=== PATIENT | female | born 1930 | race Caucasian/White ===

== ENCOUNTER 2017-02-03 17:12 | Emergency (ER) | payer OTHER ==
[~2017-02-03] VITALS: Ht 154.9 cm; Wt 60.3 kg
--- NOTE | 2017-02-03 17:54 | ED MVC/FALL/TRAUMA COMPLAINT ---
History of Present Illness General Chief Complaint: Fall Stated Complaint: RIGHT SIDE PAIN, BRUISE TO HEAD S/P FALL 2HOURS Source: patient, family Exam Limitations: no limitations Vital Signs & Intake/Output Vital Signs & Intake/Output Vital Signs Date Time Temp Pulse Resp B/P B/P Pulse O2 O2 Flow FiO2 Mean Ox Delivery Rate 02/03 1930 97.7 66 18 166/80 97 Room Air 02/03 1856 Room Air 02/03 1732 98.4 73 15 122/74 100 Room Air ED Intake and Output 02/04 0000 02/03 1200 Intake Total 120 Output Total Balance 120 Intake, Oral 120 Patient 133 lb Weight Weight Reported by Patient Measurement Method Allergies Coded Allergies: NO KNOWN ALLERGIES (12/28/12) Triage Note: PT TO ED S/P FALL IN THE YARD AT HOME, PT REPORTING SHE WAS BENDING DOWN TO PICK SOMETHING UP AND ACCIDENTLY FELL FORWARD. NOW C/O R SIDED RIB PAIN, DENIES CP, SOB, SANTIZO, DENIES DIZZINESS P/T FALL. SMALL AREA OF BRUISING OVER R EYE. Triage Nurses Notes Reviewed? yes Onset: Abrupt Duration: hour(s): (3) Timing: single episode today Severity: mild, moderate Method of Injury: fall Loss of Consciousness: no loss of consciousness No Modifying Factors: none Associated Symptoms: RIB PAIN HPI: This is an 86-year-old female presents to the ER with her daughter for chief complaint of trip and fall at 3:00. She states she was outside in the garden raking when she lost balance and hit her head on the soft dirt. She fell and hit the right side of her head as well as her right ribs. She was able to get up on her own and called her daughter. They brought her here for evaluation. She was given 2 Tylenol prior to arrival. Patient does take baby aspirin daily. No other anticoagulants. Past History Travel History Traveled to [place] past 21 day No Medical History Any Pertinent Medical History? see below for history Neurological: dementia EENT: NONE Cardiovascular: hypertension, hyperlipidemia Respiratory: NONE Gastrointestinal: NONE Hepatic: NONE Renal: NONE Musculoskeletal: NONE Psychiatric: NONE Endocrine: NONE Blood Disorders: NONE Cancer(s): NONE CHILDR[employer] DIRECTOR/Reproductive: NONE Pneumonia Vaccine: 10/22/08 Influenza Vaccine: 06/21/13 Surgical History Surgical History: non-contributory Psychosocial History Who do you live with Patient/Self What is your primary language [place]ian Tobacco Use: Never used ETOH Use: denies use Illicit Drug Use: denies illicit drug use Family History Hx Contributory? No Review of Systems Review of Systems Constitutional: Denies: chills, fever. Eyes: Reports: no symptoms. Ears, Nose, Throat, Mouth: Reports: no symptoms. Respiratory: Denies: cough, short of breath, sputum production. Cardiovascular: Reports: chest pain. Denies: palpitations. Gastrointestinal/Abdominal: Denies: abdominal pain. Genitourinary: Reports: no symptoms. Musculoskeletal: Reports: see HPI (RIGHT RIB PAIN). Skin: Reports: see HPI. Neurological/Psychological: Denies: confusion, headache. All Other Systems: Reviewed and Negative Physical Exam Physical Exam General Appearance: well developed/nourished, alert, awake, anxious, mild distress Head: ABRASION TO RIGHT FOREHEAD Eyes: Bilateral: normal appearance, PERRL, EOMI. Ears, Nose, Throat, Mouth: hearing grossly normal, moist mucous membrane Neck: normal inspection, supple, full range of motion Respiratory: normal breath sounds, no respiratory distress, TENDER OVER RIGHT LOWER RIBS NO BRUISING Cardiovascular: regular rate/rhythm Peripheral Pulses: 2+ radial (R), 2+ radial (L) Gastrointestinal: normal bowel sounds, soft, non-tender Back: normal inspection, normal range of motion Neurologic/Psych: no motor/sensory deficits, awake, alert, oriented x 3 Skin: intact, normal color, warm/dry Core Measures ACS in differential dx? No Severe Sepsis Present: No Septic Shock Present: No Progress Differential Diagnosis: ICH, pnemothorax, rIB FRACTURE Plan of Care: Orders Procedure Date/time Status CT CHEST WO IV CONTRAST 02/04 1812 Active Diagnostic Imaging: Viewed by Me: CT Scan. Discussed w/RAD: CT Scan. Radiology Impression: PATIENT: AKBAR VILA PRESENT AGE: 86 PATIENT ACCOUNT NO: [id number] : [birth year] LOCATION: [facility] ORDERING PHYSICIAN: SD REYES MD SERVICE DATE: 02/03/17-1811 EXAM TYPE: CAT - CT HEAD WO IV CONTRAST EXAMINATION: CT HEAD WITHOUT CONTRAST CLINICAL INFORMATION: Evaluate for bleed status post fall onto head. COMPARISON: None TECHNIQUE: Contiguous axial imaging was performed from the skull base to vertex without intravenous administration of contrast. DLP: 588 mGy-cm FINDINGS: There is no evidence of acute intracranial hemorrhage or territorial infarction. No abnormal mass effect or midline shift is seen. Giraldo to white matter differentiation is well preserved. No extra-axial fluid collections are identified. The ventricles are normal in size. There is no abnormal attenuation within the brain parenchyma. The osseous structures and soft tissues are normal. The mastoid air cells and visualized portions of the paranasal sinuses are well aerated. There has been bilateral lens extractions. Arterial calcification prominent but unchanged IMPRESSION: No acute intracranial pathology. No change. DICTATED BY: VISHNU HUNG MD DATE/TIME DICTATED:02/03/171844 PHONE TRIAGE SPECIALIST:FLOR DATE/TIME TRANSCRIBED:02/03/171844 CONFIDENTIAL, DO NOT COPY WITHOUT APPROPRIATE AUTHORIZATION. <Electronically signed in Other Vendor System> SIGNED BY: VISHNU HUNG MD 02/03/171850, PATIENT: AKBAR VILA PRESENT AGE: 86 PATIENT ACCOUNT NO: [id number] : [birth year] LOCATION: [facility] ORDERING PHYSICIAN: SD REYES MD SERVICE DATE: 02/03/17 EXAM TYPE: CAT - CT CHEST WO IV CONTRAST EXAMINATION : CT CHEST WITHOUT CONTRAST CLINICAL INFORMATION: Right chest wall pain after fall. Evaluate for a fracture. COMPARISON: Chest x-ray October 2013. TECHNIQUE: Multidetector volumetric CT imaging of the chest was done. Axial MIP volume rendering provided. Sagittal and coronal reformatted images were obtained. DLP: 294 mGy-cm. FINDINGS: LUNGS: Scattered rounded calcified nodules throughout both lungs measuring up to 3 mm compatible with multiple calcified granulomas. In the right lung on image [id number] there is a 2 mm pleural-based nodular density without calcification. Lungs otherwise clear. No effusions. MEDIASTINUM: There is prominent arterial calcification of the aorta and coronary vessels. PLEURA: There is no pleural effusion. No pleural mass or thickening. AXILLA: No lymphadenopathy. UPPER ABDOMEN: There are 3 hypodense lesions both having the appearance of simple cyst involving the anterior aspect of the left lobe and anterior aspect of the right lobe as seen on the axial images 48 and 52 and 47, series 2. OSSEOUS STRUCTURES: No rib fractures. Multilevel spondylosis of the dorsal spine. IMPRESSION: 1. No rib fracture or acute abnormality. 2. Numerous small nodules throughout both lungs some abutting the pleura all but one demonstrating mostly calcified and compatible with granulomata. There is a single 2 mm pleural-based density in the right lung most likely reflects a noncalcified granuloma. Follow-up per Fleischner criteria if felt clinically necessary. Various management parameters for solitary pulmonary nodules are in the literature. According to the Fleischner Society, recommendations for pulmonary nodules are as follows: Nodule size < or = to 4 mm in LOW RISK PATIENTS: No follow up needed. Nodule size < or = to 4 mm in HIGH RISK PATIENTS: Follow up CT at 12 months; if unchanged, no further follow up. DICTATED BY: VISHNU HUNG MD DATE/TIME DICTATED:02/03/171848 PHONE TRIAGE SPECIALIST: FLOR DATE/TIME TRANSCRIBED:02/03/171848 CONFIDENTIAL, DO NOT COPY WITHOUT APPROPRIATE AUTHORIZATION. <Electronically signed in Other Vendor System> SIGNED BY: VISHNU HUNG MD 02/03/171906 Departure Departure Time of Disposition: 1910 Disposition: HOME OR SELF CARE Condition: Stable Clinical Impression Primary Impression: Contusion of rib on right side Secondary Impressions: Abnormal CT of the chest, Facial abrasion Referrals: MARYELLEN ROGERS MD (PCP/Family) Additional Instructions: Take Tylenol as needed for pain. There is no evidence of any bleeding or fractures on your workup. Take copy of the CAT scan results see your primary care doctor for follow-up. Return as needed. Departure Forms: Customer Survey General Discharge Information
--- NOTE | 2017-02-03 18:51 | CT SCAN REPORT ---
EXAMINATION: CT HEAD WITHOUT CONTRAST CLINICAL INFORMATION: Evaluate for bleed status post fall onto head. COMPARISON: None TECHNIQUE: Contiguous axial imaging was performed from the skull base to vertex without intravenous administration of contrast. DLP: 588 mGy-cm FINDINGS: There is no evidence of acute intracranial hemorrhage or territorial infarction. No abnormal mass effect or midline shift is seen. Giraldo to white matter differentiation is well preserved. No extra-axial fluid collections are identified. The ventricles are normal in size. There is no abnormal attenuation within the brain parenchyma. The osseous structures and soft tissues are normal. The mastoid air cells and visualized portions of the paranasal sinuses are well aerated. There has been bilateral lens extractions. Arterial calcification prominent but unchanged IMPRESSION: No acute intracranial pathology. No change.
--- NOTE | 2017-02-03 19:07 | CT SCAN REPORT ---
EXAMINATION: CT CHEST WITHOUT CONTRAST CLINICAL INFORMATION: Right chest wall pain after fall. Evaluate for a fracture. COMPARISON: Chest x-ray October 2013. TECHNIQUE: Multidetector volumetric CT imaging of the chest was done. Axial MIP volume rendering provided. Sagittal and coronal reformatted images were obtained. DLP: 294 mGy-cm. FINDINGS: LUNGS: Scattered rounded calcified nodules throughout both lungs measuring up to 3 mm compatible with multiple calcified granulomas. In the right lung on image [id number] there is a 2 mm pleural-based nodular density without calcification. Lungs otherwise clear. No effusions. MEDIASTINUM: There is prominent arterial calcification of the aorta and coronary vessels. PLEURA: There is no pleural effusion. No pleural mass or thickening. AXILLA: No lymphadenopathy. UPPER ABDOMEN: There are 3 hypodense lesions both having the appearance of simple cyst involving the anterior aspect of the left lobe and anterior aspect of the right lobe as seen on the axial images 48 and 52 and 47, series 2. OSSEOUS STRUCTURES: No rib fractures. Multilevel spondylosis of the dorsal spine. IMPRESSION: 1. No rib fracture or acute abnormality. 2. Numerous small nodules throughout both lungs some abutting the pleura all but one demonstrating mostly calcified and compatible with granulomata. There is a single 2 mm pleural-based density in the right lung most likely reflects a noncalcified granuloma. Follow-up per Fleischner criteria if felt clinically necessary. Various management parameters for solitary pulmonary nodules are in the literature. According to the Fleischner Society, recommendations for pulmonary nodules are as follows: Nodule size < or = to 4 mm in LOW RISK PATIENTS: No follow up needed. Nodule size < or = to 4 mm in HIGH RISK PATIENTS: Follow up CT at 12 months; if unchanged, no further follow up.
[2017-02-03 19:30] VITALS: BP 166/80
== END 2017-02-03 19:32 ==
LOC: ERH 17:12
DX: S20.211A Contusion of right front wall of thorax, initial encounter (principal); S00.81XA Abrasion of other part of head, initial encounter; W18.09XA Striking against other object with subsequent fall, initial encounter; Y92.017 Garden or yard in single-family (private) house as the place of occurrence of the external cause; Y93.H1 Activity, digging, shoveling and raking

== ENCOUNTER 2017-11-02 13:06 | Inpatient (IN) | payer OTHER ==
[~2017-11-02] VITALS: Ht 157.5 cm; Wt 65.8 kg
--- NOTE | 2017-11-02 15:06 | CT SCAN REPORT ---
CT HEAD WITHOUT IV CONTRAST CT CERVICAL SPINE WITHOUT IV CONTRAST INDICATION: Fall with head strike on blood thinners. COMPARISON: Head CT 02/03/2017. TECHNIQUE: Multidetector CT acquisitions of the head and cervical spine were obtained without IV contrast. Multiplanar reformats were acquired and utilized for image interpretation. FINDINGS: HEAD: There is global cerebral volume loss. There is no intracranial hemorrhage, hydrocephalus, extra-axial surface collection, midline shift, or other herniation pattern. Giraldo to white matter differentiation is diffusely maintained without evidence of an evolved acute territorial infarct. The basilar cisterns are preserved. There is a 0.8 cm soft tissue density mass between the medial and inferior rectus muscles of the left orbit that is not present on the 02/03/[address] Given that this finding was not present previously, an orbital protocol MRI with and without IV contrast would be helpful in further assessment. No acute osseous abnormality. The paranasal sinuses and the mastoid air cells are well-aerated. Degenerative changes involving the TMJs bilaterally. CERVICAL SPINE: There is anatomic alignment of the vertebral bodies and posterior elements. Multilevel cervical spondylosis with multilevel hypertrophic facet arthropathy and mild disc space narrowing. Hypertrophic degenerative changes of the atlantodental interval. There is no acute fracture and there is no acute subluxation. The craniocervical and atlantoaxial articulations are normal. There is no prevertebral soft tissue swelling. No significant soft tissue abnormality within the neck. Calcified granuloma at the right lung apex. Partially imaged small right pleural effusion. IMPRESSION: 1. No acute intracranial abnormality. There is a 0.8 cm soft tissue density mass between the medial and inferior rectus muscles of the left orbit that is not present on the 02/03/[address] Given that this finding was not present previously, an orbital protocol MRI with and without IV contrast would be helpful in further assessment. 2. No acute osseous abnormality within the cervical spine. Cervical spondylosis. 3. Partially imaged small right pleural effusion.
--- NOTE | 2017-11-02 15:23 | ED CARDIAC/CP/PALPITATIONS ---
History of Present Illness General Chief Complaint: Fall Stated Complaint: BIBA S/P FALL, +HEADSTRIKE, +THINNERS. AAOX3 Source: patient, family, old records Exam Limitations: no limitations Vital Signs & Intake/Output Vital Signs & Intake/Output Vital Signs Date Time Temp Pulse Resp B/P B/P Pulse O2 O2 Flow FiO2 Mean Ox Delivery Rate 11/05 2214 114 138/82 11/05 2215 114 138/82 11/05 1748 104 11/05 1600 Room Air 11/05 1400 98.3 78 20 110/62 93 Room Air 11/05 0949 72 122/60 11/05 0949 72 122/60 11/05 0949 72 122/60 11/05 0919 Room Air 11/05 0712 98.1 72 20 122/60 94 Room Air ED Intake and Output 11/05 0000 11/04 1200 Intake Total 750 210 Output Total 850 Balance -100 210 Intake, IV 10 Intake, Oral 750 200 Number 2 Bowel Movements Output, Urine 850 Allergies Coded Allergies: NO KNOWN ALLERGIES (12/28/12) Triage Note: PT TO ED S/P TRIP AND FALL THIS MORNING, LAC NOTED TO LOWER LIP AREA. PT ON ELIQUIS FOR A-FIB. SKIN TEARS TO RIGHT ARM. Triage Nurses Notes Reviewed? yes Onset: Abrupt Duration: day(s): HPI: 86-year-old female comes into emergency room with shortness of breath and leg swelling. Patient lives by herself. She's had increased shortness of breath with exertion and increased swelling in her legs bilaterally. She has had a nonproductive cough. Today she tripped at home and fell and hit her face on the ground. No LOC. She is on oral anticoagulants for paroxysmal A. fib. (Paul Owens) Reconcile Medications Apixaban (Eliquis) 2.5 MG TABLET 1 TAB PO BID A FIB (Reported) Calcium Carbonate/Vitamin D3 (Caltrate 600 + D Tablet) 600 MG-800 TABLET 1 TAB PO DAILY SUPPLEMENT (Reported) Escitalopram Oxalate 10 MG TABLET 1 TAB PO QPM MENTAL HEALTH (Reported) Furosemide (Lasix) 20 MG TABLET 1 TAB PO BID CHF Lisinopril 40 MG TABLET 1 TAB PO EVENING HIGH BLOOD PRESSURE (Reported) Metoprolol Tartrate 50 MG TABLET 1 TAB PO BID HIGH BLOOD PRESSURE (Reported) Nabumetone 750 MG TABLET 1 TAB PO BID PRN PAIN SCALE 4-6 (MODERATE) (Reported ) Quetiapine Fumarate 25 MG TABLET 1 TAB PO QPM MENTAL HEALTH (Reported) Quetiapine Fumarate 25 MG TABLET 0.5 TAB PO QAM MENTAL HEALTH (Reported) (Alysa BYRD,Yonny Perry) Past History Travel History Traveled to [place] past 21 day No Medical History Any Pertinent Medical History? see below for history Neurological: dementia EENT: NONE Cardiovascular: hyperlipidemia, HTN. 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 No (Paul Owens) Review of Systems Review of Systems Constitutional: Reports: no symptoms. EENTM: Reports: no symptoms. Respiratory: Reports: see HPI. Cardiovascular: Reports: see HPI. GI: Reports: no symptoms. Genitourinary: Reports: no symptoms. Musculoskeletal: Reports: see HPI. Skin: Reports: see HPI. Neurological/Psychological: Reports: no symptoms. Hematologic/Endocrine: Reports: no symptoms. Immunologic/Allergic: Reports: no symptoms. All Other Systems: Reviewed and Negative (Paul Owens) Physical Exam Physical Exam General Appearance: alert, awake, mild distress Head: atraumatic, 1 cm laceration lower lip Eyes: Bilateral: normal appearance. Ears, Nose, Throat: normal ENT inspection, hearing grossly normal Neck: normal inspection Respiratory: no respiratory distress Cardiovascular: irregularly irregular Gastrointestinal: soft Back: decreased range of motion Extremities: pedal edema Neurologic/Psych: awake, alert Skin: intact, normal color Core Measures ACS in differential dx? Yes CVA/TIA Diagnosis No Sepsis Present: No Sepsis Focused Exam Completed? No (Paul Owens) Progress Differential Diagnosis: AMI, aortic dissection, atrial fibrillation, CHF/pulm edema, hyperthyroid, myocarditis, pancreatitis, pericarditis, pneumonia, pneumothorax, pulmonary embolism, PUD/GERD, respiratory failure, unstable angina Plan of Care: Orders Procedure Date/time Status BASIC ELECTROLYTES PLUS BUN&CR 11/06 0600 Active Restraint- Medical 11/05 0100 Complete Therapeutic Activities 11/05 UNK Complete Gait Training 11/05 UNK Complete OT EVAL MOD COMPLEX 45 MIN 11/05 UNK Complete Current Medications Sig/Darek Start time Last Medication Dose Stop Time Status Admin Diltiazem HCl 90 MG DAILY 11/06 1000 CAN (Cardizem SR) Diltiazem HCl 120 MG DAILY 11/06 1000 AC (Cardizem CD) Furosemide 20 MG 7:30 AM, & 4:30 PM 11/04 1630 AC 11/05 (Lasix) 1752 Quetiapine Fumarate 12.5 MG 0900 11/04 0900 AC 11/05 (Seroquel) 0950 Quetiapine Fumarate 25 MG 1800 11/03 1800 AC 11/05 (Seroquel) 1749 Apixaban 2.5 MG BID 11/02 2200 AC 11/05 (Eliquis) 2213 Escitalopram Oxalate 10 MG QPM 11/02 2200 AC 11/05 (Lexapro) 2213 Metoprolol Tartrate 50 MG BID 11/02 2200 AC 11/05 (Lopressor) 2215 Lisinopril 40 MG DAILY 11/02 1900 AC 11/05 (Prinivil) 0949 Acetaminophen 650 MG Q6P PRN 11/02 1845 AC 11/02 (Tylenol) 1854 Laboratory Tests 11/05/17 0622: Anion Gap 10, Estimated GFR 59 L, BUN/Creatinine Ratio 37.8 H Diagnostic Imaging: Viewed by Me: Radiology Read, CT Scan. Discussed w/RAD: Radiology Read, CT Scan. Radiology Impression: PATIENT: AKBAR VILA PRESENT AGE: 86 PATIENT ACCOUNT NO: [id number] : [birth year] LOCATION: [facility] ORDERING PHYSICIAN: Paul RIGGS SERVICE DATE: 11/02/17-1520 EXAM TYPE : RAD - XRY-PORTABLE CHEST XRAY EXAMINATION: XR PORTABLE CHEST CLINICAL INFORMATION: Shortness of breath COMPARISON: Chest x-ray 10/25/2013. CT chest TECHNIQUE: Portable frontal view of the chest was obtained. 3:45 PM FINDINGS: Lung volume low. There is mild central pulmonary vascular congestion with increased interstitial lung markings. Small right pleural effusion blunting the costophrenic angle. There is asymmetric elevation of right diaphragm compared to left. There is calcification of thoracic aortic arch. Multilevel degenerative spondylosis of dorsal spine. IMPRESSION: Lung volume low. Mild central pulmonary vascular prominence which is accentuated by the low inspiratory effort. Small right pleural effusion. DICTATED BY: Deny Morris MD DATE/TIME DICTATED:11/02/171599 POLICE CAPTAIN PRECINCT:FLOR DATE/TIME TRANSCRIBED:11/02/171599 CONFIDENTIAL, DO NOT COPY WITHOUT APPROPRIATE AUTHORIZATION. <Electronically signed in Other Vendor System> SIGNED BY: Deny Morris MD 11/02/17 1605, PATIENT: AKBAR VILA PRESENT AGE: 86 PATIENT ACCOUNT NO: [id number] : [birth year] LOCATION: [facility] ORDERING PHYSICIAN: Terry RIGGS SERVICE DATE: 11/02/17 EXAM TYPE: CAT - CT CERV SPINE WO IV CONTRAST; CT HEAD WO IV CONTRAST CT HEAD WITHOUT IV CONTRAST CT CERVICAL SPINE WITHOUT IV CONTRAST INDICATION: Fall with head strike on blood thinners. COMPARISON: Head CT 02/03/2017. TECHNIQUE: Multidetector CT acquisitions of the head and cervical spine were obtained without IV contrast. Multiplanar reformats were acquired and utilized for image interpretation. FINDINGS: HEAD: There is global cerebral volume loss. There is no intracranial hemorrhage, hydrocephalus, extra-axial surface collection, midline shift, or other herniation pattern. Giraldo to white matter differentiation is diffusely maintained without evidence of an evolved acute territorial infarct. The basilar cisterns are preserved. There is a 0.8 cm soft tissue density mass between the medial and inferior rectus muscles of the left orbit that is not present on the 02/03/[address] Given that this finding was not present previously, an orbital protocol MRI with and without IV contrast would be helpful in further assessment. No acute osseous abnormality. The paranasal sinuses and the mastoid air cells are well-aerated. Degenerative changes involving the TMJs bilaterally. CERVICAL SPINE: There is anatomic alignment of the vertebral bodies and posterior elements. Multilevel cervical spondylosis with multilevel hypertrophic facet arthropathy and mild disc space narrowing. Hypertrophic degenerative changes of the atlantodental interval. There is no acute fracture and there is no acute subluxation. The craniocervical and atlantoaxial articulations are normal. There is no prevertebral soft tissue swelling. No significant soft tissue abnormality within the neck. Calcified granuloma at the right lung apex. Partially imaged small right pleural effusion. IMPRESSION: 1. No acute intracranial abnormality. There is a 0.8 cm soft tissue density mass between the medial and inferior rectus muscles of the left orbit that is not present on the 02/03/[address] Given that this finding was not present previously, an orbital protocol MRI with and without IV contrast would be helpful in further assessment. 2. No acute osseous abnormality within the cervical spine. Cervical spondylosis. 3. Partially imaged small right pleural effusion. DICTATED BY: Yonny Sommers MD DATE/TIME DICTATED:11/02/171449 POLICE CAPTAIN PRECINCT:FLOR DATE/TIME TRANSCRIBED:11/02/171449 CONFIDENTIAL, DO NOT COPY WITHOUT APPROPRIATE AUTHORIZATION. <Electronically signed in Other Vendor System> SIGNED BY: Yonny Sommers MD 11/02/17 1502 Initial ED EKG: rate (125), AFIB (Paul Owens) Departure Departure Disposition: STILL A PATIENT Condition: Stable Clinical Impression Primary Impression: Acute CHF (congestive heart failure) Secondary Impressions: Head injury, Lip laceration Referrals: Ricki Stewart MD (PCP/Family) Departure Forms: Customer Survey General Discharge Information Admission Note Spoke With: Valentino Singh MD Documentation of Exam: Documentation of any treatments & extenuating circumstances including Concerns Regarding Discharge (functional status, medication knowledge or non-compliance, living conditions, etc.) that warrant an admission rather than observation: Patient will require IV diuresis. Cardiac consultation. Echocardiogram. Cardiac telemetry. High risk. Patient would do poorly as an outpatient. (Paul Owens) Departure Prescriptions: Current Visit Scripts Furosemide (Lasix) 1 TAB PO BID #60 TAB PA/CHIEF TECHNICIAN X RAY Co-Sign Statement Statement: ED Attending supervision documentation- [X] I saw and evaluated the patient. I have also reviewed all the pertinent lab results and diagnostic results. I agree with the findings and the plan of care as documented in the PA's/CHIEF TECHNICIAN X RAY's documentation. Patient presents for evaluation of worsening shortness of breath, leg swelling and injury sustained status post fall earlier today. Physical examination reveals clear breath sounds bilaterally. Patient has an upper lip laceration and a nonfocal neurologic examination. [] I have reviewed the ED Record and agree with the PA's/CHIEF TECHNICIAN X RAY's documentation. [] Additions or exceptions (if any) to the PAs/CHIEF TECHNICIAN X RAY's note and plan are summarized below: [] (Alysa BYRD,Yonny Perry) Procedures Laceration/Wound Repair Progress: 1 cm laceration left lower lip, Betadine prep, irrigated with peroxide, 6. 0 nylon, sutures placed, bacitracin, patient tolerated procedure well, sterile technique, (Paul Owens) Critical Care Note Critical Care Note Critical Care Time: non-applicable (Paul Owens)
[2017-11-02 16:03] LABS: ABSOLUTE BASOPHIL COUNT 0 /CUMM (0.0-0.2); ABSOLUTE EOSINOPHIL COUNT 0 /CUMM (0.0-0.7); ABSOLUTE GRANULOCYTE CT 3.2 /CUMM (1.4-6.5); ABSOLUTE MONOCYTE COUNT 0.5 /CUMM (0.10-0.60); EOSINOPHIL % 0.9 % (0-5); GRANULOCYTE % 67.2 % (42.2-75.2); HEMATOCRIT 38.3 % (37-47); MEAN CORPUSCULAR HGB CONC 33.5 G/DL (33.0-37.0); MEAN CORPUSCULAR VOLUME 89.5 FL (81.0-99.0); MEAN PLATELET VOLUME 9.8 FL (7.4-10.4); PLATELET COUNT 158 /CUMM (130-400); RBC DISTRIBUTION WIDTH 15.8 % (11.5-14.5); RED BLOOD CELL CT 4.28 /CUMM (4.20-5.40); WHITE BLOOD CELL COUNT 4.8 /CUMM (4.8-10.8)
--- NOTE | 2017-11-02 16:05 | RADIOLOGY REPORT ---
EXAMINATION: XR PORTABLE CHEST CLINICAL INFORMATION: Shortness of breath COMPARISON: Chest x-ray 10/25/2013. CT chest 02/03/2017 TECHNIQUE: Portable frontal view of the chest was obtained. 3:45 PM FINDINGS: Lung volume low. There is mild central pulmonary vascular congestion with increased interstitial lung markings. Small right pleural effusion blunting the costophrenic angle. There is asymmetric elevation of right diaphragm compared to left. There is calcification of thoracic aortic arch. Multilevel degenerative spondylosis of dorsal spine. IMPRESSION: Lung volume low. Mild central pulmonary vascular prominence which is accentuated by the low inspiratory effort. Small right pleural effusion.
--- NOTE | 2017-11-02 17:31 | History & Physical ---
Ish Kirby MDapna 11/02/17 8790: General Information and HPI MD Statement: I have seen and personally examined AKBAR VILA and documented this H&P. The patient is a 86 year old F who presented with a patient stated chief complaint of [shortness of breath, fall]. Source of Information: patient, family Exam Limitations: no limitations History of Present Illness: 86-year-old female with past medical history of hypertension, hyperlipidemia, atrial fibrillation, congestive heart failure came to [place] ER with complaints of shortness of breath for past few weeks with history of fall. Apparently patient was in usual state of health until this note, patient tripped and fell over her face. The fall is not associated with any loss of consciousness, seizure, incontinence to bowel or bladder weakness, confusion, lethargy, chest pain, palpitation. Patient has left lower lip 1 cm laceration which will be sutured and the ER. Patient has shortness of breath on exertion, recent weight gain and bilateral leg edema for the past 2-3 weeks. Patient has been seeing Dr. Primo Gay as outpatient. Patient was recently diagnosed with atrial fibrillation in August and started on Eliquis and her metoprolol dose was increased from 25 mg to 50 mg twice a day. Patient is on Lasix 20 mg twice a day at home. Allergies/Medications Allergies: Coded Allergies: NO KNOWN ALLERGIES (12/28/12) Home Med list Apixaban (Eliquis) 2.5 MG TABLET 1 TAB PO BID A FIB (Reported) Calcium Carbonate/Vitamin D3 (Caltrate 600 + D Tablet) 600 MG-800 TABLET 1 TAB PO DAILY SUPPLEMENT (Reported) Escitalopram Oxalate 10 MG TABLET 1 TAB PO QPM MENTAL HEALTH (Reported) Furosemide 20 MG TABLET 1 TAB PO DAILY DIURETIC (Reported) Lisinopril 40 MG TABLET 1 TAB PO EVENING HIGH BLOOD PRESSURE (Reported) Metoprolol Tartrate 50 MG TABLET 1 TAB PO BID HIGH BLOOD PRESSURE (Reported) Nabumetone 750 MG TABLET 1 TAB PO BID PRN PAIN SCALE 4-6 (MODERATE) (Reported ) Quetiapine Fumarate 25 MG TABLET 1 TAB PO QPM MENTAL HEALTH (Reported) Quetiapine Fumarate 25 MG TABLET 0.5 TAB PO QAM MENTAL HEALTH (Reported) Compliance With Home Meds: GOOD Past History Travel History Traveled to [place] past 21 day No Medical History Neurological: dementia EENT: NONE Cardiovascular: hyperlipidemia, HTN. AFIB,CHF Respiratory: NONE Gastrointestinal: NONE Hepatic: NONE Renal: NONE Musculoskeletal: NONE Psychiatric: NONE Endocrine: NONE Blood Disorders: NONE Cancer(s): NONE ANALYTICS LEADER/Reproductive: NONE Surgical History Surgical History: non-contributory ECHO Results (as available) EF% 60 Past Family/Social History Family History Relations & Conditions if any MOTHER Relation not specified for: FHx: stomach cancer Psychosocial History Where do you live? Home Who Do You Live With? self Services at Home: None Primary Language: Guyanese Smoking Status: Never Smoked ETOH Use: denies use Illicit Drug Use: denies illicit drug use Functional Ability ADLs Independent: dressing, eating, toileting, bathing. Ambulation: cane IADLs Independent: shopping, housework, finances, food prep, telephone, transportation , medication admin. Review of Systems Review of Systems Constitutional: Reports: no symptoms. Cardiovascular: Reports: no symptoms. Respiratory: Reports: short of breath. GI: Reports: no symptoms. Genitourinary: Reports: no symptoms. Musculoskeletal: Reports: no symptoms. Skin: Reports: no symptoms. Neurological/Psychological: Reports: no symptoms. Exam & Diagnostic Data Last 24 Hrs of Vital Signs/I&O Vital Signs Date Time Temp Pulse Resp B/P B/P Pulse O2 O2 Flow FiO2 Mean Ox Delivery Rate 11/02 1828 97.2 107 18 156/88 94 Room Air 11/02 1603 Room Air 11/02 1558 97.0 84 18 138/90 94 Room Air 11/02 1316 97.9 51 18 140/88 Intake & Output 11/02 1600 11/02 0800 11/02 0000 Intake Total Output Total Balance Patient 145 lb Weight Weight Reported by Patient Measurement Method Physical Exam General Appearance Alert, Oriented X3, Cooperative, No Acute Distress Skin left lower lip 1 cm laceration. Neck Supple, No JVD, No thryomegaly Cardiovascular Normal S1, Normal S2, No Murmurs, irregular Lungs left lower lobe crackles Abdomen Soft Neurological Normal Speech, Strength at 5/5 X4 Ext, Normal Tone Extremities bilateral2+ pedal edema up to the level of knee.no erythema. Bilateral pulses felt. Vascular Normal Pulses Diagnostic Data EKG Results Atrial fibrillation heart rate 80 CXR Results IMPRESSION: Lung volume low. Mild central pulmonary vascular prominence which is accentuated by the low inspiratory effort. Small right pleural effusion. Other Results head ct 1. No acute intracranial abnormality. There is a 0.8 cm soft tissue density mass between the medial and inferior rectus muscles of the left orbit that is not present on the 02/03/[address] Given that this finding was not present previously, an orbital protocol MRI with and without IV contrast would be helpful in further assessment. 2. No acute osseous abnormality within the cervical spine. Cervical spondylosis. 3. Partially imaged small right pleural effusion. Assessment/Plan Assessment: 86-year-old female with past medical history of hypertension, hyperlipidemia, atrial fibrillation, diastolic congestive heart failure came to [place] ER with complaints of shortness of breath for past few weeks with history of fall. Admission vitals Temperature 97.2, pulse rate 84, respiratory rate 18, blood pressure 138/90, saturating at 94 on room air. Admission labs W BC 4.8, hemoglobin 12.8, platelet 158, sodium 142, potassium 4.1, BUNs 56, creatinine 1.4, proBNP 10,000, troponin 0.01. ED treatment Lasix 40 mg once, Tylenol 650 once Assessment and plan 1. Acute on chronic congestive heart failure Patient has shortness of breath, proBNP 10,000 and x-ray shows mild central pulmonary vascular prominence with small right pleural effusion. This is an acute on chronic congestive heart failure secondary due to atrial fibrillation/ diastolic dysfunction. One dose of Lasix 40 mg given in ED. Per cardiology will continue IV Lasix and do an echocardiogram in a.m. Will continue Eliquis. If the rate is still not controlled can add Cardizem. Serial troponin and EKG. 2. Fall with left lower lip laceration Lip laceration in the left lower lip of 1 cm. The same will be sutured. 3. Atrial fibrillation Rate control atrial fibrillation. Continue Eliquis and metoprolol. 4. Hypertension Blood pressure well controlled upon admission. We will continue lisinopril 40 daily and metoprolol 50 mg twice a day 5. Acute kidney injury This can be secondary due to dehydration. We'll encourage by mouth intake. If needed we can start gentle hydration. 6. Hyperlipidemia Continue atorvastatin. full code Diet-heart healthy diet As Ranked By This Provider Problem List: 1. Lip laceration 2. Acute CHF (congestive heart failure) Core Measures/Misc (06/07) Acute Coronary Syndrome ACS Diagnosis: No Congestive Heart Failure Congestive Heart Failure Diagnosis Yes Last Known EF % 60 Cerebrovascular Accident CVA/TIA Diagnosis: No VTE (View Protocol) VTE Risk Factors Age>40 No Mechanical VTE Prophylaxis d/t Other No VTE Pharm Prophylaxis d/t Other Sepsis (View protocol) Sepsis Present: No Mayi Vaughn 11/02/170: Resident Review Statement Resident Statement: examined this patient, discussed with international tax manager Other Findings: Patient is 86-year-old female with past medical history significant for atrial fibrillation was on Coumadin in the past and was kept off of anticoagulation for few years being in sinus rhythm for a long time but recently again started on Eliquis by Dr. Gay few months ago when found in atrial fibrillation in his office came in with chief complaint of worsening shortness of breath and lower extremity edema for past few weeks. Patient is very hard of hearing and most of the history was taken from her daughter . According to the daughter lately patient was found to be very short of breath with minimal ambulation and also had worsening bilateral lower extremity edema. Patient is very compliant with her prescribed medications . Patient was supposed to see Dr. Gay next week but her daughter requested their office to get her earlier because of concerning symptoms but was advised to come to ER. While she was about to come to ER she had a mechanical fall that resulted in a small laceration below her lower lip which warranted them to call 911 and she was brought in to [place] [facility]. She denied any chest pain, headache, worsening chest pressure, nausea, vomiting, any urinary or bowel complaints. vital signs in the ER : temperature 97.9, pulse 51, respiratory rate 18, blood pressure 140/88 and she was saturating 94% on room air. Labs were significant for WBC count 4.8, hemoglobin 12.8, hematocrit 38.3, platelet count 158, sodium 142, potassium 4.1, BUN 56, creatinine 1.4, proBNP 10 ,000, troponin less than 0.01, AST 84, ALT 99 Chest x-ray showed mild central pulmonary vascular prominence and small right pleural effusion Head CT showed no acute intra-cranial abnormality but there was incidental finding of 0.8 cm soft tissue density mass between the medial and inferior rectus muscle of the left orbit warranting further arbital protocol MRI. EKG showed atrial fibrillation with no acute ST-T wave changes On examination Patient is alert and oriented 3 Head atraumatic Neck supple, no JVD Chest shows no crackles or rhonchi Heart S1-S2 normal, irregularly irregular heart rate with no added sounds Abdomen soft with no organomegaly Extremities she would 3+ pitting edema up to thighs No neurological deficit noted. Assessment and plan 86-year-old female with history of atrial fibrillation on anticoagulation and hypertension came in with worsening shortness of breath and lower extremity edema most likely due to acute CHF exacerbation would need telemetry admission and diuresis We will take care for the following problems Problem list 1. Acute CHF exacerbation Patient was already seen by cardiology. We will rule out ACS with serial EKGs and troponins. We will start her on IV Lasix. She already get 40 mg in ED and we will continue with 20 mg IV Lasix twice a day from tomorrow morning. We will check echocardiogram. 2. AK I/questionable CK D Creatinine is 1.4 and admission but last creatinine we have in the system is 0.8 , 2015 at this point we are not sure if it's her CK D and this is her baseline. We will monitor her kidney function carefully while she is on IV Lasix. 3. Atrial fibrillation We will continue her home dose of Eliquis Continue her home dose of metoprolol and if needed we might start Cardizem for better rate control. 4. Mechanical fall resulted in below lower lip laceration She was sutured in ER and hemostasis was secured. PT evaluation in a.m. for gait stability, patient uses cane at baseline. Patient is full cor Pharmacological DVT prophylaxis Heart healthy diet Valentino Singh MD 11/02/17 2137: Attending Review Statement Attending Statement Attending MD Statement: examined this patient, discuss w/resident/PA/STRUCTURAL WELDER, agreed w/resident/PA/STRUCTURAL WELDER, discussed with family, reviewed EMR data (avail), reviewed images, amended to note Attending Assessment/Plan: The patient is an 86 yo female with h/o HTN, HL afib (on Eliquis), preserved EF CHF who presented in the ED after a mechanical fall and lip laceration. She denied syncope or chest pain. She has had increasing dyspnea, recent weight gain and increased LE edema noted. Her dose of Metoprolol was recently increased by Dr. Gay due to increased HR. She is also on Eliquis and Lasix at home. Dr. Gay saw her in ED and recommended telemetry admission for CHF. Physical Exam: VS: T 97.9 P 107, R 18, BP 138/90-156/88, PO 94% RA HEENT: eyes- PERRLA, EOMI tabitha- moist mucosa, + lip laceration Neck: no JVD/bruits Chest: few rales at both bases Cor: sl tachy, irreg, nl S1, S2 Abd: BS, soft, NT Ext: 2+ edema, pulses 2+ Neuro: alert & oriented x 3, non-focal exam, gait not tested Labs/Tests- as above Impression/Plan: #Acute on Chronic Preserved Ejection Fraction Congestive Heart Failure- as above. HR not well controlled as probable cause of increased CHF. Pro BNP 10,000 and CXR c/w failure. Plan: Admit to telemetry floor. Cardiology consult - Dr. Gay (done) IV Lasix as per Cardiology. Control HR I/O's, daily weights. Serial Troponin levels. #Atrial Fibrillation- HR not well controlled. Plan: Continue Metoprolol and Eliquis. May need to add Cardizem if not responding. #S/P Fall - mechanical fall, no syncope- lower lip laceration (small). Plan: Needs suturing of lip laceration. PT evaluation. #HTN- BP as above. Plan: Continue Metoprolol and Lisinopril.
--- NOTE | 2017-11-02 17:41 | Cons- Cardiology ---
General Information and HPI Consulting Request Date of Consult: 11/02/17 Requested By: Hospitalist Reason for Consult: New-onset CHF in a patient with bundle branch block and paroxysmal atrial fibrillation. Source of Information: patient, old records Exam Limitations: no limitations History of Present Illness: Armida Vila is an 86-year-old female who originally presented in 2008 with an episode of paroxysmal atrial fibrillation which spontaneously converted to sinus rhythm. She also has known left bundle branch block. Subsequently she was maintained on anticoagulation but is now on just aspirin 81 mg daily. Her echocardiogram at that time did not show any major abnormalities, and she was subsequently just followed along. Her blood pressure has been under good control. Her EKG has been relatively stable. At the time of her visit in August 2017, Armida was complaining of shortness of breath and edema., I found her to be in atrial fibrillation with a slightly increased rate, which I thought accounted for her shortness of breath and increased edema. At that time, I changed her Dyazide to Lasix 20 mg daily and increased her metoprolol from 25 mg to 50 mg daily, and put her on Eliquis 2.5 mg twice a day for stroke prevention. On her follow-up visit on October 01 she was back in sinus rhythm and more comfortable. The patient's daughter called the office today to say that Armida was short of breath and having weight gain and edema. I recommended that she come to the emergency department. Her evaluation here has shown increase edema, BNP of 10, 000, atrial fibrillation with a rate of 125, and CHF on the chest x-ray. Initial troponin is negative. There is no history of chest pain. She is apparently compliant with medications, which include Lasix 20 mg daily, lisinopril 40 mg daily, metoprolol 50 mg twice a day, Eliquis 2.5 mg twice daily and atorvastatin 20 mg daily. Her last echocardiogram in 2015 showed LVH with good function, calcification of her mitral and aortic valves but good function. Allergies/Medications Allergies: Coded Allergies: NO KNOWN ALLERGIES (12/28/12) Home Med List: Apixaban (Eliquis) 2.5 MG TABLET 1 TAB PO BID A FIB (Reported) Calcium Carbonate/Vitamin D3 (Caltrate 600 + D Tablet) 600 MG-800 TABLET 1 TAB PO DAILY SUPPLEMENT (Reported) Escitalopram Oxalate 10 MG TABLET 1 TAB PO QPM MENTAL HEALTH (Reported) Furosemide 20 MG TABLET 1 TAB PO DAILY DIURETIC (Reported) Lisinopril 40 MG TABLET 1 TAB PO EVENING HIGH BLOOD PRESSURE (Reported) Metoprolol Tartrate 50 MG TABLET 1 TAB PO BID HIGH BLOOD PRESSURE (Reported) Nabumetone 750 MG TABLET 1 TAB PO BID PRN PAIN SCALE 4-6 (MODERATE) (Reported ) Quetiapine Fumarate 25 MG TABLET 1 TAB PO QPM MENTAL HEALTH (Reported) Quetiapine Fumarate 25 MG TABLET 0.5 TAB PO QAM MENTAL HEALTH (Reported) Review of Systems Review of Systems: The patient apparently had a mechanical fall today with laceration to her lip Past History Travel History Traveled to [place] past 21 day No Medical History Neurological: dementia EENT: NONE Cardiovascular: hyperlipidemia, HTN. AFIB,CHF Respiratory: NONE Gastrointestinal: NONE Hepatic: NONE Renal: NONE Musculoskeletal: NONE Psychiatric: NONE Endocrine: NONE Blood Disorders: NONE Cancer(s): NONE BRIDGE INSTRUCTOR/Reproductive: NONE Surgical History Surgical History: non-contributory Psychosocial History ETOH Use: denies use Illicit Drug Use: denies illicit drug use Exam & Diagnostic Data Vital Signs and I&O Vital Signs Date Time Temp Pulse Resp B/P B/P Pulse O2 O2 Flow FiO2 Mean Ox Delivery Rate 11/02 1603 Room Air 11/02 1558 97.0 84 18 138/90 94 Room Air 11/02 1316 97.9 51 18 140/88 Intake & Output 11/02 1600 11/02 0800 11/02 0000 11/01 1600 11/01 0800 11/01 0000 Intake Total Output Total Balance Patient 145 lb Weight Weight Reported by Patient Measurement Method Physical Exam: Elderly female slightly confused but in no acute distress HEENT exam laceration to the lower lip Neck veins not distended Carotids normal Chest a few basilar crackles are heard Heart irregular rhythm, mildly increased rate, no murmurs Abdomen benign Extremities 2+ edema to the mid thigh Labs/Young Results: Laboratory Tests 11/02 1545 Chemistry Sodium (137 - 145 mmol/L) 142 Potassium (3.5 - 5.1 mmol/L) 4.1 Chloride (98 - 107 mmol/L) 100 Carbon Dioxide (22 - 30 mmol/L) 28 Anion Gap (5 - 16) 14 BUN (7 - 17 mg/dL) 56 H Creatinine (0.5 - 1.0 mg/dL) 1.4 H Estimated GFR (>60 ml/min) 35 L BUN/Creatinine Ratio (7 - 25 %) 40.0 H Glucose (65 - 99 mg/dL) 94 Calcium (8.4 - 10.2 mg/dL) 9.6 Total Bilirubin (0.2 - 1.3 mg/dL) 1.2 AST (14 - 36 U/L) 84 H ALT (9 - 52 U/L) 99 H Alkaline Phosphatase (<127 U/L) 65 Troponin I (< 0.11 ng/ml) < 0.01 [id number] Pept (<125 pg/mL) 42193 H Total Protein (6.3 - 8.2 g/dL) 6.7 Albumin (3.5 - 5.0 g/dL) 4.1 Globulin (1.9 - 4.2 gm/dL) 2.6 Albumin/Globulin Ratio (1.1 - 2.2 %) 1.6 Hematology CBC w Diff NO MAN DIFF REQ WBC (4.8 - 10.8 /CUMM) 4.8 RBC (4.20 - 5.40 /CUMM) 4.28 Hgb (12.0 - 16.0 G/DL) 12.8 Hct (37 - 47 %) 38.3 MCV (81.0 - 99.0 FL) 89.5 MCH (27.0 - 31.0 PG) 30.0 MCHC (33.0 - 37.0 G/DL) 33.5 RDW (11.5 - 14.5 %) 15.8 H Plt Count (130 - 400 /CUMM) 158 MPV (7.4 - 10.4 FL) 9.8 Gran % (42.2 - 75.2 %) 67.2 Lymphocytes % (20.5 - 51.1 %) 20.3 L Monocytes % (1.7 - 9.3 %) 10.6 H Eosinophils % (0 - 5 %) 0.9 Basophils % (0.0 - 2.0 %) 1.0 Absolute Granulocytes (1.4 - 6.5 /CUMM) 3.2 Absolute Lymphocytes (1.2 - 3.4 /CUMM) 1.0 L Absolute Monocytes (0.10 - 0.60 /CUMM) 0.5 Absolute Eosinophils (0.0 - 0.7 /CUMM) 0 Absolute Basophils (0.0 - 0.2 /CUMM) 0 Diagnostic Data EKG Results Atrial fibrillation, rate 125, left bundle branch block. CXR Results PATIENT: ARMIDA VILA PRESENT AGE: 86 PATIENT ACCOUNT NO: [id number] : [birth year] LOCATION: [facility] ORDERING PHYSICIAN: Paul RIGGS SERVICE DATE: 11/02/171520 EXAM TYPE: RAD - XRY-PORTABLE CHEST XRAY EXAMINATION: XR PORTABLE CHEST CLINICAL INFORMATION: Shortness of breath COMPARISON: Chest x-ray 10/25/2013. CT chest 02/03/2017 TECHNIQUE: Portable frontal view of the chest was obtained. 3:45 PM FINDINGS: Lung volume low. There is mild central pulmonary vascular congestion with increased interstitial lung markings. Small right pleural effusion blunting the costophrenic angle. There is asymmetric elevation of right diaphragm compared to left. There is calcification of thoracic aortic arch. Multilevel degenerative spondylosis of dorsal spine. IMPRESSION: Lung volume low. Mild central pulmonary vascular prominence which is accentuated by the low inspiratory effort. Small right pleural effusion. DICTATED BY: Deny Morris MD DATE/TIME DICTATED:11/02/171599 PERSONNEL ANALYST:FLOR DATE/TIME TRANSCRIBED:11/02/171599 CONFIDENTIAL, DO NOT COPY WITHOUT APPROPRIATE AUTHORIZATION. <Electronically signed in Other Vendor System> SIGNED BY: Deny Morris MD 11/02/17 4882 Assessment/Plan Assessment/Plan The patient is an elderly woman with left bundle branch block, paroxysmal atrial fibrillation who has developed increasing edema and shortness of breath. She is currently in atrial fibrillation, although on her last office visit she was in sinus rhythm. She is found to be in moderate congestive heart failure probably due to atrial fibrillation and diastolic dysfunction. However she will need an echocardiogram for further evaluation of her cardiac status. For treatment we will put her on IV Lasix twice daily for now. I would continue her on beta blockers. If her heart rate is not well controlled we can add Cardizem either intravenously or orally. Serial EKGs and enzymes should be done. I will follow her along with you. Copies To: Ricki Stewart MD; Chilango BYRD,Kennedy Shaffer Consult Acknowledgment - Thank you for your consult request.
[2017-11-02] MEDS ORDERED: METOPROLOL TART50 M1 PO (18:42)
[2017-11-02] MEDS ORDERED: FUROSEMIDE20 M1 PO (18:42)
[2017-11-02] MEDS ORDERED: ELIQUIS2.5 M1 PO (18:55)
[2017-11-02] MEDS ORDERED: NABUMETONE750 M1 PO (18:56)
[2017-11-02] MEDS ORDERED: QUETIAPINE FUMA25 M1 PO ×2 (18:57)
[2017-11-02] MEDS ORDERED: CALTRATE 600 +1 EACH PO (18:58)
[2017-11-02] MEDS ORDERED: LISINOPRIL40 M1 PO (18:59)
[2017-11-02] MEDS ORDERED: ESCITALOPRAM OX10 MG PO (19:00)
--- NOTE | 2017-11-02 22:10 | Admission Certification ---
Admission Certification Certification Statement - As attending physician, I certify that at the time of - admission, based on clinical presentation, severity of - symptoms, need for further diagnostic testing and - therapeutic interventions, and risk of adverse outcomes - without in-hospital treatment, in my clinical assessment, - this patient requires an acute hospital stay for a minimum - of two nights or longer. I have also considered psychsocial - factors such as support system, advanced age, financial - issues, cognitive issues, and failed out-patient treatments, - past re-admission history, safety of patient, and lack of - compliance as applicable. Specific rationale supporting this admission is: The patient presents with CHF (acute on chronic) preserved EF, atrial fibrillation with poor rate control. Needs telemetry admission for treatment with IV Lasix and control HR.
[2017-11-03 04:32] LABS: ABSOLUTE BASOPHIL COUNT 0 /CUMM (0.0-0.2); ABSOLUTE EOSINOPHIL COUNT 0 /CUMM (0.0-0.7); ABSOLUTE GRANULOCYTE CT 3.6 /CUMM (1.4-6.5); ABSOLUTE LYMPH COUNT 0.6 /CUMM (1.2-3.4); ABSOLUTE MONOCYTE COUNT 0.5 /CUMM (0.10-0.60); BASOPHIL % 0.9 % (0.0-2.0); EOSINOPHIL % 0.7 % (0-5); GRANULOCYTE % 74.7 % (42.2-75.2); MEAN CORPUSCULAR HGB 29.4 PG (27.0-31.0); MEAN CORPUSCULAR HGB CONC 32.6 G/DL (33.0-37.0); MEAN CORPUSCULAR VOLUME 90.1 FL (81.0-99.0); MEAN PLATELET VOLUME 10.1 FL (7.4-10.4); PLATELET COUNT 124 /CUMM (130-400); RBC DISTRIBUTION WIDTH 15.4 % (11.5-14.5); RED BLOOD CELL CT 3.78 /CUMM (4.20-5.40); WHITE BLOOD CELL COUNT 4.8 /CUMM (4.8-10.8)
[2017-11-03 06:47] VITALS: BP 140/80
--- NOTE | 2017-11-03 10:10 | PN- Housestaff ---
Veronica BYRD,Raissa 11/03/17 1009: Subjective Follow-up For: Acute diastolic heart failure Subjective: Patient lying comfortably in bed, denies any active complaints. Review of Systems Constitutional: Reports: no symptoms. Cardiovascular: Denies: chest pain, palpitations. Respiratory: Reports: short of breath. Gastrointestinal: Reports: no symptoms. Genitourinary: Reports: no symptoms. Objective Last 24 Hrs of Vital Signs/I&O Vital Signs Date Time Temp Pulse Resp B/P B/P Pulse O2 O2 Flow FiO2 Mean Ox Delivery Rate 11/03 1457 97.5 62 20 132/80 94 11/03 1035 73 140/80 11/03 1035 73 140/80 11/03 0647 98.0 73 20 140/80 94 Room Air 11/02 2212 97.0 95 18 138/75 11/02 2138 97.0 95 18 138/75 97 Room Air 11/02 1913 97.2 107 18 156/85 11/02 1828 97.2 107 18 156/88 94 Room Air Intake & Output 11/03 1600 11/03 0800 11/03 0000 Intake Total 200 240 Output Total Balance 200 240 Intake, Oral 200 240 Patient 145 lb Weight Weight Reported by Patient Measurement Method Physical Exam General Appearance: Alert, Oriented X3, Cooperative Skin: No Rashes, No Breakdown Cardiovascular: Normal S1, Normal S2, No Murmurs, Irregular Lungs: Normal Air Movement Abdomen: Normal Bowel Sounds, Soft, No Tenderness Extremities: Normal Pulses, +2 pitting edema bilaterally Current Medications: Current Medications Sig/Darek Start time Last Medication Dose Route Stop Time Status Admin Acetaminophen 0 .STK-MED ONE 11/02 1857 DC PO Acetaminophen 650 MG Q6P PRN 11/02 1845 11/02 PO 1854 Apixaban 2.5 MG BID 11/02 2199 AC 11/03 PO 1035 Escitalopram Oxalate 10 MG QPM 11/02 2199 AC 11/02 PO 2212 Furosemide 20 MG 7:30 AM, & 4:30 PM 11/03 0730 AC 11/03 IV 1033 Furosemide 0 .STK-MED ONE 11/02 1857 DC IV Furosemide 40 MG ONCE ONE 11/02 181 DC 11/02 IV 11/02 181 185 Lidocaine 0 .STK-MED ONE 11/02 182 DC .ROUTE Lisinopril 40 MG DAILY 11/02 1900 AC 11/03 PO 1035 Metoprolol Tartrate 50 MG BID 11/02 2199 AC 11/03 PO 1035 Metoprolol Tartrate 0 .STK-MED ONE 11/02 2053 DC PO Quetiapine Fumarate 12.5 MG QAM 11/03 1000 AC 11/03 PO 1034 Quetiapine Fumarate 25 MG QPM 11/02 2199 AC 11/02 PO 2212 Quetiapine Fumarate 0 .STK-MED ONE 11/02 2053 DC PO Last 24 Hrs of Lab/Young Results Last 24 Hrs of Labs/Mics: Laboratory Tests 11/03/17 0355: Anion Gap 14, Estimated GFR 39 L, BUN/Creatinine Ratio 40.8 H, Troponin I < 0.01, CBC w Diff NO MAN DIFF REQ, RBC 3.78 L, MCV 90.1, MCH 29.4, MCHC 32.6 L, RDW 15.4 H, MPV 10.1, Gran % 74.7, Lymphocytes % 12.6 L, Monocytes % 11.1 H, Eosinophils % 0.7, Basophils % 0.9, Absolute Granulocytes 3.6, Absolute Lymphocytes 0.6 L, Absolute Monocytes 0.5, Absolute Eosinophils 0, Absolute Basophils 0 11/02/172144: Troponin I < 0.01 Assessment/Plan Assessment: 86-year-old female with past medical history of hypertension, hyperlipidemia, atrial fibrillation, diastolic congestive heart failure came to [facility] with complaints of shortness of breath for past few weeks. A/P 1. Congestive heart failure; Probably due to atrial fibrillation and diastolic dysfunction. - Continue IV lasix 20 mg twice daily. - Continue metoprolol for heart rate control - Echocardiogram pending. 2. Fall with lower lip laceration; - Bleeding stopped after suturing. 3. Chronic medical conditions Continue home medications. DVT prophylaxis; patient is on Eliquis Patient is full code Problem List: 1. Acute diastolic HF (heart failure) Pain Ratin Pain Location: None Pain Goal: Remain pain free Pain Plan: None Tomorrow's Labs & Rationales: BEP(on Lasix) Natalia BYRD,[place] 11/03/17 1609: Attending MD Review Statement Attending Statement Attending MD Statement: examined this patient, discuss w/resident/PA/SUPPLIER QUALITY ENGINEER, agreed w/resident/PA/SUPPLIER QUALITY ENGINEER, reviewed EMR data (avail), discussed with case mgmt, reviewed images Attending Assessment/Plan: Appreciate cardiology's recommendations. 86-year-old past medical history of A. danitza on Eliquis, chronic diastolic heart failure with treating with IV Lasix for acute diastolic heart failure. We are watching her BUN and creatinine and her crit closely. She has a mild transaminitis that will need to trend and will follow-up.
--- NOTE | 2017-11-03 11:29 | PN- Cardiology ---
Subjective Subjective: The patient is being diuresed with Lasix IV. She remains in atrial fibrillation. Her rate is not excessive at this time. Objective Vital Signs and I&Os Vital Signs Date Time Temp Pulse Resp B/P B/P Pulse O2 O2 Flow FiO2 Mean Ox Delivery Rate 11/03 1035 73 140/80 11/03 1035 73 140/80 11/03 0647 98.0 73 20 140/80 94 Room Air 11/02 2212 97.0 95 18 138/75 11/02 2138 97.0 95 18 138/75 97 Room Air 11/02 1913 97.2 107 18 156/85 11/02 1828 97.2 107 18 156/88 94 Room Air 11/02 1603 Room Air 11/02 1558 97.0 84 18 138/90 94 Room Air 11/02 1316 97.9 51 18 140/88 Intake & Output 11/03 1600 11/03 0800 11/03 0000 11/02 1600 11/02 0800 11/02 0000 Intake Total 200 240 Output Total Balance 200 240 Intake, Oral 200 240 Patient 145 lb 145 lb Weight Weight Reported by Patient Reported by Patient Measurement Method Physical Exam: Chest reveals rhonchi Heart reveals irregular rhythm and no murmurs Extremities reveal edema slightly improved Current Medications: Current Medications Sig/Darek Start time Last Medication Dose Route Stop Time Status Admin Acetaminophen 0 .STK-MED ONE 11/02 1857 DC PO Acetaminophen 650 MG Q6P PRN 11/02 1845 AC 11/02 PO 1854 Apixaban 2.5 MG BID 11/02 2200 AC 11/03 PO 1035 Escitalopram Oxalate 10 MG QPM 11/02 220 AC 11/02 PO 2212 Furosemide 20 MG 7:30 AM, & 4:30 PM 11/03 0730 AC 11/03 IV 1033 Furosemide 0 .STK-MED ONE 11/02 185 DC IV Furosemide 40 MG ONCE ONE 11/02 181 DC 11/02 IV 11/02 181 1854 Lidocaine 0 .STK-MED ONE 11/02 1820 DC .ROUTE Lisinopril 40 MG DAILY 11/02 1900 AC 11/03 PO 1035 Metoprolol Tartrate 50 MG BID 11/02 220 AC 11/03 PO 1035 Metoprolol Tartrate 0 .STK-MED ONE 11/02 2053 DC PO Quetiapine Fumarate 12.5 MG QAM 11/03 1000 AC 11/03 PO 1034 Quetiapine Fumarate 25 MG QPM 11/02 2199 AC 11/02 PO 2211 Quetiapine Fumarate 0 .STK-MED ONE 11/02 2053 DC PO Results Last 48 Hrs of Labs/Mics: Laboratory Tests 11/03/17 0355: Anion Gap 14, Estimated GFR 39 L, BUN/Creatinine Ratio 40.8 H, Troponin I < 0.01, CBC w Diff NO MAN DIFF REQ, RBC 3.78 L, MCV 90.1, MCH 29.4, MCHC 32.6 L, RDW 15.4 H, MPV 10.1, Gran % 74.7, Lymphocytes % 12.6 L, Monocytes % 11.1 H, Eosinophils % 0.7, Basophils % 0.9, Absolute Granulocytes 3.6, Absolute Lymphocytes 0.6 L, Absolute Monocytes 0.5, Absolute Eosinophils 0, Absolute Basophils 0 11/02/17 2145: Troponin I < 0.01 11/02/17 1545: Anion Gap 14, Estimated GFR 35 L, BUN/Creatinine Ratio 40.0 H, Glucose 94, Calcium 9.6, Total Bilirubin 1.2, AST 84 H, ALT 99 H, Alkaline Phosphatase 65, Troponin I < 0.01, [id number] Pept 57990 H, Total Protein 6.7, Albumin 4.1, Globulin 2.6, Albumin/Globulin Ratio 1.6, CBC w Diff NO MAN DIFF REQ, RBC 4.28, MCV 89.5, MCH 30.0, MCHC 33.5, RDW 15.8 H, MPV 9.8, Gran % 67.2, Lymphocytes % 20.3 L, Monocytes % 10.6 H, Eosinophils % 0.9, Basophils % 1.0, Absolute Granulocytes 3.2, Absolute Lymphocytes 1.0 L, Absolute Monocytes 0.5, Absolute Eosinophils 0, Absolute Basophils 0 Recent Imaging Studies: CONCLUSIONS Mild concentric left ventricular hypertrophy. Left ventricular systolic function is mildly decreased. Estimated ejection fraction is 45-50%. Mild to moderate right atrial dilatation. Moderate left atrial dilatation. Mild thickening/calcification of the mitral valve leaflets. Mild to moderate mitral annular calcification. Mild mitral regurgitation. Focal thickening of the aortic valve cusps. No aortic stenosis. Moderate tricuspid regurgitation. Right ventricular systolic pressure estimated to be elevated at 45- 50 mmHg. Dilated IVC. Primo Gay M.D. (Electronically Signed) Final Date: 03 November 2017 19:15 Assessment/Plan Assessment/Plan The patient is relatively stable. Her echocardiogram showed mildly reduced LV systolic function and pulmonary hypertension. I recommend continuing IV diuresis. We will monitor her heart rate and adjust medications as necessary to keep her rate under control. Continue telemetry? Yes
[2017-11-03 14:57] VITALS: BP 132/80
--- NOTE | 2017-11-03 19:16 | ECHOCARDIOGRAM REPORT ---
AKBAR VILA Age: 86 : 1930 Gender: F Exam Date: 11/03/2017 16:31 Exam Location: [address] Ht (in): 62 Wt (lb): 145 BSA: 1.71 BP: 140 / 80 Ordering Physician: Mayi Vaughn MD Referring Physician: Primo Gay MD Chief, SoC Technologist: Suzanne Cerrato [facility] Room Number: [id number] Indications: HEART FAILURE Rhythm: Atrial fibrillation Technical Quality: Good FINDINGS Left Ventricle Normal size left ventricle. Mild concentric left ventricular hypertrophy. Left ventricular systolic function is mildly decreased. Estimated ejection fraction is 45-50%. Right Ventricle The right ventricle is normal in size and function. Right Atrium Mild to moderate right atrial dilatation. Left Atrium Moderate left atrial dilatation. Mitral Valve Mild thickening/calcification of the mitral valve leaflets. Mild to moderate mitral annular calcification. Mild mitral regurgitation. Aortic Valve Focal thickening of the aortic valve cusps. No aortic stenosis. No aortic regurgitation. Tricuspid Valve Tricuspid valve is normal in structure and function. Moderate tricuspid regurgitation. Right ventricular systolic pressure estimated to be elevated at 45-50 mmHg. Pulmonic Valve Pulmonic valve not well visualized, grossly normal. Mild pulmonic regurgitation. Pericardium Normal pericardium without effusion. No pleural effusion. Great Vessels Normal aortic root dimension. The aortic arch and great vessels are well seen and are normal. Dilated IVC. CONCLUSIONS Mild concentric left ventricular hypertrophy. Left ventricular systolic function is mildly decreased. Estimated ejection fraction is 45-50%. Mild to moderate right atrial dilatation. Moderate left atrial dilatation. Mild thickening/calcification of the mitral valve leaflets. Mild to moderate mitral annular calcification. Mild mitral regurgitation. Focal thickening of the aortic valve cusps. No aortic stenosis. Moderate tricuspid regurgitation. Right ventricular systolic pressure estimated to be elevated at 45- 50 mmHg. Dilated IVC. Primo Gay M.D. (Electronically Signed) Final Date: 03 November 2017 19:15 MEASUREMENTS (Male / Female) Normal Values 2D ECHO LV Diastolic Diameter PLAX 4.2 cm 4.2 - 5.9 / 3.9 - 5.3 cm LV Systolic Diameter PLAX 2.9 cm 2.1 - 4.0 cm LV Fractional Shortening PLAX 31.0 % 25 - 46 % LV Ejection Fraction 2D Teich 59.0 % IVS Diastolic Thickness 1.2 cm LVPW Diastolic Thickness 1.2 cm LV Relative Wall Thickness 0.6 RV Internal Dim ED PLAX 2.6 cm 1.9 - 3.8 cm LVOT Diameter 2.0 cm Aortic Root Diameter 2.9 cm LA Systolic Diameter LX 4.6 cm 3.0 - 4.0 / 2.7 - 3.8 cm LA Volume 75.0 cm 18 - 58 / 22 - 52 cm Ascending Aorta Diameter 3.3 cm DOPPLER AV Peak Velocity 112.0 cm/s AV Peak Gradient 5.0 mmHg AV Mean Velocity 76.0 cm/s AV Mean Gradient 3.0 mmHg AV Velocity Time Integral 20.8 cm LVOT Peak Velocity 66.9 cm/s LVOT Peak Gradient 1.8 mmHg LVOT Mean Velocity 43.8 cm/s LVOT Mean Gradient 1.0 mmHg LVOT Velocity Time Integral 10.9 cm LVOT Stroke Volume 34.2 cm AV Area Cont Eq vti 1.6 cm AV Area Cont Eq pk 1.9 cm MV Peak Velocity 118.0 cm/s MV Peak Gradient 5.6 mmHg MV Mean Velocity 54.8 cm/s MV Mean Gradient 2.0 mmHg Mitral E Point Velocity 96.7 cm/s MV PHT Velocity 127.0 cm/s MV Deceleration [place]arrard 442.0 cm/s MV Pressure Half Time 86.2 ms MV Area PHT 2.6 cm MV Deceleration Time 222.0 ms TR Peak Velocity 347.0 cm/s TR Peak Gradient 48.2 mmHg Right Atrial Pressure 5.0 mmHg Pulmonary Artery Systolic Pressu 53.2 mmHg Right Ventricular Systolic Press 53.2 mmHg PV Peak Velocity 81.6 cm/s PV Peak Gradient 2.7 mmHg PV Mean Velocity 51.4 cm/s PV Mean Gradient 1.0 mmHg PV Velocity Time Integral 15.1 cm LV E' Lateral Velocity 12.2 cm/s Mitral E to LV E' Lateral Ratio 7.9 LV E' Septal Velocity 8.3 cm/s Mitral E to LV E' Septal Ratio 11.7
[2017-11-03 22:36] VITALS: BP 120/70
[2017-11-04 06:43] VITALS: BP 120/70
--- NOTE | 2017-11-04 07:12 | PN- Housestaff ---
Veronica BYRD,[facility] 11/04/17 0712: Subjective Follow-up For: Congestive heart failure due to acute diastolic dysfunction Atrial Fibrillation Tele-Events Since Last Visit: Atrial fibrillation Heart rate 86-150. Subjective: Patient lying comfortably in bed, denies any active complaints or overnight events. Review of Systems Constitutional: Reports: no symptoms. EENTM: Reports: no symptoms. Cardiovascular: Reports: no symptoms. Respiratory: Reports: no symptoms. Gastrointestinal: Reports: no symptoms. Genitourinary: Reports: no symptoms. Musculoskeletal: Reports: no symptoms. Skin: Reports: no symptoms. Neurological/Psychological: Reports: no symptoms. Hematologic/Endocrine: Reports: no symptoms. Immunologic/Allergic: Reports: no symptoms. Objective Last 24 Hrs of Vital Signs/I&O Vital Signs Date Time Temp Pulse Resp B/P B/P Pulse O2 O2 Flow FiO2 Mean Ox Delivery Rate 11/04 1434 97.9 71 20 108/60 95 Room Air 11/04 1057 120/70 11/04 0849 120/72 11/04 0849 120/72 11/04 0643 97.5 101 16 120/70 94 Room Air 11/04 0319 122 108/72 11/04 0000 Room Air 11/03 2236 98.0 120 20 120/70 96 11/03 2013 126 144/82 Intake & Output 11/04 1600 11/04 0800 11/04 0000 Intake Total 400 210 320 Output Total 400 500 Balance 0 210 -180 Intake, IV 10 20 Intake, Oral 400 200 300 Number 1 1 Bowel Movements Output, Urine 400 500 Physical Exam General Appearance: Alert, Cooperative, No Acute Distress Skin: No Rashes, No Breakdown Cardiovascular: Normal S1, Normal S2, irregular Lungs: Clear to Auscultation, Normal Air Movement Abdomen: Normal Bowel Sounds, Soft, No Tenderness Extremities: No Clubbing, No Cyanosis, No Edema Current Medications: Current Medications Sig/Darek Start time Last Medication Dose Route Stop Time Status Admin Acetaminophen 650 MG Q6P PRN 11/02 1845 AC 11/02 PO 1854 Apixaban 2.5 MG BID 11/02 2200 AC 11/04 PO 0848 Diltiazem HCl 30 MG 1000,1600,2200 11/04 1600 AC PO Diltiazem HCl 30 MG Q8 11/04 0921 DC 11/04 PO 1057 Diltiazem HCl 30 MG ONCE ONE 11/04 0245 DC 11/04 PO 11/04 0246 0319 Escitalopram Oxalate 10 MG QPM 11/02 2200 AC 11/03 PO 2010 Furosemide 20 MG 7:30 AM, & 4:30 PM 11/04 1630 AC PO Furosemide 20 MG 7:30 AM, & 4:30 PM 11/03 0730 DC 11/04 IV 0749 Lisinopril 40 MG DAILY 11/02 1900 AC 11/04 PO 0849 Metoprolol Tartrate 50 MG BID 11/02 2200 AC 11/04 PO 0849 Quetiapine Fumarate 12.5 MG 0900 11/04 0900 AC 11/04 PO 0849 Quetiapine Fumarate 25 MG 1800 11/03 1800 AC 11/03 PO 1846 Quetiapine Fumarate 12.5 MG QAM 11/03 1000 DC 11/03 PO 1034 Quetiapine Fumarate 25 MG QPM 11/02 2200 DC 11/02 PO 2212 Last 24 Hrs of Lab/Young Results Last 24 Hrs of Labs/Mics: Laboratory Tests 11/04/17 0635: Total Bilirubin 0.8, Direct Bilirubin 0.4, AST 60 H, ALT 87 H, Alkaline Phosphatase 55, Total Protein 5.3 L, Albumin 3.3 L Assessment/Plan Assessment: 86-year-old female with past medical history of hypertension, hyperlipidemia, atrial fibrillation, diastolic congestive heart failure came to [place] [facility] with complaints of shortness of breath for past few weeks. A/P 1. Congestive heart failure; Probably due to atrial fibrillation and diastolic dysfunction. - We'll change Lasix to by mouth 20 mg twice daily. - Continue metoprolol for heart rate control. Cardizem 30 mg every 6 hours was added this morning after patient was tachycardic to 150s last night. - Echocardiogram pending. 2. Fall with lower lip laceration; - Bleeding stopped after suturing. 3. Chronic medical conditions Continue home medications. DVT prophylaxis; patient is on Eliquis Patient is full code Problem List: 1. Acute diastolic HF (heart failure) Pain Ratin Pain Location: Chest Pain Goal: Remain pain free Pain Plan: None Tomorrow's Labs & Rationales: BEP(on Lasix) Natalia BYRD,[place] 11/04/17 1347: Attending MD Review Statement Attending Statement Attending MD Statement: examined this patient, discuss w/resident/PA/PNEUMATIC RIVETER, agreed w/resident/PA/PNEUMATIC RIVETER, reviewed EMR data (avail), discussed with nursing, reviewed images Attending Assessment/Plan: Events overnight noted. Patient got confused and started wandering. Patient was put in a [place]. As per patient's family she has done this at home as well. Echo results noted and she has an EF of 45-50% admit treating her for acute diastolic heart failure and right-sided heart failure. Appreciate cardiology follow-up will change the Lasix to oral. We have her on Cardizem 30 every 8 for a heart rate that's been high despite metoprolol. Will watch her for 24 hours on the oral Lasix and oral Cardizem and if the heart rate is okay and BUN and creatinine stable, anticipate discharge in a.m.
--- NOTE | 2017-11-04 11:49 | PN- Cardiology ---
Subjective Subjective: The patient has no complaints today. Apparently she was confused and wandering around the floor yesterday and is now in a [place] restraint. She denies any chest pain or shortness of breath. Her I's and O's are inaccurate. Her heart rate was a little bit elevated and she was started on by mouth Cardizem. Her heart rate is about 90 now. Her BUN and creatinine are slightly improved to 53 and 1.3. Her echocardiogram showed mildly decreased left ventricular systolic function and moderate pulmonary hypertension. Objective Vital Signs and I&Os Vital Signs Date Time Temp Pulse Resp B/P B/P Pulse O2 O2 Flow FiO2 Mean Ox Delivery Rate 11/04 1057 120/70 11/04 0849 120/72 11/04 0849 120/72 11/04 0643 97.5 101 16 120/70 94 Room Air 11/04 0319 122 108/72 11/04 0000 Room Air 11/03 2236 98.0 120 20 120/70 96 11/03 2012 126 144/82 11/03 1457 97.5 62 20 132/80 94 Intake & Output 11/04 1600 11/04 0800 11/04 0000 11/03 1600 11/03 0700 11/03 0000 Intake Total 210 320 400 200 240 Output Total 500 550 Balance 210 -180 -150 200 240 Intake, IV 10 20 Intake, Oral 200 300 400 200 240 Number 1 0 Bowel Movements Output, Urine 500 550 Patient 145 lb Weight Weight Reported by Patient Measurement Method Physical Exam: She is in no distress. She seems a little confused. HEENT exam is normal Chest a few rhonchi Heart irregular rhythm and no murmurs Extremities 1+ edema Current Medications: Current Medications Sig/Darek Start time Last Medication Dose Route Stop Time Status Admin Acetaminophen 650 MG Q6P PRN 11/02 1845 AC 11/02 PO 1854 Apixaban 2.5 MG BID 11/02 2199 AC 11/05 PO 0949 Diltiazem HCl 30 MG 1000,1600,0 11/04 1600 AC 11/05 PO 0949 Escitalopram Oxalate 10 MG QPM 11/02 2199 AC 11/04 PO 2114 Furosemide 20 MG 7:30 AM, & 4:30 PM 11/04 1630 AC 11/05 PO 0650 Furosemide 20 MG 7:30 AM, & 4:30 PM 11/03 0730 DC 11/04 IV 0749 Lisinopril 40 MG DAILY 11/02 1900 AC 11/05 PO 0949 Metoprolol Tartrate 50 MG BID 11/02 2200 AC 11/05 PO 0949 Patient Medication 1 ED ONE ONE 11/05 1200 DC Teaching ED 11/05 1201 Potassium Chloride 40 MEQ ONCE ONE 11/05 1200 DC PO 11/05 1201 Potassium Chloride 40 MEQ ONCE ONE 11/05 0815 DC 11/05 PO 11/05 0816 0948 Quetiapine Fumarate 12.5 MG 0900 11/04 0900 AC 11/05 PO 0950 Quetiapine Fumarate 25 MG 1800 11/03 1800 AC 11/04 PO 1741 Results Last 48 Hrs of Labs/Mics: Laboratory Tests 11/05/17 0622: Anion Gap 10, Estimated GFR 59 L, BUN/Creatinine Ratio 37.8 H 11/04/17 0635: Total Bilirubin 0.8, Direct Bilirubin 0.4, AST 60 H, ALT 87 H, Alkaline Phosphatase 55, Total Protein 5.3 L, Albumin 3.3 L Assessment/Plan Assessment/Plan The patient is a little confused, perhaps just due to being in the hospital. Apparently the family says she does wander around at home also. However otherwise she is independent. Her BUN and creatinine and edema have improved slightly. Her heart rate was elevated and is responding to Cardizem. I recommend changing her to oral Lasix. I would watch her one more day in the hospital and if she is stable she can go home on Lasix and Cardizem by mouth. Continue telemetry? Yes
--- NOTE | 2017-11-04 13:58 | PN- Student ---
Subjective Subjective: Patient was seen and examined this morning. She was cooperative and alert. She is now using a [place] because she was wandering yesterday. She required diltiazem over night due to increased heart rate that reached as high as 122. She says she is not having difficulty breathing but complains of chest tenderness on the left side when she touches it. She denies palpitations, syncope, dizziness, shortness of breath, or any other pain. Objective Objective: Vital Signs Date Time Temp Pulse Resp B/P B/P Pulse O2 O2 Flow FiO2 Mean Ox Delivery Rate 11/04 1057 120/70 11/04 0849 120/72 11/04 0849 120/72 11/04 0643 97.5 101 16 120/70 94 Room Air 11/04 0319 122 108/72 11/04 0000 Room Air 11/03 2236 98.0 120 20 120/70 96 11/03 2013 126 144/82 11/03 1457 97.5 62 20 132/80 94 Physical Exam: General: alert and oriented x3, cooperative, afebrile ENT: healing laceration below her bottom lip Neck: no lymphadenopathy, no thyrogemaly, supple Lungs: clear to auscultation, non-labored breathing, no crackles or wheezes Cardiac: irregular rhythm, tachycardia, normal S1 and S2, no murmurs appreciated , no JVP Abdomen: soft, non-distended, no hepatosplenomegaly Extremities: 2+ pitting bilateral edema Results Results: Laboratory Tests 11/04/17 0635: Total Bilirubin 0.8, Direct Bilirubin 0.4, AST 60 H, ALT 87 H, Alkaline Phosphatase 55, Total Protein 5.3 L, Albumin 3.3 L 11/03/17 0355: Anion Gap 14, Estimated GFR 39 L, BUN/Creatinine Ratio 40.8 H, Troponin I < 0.01, CBC w Diff NO MAN DIFF REQ, RBC 3.78 L, MCV 90.1, MCH 29.4, MCHC 32.6 L, RDW 15.4 H, MPV 10.1, Gran % 74.7, Lymphocytes % 12.6 L, Monocytes % 11.1 H, Eosinophils % 0.7, Basophils % 0.9, Absolute Granulocytes 3.6, Absolute Lymphocytes 0.6 L, Absolute Monocytes 0.5, Absolute Eosinophils 0, Absolute Basophils 0 11/02/17 2145: Troponin I < 0.01 11/02/17 1545: Anion Gap 14, Estimated GFR 35 L, BUN/Creatinine Ratio 40.0 H, Glucose 94, Calcium 9.6, Total Bilirubin 1.2, AST 84 H, ALT 99 H, Alkaline Phosphatase 65, Troponin I < 0.01, [id number] Pept 12540 H, Total Protein 6.7, Albumin 4.1, Globulin 2.6, Albumin/Globulin Ratio 1.6, CBC w Diff NO MAN DIFF REQ, RBC 4.28, MCV 89.5, MCH 30.0, MCHC 33.5, RDW 15.8 H, MPV 9.8, Gran % 67.2, Lymphocytes % 20.3 L, Monocytes % 10.6 H, Eosinophils % 0.9, Basophils % 1.0, Absolute Granulocytes 3.2, Absolute Lymphocytes 1.0 L, Absolute Monocytes 0.5, Absolute Eosinophils 0, Absolute Basophils 0 Orders Procedure Date/time Status BASIC ELECTROLYTES PLUS BUN&CR 11/05 0600 Active HEPATIC FUNCTION PANEL 11/04 0600 Complete Therapeutic Activities 11/04 UNK Complete Gait Training 11/04 UNK Complete Anticipated Discharge 11/04 UNK Active Occupational Tx Eval & Treat 11/04 UNK Active Restraint- Medical 11/04 UNK Active PHARMACY COMMUNICATION FORM 11/04 UNK Active Change service to 11/03 1731 Active Change service to 11/03 UNK Active PHARMACY COMMUNICATION FORM 11/03 UNK Active Current Medications Sig/Darek Start time Last Medication Dose Route Stop Time Status Admin Acetaminophen 650 MG Q6P PRN 11/02 1845 AC 11/02 PO 1854 Apixaban 2.5 MG BID 11/02 220 AC 11/04 PO 0848 Diltiazem HCl 30 MG 1000,1600,2200 11/04 1600 AC PO Diltiazem HCl 30 MG Q8 11/04 0921 DC 11/04 PO 1057 Diltiazem HCl 30 MG ONCE ONE 11/04 0245 DC 11/04 PO 11/04 0246 0319 Escitalopram Oxalate 10 MG QPM 11/02 2200 AC 11/03 PO 2011 Furosemide 20 MG 7:30 AM, & 4:30 PM 11/04 1630 AC PO Furosemide 20 MG 7:30 AM, & 4:30 PM 11/03 0730 DC 11/04 IV 0749 Lisinopril 40 MG DAILY 11/02 1900 AC 11/04 PO 0849 Metoprolol Tartrate 50 MG BID 11/02 2200 AC 11/04 PO 0849 Quetiapine Fumarate 12.5 MG 0900 11/04 0900 AC 11/04 PO 0849 Quetiapine Fumarate 25 MG 1800 11/03 1800 AC 11/03 PO 1846 Quetiapine Fumarate 12.5 MG QAM 11/03 1000 DC 11/03 PO 1034 Quetiapine Fumarate 25 MG QPM 11/02 2200 DC 11/02 PO 2212 Assessment/Plan Assessment: This is an 86 year old white female with a past medical history of atrial fibrillation on blood thinners, dementia, hyperlipidemia, hypertension, and diastolic CHF presenting with increased shortness of breath, non-productive cough, and increasing leg swelling. Her chest x-ray showed mild central pulmonary vascular prominence and a small right pleural effusion. Her echocardiogram shows mild left ventricular hypertrophy with an ejection fraction of 45-50% and moderate left atrial dilatation and increased right ventricular pressure. Her labs are notable for a BNP of 10,000 on admission with troponin of .01, ALT of 87 and AST of 60, and her most recent BUN and creatinine is 53 and 1.3 respectively. This is likely to be an acute exacerbation of CHF. Plan: Congestive heart failure -IV lasix 20 mg twice daily, may switch to oral -Metoprolol 50 mg BID for HR control -Diltiazem if HR increased, she is now on 30 mg daily after increased HR overnight -Echocardiogram showed mild left ventricular hypertrophy, ejection fraction of 45-50%, moderate left atrial dilatation, increased right ventricular pressure -Troponins remained low -Follow cardiology recommendations -PT evaluation Lower lip laceration -Sutured, continues to heal, she seems to not remember how it got there History of hypertension and hyperlipidemia -Continue home medications DVT prophylaxis -Continue Eliquis
[2017-11-04 14:34] VITALS: BP 108/60
--- NOTE | 2017-11-04 15:55 | Discharge Summary ---
See Addendum Visit Information Visit Dates Admission Date: 11/02/17 Discharge Date: 11/05/17 Hospital Course Course Attending Physician: Natalia BYRD,Waleska Patel Primary Care Physician: Ricki Stewart MD Consulting Request: Consulting Specialty: Cardiology Hospital Course: 86-year-old female with past medical history of hypertension, hyperlipidemia, atrial fibrillation, diastolic congestive heart failure came to [place] ER with complaints of shortness of breath for past few weeks. Patient was admitted to Telemetry floor and following issues were adressed; - Acute on Chronic Congestive heart failure - Fall with lower lip laceration; - Chronic medical conditions 1. Acute on Chronic Congestive heart failure; Probably due to atrial fibrillation and ?? combination of systolic and diastolic dysfunction. Echocardiogram showed an Ejection fraction of 45-50% with elevated right heart pressure. Cardiology consult was obtained. Patient was initially started on IV Lasix for diuresis later changed to by mouth. Metoprolol was continued and Cardizem was added for additional heart rate control (Heart rate was between 130-150 on metoprolol only) which was tolerated well. 2. Fall with lower lip laceration; Head CT was obtained which remained negative for any acute intracranial pathology. Lip laceration was sutured. 3. Chronic medical conditions Continue home medications. Allergies: Coded Allergies: NO KNOWN ALLERGIES (12/28/12) Significant Procedures: CT CERV SPINE WO IV CONTRAST; CT HEAD WO IV CONTRAST IMPRESSION: 1. No acute intracranial abnormality. There is a 0.8 cm soft tissue density mass between the medial and inferior rectus muscles of the left orbit that is not present on the 02/03/[address] Given that this finding was not present previously, an orbital protocol MRI with and without IV contrast would be helpful in further assessment. 2. No acute osseous abnormality within the cervical spine. Cervical spondylosis. 3. Partially imaged small right pleural effusion. XRY-PORTABLE CHEST XRAY IMPRESSION: Lung volume low. Mild central pulmonary vascular prominence which is accentuated by the low inspiratory effort. Small right pleural effusion. ECHOCARDIOGRAM CONCLUSIONS Mild concentric left ventricular hypertrophy. Left ventricular systolic function is mildly decreased. Estimated ejection fraction is 45-50%. Mild to moderate right atrial dilatation. Moderate left atrial dilatation. Mild thickening/calcification of the mitral valve leaflets. Mild to moderate mitral annular calcification. Mild mitral regurgitation. Focal thickening of the aortic valve cusps. No aortic stenosis. Moderate tricuspid regurgitation. Right ventricular systolic pressure estimated to be elevated at 45- 50 mmHg. Dilated IVC. Disposition Summary Disposition Principal Diagnosis: Acute on Chronic Congestive heart failure Additional Diagnosis: Atrial fibrillation Discharge Disposition: home or self care Discharge Instructions General Discharge Information Code Status: Full Code Patient's Diet: Heart healthy Patient's Activity: As tolerated Follow-Up Instructions/Appts: Please follow-up with your PCP within a week after discharge. Please follow-up with your gis manager(Dr. Gay) within 1-2 weeks after discharge. Take all your medications as directed. Medications at Discharge Discharge Medications: Continue taking these medications: Metoprolol Tartrate (Metoprolol Tartrate) 50 MG TABLET 1 Tablet ORAL TWICE DAILY Comments: Last Taken: 11/06/17 Time: 8:30 AM Apixaban (Eliquis) 2.5 MG TABLET 1 Tablet ORAL TWICE DAILY Comments: Last Taken: 11/06/17 Time: 8:30 AM Nabumetone (Nabumetone) 750 MG TABLET 1 Tablet ORAL TWICE DAILY as needed for PAIN SCALE 4-6 (MODERATE) Comments: NOT GIVEN IN HOSPITAL Quetiapine Fumarate (Quetiapine Fumarate) 25 MG TABLET 1 Tablet ORAL Every night Comments: Last Taken: 11/05/17 Time: 5:45 PM Quetiapine Fumarate (Quetiapine Fumarate) 25 MG TABLET 0.5 Tablet ORAL Every Morning Comments: Last Taken: 11/06/17 Time: 8:30 AM Calcium Carbonate/Vitamin D3 (Caltrate 600 + D Tablet) 600 MG-800 TABLET 1 Tablet ORAL DAILY Comments: NOT GIVEN IN HOSPITAL Lisinopril (Lisinopril) 40 MG TABLET 1 Tablet ORAL EVENING Comments: Last Taken: 11/06/17 Time: 8:30 AM Escitalopram Oxalate (Escitalopram Oxalate) 10 MG TABLET 1 Tablet ORAL Every night Comments: Last Taken: 11/05/17 Time: 10:15 PM Start taking the following new medications: Diltiazem HCl (Diltiazem 24HR ER) 120 MG CAP.ER.24H 1 Capsule ORAL DAILY Qty = 30 No Refills Instructions: . Comments: Last Taken: 11/06/17 Time: 8:30 AM Furosemide (Lasix) 20 MG TABLET 1 Tablet ORAL TWICE DAILY Qty = 60 No Refills Instructions: . Comments: Last Taken: 11/06/17 Time: 8:30 AM Copies To: Terry BYRD Rahul; Deidra BYRD,Primo Sotelo
--- NOTE | 2017-11-04 16:21 | Patient Discharge Instructions ---
Discharge Instructions General Discharge Information You were seen/treated for: Congestive heart failure Atrial Fibrillation Watch for these problems: Please return to the ER in case of any chest pain, palpitations, shortness of breath or leg swelling. Special Instructions: Please follow-up with your PCP within 1-2 weeks after discharge. Days follow-up with your onion topper within 1-2 weeks after discharge. Diet Continue normal diet: Yes Recommended Diet: Heart Healthy Activity Full Activity/No Limits: Yes Acute Coronary Syndrome Inclusion Criteria At DC or during hospital stay patient has or had the following: ACS DIAGNOSIS No Discharge Core Measures Meds if any: Prescribed or Continued at Discharge Meds if any: NOT Prescribed or Continued at Discharge Congestive Heart Failure Inclusion Criteria At DC or during hospital stay patient has or had the following: CHF DIAGNOSIS Yes Discharge Core Measures Meds if any: Prescribed or Continued at Discharge Meds if any: NOT Prescribed or Continued at Discharge Cerebrovascular accident Inclusion Criteria At DC or during hospital stay patient has or had the following: CVA/TIA Diagnosis No Discharge Core Measures Meds if any: Prescribed or Continued at Discharge Meds if any: NOT Prescribed or Continued at Discharge Venous thromboembolism Inclusion Criteria VTE Diagnosis No VTE Type NONE VTE Confirmed by (Test) NONE Discharge Core Measures - Per Current guidelines, there needs to be overlap - treatment for the first 5 days of Warfarin therapy. - If discharged on Warfarin prior to 5 days of - overlap therapy, the patient will need to be - assessed for post discharge needs including - *Post discharge parental anticoagulation - *Warfarin and/or parental anticoagulation education - *Follow up date to check INR post discharge At least 5 days overlap therapy as Inpatient No Meds if any: Prescribed or Continued at Discharge Note: Overlap Therapy is Warfarin and Anticoagulant Meds if any: NOT Prescribed or Continued at Discharge
[2017-11-04 22:16] VITALS: BP 130/80
[2017-11-05 07:12] VITALS: BP 122/60
--- NOTE | 2017-11-05 07:17 | PN- Housestaff ---
Veronica BYRD,[facility] 11/05/17 0716: Subjective Follow-up For: Congestive heart failure Atrial Fibrillation. Tele-Events Since Last Visit: Atrial fibrillation with some PVCs Heart Rate 70-91 Subjective: Patient denies any active complaints. Review of Systems Constitutional: Reports: no symptoms. EENTM: Reports: no symptoms. Cardiovascular: Reports: no symptoms. Respiratory: Reports: no symptoms. Gastrointestinal: Reports: no symptoms. Genitourinary: Reports: no symptoms. Musculoskeletal: Reports: no symptoms. Skin: Reports: no symptoms. Neurological/Psychological: Reports: no symptoms. Hematologic/Endocrine: Reports: no symptoms. Immunologic/Allergic: Reports: no symptoms. Objective Last 24 Hrs of Vital Signs/I&O Vital Signs Date Time Temp Pulse Resp B/P B/P Pulse O2 O2 Flow FiO2 Mean Ox Delivery Rate 11/05 0949 72 122/60 11/05 0949 72 122/60 11/05 0949 72 122/60 11/05 0919 Room Air 11/05 0712 98.1 72 20 122/60 94 Room Air 11/04 2216 98.0 90 20 130/80 94 11/04 2117 102 130/60 11/04 2116 101 130/60 11/04 1741 108 142/68 11/04 1600 Room Air 11/04 1434 97.9 71 20 108/60 95 Room Air Intake & Output 11/05 1600 11/05 0800 11/05 0000 Intake Total 110 350 Output Total 450 450 Balance -340 -100 Intake, IV 10 Intake, Oral 100 350 Number 1 Bowel Movements Output, Urine 450 450 Physical Exam General Appearance: Alert, Cooperative, No Acute Distress Skin: No Rashes, No Breakdown Cardiovascular: Normal S1, Normal S2, irregular Lungs: Clear to Auscultation Abdomen: Normal Bowel Sounds, Soft, No Tenderness Extremities: No Clubbing, No Cyanosis, trace pedal edema Current Medications: Current Medications Sig/Darek Start time Last Medication Dose Route Stop Time Status Admin Acetaminophen 650 MG Q6P PRN 11/02 1845 AC 11/02 PO 1854 Apixaban 2.5 MG BID 11/02 2200 AC 11/05 PO 0949 Diltiazem HCl 90 MG DAILY 11/06 1000 CAN PO Diltiazem HCl 120 MG DAILY 11/06 1000 AC PO Diltiazem HCl 30 MG 1000,1600,0 11/05 1600 AC PO 11/05 220 Diltiazem HCl 30 MG 1000,1600,2200 11/04 1600 DC 11/05 PO 0949 Escitalopram Oxalate 10 MG QPM 11/02 2200 AC 11/04 PO 2114 Furosemide 20 MG 7:30 AM, & 4:30 PM 11/04 1630 AC 11/05 PO 0650 Lisinopril 40 MG DAILY 11/02 1900 AC 11/05 PO 0949 Metoprolol Tartrate 50 MG BID 11/02 2200 AC 11/05 PO 0949 Patient Medication 1 ED ONE ONE 11/05 1200 DC Teaching ED 11/05 1201 Potassium Chloride 40 MEQ ONCE ONE 11/05 1200 DC PO 11/05 1201 Potassium Chloride 40 MEQ ONCE ONE 11/05 0815 DC 11/05 PO 11/05 0816 0948 Quetiapine Fumarate 12.5 MG 0900 11/04 0900 AC 11/05 PO 0950 Quetiapine Fumarate 25 MG 1800 11/03 1800 AC 11/04 PO 1741 Last 24 Hrs of Lab/Young Results Last 24 Hrs of Labs/Mics: Laboratory Tests 11/05/17 0622: Anion Gap 10, Estimated GFR 59 L, BUN/Creatinine Ratio 37.8 H Assessment/Plan Assessment: 86-year-old female with past medical history of hypertension, hyperlipidemia, atrial fibrillation, diastolic congestive heart failure came to [place] ER with complaints of shortness of breath for past few weeks. A/P 1. Congestive heart failure; Probably due to atrial fibrillation and systolic dysfunction. -Continue Lasix to by mouth 20 mg twice daily. - Continue metoprolol and Cardizem for heart rate control. Will change Cardizem to 120mg daily (ER) on discharge. - Echocardiogram shows mildly decreased left ventricular systolic function with Estimated ejection fraction of 45-50%. . 2. Fall with lower lip laceration; - Lower lip laceration sutured. 3. Chronic medical conditions Continue home medications. DVT prophylaxis; patient is on Eliquis Patient is full code Problem List: 1. Atrial fibrillation 2. Acute CHF (congestive heart failure) Pain Ratin Pain Location: None Pain Goal: Remain pain free Pain Plan: None Tomorrow's Labs & Rationales: BEP(On Lasix, hypokalemia) Natalia BYRD,[place] 11/05/17 1324: Attending MD Review Statement Attending Statement Attending MD Statement: examined this patient, discuss w/resident/PA/CAPSULE FILLER, agreed w/resident/PA/CAPSULE FILLER, reviewed EMR data (avail), discussed with nursing, discussed with case mgmt, reviewed images Attending Assessment/Plan: Overall patient appears improved. Appreciate cardiology's recommendations who are recommending the current dose of 90 mg of Cardizem for rate control as we believe the rapid A. fib is probably contributing to her acute diastolic heart failure. We're also sending her out on a higher dose of Lasix. At this point the main issue is STR versus home with 24-hour care. We are waiting to see what the insurance company says. Her BUN and creatinine have improved from 53 over 1.4-34 over 0.9 so we'll follow that closely.
[2017-11-05] MEDS ORDERED: CARDIZEM CD180 M1 PO (08:06)
[2017-11-05] MEDS ORDERED: FUROSEMIDE20 M1 PO (08:17)
[2017-11-05] MEDS ORDERED: LASIX20 M1 PO (09:41)
--- NOTE | 2017-11-05 12:44 | PN- Cardiology ---
Subjective Subjective: The patient is sitting up in a chair and appears less confused. She states she has been walking around the room. She has no complaints of chest pain or shortness of breath. She is now on oral Lasix and diltiazem and Lopressor. Her potassium was a little low and has been replaced. Her BUN is improved. She remains in atrial fibrillation on the monitor. Her rate is in the 90s to low 100s. Objective Vital Signs and I&Os Vital Signs Date Time Temp Pulse Resp B/P B/P Pulse O2 O2 Flow FiO2 Mean Ox Delivery Rate 11/05 0949 72 122/60 11/05 0949 72 122/60 11/05 0949 72 122/60 11/05 0919 Room Air 11/05 0712 98.1 72 20 122/60 94 Room Air 11/04 2216 98.0 90 20 130/80 94 11/04 2117 102 130/60 11/04 2116 101 130/60 11/04 1741 108 142/68 11/04 1600 Room Air 11/04 1434 97.9 71 20 108/60 95 Room Air Intake & Output 11/05 0800 11/05 0000 11/04 1600 11/04 0800 11/04 0000 Intake Total 110 350 400 210 320 Output Total 450 450 400 500 Balance -340 -100 0 210 -180 Intake, IV 10 10 20 Intake, Oral 100 350 400 200 300 Number 1 1 1 Bowel Movements Output, Urine 450 450 400 500 Physical Exam: chest clear CV irreg, no murmurs Current Medications: Current Medications Sig/Darek Start time Last Medication Dose Route Stop Time Status Admin Acetaminophen 650 MG Q6P PRN 11/02 1845 AC 11/02 PO 1854 Apixaban 2.5 MG BID 11/02 2199 AC 11/05 PO 0949 Diltiazem HCl 30 MG 1000,1600,0 11/04 1600 AC 11/05 PO 0949 Escitalopram Oxalate 10 MG QPM 11/02 2199 AC 11/04 PO 2114 Furosemide 20 MG 7:30 AM, & 4:30 PM 11/04 1630 AC 11/05 PO 0650 Furosemide 20 MG 7:30 AM, & 4:30 PM 11/03 0730 DC 11/04 IV 0749 Lisinopril 40 MG DAILY 11/02 1900 AC 11/05 PO 0949 Metoprolol Tartrate 50 MG BID 11/02 2199 AC 11/05 PO 0949 Patient Medication 1 ED ONE ONE 11/05 1200 DC Teaching ED 11/05 1201 Potassium Chloride 40 MEQ ONCE ONE 11/05 1200 DC PO 11/05 1201 Potassium Chloride 40 MEQ ONCE ONE 11/05 0815 DC 11/05 PO 11/05 0816 0948 Quetiapine Fumarate 12.5 MG 0900 11/04 0900 AC 11/05 PO 0950 Quetiapine Fumarate 25 MG 1800 11/03 1800 AC 11/04 PO 1741 Results Last 48 Hrs of Labs/Mics: Laboratory Tests 11/05/17 0622: Anion Gap 10, Estimated GFR 59 L, BUN/Creatinine Ratio 37.8 H 11/04/17 0635: Total Bilirubin 0.8, Direct Bilirubin 0.4, AST 60 H, ALT 87 H, Alkaline Phosphatase 55, Total Protein 5.3 L, Albumin 3.3 L Assessment/Plan Assessment/Plan The patient seems stable. I think she can be discharged on her current regimen. I will follow her up in the office. Continue telemetry? No
[2017-11-05 14:00] VITALS: BP 110/62
[2017-11-05 22:53] VITALS: BP 118/60
[2017-11-06 06:39] VITALS: BP 130/80
--- NOTE | 2017-11-06 07:25 | PN- Housestaff ---
Veronica BYRD,[facility] 11/06/17 0725: Subjective Follow-up For: Congestive heart failure Atrial Fibrillation. Tele-Events Since Last Visit: Atrial fibrillation with bundle branch block Heart rate 66-132. Subjective: Patient sitting comfortably in chair. Reports no active complaints. ` Review of Systems Constitutional: Reports: no symptoms. EENTM: Reports: no symptoms. Cardiovascular: Reports: no symptoms. Respiratory: Reports: no symptoms. Gastrointestinal: Reports: no symptoms. Genitourinary: Reports: no symptoms. Musculoskeletal: Reports: no symptoms. Skin: Reports: no symptoms. Neurological/Psychological: Reports: no symptoms. Hematologic/Endocrine: Reports: no symptoms. Immunologic/Allergic: Reports: no symptoms. Objective Last 24 Hrs of Vital Signs/I&O Vital Signs Date Time Temp Pulse Resp B/P B/P Pulse O2 O2 Flow FiO2 Mean Ox Delivery Rate 11/06 1330 98.1 76 20 126/60 95 Room Air 11/06 0831 63 130/80 11/06 0830 63 130/80 11/06 0639 98.0 63 20 130/80 92 Room Air 11/06 0000 Room Air 11/05 2253 98.1 84 16 118/60 95 Room Air 11/05 2215 114 138/82 11/05 2215 114 138/82 11/05 1748 104 11/05 1600 Room Air Intake & Output 11/06 1600 11/06 0800 11/06 0000 Intake Total 300 200 550 Output Total 100 600 Balance 200 200 -50 Intake, Oral 300 200 550 Number 0 0 Bowel Movements Output, Urine 100 600 Physical Exam General Appearance: Alert, Cooperative, No Acute Distress Skin: No Rashes, No Breakdown Cardiovascular: Normal S1, Normal S2, irregular Lungs: Clear to Auscultation, Normal Air Movement Abdomen: Normal Bowel Sounds, Soft, No Tenderness Extremities: No Clubbing, No Cyanosis, No Edema Current Medications: Current Medications Sig/Darek Start time Last Medication Dose Route Stop Time Status Admin Acetaminophen 650 MG Q6P PRN 11/02 1845 AC 11/02 PO 1854 Apixaban 2.5 MG BID 11/02 2200 AC 11/06 PO 0831 Diltiazem HCl 120 MG DAILY 11/06 1000 AC 11/06 PO 0831 Diltiazem HCl 30 MG 1000,1600,2200 11/05 1600 DC 11/05 PO 02/15 2205 2215 Escitalopram Oxalate 10 MG QPM 11/02 2200 AC 11/05 PO 2213 Furosemide 20 MG 7:30 AM, & 4:30 PM 11/04 1630 AC 11/06 PO 0830 Lisinopril 40 MG DAILY 11/02 1900 AC 11/06 PO 0831 Metoprolol Tartrate 50 MG BID 11/02 2200 AC 11/06 PO 0830 Quetiapine Fumarate 12.5 MG 0900 11/04 0900 AC 11/06 PO 0831 Quetiapine Fumarate 25 MG 1800 11/03 1800 AC 11/05 PO 1749 Last 24 Hrs of Lab/Young Results Last 24 Hrs of Labs/Mics: Laboratory Tests 11/06/17 1020: Anion Gap 10, Estimated GFR 52 L, BUN/Creatinine Ratio 28.0 H Assessment/Plan Assessment: 86-year-old female with past medical history of hypertension, hyperlipidemia, atrial fibrillation, diastolic congestive heart failure came to [place] [facility] with complaints of shortness of breath for past few weeks. A/P 1. Acute on Chronic Congestive heart failure; - Probably due to atrial fibrillation and ?? combination systolic and diastolic dysfunction. Echocardiogram shows an Ejection fraction of 45-50% with elevated right heart pressure. - Continue Lasix to by mouth 20 mg twice daily. She will be discharged on the current dose. - Continue metoprolol and Cardizem for heart rate control. Changed Cardizem to 120mg daily (ER) on discharge.. . 2. Fall with lower lip laceration; - Lower lip laceration sutured. 3. Chronic medical conditions Continue home medications. 4. PT and OT evaluation; STR VS home with 24-hour care was suggested but STR was denied by the insurance. Patient will be discharged home with home care. DVT prophylaxis; patient is on Eliquis Patient is full code Problem List: 1. Atrial fibrillation 2. Lip laceration 3. CHF (congestive heart failure) Pain Ratin Pain Location: None Pain Goal: Remain pain free Pain Plan: Pain pathway Tomorrow's Labs & Rationales: None Waleska Fisher MD 11/06/17 1223: Attending MD Review Statement Attending Statement Attending MD Statement: examined this patient, discuss w/resident/PA/ORTHOTICS ASSISTANT, agreed w/resident/PA/ORTHOTICS ASSISTANT, reviewed EMR data (avail), discussed with nursing, discussed with case mgmt, reviewed images Attending Assessment/Plan: Patient is doing well with physical therapy. They have cleared her for home with 24-hour care. I spoke to the patient's daughter at length today. She understands given the dementi that she is a high risk for delirium. She also understands that we controlled the rapid A. fib with the Cardizem CD, increase the dose of Lasix for diastolic heart failure and the issues with the Eliquis and the risks of stroke. At this point the plan is for the patient's family to set up 24-hour care and for the patient to leave today with visiting nurse and 24-hour care. She needs close outpatient follow-up with Dr. Óscar Travis both in terms of the diastolic heart failure with increased dose of Lasix and the A. fib with the Cardizem. The family understands that given the dementia the overall prognosis is guarded as delirium, frequent admissions could be an issue. Total time spent coordinating discharge was 33 minutes.
[2017-11-06 13:30] VITALS: BP 126/60
[2017-11-06] MEDS ORDERED: DILTIAZEM 24HR120 MG PO ×2 (13:46→14:20)
[2017-11-06] MEDS ORDERED: LASIX20 M1 PO (14:20)
== END 2017-11-06 15:40 | DRG 291 ==
LOC: ERH 13:06 → ERHI 18:23 → 1NO 18:23 → ENRESERV 19:22 → ENTRNSPT 22:12 → EDTRNSPTSTS 22:17 → EDTRNSPT 22:17 → CMPTRNSPT 22:34 → 1NO 22:44 → ENPENDDIS 11-06 14:28 → 1NO 11-06 15:40
PROVIDERS: Internal Medicine; Physician Assistant Medical
PROC: 0CQ1XZZ Repair Lower Lip, External Approach (ICD-10-PCS; principal; 2017-11-02)
DX: I13.0 Hypertensive heart and chronic kidney disease with heart failure and stage 1 through stage 4 chronic kidney disease, or unspecified chronic kidney disease (principal); I50.33 Acute on chronic diastolic (congestive) heart failure; N17.9 Acute kidney failure, unspecified; I48.2 Chronic atrial fibrillation; I44.7 Left bundle-branch block, unspecified; Z79.01 Long term (current) use of anticoagulants; N18.9 Chronic kidney disease, unspecified; S01.511A Laceration without foreign body of lip, initial encounter; W18.30XA Fall on same level, unspecified, initial encounter; E78.5 Hyperlipidemia, unspecified
CPT/HCPCS: 1NSP; 36415; 36592; 71045; 82436; 93005; 93010; 93306; 97110-GO; 97116-GO; 97161-GP; 97166-GO; 97530-GO; J1940

== ENCOUNTER 2017-11-30 16:35 | Observation (INO) | payer OTHER ==
[~2017-11-30] VITALS: Ht 162.6 cm; Wt 75.9 kg
[~2017-11-30 16:35] MED LIST: CALTRATE 600 +1 EACH PO; CARDIZEM CD180 M1 PO; DILTIAZEM 24HR120 MG PO; ELIQUIS2.5 M1 PO; ESCITALOPRAM OX10 MG PO; FUROSEMIDE20 M1 PO; LASIX20 M1 PO; LISINOPRIL40 M1 PO; METOPROLOL TART50 M1 PO; NABUMETONE750 M1 PO; QUETIAPINE FUMA25 M1 PO
[2017-11-30 17:24] LABS: ABSOLUTE BASOPHIL COUNT 0 /CUMM (0.0-0.2); ABSOLUTE EOSINOPHIL COUNT 0.1 /CUMM (0.0-0.7); ABSOLUTE GRANULOCYTE CT 3.3 /CUMM (1.4-6.5); ABSOLUTE LYMPH COUNT 0.8 /CUMM (1.2-3.4); ABSOLUTE MONOCYTE COUNT 0.6 /CUMM (0.10-0.60); BASOPHIL % 0.9 % (0.0-2.0); EOSINOPHIL % 1.7 % (0-5); GRANULOCYTE % 68.7 % (42.2-75.2); HEMATOCRIT 33.5 % (37-47); MEAN CORPUSCULAR HGB CONC 33.8 G/DL (33.0-37.0); MEAN CORPUSCULAR VOLUME 88.7 FL (81.0-99.0); MEAN PLATELET VOLUME 10.1 FL (7.4-10.4); PLATELET COUNT 187 /CUMM (130-400); RBC DISTRIBUTION WIDTH 17.7 % (11.5-14.5); RED BLOOD CELL CT 3.77 /CUMM (4.20-5.40); WHITE BLOOD CELL COUNT 4.7 /CUMM (4.8-10.8)
[2017-11-30 17:30] LABS: PT 16.1 SEC (9.4-12.5); PTT 35 SEC (25-37)
[2017-11-30] MEDS ORDERED: B COMPLEX1 EACH PO (18:49)
--- NOTE | 2017-11-30 18:56 | ED DYSPNEA/ASTHMA COMPLAINT ---
History of Present Illness General Chief Complaint: Dyspnea (COPD, CHF, Other) Stated Complaint: FLUID RETENTION/WHEEZING/SOB Source: patient, family Exam Limitations: dementia Allergies Coded Allergies: NO KNOWN ALLERGIES (12/28/12) Reconcile Medications Apixaban (Eliquis) 2.5 MG TABLET 1 TAB PO BID A FIB (Reported) Calcium Carbonate/Vitamin D3 (Caltrate 600 + D Tablet) 600 MG-800 TABLET 1 TAB PO DAILY SUPPLEMENT (Reported) Diltiazem HCl (Diltiazem 24HR ER) 120 MG CAP.ER.24H 1 CAP PO DAILY Atrial fibrillation . Escitalopram Oxalate 10 MG TABLET 1 TAB PO QPM MENTAL HEALTH (Reported) Furosemide (Lasix) 20 MG TABLET 1 TAB PO BID CHF . Furosemide (Lasix) 40 MG TABLET 1 TAB PO DAILY Swelling Lisinopril 40 MG TABLET 1 TAB PO EVENING HIGH BLOOD PRESSURE (Reported) Metoprolol Tartrate 50 MG TABLET 1 TAB PO BID HIGH BLOOD PRESSURE (Reported) Nabumetone 750 MG TABLET 1 TAB PO BID PRN PAIN SCALE 4-6 (MODERATE) (Reported ) Quetiapine Fumarate 25 MG TABLET 1 TAB PO QPM MENTAL HEALTH (Reported) Quetiapine Fumarate 25 MG TABLET 0.5 TAB PO QAM MENTAL HEALTH (Reported) Vitamin B Complex (B Complex) 1 EACH TABLET 1 TAB PO D SUPPLEMENT (Reported) Triage Note: PT PRESENTS TO THE ER S/P 2 WEEKS AGO DCD FOR CHF. PER FAMILY PT STILL HAS A LOT OF FLUID AND HAS INCREASING SOB ABNDD WHEEZING AND COUGHING. PT FAMILY CALLED DR ROMAN WHO INSTRUCTED THEM TO COME TO ER FOR EVLAUATION IF PT IS NOT BETTER. PT IS NOTED TO HAVE BRUISING TO BOTH EYES AND NOSE, PT STATES SHE FELL INTO THE WALL A WEEK AGO. Triage Nurses Notes Reviewed? yes Onset: Gradual Duration: worse persistent since (SEVERAL DAYS) Timing: recent history Severity: moderate Activities at Onset: activity Prior Episodes/Possible Cause: occasional episodes Modifying Factors: Improves With: immobilization. Worsens With: movement. Associated Symptoms: cough HPI: Patient is an 86-year-old female with history of congestive heart failure, atrial fibrillation, hyperlipidemia, dementia presenting to the emergency department with family with chief complaint of worsening shortness of breath, worsening lower extremities swelling along with wheezing has been getting worse over the past several days. According to family members he was admitted a couple weeks ago for congestive heart failure and discharged home. Since then she's been receiving by mouth and IV Lasix without relief and shortness of breath or lower extremities edema. She called her primary care physician and they recommended she come to the emergency primary for evaluation. According to family she is also wheezing. Patient denying any current pain. No chest pain. Family denies any fevers or chills at home. Patient does live alone but has family members in and out constantly. No recent illness. Patient denies any urine no abdominal pain. Also according to family members she had a mechanical fall 2 weeks ago she tripped over the entry way of the bathroom and hit her head on the doorway. There was no loss of consciousness. Father was witnessed. Patient is on blood thinners and he did not seek medical attention for evaluation afterwards. They have been icing the affected area but reports the patient still has a hematoma on the forehead. Patient denying any pain over the area. Family denies any change in mental status. (Akilah Phan) Vital Signs & Intake/Output Vital Signs & Intake/Output Vital Signs Date Time Temp Pulse Resp B/P B/P Pulse O2 O2 Flow FiO2 Mean Ox Delivery Rate 12/03 0653 98.4 108 20 132/80 93 Room Air 12/03 0000 Room Air 12/02 2259 98.2 40 20 122/76 94 12/02 2241 113 12/02 1409 97.7 72 20 112/64 91 Room Air 12/02 1318 Room Air 12/02 0927 120 148/80 12/02 0925 100 140/80 12/02 0800 96 Room Air ED Intake and Output 12/03 0000 12/02 1200 Intake Total 700 260 Output Total 400 Balance 300 260 Intake, Oral 700 260 Number 1 Bowel Movements Output, Urine 400 Patient 167 lb 150 lb Weight (Terry Steel) Past History Travel History Traveled to [place] past 21 day No Medical History Any Pertinent Medical History? see below for history Neurological: dementia EENT: NONE Cardiovascular: hyperlipidemia, HTN. AFIB,CHF Respiratory: NONE Gastrointestinal: NONE Hepatic: NONE Renal: NONE Musculoskeletal: NONE Psychiatric: NONE Endocrine: NONE Blood Disorders: NONE Cancer(s): NONE SECURITY SUPPORT ANALYST/Reproductive: NONE History of MRSA: No History of VRE: No History of CDIFF: No Influenza Vaccine: 08/05/17 Surgical History Surgical History: non-contributory Psychosocial History Who do you live with Patient/Self Services at Home None What is your primary language Maori Tobacco Use: Never used Family History Family History, If Any: MOTHER Relation not specified for: FHx: stomach cancer Hx Contributory? No (Akilah Phan) Review of Systems Review of Systems Constitutional: Reports: no symptoms. Comments Review of systems: See HPI, All other systems negative. Constitutional, no chills fever or weight loss HEENT: No visual changes no sore throat no congestion Cardiovascular: No chest pain ,palpitation Skin, no jaundice no rashes Respiratory: NO sputum or hemoptysis GI: No nausea no vomiting : No dysuria No hematuria Muscle skeletal: no back pain, no neck pain, Neurologic: No numbness no INCREADED confusion Psych: No stress anxiety or depression,. Heme/endocrine: No bruising no bleeding no polyuria or polydipsia Immunology: No splenectomy or history of AIDS (Akilah Phan) Physical Exam Physical Exam General Appearance: well developed/nourished, no apparent distress, alert, awake , comfortable Respiratory: decreased breath sounds, wheezing Comments: Well-developed well-nourished person in no acute distress HEENT: extraocular motion intact, no nystagmus. Pupils equally round and reactive to light and accommodation. Nose is atraumatic. External auditory canal and Tympanic membranes clear. Pharynx normal. No swelling or edema. No signs of hemotympanum. Large hematoma approximately 2-3 cm noted over the right frontal bone, ecchymosis noted extending down maxillary sinus into the right cheek. Appears old. Neck: Full range of motion, no C-spine tenderness. Back: Nontender, no CVA tenderness. Full range of motion Cardiovascular: IRRegular rate and rhythms no murmurs rubs or gallops, normal JVP Respiratory: Chest nontender. No respiratory distress.breath sounds diminished auscultation bilaterally at the bases, scant wheezing noted at the superior aspect of both lungs to auscultation bilaterally Abdomen: Soft, nontender nondistended, no appreciable organomegaly. Normal bowel sounds. No ascites, no rebound or guarding. Extremity: 3+ pitting edema in the lower extremities bilaterally, no calf tenderness to palpation, normal and equal pulses. Full range of motion of upper and lower extremities. Muscular strength is 5 out of 5 in upper and lower extremities. Expediter Service Order strength is equal and symmetric bilaterally. Neuro: Alert oriented to person and place, motor sensory normal, cranial nerves II through XII grossly intact. Skin: See HEENT, OTHERWISE No appreciable rash on exposed skin, skin is warm and dry. Psych: Mood and affect is normal, memory and judgment is normal. (Maximiliano RIGGS,Akilah) Core Measures ACS in differential dx? No CVA/TIA Diagnosis No Sepsis Present: No Sepsis Focused Exam Completed? No (Maricruz BYRD,Jerry Shaffer) Progress Differential Diagnosis: asthma, bronchitis, costochondritis, CHF, COPD, musculoskeletal pain Diagnostic Imaging: Viewed by Me: Radiology Read, CT Scan. Discussed w/RAD: Radiology Read, CT Scan. Radiology Impression: PATIENT: AKBAR VILA PRESENT AGE: 86 PATIENT ACCOUNT NO: [id number] : [birth year] LOCATION: ER ORDERING PHYSICIAN: Akilah RIGGS SERVICE DATE: 11/30/17 EXAM TYPE: RAD - XRY-PORTABLE CHEST XRAY EXAMINATION: XR PORTABLE CHEST CLINICAL INFORMATION: Shortness of breath. Lower extremity swelling. COMPARISON: Chest x- ray 11/02/2017 TECHNIQUE: Portable frontal view of the chest was obtained. 7:14 PM FINDINGS: There is mild pulmonary vascular congestion with prominence of the vessels similar to the chest x-ray 11/02/2017. No focal consolidation. No large pleural effusion. IMPRESSION: Pulmonary vascular congestion similar to prior chest x-ray 11/02/2017. DICTATED BY: Deny Morris MD DATE/TIME DICTATED:11/30/172005 EXCELLENCE COACH:FLOR DATE/TIME TRANSCRIBED:11/30/172005 CONFIDENTIAL, DO NOT COPY WITHOUT APPROPRIATE AUTHORIZATION. <Electronically signed in Other Vendor System> SIGNED BY: Deny Morris MD 11/30/172010, PATIENT: AKBAR VILA PRESENT AGE: 86 PATIENT ACCOUNT NO: [id number] : [birth year] LOCATION: ER ORDERING PHYSICIAN: Akilah RIGGS SERVICE DATE: 11/30/17 EXAM TYPE: CAT - CT CERV SPINE WO IV CONTRAST; CT HEAD WO IV CONTRAST; CT MAXILLOFACIAL W/O CON CT HEAD WITHOUT IV CONTRAST CT CERVICAL SPINE WITHOUT IV CONTRAST CT MAXILLOFACIAL WITHOUT IV CONTRAST INDICATION: Fall. On blood thinner. COMPARISON: Head and cervical spine CT 11/02/2017. TECHNIQUE: Multidetector CT acquisitions of the head, maxillofacial region, and cervical spine were obtained without IV contrast. Multiplanar reformats were acquired and utilized for image interpretation. FINDINGS: HEAD: There is no intracranial hemorrhage, hydrocephalus, extra-axial surface collection, midline shift, or other herniation pattern. Giraldo to white matter differentiation is diffusely maintained without evidence of an evolved acute territorial infarct. The basilar cisterns are preserved. There is a small anterior right frontal scalp hematoma. No acute osseous abnormality. The paranasal sinuses and the mastoid air cells are well-aerated. MAXILLOFACIAL: The mandible, maxilla, pterygoid plates, nasal bones, zygomatic arches, paranasal sinus spangler, and bony orbits are intact. No acute osseous abnormality within the maxillofacial region. The paranasal sinuses and mastoid air cells remain well- aerated. Degenerative changes involving the TMJs bilaterally. There is a 1.3 cm ovular soft tissue mass within the left orbit between the left medial and inferior rectus muscles that is stable in comparison to the 11/02/[address] and that was not present on the 02/03/[address] Orbital protocol MRI can be obtained for further assessment. CERVICAL SPINE: There is anatomic alignment of the vertebral bodies and posterior elements. Hypertrophic degenerative changes at the atlantodental interval. Severe left-sided facet arthropathy at C3-C4. There is no acute fracture and there is no acute subluxation. The craniocervical and atlantoaxial articulations are normal. There is no prevertebral soft tissue swelling. No significant soft tissue abnormality within the neck. Partially imaged right pleural effusion. IMPRESSION: 1. No acute intracranial abnormality. There is a small anterior right frontal scalp hematoma. 2. No acute osseous abnormality within the cervical spine. 3. No acute osseous abnormality within the maxillofacial region. There is a 1.3 cm ovular soft tissue mass within the left orbit between the left medial and inferior rectus muscles that is stable in comparison to the 11/02/[address] and that was not present on the 02/03/[address] Orbital protocol MRI can be obtained for further assessment. A varix is favored. 4. Partially imaged right pleural effusion. DICTATED BY: Yonny Sommers MD DATE/TIME DICTATED:11/30/172035 EXCELLENCE COACH:RAD.GUTIERREZ DATE/TIME TRANSCRIBED:11/30/172035 CONFIDENTIAL, DO NOT COPY WITHOUT APPROPRIATE AUTHORIZATION. <Electronically signed in Other Vendor System> SIGNED BY: Yonny Sommers MD 11/30/172052 Initial ED EKG: AFIB Prior EKG: unchanged Hand-Off Endorsed To: Terry Steel Endorsed Time: 2102 (Akilah Phan) Plan of Care: Orders Procedure Date/time Status CBC WITHOUT DIFFERENTIAL 12/03 599 Active BASIC ELECTROLYTES PLUS BUN&CR 12/03 599 Active RT: Evaluation 12/02 1316 Active TRC EVALUATION (GEN) 12/02 UNK Complete THERAPIST ORDERS 12/02 UNK Complete INCENTIVE SPIROMETRY TRX (GEN) 12/02 UNK Complete PT Evaluate & Treat 12/02 UNK Active Theraputic Activities 15 Min 12/02 UNK Complete Therapeutic Exercise X 15 12/02 UNK Complete Gait Training, 15 Min 12/02 UNK Complete MISSING MEDICATION FORM 12/02 UNK Active Current Medications Sig/Darek Start time Last Medication Dose Stop Time Status Admin Potassium Chloride 20 MEQ DAILY 12/03 1000 AC (K-Dur) Escitalopram Oxalate 10 MG 1800 12/02 1800 AC 12/02 (Lexapro) 1715 Diltiazem HCl 120 MG DAILY 12/02 1000 AC 12/02 (Cardizem CD) 0926 Quetiapine Fumarate 25 MG 1800 12/01 1900 AC 12/02 (Seroquel) 1715 Furosemide 20 MG 7:30 AM, & 4:30 PM 12/01 1630 AC 12/03 (Lasix) 0554 Apixaban 2.5 MG BID 12/01 1000 AC 12/02 (Eliquis) 2241 Lisinopril 40 MG DAILY 12/01 1000 AC 12/02 (Prinivil) 0925 Metoprolol Tartrate 50 MG BID 12/01 1000 AC 12/02 (Lopressor) 2241 Quetiapine Fumarate 12.5 MG QAM 12/01 1000 AC 12/02 (Seroquel) 0927 Laboratory Tests 12/03/17 0635: Sodium Pending, Potassium Pending, Chloride Pending, Carbon Dioxide Pending, Anion Gap Pending, BUN Pending, Creatinine Pending, BUN/Creatinine Ratio Pending , CBC w Diff Pending, WBC Pending, RBC Pending, Hgb Pending, Hct Pending, MCV Pending, MCH Pending, MCHC Pending, RDW Pending, Plt Count Pending, MPV Pending Patient was signed out to me by KEELY Viera. She has a history of CHF, and with shortness of breath. Chest x-ray does not show any overt pulmonary edema. Her lung sounds are pretty clear however when she was ambulated she became visibly short of breath and desaturated to 86% on room air. At rest she sats in the mid 90s. She was given IV Lasix here and at the [facility] today without much improvement. Patient will require admission due to hypoxia. A d- dimer was added on due to hypoxia and was mildly elevated so CTA was ordered. Pt signed out to Dr Alcantara pending CTA results and admission. (Jonas RIGGS,[facility]) 11:15 AM PATIENT SIGNED OUT TO ME BY DR WATT, PENDING CASE MANAGEMENT PLACEMENT. 2:15 pm d/w Maria Fernanda from case management and Dr. De Anda. Will place on tele for 23 hr observation for diuresis. Will attempt to get patient to short term rehab. (Megan BYRD,Zora) Radiology Impression: PATIENT: AKBAR VILA PRESENT AGE: 86 PATIENT ACCOUNT NO: [id number] : [birth year] LOCATION: [facility] ORDERING PHYSICIAN: Akilah RIGGS SERVICE DATE: 11/30/17 EXAM TYPE: RAD - XRY-PORTABLE CHEST XRAY EXAMINATION: XR PORTABLE CHEST CLINICAL INFORMATION: Shortness of breath. Lower extremity swelling. COMPARISON: Chest x- ray 11/02/2017 TECHNIQUE: Portable frontal view of the chest was obtained. 7:14 PM FINDINGS: There is mild pulmonary vascular congestion with prominence of the vessels similar to the chest x-ray 11/02/2017. No focal consolidation. No large pleural effusion. IMPRESSION: Pulmonary vascular congestion similar to prior chest x-ray 11/02/2017. DICTATED BY: Deny Morris MD DATE/TIME DICTATED:11/30/172005 EXCELLENCE COACH:FLOR DATE/TIME TRANSCRIBED:11/30/172005 CONFIDENTIAL, DO NOT COPY WITHOUT APPROPRIATE AUTHORIZATION. <Electronically signed in Other Vendor System> SIGNED BY: Deny Morris MD 11/30/172010 Hand-Off Endorsed To: Jerry Alcantara MD Endorsed Time: 2319 Pending: CT (cta, admission ) (Terry Steel) Radiology Impression: PATIENT: AKBAR VILA PRESENT AGE: 86 PATIENT ACCOUNT NO: [id number] : [birth year] LOCATION: [facility] ORDERING PHYSICIAN: Terry RIGGS SERVICE DATE: 11/30/17 EXAM TYPE: CAT - CTA CHEST-PULMONARY EMBOLISM EXAMINATION: CT ANGIOGRAM OF THE CHEST WITH AND WITHOUT CONTRAST (CT PULMONARY ANGIOGRAM FOR PE) CLINICAL INFORMATION: SOB HYPOXIA ON EXERTION COMPARISON: CT chest 02/03/2017. TECHNIQUE: Prior to contrast administration, noncontrast localization images were obtained. Subsequently, multidetector volumetric imaging was performed from the thoracic inlet to below the diaphragms following the administration of 95 mL Optiray 320 intravenous contrast. No contrast reaction reported. Sagittal, coronal, and MIP oblique sagittal reformatted images were obtained on the CT workstation, uploaded to PACS, and reviewed. Total exam dose-length product 343.32 mGy-cm. FINDINGS: QUALITY OF STUDY/CONTRAST BOLUS: Satisfactory PULMONARY ARTERIES: No central or segmental pulmonary emboli. THORACIC AORTA: No aneurysm or dissection. Atherosclerotic vascular wall calcifications of aorta. LUNG: Compression atelectasis at the right lung base. The remainder of the lungs are normally aerated. This calcified granuloma in the right lung. PLEURA: There are bilateral pleural effusions which are moderate in volume. The effusions greater on the right than left. There are small pleural calcifications at the right lung base. MEDIASTINUM: Normal heart size. No pericardial effusion. No hilar or mediastinal lymphadenopathy. No evidence of septal bowing or right heart strain. There is small calcified granulomas in the subcutaneous chan and the right hilum. CHEST WALL/AXILLA: No axillary or internal mammary lymphadenopathy. There is generalized anasarca in the subcutaneous tissue. OSSEOUS STRUCTURES: Multilevel degenerative spondylosis of dorsal spine. UPPER ABDOMEN: Small hepatic cyst left lobe of liver No reflux of contrast into the hepatic veins to suggest elevated right heart pressures. IMPRESSION: 1. No evidence of pulmonary embolism. 2. Atelectasis right lung base. 3. Bilateral pleural effusions VTE: negative DICTATED BY: Deny Morris MD DATE/TIME DICTATED:12/01/177 EXCELLENCE COACH:FLOR DATE/TIME TRANSCRIBED:12/01/177 CONFIDENTIAL, DO NOT COPY WITHOUT APPROPRIATE AUTHORIZATION. <Electronically signed in Other Vendor System> SIGNED BY: Deny Morris MD 12/01/17 0016 Hand-Off Endorsed To: Yonny Watt MD Endorsed Time: 0700 Pending: consult (PT, CASE MANAGEMENT) (Jerry Alcantara MD) Comments: 12/01/2017 7:08:54 AM patient signed out to me by Dr. Alcantara at shift guide changer. 12/01/2017 10:33:44 AM patient's case discussed with case management and are currently to possible ECF/rehabilitation beds available. Case management is waiting for feedback from the family. 12/01/2017 10:59:29 AM patient signed out to Dr. Guzman at shift guide changer. (Yonny Watt MD) Hand-Off Endorsed To: Jerry Alcantara MD Endorsed Time: 1900 Pending: consult (Zora Guzman MD) Departure Departure Condition: Stable Referrals: Ricki Stewart MD (PCP/Family) Departure Forms: Customer Survey General Discharge Information Prescriptions: Current Visit Scripts Furosemide (Lasix) 1 TAB PO DAILY #30 TAB Observation Note Rationale for Observation: My rational for observation is as follows . (Akilah Phan) Departure Disposition: STILL A PATIENT Clinical Impression Primary Impression: Dyspnea on exertion Secondary Impressions: Hypoxia (Terry Steel) PA/PHP WEB DEVELOPER Co-Sign Statement Statement: ED Attending supervision documentation- [X] I saw and evaluated the patient. I have also reviewed all the pertinent lab results and diagnostic results. I agree with the findings and the plan of care as documented in the PA's/PHP WEB DEVELOPER's documentation. [X] I have reviewed the ED Record and agree with the PA's/PHP WEB DEVELOPER's documentation. [] Additions or exceptions (if any) to the PAs/PHP WEB DEVELOPER's note and plan are summarized below: [] (Jerry Alcantara MD) Departure Time of Disposition: 1358 Observation Note Spoke With: Jared De Anda MD Physician Advisor Notified: PRAVEEN COSBY MD Place Patient In: Non-ED OBS Care Area Rationale for Observation: My rational for observation is as follows [TELE MONITOR, MONITOR I/O, CAREFUL DIURESIS, CARDIOLOGY EVALUATION]. (Zora Guzman MD) Critical Care Note Critical Care Note Critical Care Time: non-applicable (Jerry Alcantara MD) Departure Time of Disposition: 1358 Observation Note Spoke With: Jared De Anda MD Physician Advisor Notified: ALEA BYRD,PRAVEEN Shaffer Place Patient In: Non-ED OBS Care Area Rationale for Observation: My rational for observation is as follows [TELE MONITOR, MONITOR I/O, CAREFUL DIURESIS, CARDIOLOGY EVALUATION]. (Megan BYRD,Zora) Critical Care Note Critical Care Note Critical Care Time: non-applicable (Maricruz BYRD,Jerry Shaffer)
--- NOTE | 2017-11-30 20:11 | RADIOLOGY REPORT ---
EXAMINATION: XR PORTABLE CHEST CLINICAL INFORMATION: Shortness of breath. Lower extremity swelling. COMPARISON: Chest x-ray 11/02/2017 TECHNIQUE: Portable frontal view of the chest was obtained. 7:14 PM FINDINGS: There is mild pulmonary vascular congestion with prominence of the vessels similar to the chest x-ray 11/02/2017. No focal consolidation. No large pleural effusion. IMPRESSION: Pulmonary vascular congestion similar to prior chest x-ray 11/02/2017.
--- NOTE | 2017-11-30 20:53 | CT SCAN REPORT ---
CT HEAD WITHOUT IV CONTRAST CT CERVICAL SPINE WITHOUT IV CONTRAST CT MAXILLOFACIAL WITHOUT IV CONTRAST INDICATION: Fall. On blood thinner. COMPARISON: Head and cervical spine CT 11/02/2017. TECHNIQUE: Multidetector CT acquisitions of the head, maxillofacial region, and cervical spine were obtained without IV contrast. Multiplanar reformats were acquired and utilized for image interpretation. FINDINGS: HEAD: There is no intracranial hemorrhage, hydrocephalus, extra-axial surface collection, midline shift, or other herniation pattern. Giraldo to white matter differentiation is diffusely maintained without evidence of an evolved acute territorial infarct. The basilar cisterns are preserved. There is a small anterior right frontal scalp hematoma. No acute osseous abnormality. The paranasal sinuses and the mastoid air cells are well-aerated. MAXILLOFACIAL: The mandible, maxilla, pterygoid plates, nasal bones, zygomatic arches, paranasal sinus spangler, and bony orbits are intact. No acute osseous abnormality within the maxillofacial region. The paranasal sinuses and mastoid air cells remain well-aerated. Degenerative changes involving the TMJs bilaterally. There is a 1.3 cm ovular soft tissue mass within the left orbit between the left medial and inferior rectus muscles that is stable in comparison to the 11/02/[address] and that was not present on the 02/03/[address] Orbital protocol MRI can be obtained for further assessment. CERVICAL SPINE: There is anatomic alignment of the vertebral bodies and posterior elements. Hypertrophic degenerative changes at the atlantodental interval. Severe left-sided facet arthropathy at C3-C4. There is no acute fracture and there is no acute subluxation. The craniocervical and atlantoaxial articulations are normal. There is no prevertebral soft tissue swelling. No significant soft tissue abnormality within the neck. Partially imaged right pleural effusion. IMPRESSION: 1. No acute intracranial abnormality. There is a small anterior right frontal scalp hematoma. 2. No acute osseous abnormality within the cervical spine. 3. No acute osseous abnormality within the maxillofacial region. There is a 1.3 cm ovular soft tissue mass within the left orbit between the left medial and inferior rectus muscles that is stable in comparison to the 11/02/[address] and that was not present on the 02/03/[address] Orbital protocol MRI can be obtained for further assessment. A varix is favored. 4. Partially imaged right pleural effusion.
--- NOTE | 2017-12-01 00:16 | CT SCAN REPORT ---
EXAMINATION: CT ANGIOGRAM OF THE CHEST WITH AND WITHOUT CONTRAST (CT PULMONARY ANGIOGRAM FOR PE) CLINICAL INFORMATION: SOB HYPOXIA ON EXERTION COMPARISON: CT chest 02/03/2017. TECHNIQUE: Prior to contrast administration, noncontrast localization images were obtained. Subsequently, multidetector volumetric imaging was performed from the thoracic inlet to below the diaphragms following the administration of 95 mL Optiray 320 intravenous contrast. No contrast reaction reported. Sagittal, coronal, and MIP oblique sagittal reformatted images were obtained on the CT workstation, uploaded to PACS, and reviewed. Total exam dose-length product 343.32 mGy-cm. FINDINGS: QUALITY OF STUDY/CONTRAST BOLUS: Satisfactory PULMONARY ARTERIES: No central or segmental pulmonary emboli. THORACIC AORTA: No aneurysm or dissection. Atherosclerotic vascular wall calcifications of aorta. LUNG: Compression atelectasis at the right lung base. The remainder of the lungs are normally aerated. This calcified granuloma in the right lung. PLEURA: There are bilateral pleural effusions which are moderate in volume. The effusions greater on the right than left. There are small pleural calcifications at the right lung base. MEDIASTINUM: Normal heart size. No pericardial effusion. No hilar or mediastinal lymphadenopathy. No evidence of septal bowing or right heart strain. There is small calcified granulomas in the subcutaneous chan and the right hilum. CHEST WALL/AXILLA: No axillary or internal mammary lymphadenopathy. There is generalized anasarca in the subcutaneous tissue. OSSEOUS STRUCTURES: Multilevel degenerative spondylosis of dorsal spine. UPPER ABDOMEN: Small hepatic cyst left lobe of liver No reflux of contrast into the hepatic veins to suggest elevated right heart pressures. IMPRESSION: 1. No evidence of pulmonary embolism. 2. Atelectasis right lung base. 3. Bilateral pleural effusions VTE: negative
--- NOTE | 2017-12-01 14:18 | History & Physical ---
Dora BYRD,Silva 12/01/17 1415: General Information and HPI MD Statement: I have seen and personally examined AKBAR VILA and documented this H&P. The patient is a 86 year old F who presented with a patient stated chief complaint of [shortness of breath]. Source of Information: patient, family, old records Exam Limitations: no limitations History of Present Illness: Patient is an 86-year-old female presented to the ER with chief complaints of increasing shortness of breath, cough, wheezing x 1month. Patient was recently discharged from the [facility], after treatment for CHF( 11/02/2017 -11/05/2017) on 20 mg of Lasix, twice daily. She was regularly following CHF clinic and custom car builder. Most of the history is taken from the daughter and according to her her oral intake is adequate and she does not use extra salt in the food. She got IV Lasix every weekly at CHF clinic and on last visit it was 40 mg. She never been comfortable after discharge, she remained dyspneic, short of breath after walking couple of steps, wheezing though her condition has been deteriorated more since last Thursday onwards. They went to CHF clinic on Thursday, and she was given IV Lasix after discussing with Dr. Gay. Yesterday she went to the CHF clinic, after discussing with Dr. Gay it was advised to go to [facility] ED for further evaluation and management of shortness of breath. Of note patient had an episode of fall after tripping over the entry way of the bathroom and hit her head on the doorway. She had contusion/ecchymosis on the right side of the face. They did symptomatic management by ice packing. Patient denies any loss of consciousness, nausea, vomiting, headache.They continued blood thinner. Patient denies any fever, chills, chest pain, palpitation, abdominal pain, constipation, diarrhea, urine incontinence. Past medical history - paroxysmal atrial fibrillation(2008) -spontaneously converted to normal sinus rhythm -started on Eliquis 2017 History of diastolic heart failure Left bundle branch block Hypertension Hyperlipidemia Alzheimer's dementia following Dr. Stewart osteoporosis History of multiple fo fall in the last 2 months Personal history -patient lives alone and her grandson/Niece comes off/on, walks with a cane, dependent for all her daily activity. Denies smoking, illicit drug abuse. Does drink alcohol socially. Had DEXA scan, which showed evidence of osteoporosis. Had colonoscopy in the past with normal results. Family history-mother of stomach cancer, father of SD at the age of 50 , brother had dementia, Surgical history -right knee arthroplasty, history of fractured right leg, history of hernia repair, history of multiple breast cyst, history of appendicectomy Allergies/Medications Allergies: Coded Allergies: NO KNOWN ALLERGIES (12/28/12) Home Med list Apixaban (Eliquis) 2.5 MG TABLET 1 TAB PO BID A FIB (Reported) Calcium Carbonate/Vitamin D3 (Caltrate 600 + D Tablet) 600 MG-800 TABLET 1 TAB PO DAILY SUPPLEMENT (Reported) Diltiazem HCl (Diltiazem 24HR ER) 120 MG CAP.ER.24H 1 CAP PO DAILY Atrial fibrillation . Escitalopram Oxalate 10 MG TABLET 1 TAB PO QPM MENTAL HEALTH (Reported) Furosemide (Lasix) 20 MG TABLET 1 TAB PO BID CHF . Furosemide (Lasix) 40 MG TABLET 1 TAB PO DAILY Swelling Lisinopril 40 MG TABLET 1 TAB PO EVENING HIGH BLOOD PRESSURE (Reported) Metoprolol Tartrate 50 MG TABLET 1 TAB PO BID HIGH BLOOD PRESSURE (Reported) Nabumetone 750 MG TABLET 1 TAB PO BID PRN PAIN SCALE 4-6 (MODERATE) (Reported ) Quetiapine Fumarate 25 MG TABLET 1 TAB PO QPM MENTAL HEALTH (Reported) Quetiapine Fumarate 25 MG TABLET 0.5 TAB PO QAM MENTAL HEALTH (Reported) Vitamin B Complex (B Complex) 1 EACH TABLET 1 TAB PO D SUPPLEMENT (Reported) Past History Travel History Traveled to [place] past 21 day No Medical History Blood Transfusion Hx: No Neurological: dementia EENT: NONE Cardiovascular: hyperlipidemia, HTN. AFIB,CHF Respiratory: NONE Gastrointestinal: NONE Hepatic: NONE Renal: NONE Musculoskeletal: NONE Psychiatric: NONE Endocrine: NONE Blood Disorders: NONE Cancer(s): NONE FRONT MAN/Reproductive: NONE History of MRSA: No History of VRE: No History of CDIFF: No Isolation History: Standard Influenza Vaccine: 08/05/17 Surgical History Surgical History: non-contributory Past Family/Social History Family History Relations & Conditions if any MOTHER Relation not specified for: FHx: stomach cancer Psychosocial History Who Do You Live With? self Services at Home: None Primary Language: Welsh Functional Ability ADLs Independent: dressing, eating, toileting, bathing. Ambulation: cane IADLs Independent: shopping, housework, finances, food prep, telephone, transportation , medication admin. Review of Systems Review of Systems Constitutional: Denies: no symptoms. Exam & Diagnostic Data Last 24 Hrs of Vital Signs/I&O Vital Signs Date Time Temp Pulse Resp B/P B/P Pulse O2 O2 Flow FiO2 Mean Ox Delivery Rate 12/01 1403 97.3 88 20 136/72 97 Room Air 12/01 1124 98.1 104 20 129/65 96 Room Air 12/01 0911 Room Air 12/01 0900 97.9 104 20 138/70 97 Room Air 12/01 0221 Room Air 12/01 0135 Room Air 12/01 0124 98.3 106 20 142/72 96 Room Air 11/30 2349 96.5 99 18 122/69 94 Room Air 11/30 2146 98.0 93 20 144/96 97 Room Air 11/30 2045 98.8 102 20 170/89 96 Room Air 11/30 1933 97 11/30 1843 98.1 92 20 145/81 95 Room Air 11/30 1646 96.6 79 18 121/84 96 Room Air Intake & Output 12/01 1600 12/01 0800 12/01 0000 Intake Total 0 Output Total 200 250 Balance -200 -250 Intake, Oral 0 Output, Urine 200 250 Patient 75.75 kg Weight Weight Reported by Patient Measurement Method Physical Exam General Appearance Alert, Oriented X3, Cooperative, No Acute Distress Skin pale,blue ecchymotic pacthes on right side of face HEENT Atraumatic, PERRLA, EOMI Neck JVD present Cardiovascular Normal S1, Normal S2 Lungs bilateral decreased air entry with expiratory wheezes Abdomen Soft, No Tenderness, distended, bladder was palpable in lower abdoman Extremities bilateral lower extremetes piting edema till knee Vascular Normal Pulses, Pulses Symmetrical Body Front and Back (Adult) 1) Last 24 Hrs of Labs/Young: Laboratory Tests 11/30/171947: Lactic Acid Cancelled 11/30/171824: Anion Gap 11, Estimated GFR 59 L, BUN/Creatinine Ratio 24.4, Glucose 103 H, Lactic Acid 1.1, Calcium 9.0, Total Bilirubin 0.7, AST 36, ALT 38, Alkaline Phosphatase 47, Troponin I < 0.01, Mxm-P-Nprkpmqsrrz Pept 6750 H, Total Protein 5.8 L, Albumin 3.5, Globulin 2.3, Albumin/Globulin Ratio 1.5 11/30/17 1655: PT 16.1 H, INR 1.47 H, APTT 35, D-Dimer High Sensitivty 467 H, CBC w Diff NO MAN DIFF REQ, RBC 3.77 L, MCV 88.7, MCH 30.0, MCHC 33.8, RDW 17.7 H, MPV 10.1, Gran % 68.7, Lymphocytes % 16.9 L, Monocytes % 11.8 H, Eosinophils % 1.7, Basophils % 0.9, Absolute Granulocytes 3.3, Absolute Lymphocytes 0.8 L, Absolute Monocytes 0.6, Absolute Eosinophils 0.1, Absolute Basophils 0 Diagnostic Data EKG Results HR -93, AF, LBBB, Poor R wave prognosis, Qs - v1- v3 CXR Results Pulmonary vascular congestion similar to prior chest x-ray 11/02/2017. Assessment/Plan Assessment: Patient is an 86-year-old female presented to the ER with chief complaints of increasing shortness of breath, cough, wheezing x 1month. ED course - vital signs -temperature 96.6, pulse 79, respiratory rate 18, blood pressure 131 /84, SPO2 96% on room air SPO2 86% on room air, Blood workup showed hemoglobin 11.3, hematocrit 33.5, platelet count 187, serum sodium 142, potassium 3.4, carbon dioxide 31, anion gap 11, BUN 22, creatinine 0.9, glucose 103, lactic acid 1.1, calcium 9.0, total bilirubin 0.7, AST 36, ALT 38, alkaline phosphatase 47, troponin less than 0.01, proBNP 6750(10,000), total protein 5.8, albumin is 3.5, globulin 2.3,PT/INR 16.7/1.47, APTT 35, d-dimer 467 patient was given 20 mg of the Lasix, followed by 250 cc of urine output Chest x-ray -pulmonary vascular congestion CTA -no evidence of pulmonary embolism, atelectasis of right lung base, bilateral pleural effusion CT head - no acute intracranial abnormality, small anterior right frontal scalp hematoma CT of the cervical spine -no acute fracture CT of maxillofacial region -There is a 1.3 cm ovular soft tissue mass within the left orbit between the left medial and inferior rectus muscles that is stable in comparison to the 11/02/[address] and that was not present on the 02/03/[address] Orbital protocol MRI can be obtained for further assessment. A varix is favored. Echocardiogram -October 2017 -mild concentric LVH, left ventricular ejection fraction 45-50%, mild to moderate right atrial dilatation, mild to moderate left atrial dilatation, RVSP 45-50. Assessment and plan - Patient is here with SOB, despite IV lasix, probably due to fluid retension and CHF. We need to adjust the dose of lasix or add new diuretics. Will discuss with custom car builder. Acute on chronic diastolic heart failure - * We will observe the patient to telemetry floor * Keep head end of the bed elevated * Injection Lasix 20 mg IV twice daily * Follow cardiology recommendation * Strict intake output charting * Daily weight measurement * PT/OT Hypokalemia - * Possibly secondary to Lasix * Regular supplementation of potassium * Regular monitoring of BEP. History of paroxysmal atrial fibrillation -continue Eliquis as before Chronic medical condition -hypertension, hyperlipidemia, dementia * Continue all home medication as before CODE STATUS -full code Diet-heart healthy diet with fluid restriction to 1 L and low-sodium DVT prophylaxis -Eliquis As Ranked By This Provider Problem List: 1. CHF (congestive heart failure) Core Measures/Misc (06/07) Acute Coronary Syndrome ACS Diagnosis: No Congestive Heart Failure Congestive Heart Failure Diagnosis Yes Last Known EF % 50 Cerebrovascular Accident CVA/TIA Diagnosis: No VTE (View Protocol) VTE Risk Factors Age>40 No Mechanical VTE Prophylaxis d/t N/A MechProphylax Ordered No VTE Pharm Prophylaxis d/t NA PharmProphylax ordered Sepsis (View protocol) Sepsis Present: No Rachel Spence 12/01/17 1518: Attending MD Review Statement Attending Statement Attending MD Statement: examined this patient, discuss w/resident/PA/APPLICATION SUPPORT DEVELOPER, agreed w/resident/PA/APPLICATION SUPPORT DEVELOPER, discussed with family, reviewed EMR data (avail), discussed with nursing, discussed with case mgmt Attending Assessment/Plan: Pt being placed in observation for sob and worsening leg edema. Pt was recently dced few weeks back for chf exacerbation. pt was following up with Dr Gay and lasix was increased to 40mg qam and 20mg qpm and was going to chf clinic and getting iv lasix. Got one dose yesterday at chf clinic of 40mg iv lasix. Pt came to the ER yesterday evening and has got iv lasix in the ER but not improving much , still desaturating with ambulation to 86% RA. Leg edema was getting up to the thighs per daughter and pt was having trouble ambulating with sob worsening. pt will be started on iv lasxi 20mg q12h and will consider adding metolazone if ok with cardiology. will d/w cardio the care plan. will f/u on their recommendations.
[2017-12-01 18:34] VITALS: BP 120/80
[2017-12-01 21:57] VITALS: BP 120/70
[2017-12-02 07:05] VITALS: BP 122/80
--- NOTE | 2017-12-02 07:19 | PN- Housestaff ---
Zhou BYRD,[facility] 12/02/17 0718: Subjective Follow-up For: sent in from CHF clinic for CHF Tele-Events Since Last Visit: Afib 92-101 BBB, PVC 3 beat vtach Subjective: No acute events overnight. States she has dry cough. No SOB. Slept ok. No other complaints. Review of Systems Constitutional: Reports: see HPI. Cardiovascular: Reports: no symptoms. Respiratory: Reports: cough. Gastrointestinal: Reports: no symptoms. Genitourinary: Reports: no symptoms. Musculoskeletal: Reports: no symptoms. Objective Last 24 Hrs of Vital Signs/I&O Vital Signs Date Time Temp Pulse Resp B/P B/P Pulse O2 O2 Flow FiO2 Mean Ox Delivery Rate 12/02 1409 97.7 72 20 112/64 91 Room Air 12/02 1318 Room Air 12/02 0927 120 148/80 12/02 0925 100 140/80 12/02 0800 96 Room Air 12/02 0705 98.0 75 20 122/80 90 Room Air 12/01 2205 Room Air 12/01 2157 97.0 87 20 120/70 95 12/01 2048 102 124/68 12/01 1834 98.0 88 20 120/80 95 12/01 1617 98.0 80 20 120/70 98 Room Air Intake & Output 12/02 1600 12/02 0800 12/02 0000 Intake Total 500 260 120 Output Total 200 Balance 300 260 120 Intake, Oral 500 260 120 Output, Urine 200 Patient 150 lb 150 lb Weight Weight Estimated Measurement Method Physical Exam General Appearance: Alert, Cooperative, No Acute Distress, oriented only to name , b/l maxillary bruises HEENT: PERRLA, EOMI, no maxillary tenderness Cardiovascular: irregular irregular rhythm Lungs: diffuse crackles Abdomen: Normal Bowel Sounds, Soft, No Tenderness Vascular: 2+ LE edema Current Medications: Current Medications Sig/Darek Start time Last Medication Dose Route Stop Time Status Admin Apixaban 2.5 MG BID 12/01 1000 AC 12/02 PO 09 Diltiazem HCl 120 MG DAILY 12/02 1000 AC 12/02 PO 0926 Diltiazem HCl 120 MG DAILY 12/01 1000 DC 12/01 PO 1023 Escitalopram Oxalate 10 MG 1800 12/02 1800 AC PO Escitalopram Oxalate 10 MG QPM 12/01 2200 DC 12/01 PO 2044 Furosemide 0 .STK-MED ONE 12/01 1724 DC IV Furosemide 20 MG 7:30 AM, & 4:30 PM 12/01 1630 AC 12/02 IV 0805 Furosemide 20 MG BID 12/01 1000 DC 12/01 PO 1023 Lisinopril 40 MG DAILY 12/01 1000 AC 12/02 PO 0925 Metoprolol Tartrate 50 MG BID 12/01 1000 AC 12/02 PO 0927 Potassium Chloride 20 MEQ DAILY 12/03 1000 AC PO Potassium Chloride 40 MEQ ONCE ONE 12/02 0945 DC 12/02 PO 12/02 0946 1012 Potassium Chloride 40 MEQ ONCE ONE 12/02 0015 DC 12/02 PO 12/02 0016 0026 Potassium Chloride 40 MEQ ONCE ONE 12/01 1815 DC 12/01 PO 12/01 181 2030 Quetiapine Fumarate 25 MG 1800 12/01 1900 AC 12/01 PO 2045 Quetiapine Fumarate 12.5 MG QAM 12/01 1000 AC 12/02 PO 0927 Last 24 Hrs of Lab/Young Results Last 24 Hrs of Labs/Mics: Laboratory Tests 12/02/17 0616: Anion Gap 9, Estimated GFR 52 L, BUN/Creatinine Ratio 19.0 Assessment/Plan Assessment: Patient currently in OBS status A: 86-year-old female with a pmhx of afib, htn, hld, chf, and dementia presented to the ER with chief complaints of increasing shortness of breath, cough, wheezing x 1month most likely 2/2 to CHF exascerbation. Assessment and plan - #Acute on chronic diastolic heart failure - Pro bnp 6750 trop <.01 x1 D-dimer 567 cxr: pulm vascular congestion CTA: 1. No evidence of pulmonary embolism. 2. Atelectasis right lung base. 3. Bilateral pleural effusions Patient was seen by cardiology who recommneded increasing po lasix to 40 daily for discharge tomorrow. However patient already on 40 po in the AM and 20 in the afternoon. Will touch base with cardiology regarding this issue and uptitrate po lasix per cardiology. -cont lasix 20mg BID -monitor BEP -start on kdur 20 daily tomorrow -strict i/o and daily wieghts -PT recommends STR vs home PT #prior fall Head ct, c-spine ct, maxillofacial CT 1. No acute intracranial abnormality. There is a small anterior right frontal scalp hematoma. 2. No acute osseous abnormality within the cervical spine. 3. No acute osseous abnormality within the maxillofacial region. There is a 1.3 cm ovular soft tissue mass within the left orbit between the left medial and inferior rectus muscles that is stable in comparison to the 11/02/[address] and that was not present on the 02/03/[address] Orbital protocol MRI can be obtained for further assessment. A varix is favored. 4. Partially imaged right pleural effusion. -cont pain control #afib, htn -cont diltiazem, metoprolol, cont apixaban #mental health -cont escitalopram, quietapine Hypokalemia - Possibly secondary to Lasix -start supplementation of potassium -monitor Bep #FULL CODE #DVT prophylaxis -Eliquis Problem List: 1. CHF (congestive heart failure) Pain Ratin Pain Location: none Pain Goal: Pain 4 or less Pain Plan: pain pathway Tomorrow's Labs & Rationales: hepatitis panel Rachel Spence 12/02/17 1317: Attending MD Review Statement Attending Statement Attending MD Statement: examined this patient, discuss w/resident/PA/MUSSEL FARMER, agreed w/resident/PA/MUSSEL FARMER, discussed with family, reviewed EMR data (avail), discussed with nursing, discussed with case mgmt Attending Assessment/Plan: had d/w family about care plan. pt on iv lasix and will d/w cardio about changing the diuretics or adding additional one. hypokalemia resolved. will cont to monitor. leg swelling slightly better compared iwth yesterday.
--- NOTE | 2017-12-02 13:09 | Cons- Cardiology ---
General Information and HPI Consulting Request Date of Consult: 12/02/17 Requested By: Rachel Spence MD Reason for Consult: Recurrent congestive heart failure Source of Information: patient, old records Exam Limitations: confusion History of Present Illness: Armida Vila is an 86-year-old female who originally presented in 2008 with an episode of paroxysmal atrial fibrillation which spontaneously converted to sinus rhythm. She also has known left bundle branch block. Subsequently she was maintained on anticoagulation but is now on just aspirin 81 mg daily. Her echocardiogram at that time did not show any major abnormalities, and she was subsequently just followed along. Her blood pressure has been under good control. Her EKG has been relatively stable. At the time of her visit in August 2017, Armida was complaining of shortness of breath and edema. He I found her to be in atrial fibrillation with a slightly increased rate, which I thought accounted for her shortness of breath and increased edema. At that time, I changed her Dyazide to Lasix 20 mg daily and increased her metoprolol from 25 mg to 50 mg daily, and put her on Eliquis 2.5 mg twice a day for stroke prevention. On her follow-up visit on October 01 she was back in sinus rhythm and more comfortable. Armida was hospitalized at just one month ago with congestive heart failure. She was in atrial fibrillation at that time. Her echo at that time showed ejection fraction of 45-50% and right ventricular systolic pressure was elevated at 45-50 mmHg. Subsequently Armida has been seen in the office once and referred to CHF clinic. She was seen in the CHF clinic just 2 days ago and given some IV Lasix. They said she had some wheezing. Subsequently this got a little bit worse and she went to the emergency room. She was then desaturating with exertion and it was recommended to the bring her into the hospital for a CHF exacerbation. Her troponin was negative and her BNP was 6750, which is little less than her previous one. Currently she is being given IV Lasix 20 mg twice daily. She appears to be diuresing somewhat although I don't think her I' s and O's are accurate. Today she walked around the [place] with the physical therapist. She did well. She did not have excessive dyspnea and her oxygen saturations were consistently 90 or above. No wheezing was noted. Currently she has no complaints. Allergies/Medications Allergies: Coded Allergies: NO KNOWN ALLERGIES (12/28/12) Home Med List: Apixaban (Eliquis) 2.5 MG TABLET 1 TAB PO BID A FIB (Reported) Calcium Carbonate/Vitamin D3 (Caltrate 600 + D Tablet) 600 MG-800 TABLET 1 TAB PO DAILY SUPPLEMENT (Reported) Diltiazem HCl (Diltiazem 24HR ER) 120 MG CAP.ER.24H 1 CAP PO DAILY Atrial fibrillation . Escitalopram Oxalate 10 MG TABLET 1 TAB PO QPM MENTAL HEALTH (Reported) Furosemide (Lasix) 20 MG TABLET 1 TAB PO BID CHF . Furosemide (Lasix) 40 MG TABLET 1 TAB PO DAILY Swelling Lisinopril 40 MG TABLET 1 TAB PO EVENING HIGH BLOOD PRESSURE (Reported) Metoprolol Tartrate 50 MG TABLET 1 TAB PO BID HIGH BLOOD PRESSURE (Reported) Nabumetone 750 MG TABLET 1 TAB PO BID PRN PAIN SCALE 4-6 (MODERATE) (Reported ) Quetiapine Fumarate 25 MG TABLET 1 TAB PO QPM MENTAL HEALTH (Reported) Quetiapine Fumarate 25 MG TABLET 0.5 TAB PO QAM MENTAL HEALTH (Reported) Vitamin B Complex (B Complex) 1 EACH TABLET 1 TAB PO D SUPPLEMENT (Reported) Current Medications: Current Medications Sig/Darek Start time Last Medication Dose Route Stop Time Status Admin Apixaban 2.5 MG BID 12/01 1000 AC 12/02 PO 0926 Diltiazem HCl 120 MG DAILY 12/02 1000 AC 12/02 PO 0926 Diltiazem HCl 120 MG DAILY 12/01 1000 DC 12/01 PO 1023 Escitalopram Oxalate 10 MG 1800 12/02 1800 AC PO Escitalopram Oxalate 10 MG QPM 12/01 2200 DC 12/01 PO 2044 Furosemide 0 .STK-MED ONE 12/01 1724 DC IV Furosemide 20 MG 7:30 AM, & 4:30 PM 12/01 1630 AC 12/02 IV 0805 Furosemide 20 MG BID 12/01 1000 DC 12/01 PO 1023 Lisinopril 40 MG DAILY 12/01 1000 AC 12/02 PO 0925 Metoprolol Tartrate 50 MG BID 12/01 1000 AC 12/02 PO 0927 Potassium Chloride 20 MEQ DAILY 12/03 1000 AC PO Potassium Chloride 40 MEQ ONCE ONE 12/02 0945 DC 12/02 PO 12/02 0946 1012 Potassium Chloride 40 MEQ ONCE ONE 12/02 0015 DC 12/02 PO 12/02 0016 0026 Potassium Chloride 40 MEQ ONCE ONE 12/01 1815 DC 12/01 PO 12/01 181 2030 Quetiapine Fumarate 25 MG 1800 12/01 1900 AC 12/01 PO 204 Quetiapine Fumarate 12.5 MG QAM 12/01 1000 AC 12/02 PO 0927 Review of Systems Review of Systems: No other complaints noted Past History Travel History Traveled to [place] past 21 day No Medical History Blood Transfusion Hx: No Neurological: dementia EENT: NONE Cardiovascular: hyperlipidemia, HTN. AFIB,CHF Respiratory: NONE Gastrointestinal: NONE Hepatic: NONE Renal: NONE Musculoskeletal: osteoarthritis Psychiatric: NONE Endocrine: NONE Blood Disorders: NONE Cancer(s): NONE FORGE TENDER/Reproductive: NONE Surgical History Surgical History: non-contributory Family History Relations & Conditions If Any: MOTHER Relation not specified for: FHx: stomach cancer Psychosocial History Where Do You Live? Home Who Do You Live With? self Services at Home: None Primary Language: Yakut Smoking Status: Never Smoked Functional Ability ADLs Independent: dressing, eating, toileting, bathing. Ambulation: cane IADLs Independent: shopping, housework, finances, food prep, telephone, transportation , medication admin. Exam & Diagnostic Data Vital Signs and I&O Vital Signs Date Time Temp Pulse Resp B/P B/P Pulse O2 O2 Flow FiO2 Mean Ox Delivery Rate 12/02 0927 120 148/80 12/02 0925 100 140/80 12/02 0800 96 Room Air 12/02 0705 98.0 75 20 122/80 90 Room Air 12/01 2205 Room Air 12/01 2157 97.0 87 20 120/70 95 12/01 2048 102 124/68 12/01 1834 98.0 88 20 120/80 95 12/01 1617 98.0 80 20 120/70 98 Room Air 12/01 1403 97.3 88 20 136/72 97 Room Air Intake & Output 12/02 1600 12/02 0800 12/02 0000 12/01 1600 12/01 0800 12/01 0000 Intake Total 260 120 0 Output Total 200 250 Balance 260 120 -200 -250 Intake, Oral 260 120 0 Output, Urine 200 250 Patient 150 lb 150 lb 167 lb Weight Weight Estimated Reported by Patient Measurement Method Physical Exam: She is in no distress HEENT exam normal Chest is clear, no wheezing Heart irregular rhythm, soft heart sounds, no murmurs Extremities 1+ edema Labs/Young Results: Laboratory Tests 12/02 11/30 11/30 0616 1948 1825 Chemistry Sodium (137 - 145 mmol/L) 144 142 Potassium (3.5 - 5.1 mmol/L) 3.9 3.4 L Chloride (98 - 107 mmol/L) 103 101 Carbon Dioxide (22 - 30 mmol/L) 33 H 31 H Anion Gap (5 - 16) 9 11 BUN (7 - 17 mg/dL) 19 H 22 H Creatinine (0.5 - 1.0 mg/dL) 1.0 0.9 Estimated GFR (>60 ml/min) 52 L 59 L BUN/Creatinine Ratio (7 - 25 %) 19.0 24.4 Glucose (65 - 99 mg/dL) 103 H Lactic Acid (0.7 - 2.1 mmol/L) Cancelled 1.1 Calcium (8.4 - 10.2 mg/dL) 9.0 Phosphorus (2.5 - 4.5 mg/dL) 3.3 Magnesium (1.6 - 2.3 mg/dL) 2.0 Total Bilirubin (0.2 - 1.3 mg/dL) 0.7 AST (14 - 36 U/L) 36 ALT (9 - 52 U/L) 38 Alkaline Phosphatase (<127 U/L) 47 Troponin I (< 0.11 ng/ml) < 0.01 Miy-[id number] Pept (<125 pg/mL) 6750 H Total Protein (6.3 - 8.2 g/dL) 5.8 L Albumin (3.5 - 5.0 g/dL) 3.5 Globulin (1.9 - 4.2 gm/dL) 2.3 Albumin/Globulin Ratio (1.1 - 2.2 %) 1.5 11/30 1655 Coagulation PT (9.4 - 12.5 SEC) 16.1 H INR (0.90 - 1.19) 1.47 H APTT (25 - 37 SEC) 35 D-Dimer High Sensitivty (0 - 243 ng/ml) 467 H Hematology CBC w Diff NO MAN DIFF REQ WBC (4.8 - 10.8 /CUMM) 4.7 L RBC (4.20 - 5.40 /CUMM) 3.77 L Hgb (12.0 - 16.0 G/DL) 11.3 L Hct (37 - 47 %) 33.5 L MCV (81.0 - 99.0 FL) 88.7 MCH (27.0 - 31.0 PG) 30.0 MCHC (33.0 - 37.0 G/DL) 33.8 RDW (11.5 - 14.5 %) 17.7 H Plt Count (130 - 400 /CUMM) 187 MPV (7.4 - 10.4 FL) 10.1 Gran % (42.2 - 75.2 %) 68.7 Lymphocytes % (20.5 - 51.1 %) 16.9 L Monocytes % (1.7 - 9.3 %) 11.8 H Eosinophils % (0 - 5 %) 1.7 Basophils % (0.0 - 2.0 %) 0.9 Absolute Granulocytes (1.4 - 6.5 /CUMM) 3.3 Absolute Lymphocytes (1.2 - 3.4 /CUMM) 0.8 L Absolute Monocytes (0.10 - 0.60 /CUMM) 0.6 Absolute Eosinophils (0.0 - 0.7 /CUMM) 0.1 Absolute Basophils (0.0 - 0.2 /CUMM) 0 Diagnostic Data EKG Results Atrial fibrillation/flutter with a ventricular rate of 116 with left bundle branch block pattern. CXR Results PATIENT: ARMIDA VILA PRESENT AGE: 86 PATIENT ACCOUNT NO: [id number] : [birth year] LOCATION: [facility] ORDERING PHYSICIAN: Akilah RIGGS SERVICE DATE: 11/30/17 EXAM TYPE: RAD - XRY-PORTABLE CHEST XRAY EXAMINATION: XR PORTABLE CHEST CLINICAL INFORMATION: Shortness of breath. Lower extremity swelling. COMPARISON: Chest x-ray 11/02/2017 TECHNIQUE: Portable frontal view of the chest was obtained. 7:14 PM FINDINGS: There is mild pulmonary vascular congestion with prominence of the vessels similar to the chest x-ray 11/02/2017. No focal consolidation. No large pleural effusion. IMPRESSION: Pulmonary vascular congestion similar to prior chest x-ray 11/02/2017. DICTATED BY: Deny Morris MD DATE/TIME DICTATED:11/30/172005 MIRROR POLISHER:FLOR DATE/TIME TRANSCRIBED:11/30/172005 CONFIDENTIAL, DO NOT COPY WITHOUT APPROPRIATE AUTHORIZATION. <Electronically signed in Other Vendor System> SIGNED BY: Deny Morris MD 11/30/172010 Assessment/Plan Assessment/Plan Armida appears to be improved over her presentation the other day. She was described as having wheezing which she does not have now and she tolerated some exercise without difficulty. I recommend continuing her on IV Lasix today and then changing to oral Lasix 40 mg daily tomorrow. If she continues to improve she probably could be discharged by tomorrow. Consult Acknowledgment - Thank you for your consult request.
[2017-12-02] MEDS ORDERED: LASIX40 M1 PO (13:19)
--- NOTE | 2017-12-02 13:20 | Patient Discharge Instructions ---
Discharge Instructions General Discharge Information Special Instructions: Please follow up with your pcp in 1 week. Please follow up with your it security consultant in 1 week. Please continue nutritonal protein shakes. Please get repeat labwork on thursday (CBC for platelets and BMP for electrolytes) and fax the results to Dr. Gay. Acute Coronary Syndrome Inclusion Criteria At DC or during hospital stay patient has or had the following: ACS DIAGNOSIS No Discharge Core Measures Meds if any: Prescribed or Continued at Discharge Meds if any: NOT Prescribed or Continued at Discharge Congestive Heart Failure Inclusion Criteria At DC or during hospital stay patient has or had the following: CHF DIAGNOSIS Yes Discharge Core Measures Meds if any: Prescribed or Continued at Discharge Meds if any: NOT Prescribed or Continued at Discharge Cerebrovascular accident Inclusion Criteria At DC or during hospital stay patient has or had the following: CVA/TIA Diagnosis No Discharge Core Measures Meds if any: Prescribed or Continued at Discharge Meds if any: NOT Prescribed or Continued at Discharge Venous thromboembolism Inclusion Criteria VTE Diagnosis No VTE Type NONE VTE Confirmed by (Test) NONE Discharge Core Measures - Per Current guidelines, there needs to be overlap - treatment for the first 5 days of Warfarin therapy. - If discharged on Warfarin prior to 5 days of - overlap therapy, the patient will need to be - assessed for post discharge needs including - *Post discharge parental anticoagulation - *Warfarin and/or parental anticoagulation education - *Follow up date to check INR post discharge At least 5 days overlap therapy as Inpatient No Meds if any: Prescribed or Continued at Discharge Note: Overlap Therapy is Warfarin and Anticoagulant Meds if any: NOT Prescribed or Continued at Discharge
[2017-12-02 14:09] VITALS: BP 112/64
[2017-12-02 22:59] VITALS: BP 122/76
[2017-12-03 06:53] VITALS: BP 132/80
--- NOTE | 2017-12-03 07:19 | PN- Housestaff ---
Zhou BYRD,[facility] 12/03/17 0719: Subjective Follow-up For: CHF Tele-Events Since Last Visit: A. fib heart rate 72 112, BBB QRS 0.12 Subjective: No acute events overnight. States no issues. States she was erosive. No shortness of breath. Review of Systems Constitutional: Reports: no symptoms. Objective Last 24 Hrs of Vital Signs/I&O Vital Signs Date Time Temp Pulse Resp B/P B/P Pulse O2 O2 Flow FiO2 Mean Ox Delivery Rate 12/03 08 116 124/50 12/03 0815 116 124/50 95 Room Air 12/03 0800 Room Air 12/03 0653 98.4 108 20 132/80 93 Room Air 12/03 0000 Room Air 12/02 2259 98.2 40 20 122/76 94 12/02 2241 113 Intake & Output 12/03 1600 12/03 0800 12/03 0000 Intake Total 120 200 Output Total 500 200 200 Balance -500 -80 0 Intake, Oral 120 200 Number 1 Bowel Movements Output, Urine 500 200 200 Patient 167 lb Weight Physical Exam General Appearance: Alert, Cooperative, No Acute Distress Skin: decreased maxillary facial bruising. Cardiovascular: irregularly irregular with systolic murmur Lungs: mild left lung wheezing Abdomen: Normal Bowel Sounds, Soft, No Tenderness Extremities: 2+ lower extremity edema Vascular: 2+ radial pulses Current Medications: Current Medications Sig/Darek Start time Last Medication Dose Route Stop Time Status Admin Apixaban 2.5 MG BID 12/01 1000 AC 12/03 PO 0815 Bumetanide 1 MG 7:30 AM, & 4:30 PM 12/03 1630 CAN PO Bumetanide 1 MG 7:30 AM, & 4:30 PM 12/03 1630 AC PO Diltiazem HCl 120 MG DAILY 12/02 1000 AC 12/03 PO 0815 Escitalopram Oxalate 10 MG 1800 12/02 1800 AC 12/02 PO 1715 Furosemide 40 MG 7:30 AM, & 4:30 PM 12/03 1630 CAN PO Furosemide 20 MG 7:30 AM, & 4:30 PM 12/01 1630 DC 12/03 IV 0554 Lisinopril 40 MG DAILY 12/01 1000 AC 12/03 PO 0815 Metoprolol Tartrate 50 MG BID 12/01 1000 AC 12/03 PO 0815 Potassium Chloride 20 MEQ DAILY 12/03 1000 AC 12/03 PO 0815 Quetiapine Fumarate 25 MG 1800 12/01 1900 AC 12/02 PO 1715 Quetiapine Fumarate 12.5 MG QAM 12/01 1000 AC 12/03 PO 0815 Last 24 Hrs of Lab/Young Results Last 24 Hrs of Labs/Mics: Laboratory Tests 12/03/17 1000: CBC w Diff NO MAN DIFF REQ, RBC 3.58 L, MCV 89.6, MCH 29.6, MCHC 33.0, RDW 18.2 H, MPV 9.9, Gran % 66.9, Lymphocytes % 15.5 L, Monocytes % 14.4 H, Eosinophils % 2.0, Basophils % 1.2, Absolute Granulocytes 2.7, Absolute Lymphocytes 0.6 L, Absolute Monocytes 0.6, Absolute Eosinophils 0.1, Absolute Basophils 0 12/03/17 0635: Anion Gap 8, Estimated GFR 59 L, BUN/Creatinine Ratio 22.2, CBC w Diff NO MAN DIFF REQ, RBC 3.56 L, MCV 89.3, MCH 29.6, MCHC 33.2, RDW 18.4 H, MPV 9.7, Gran % 58.2, Lymphocytes % 23.8, Monocytes % 14.8 H, Eosinophils % 2.1, Basophils % 1.1, Absolute Granulocytes 2.4, Absolute Lymphocytes 1.0 L, Absolute Monocytes 0.6, Absolute Eosinophils 0.1, Absolute Basophils 0 Assessment/Plan Assessment: Patient currently in OBS status but will get discharged today A: 86-year-old female with a pmhx of afib, htn, hld, chf, and dementia presented to the ER with chief complaints of increasing shortness of breath, cough, wheezing x 1month most likely 2/2 to CHF exascerbation. Assessment and plan - #Acute on chronic diastolic heart failure - Pro bnp 6750 trop <.01 x1 D-dimer 567 cxr: pulm vascular congestion CTA: 1. No evidence of pulmonary embolism. 2. Atelectasis right lung base. 3. Bilateral pleural effusions -Discussed with cardiology. Patient will be discharged on Bumex 1 mg twice a day. -repeat cbc for platelet count and BMP for electrolytes on Thursday. Patient given directions to fax results to cardiology Dr. Gay -Follow-up with cardiology -monitor BEP -start on kdur 20 daily tomorrow -strict i/o and daily wieghts -home PT #Borderline thrombocytopenia -Platelet decrease 187 -> 107/112 -unclear cause -Repeat CBCs on Thursday as directed. Follow-up outpatient. #prior fall Head ct, c-spine ct, maxillofacial CT 1. No acute intracranial abnormality. There is a small anterior right frontal scalp hematoma. 2. No acute osseous abnormality within the cervical spine. 3. No acute osseous abnormality within the maxillofacial region. There is a 1.3 cm ovular soft tissue mass within the left orbit between the left medial and inferior rectus muscles that is stable in comparison to the 11/02/[address] and that was not present on the 02/03/[address] Orbital protocol MRI can be obtained for further assessment. A varix is favored. 4. Partially imaged right pleural effusion. -cont pain control #protein malnutrition? Albumin borderline 3.5 -Continue protein nutritional supplement #afib, htn -cont diltiazem, metoprolol, cont apixaban #mental health -cont escitalopram, quietapine Hypokalemia - Possibly secondary to Lasix -start supplementation of potassium -monitor Bep #FULL CODE #DVT prophylaxis -Eliquis Problem List: 1. CHF (congestive heart failure) 2. Thrombocytopenia Pain Ratin Pain Location: none Pain Goal: Pain 4 or less Pain Plan: pain pathway Tomorrow's Labs & Rationales: none Rachel Spence 12/03/17 1417: Attending MD Review Statement Attending Statement Attending MD Statement: examined this patient, discuss w/resident/PA/ENGLISH FACULTY MEMBER, agreed w/resident/PA/ENGLISH FACULTY MEMBER, reviewed EMR data (avail), discussed with nursing, discussed with case mgmt Attending Assessment/Plan: Pt will be dced home on po bumex 1 mg po bid. Encouraged pt to improve nutrition and pt will be setup to recheck BEP and cbc on Thursday with results faxed to Dr Gay and PCP. d/w pt and pts family at bedside the care plan.
[2017-12-03 08:15] VITALS: BP 124/50
[2017-12-03 08:15] LABS: ABSOLUTE BASOPHIL COUNT 0 /CUMM (0.0-0.2); ABSOLUTE EOSINOPHIL COUNT 0.1 /CUMM (0.0-0.7); ABSOLUTE GRANULOCYTE CT 2.4 /CUMM (1.4-6.5); ABSOLUTE MONOCYTE COUNT 0.6 /CUMM (0.10-0.60); BASOPHIL % 1.1 % (0.0-2.0); EOSINOPHIL % 2.1 % (0-5); GRANULOCYTE % 58.2 % (42.2-75.2); HEMATOCRIT 31.8 % (37-47); MEAN CORPUSCULAR HGB 29.6 PG (27.0-31.0); MEAN CORPUSCULAR HGB CONC 33.2 G/DL (33.0-37.0); MEAN CORPUSCULAR VOLUME 89.3 FL (81.0-99.0); MEAN PLATELET VOLUME 9.7 FL (7.4-10.4); PLATELET COUNT 107 /CUMM (130-400); RBC DISTRIBUTION WIDTH 18.4 % (11.5-14.5); RED BLOOD CELL CT 3.56 /CUMM (4.20-5.40)
--- NOTE | 2017-12-03 10:22 | PN- Cardiology ---
Subjective Subjective: Armida has no complaints at this time. She is not short of breath. She did ambulate without difficulty. She still has some edema. Her BUN and creatinine are good. Objective Vital Signs and I&Os Vital Signs Date Time Temp Pulse Resp B/P B/P Pulse O2 O2 Flow FiO2 Mean Ox Delivery Rate 12/03 814 116 124/50 12/03 0815 116 124/50 95 Room Air 12/03 0800 Room Air 12/03 0653 98.4 108 20 132/80 93 Room Air 12/03 0000 Room Air 12/02 2259 98.2 40 20 122/76 94 12/02 2241 113 12/02 1409 97.7 72 20 112/64 91 Room Air 12/02 1318 Room Air Intake & Output 12/03 1600 12/03 0800 12/03 0000 12/02 1600 12/02 0800 12/02 0000 Intake Total 120 200 500 260 120 Output Total 200 200 200 Balance -80 0 300 260 120 Intake, Oral 120 200 500 260 120 Number 1 Bowel Movements Output, Urine 200 200 200 Patient 167 lb 150 lb 150 lb Weight Weight Estimated Measurement Method Physical Exam: HEENT exam is normal Chest is clear, no wheezing Heart irregular rhythm, rate in the 80s, no murmurs Extremities 1-2+ edema Current Medications: Current Medications Sig/Darek Start time Last Medication Dose Route Stop Time Status Admin Apixaban 2.5 MG BID 12/01 1000 AC 12/03 PO 0815 Bumetanide 1 MG 7:30 AM, & 4:30 PM 12/03 1630 AC PO Diltiazem HCl 120 MG DAILY 12/02 1000 AC 12/03 PO 0815 Escitalopram Oxalate 10 MG 1800 12/02 1800 AC 12/02 PO 1715 Furosemide 20 MG 7:30 AM, & 4:30 PM 12/01 1630 DC 12/03 IV 0554 Lisinopril 40 MG DAILY 12/01 1000 AC 12/03 PO 0815 Metoprolol Tartrate 50 MG BID 12/01 1000 AC 12/03 PO 0815 Potassium Chloride 20 MEQ DAILY 12/03 1000 AC 12/03 PO 0815 Quetiapine Fumarate 25 MG 1800 12/01 1900 AC 12/02 PO 1715 Quetiapine Fumarate 12.5 MG QAM 12/01 1000 AC 12/03 PO 0815 Results Last 48 Hrs of Labs/Mics: Laboratory Tests 12/03/17 1000: CBC w Diff Pending, WBC Pending, RBC Pending, Hgb Pending, Hct Pending, MCV Pending, MCH Pending, MCHC Pending, RDW Pending, Plt Count Pending, MPV Pending 12/03/17 0635: Anion Gap 8, Estimated GFR 59 L, BUN/Creatinine Ratio 22.2, CBC w Diff NO MAN DIFF REQ, RBC 3.56 L, MCV 89.3, MCH 29.6, MCHC 33.2, RDW 18.4 H, MPV 9.7, Gran % 58.2, Lymphocytes % 23.8, Monocytes % 14.8 H, Eosinophils % 2.1, Basophils % 1.1, Absolute Granulocytes 2.4, Absolute Lymphocytes 1.0 L, Absolute Monocytes 0.6, Absolute Eosinophils 0.1, Absolute Basophils 0 12/02/17 0616: Anion Gap 9, Estimated GFR 52 L, BUN/Creatinine Ratio 19.0 Assessment/Plan Assessment/Plan Armida is definitely improved. She still has some residual edema but does not otherwise appear to be in congestive heart failure. This may be local edema. I recommended to the daughter that they get some compression stockings and that she keep her feet up at home. I think she can be discharged on Lasix 40 mg twice daily. Continue telemetry? Not applicable
[2017-12-03] MEDS ORDERED: LASIX40 M1 PO (10:33)
[2017-12-03 11:11] LABS: ABSOLUTE BASOPHIL COUNT 0 /CUMM (0.0-0.2); ABSOLUTE EOSINOPHIL COUNT 0.1 /CUMM (0.0-0.7); ABSOLUTE GRANULOCYTE CT 2.7 /CUMM (1.4-6.5); ABSOLUTE LYMPH COUNT 0.6 /CUMM (1.2-3.4); ABSOLUTE MONOCYTE COUNT 0.6 /CUMM (0.10-0.60); BASOPHIL % 1.2 % (0.0-2.0); GRANULOCYTE % 66.9 % (42.2-75.2); HEMATOCRIT 32.1 % (37-47); MEAN CORPUSCULAR HGB 29.6 PG (27.0-31.0); MEAN CORPUSCULAR VOLUME 89.6 FL (81.0-99.0); MEAN PLATELET VOLUME 9.9 FL (7.4-10.4); PLATELET COUNT 112 /CUMM (130-400); RBC DISTRIBUTION WIDTH 18.2 % (11.5-14.5); RED BLOOD CELL CT 3.58 /CUMM (4.20-5.40)
[2017-12-03] MEDS ORDERED: BUMETANIDE1 M1 PO ×3 (13:19→15:55)
[2017-12-03] MEDS ORDERED: DILTIAZEM 24HR120 MG PO (13:35)
[2017-12-03 15:24] VITALS: BP 108/64
== END 2017-12-03 16:30 ==
LOC: ERH 16:35 → 1NO 12-01 13:35 → ERHI 12-01 13:35 → ENRESERV 12-01 17:00 → ENTRNSPT 12-01 18:02 → EDTRNSPTSTS 12-01 18:06 → 1NO 12-01 18:29 → CMPTRNSPT 12-01 18:35 → ENPENDDIS 12-03 13:34 → 1NO 12-03 16:30
PROVIDERS: Emergency Medicine
DX: I50.33 Acute on chronic diastolic (congestive) heart failure (principal); E78.5 Hyperlipidemia, unspecified; I48.0 Paroxysmal atrial fibrillation; Z79.01 Long term (current) use of anticoagulants; I48.92 Unspecified atrial flutter; S00.83XA Contusion of other part of head, initial encounter; I11.0 Hypertensive heart disease with heart failure; Y93.9 Activity, unspecified; W01.0XXA Fall on same level from slipping, tripping and stumbling without subsequent striking against object, initial encounter; G30.9 Alzheimer's disease, unspecified; F02.80 Dementia in other diseases classified elsewhere, unspecified severity, without behavioral disturbance, psychotic disturbance, mood disturbance, and anxiety; N17.9 Acute kidney failure, unspecified; D69.6 Thrombocytopenia, unspecified; M19.90 Unspecified osteoarthritis, unspecified site; E87.6 Hypokalemia; I44.7 Left bundle-branch block, unspecified; Z91.81 History of falling
CPT/HCPCS: 1255; 1263; 36592; 71045; 82436; 93005; 93010; 96374; 96376; 97110-GP; 97116-GP; 97161-GP; 97530-GP; G0378; G8978-GP; G8979-GP; J1940

== ENCOUNTER 2017-12-25 11:21 | Emergency (ER) | payer OTHER ==
[~2017-12-25] VITALS: Ht 157.5 cm; Wt 69.9 kg
[~2017-12-25 11:21] MED LIST changes: +B COMPLEX1 EACH PO; +BUMETANIDE1 M1 PO; +LASIX40 M1 PO
[2017-12-25 12:50] VITALS: BP 117/73
--- NOTE | 2017-12-25 12:55 | ED HEAD/FACIAL INJ COMPLAINT ---
History of Present Illness General Chief Complaint: Facial or Head Injury Stated Complaint: SENT BY FOR CAT SCAN AFTER HITTING HEAD LAST NT Source: patient Exam Limitations: no limitations Vital Signs & Intake/Output Vital Signs & Intake/Output Vital Signs Date Time Temp Pulse Resp B/P B/P Pulse O2 O2 Flow FiO2 Mean Ox Delivery Rate 12/25 1250 77 18 117/73 99 Room Air 12/25 1129 98.4 80 16 116/75 94 Room Air Allergies Coded Allergies: NO KNOWN ALLERGIES (NONE 12/22/17) Reconcile Medications Apixaban (Eliquis) 2.5 MG TABLET 1 TAB PO BID A FIB (Reported) Bumetanide 1 MG TABLET 1 TAB PO BID Heart failure . Calcium Carbonate/Vitamin D3 (Caltrate 600 + D Tablet) 600 MG-800 TABLET 1 TAB PO DAILY SUPPLEMENT (Reported) Diltiazem HCl (Diltiazem 24HR ER) 120 MG CAP.ER.24H 1 CAP PO DAILY Atrial fibrillation . Escitalopram Oxalate 10 MG TABLET 1 TAB PO QPM MENTAL HEALTH (Reported) Metoprolol Tartrate 50 MG TABLET 1 TAB PO BID HIGH BLOOD PRESSURE (Reported) Quetiapine Fumarate 25 MG TABLET 1 TAB PO QPM MENTAL HEALTH (Reported) Quetiapine Fumarate 25 MG TABLET 0.5 TAB PO QAM MENTAL HEALTH (Reported) Vitamin B Complex (B Complex) 1 EACH TABLET 1 TAB PO D SUPPLEMENT (Reported) Triage Note: PT TO ED FROM [facility] OFFICE FOR CT SCAN PER FAMILY. PT BUMPED HEAD ON RESTROOM DOOR LAST PM, NO LOC, DID NOT FALL. PT WITH HX OF DEMENTIA, TAKES ELOQUIS. PT AWAKE/ALERT TO BASELINE PER FAMILY. TO CT BY WHEELCHAIR FROM TRIAGE. Triage Nurses Notes Reviewed? yes Onset: Abrupt Severity: mild Severity Numbers: 3 Location: frontal Method of Injury: direct blow Loss of Consciousness: no loss of consciousness HPI: Patient is an 87-year-old female with history of dementia presenting to the emergency department with family with chief complaint of head injury yesterday evening. According to family she got up to the bathroom during the night and bumped her head on the door frame. There is no fall. No LOC. Incident was witnessed. Patient has been acting normal since. No complaints of headaches today. Patient is on a blood in her MSL the primary care physician today who recommended she come in for a CAT scan just to make sure everything was okay. No nausea or vomiting. Patient acting normal per family. (Akilah Phan) Past History Travel History Traveled to [place] past 21 day No Medical History Any Pertinent Medical History? see below for history Neurological: dementia EENT: NONE Cardiovascular: hyperlipidemia, HTN. AFIB,CHF Respiratory: NONE Gastrointestinal: NONE Hepatic: NONE Renal: NONE Musculoskeletal: osteoarthritis Psychiatric: NONE Endocrine: NONE Blood Disorders: NONE Cancer(s): NONE PHYSICAL THERAPIST ASSISTANT/Reproductive: NONE History of MRSA: No History of VRE: No History of CDIFF: No Influenza Vaccine: 07/20/17 Surgical History Surgical History: non-contributory Psychosocial History Who do you live with Other (see notes) Services at Home None What is your primary language Japanese Tobacco Use: Never used Family History Family History, If Any: MOTHER Relation not specified for: FHx: stomach cancer Hx Contributory? No (Akilah Phan) Review of Systems Review of Systems Constitutional: Reports: no symptoms. Comments Review of systems: See HPI, All other systems negative. Constitutional, no chills fever or weight loss HEENT: No visual changes no sore throat no congestion Cardiovascular: No chest pain ,palpitation Skin, no jaundice no rashes Respiratory: No dyspnea cough sputum or hemoptysis GI: No nausea no vomiting Muscle skeletal: no back pain, no neck pain, Neurologic: No numbness no confusion Psych: No stress anxiety or depression,. Heme/endocrine: On Eliquis Immunology: No splenectomy or history of AIDS (Akilah Phan) Physical Exam Physical Exam General Appearance: well developed/nourished, no apparent distress, alert, awake , comfortable Cranial Nerves: cranial nerves II-12 grossly intact. Comments: Well-developed well-nourished person in no acute distress HEENT: Normal EENT exam, extraocular motion intact, no nystagmus. Pupils equally round and reactive to light and accommodation. Nose is atraumatic. External auditory canal and Tympanic membranes clear. Pharynx normal. No swelling or edema. Old-appearing bruise noted over the left maxillary bone. No step-off deformities palpated or hematomas palpated on entire scalp. Neck: Supple, no lymphadenopathy, normal range of motion without pain or tenderness, no C-spine tenderness. Back: Nontender, full range of motion. Cardiovascular: Regular rate and rhythms no murmurs rubs or gallops Respiratory: Chest nontender. No respiratory distress.breath sounds clear to auscultation bilaterally Extremity: No edema, Neuro: Alert oriented x3, motor sensory normal, cranial nerves II through XII grossly intact. Cerebellar testing is unremarkable. Walks with steady gait. Skin: No appreciable rash on exposed skin, skin is warm and dry. Psych: Mood and affect is normal, memory and judgment is normal. (Maximiliano RIGGS,Akilah) Progress Differential Diagnosis: facial fracture, orbit fracture, skull fracture Plan of Care: Orders Procedure Date/time Status CT HEAD WO IV CONTRAST 12/[address] CERV SPINE WO IV CONTRAST 12/25 1129 Active 12/25/2017 1:17:30 PM patient is well-appearing, neurologically intact, no signs of skull fracture or new injury on the face. Incident was witnessed by family members. There was no fall. No other injury. CT scan is negative for any acute bleeding. Educated on signs and symptoms return. Patient nontoxic. Diagnostic Imaging: Viewed by Me: CT Scan. Discussed w/RAD: CT Scan. Radiology Impression: PATIENT: AKBAR VILA PRESENT AGE: 87 PATIENT ACCOUNT NO: [id number] : [birth year] LOCATION: [facility] ORDERING PHYSICIAN: Akilah RIGGS SERVICE DATE: 12/25/17 EXAM TYPE: CAT - CT CERV SPINE WO IV CONTRAST; CT HEAD WO IV CONTRAST EXAMINATION: CT HEAD WITHOUT CONTRAST CT CERVICAL SPINE WITHOUT CONTRAST CLINICAL INFORMATION: Fall, head trauma COMPARISON: 11/02/2017 CT scan TECHNIQUE: Contiguous axial imaging was performed from the skull base to vertex without intravenous administration of contrast. Contiguous axial imaging was performed from the cervical spine and source images were reviewed along with axial reconstructions and sagittal and coronal images. DLP: 898.60 mGy-cm FINDINGS: HEAD: There is no evidence of acute intracranial hemorrhage or territorial infarction. No abnormal mass effect or midline shift is seen. Giraldo to white matter differentiation is well preserved. No extra-axial fluid collections are identified. The ventricles are normal in size. There is a 0.8 cm soft tissue density in the medial left orbit, between the medial and inferior rectus muscles, similar to the 11/02/2017 CT scan. No acute skull fracture. The mastoid air cells and visualized portions of the paranasal sinuses are well aerated. CERVICAL SPINE: The vertebral body height and alignment of cervical spine are within normal limits. There is mild narrowing of intervertebral disc spaces at multiple mid to lower cervical spine. Facet arthropathy at C3-C4, C4-C5 also noted. The posterior elements are intact. There is no acute fracture or dislocation of cervical spine. The paraspinal soft tissues are unremarkable. The visualized lung apices are clear. A small right- sided pleural effusion is partially visualized. IMPRESSION: No acute intracranial pathology. No acute cervical spine fracture or dislocation. Cervical spondylosis. Partial visualization of a small right-sided pleural effusion. DICTATED BY: Moise Simmons MD DATE/TIME DICTATED:12/25/171243 MACHINE [employer]OP INSTRUCTOR:FLOR DATE/TIME TRANSCRIBED:12/25/171243 CONFIDENTIAL, DO NOT COPY WITHOUT APPROPRIATE AUTHORIZATION. <Electronically signed in Other Vendor System> SIGNED BY: Moise Simmons MD 12/25/17 1302 (Akilah Phan) Departure Departure Time of Disposition: 1302 Disposition: HOME OR SELF CARE Condition: Stable Clinical Impression Primary Impression: Minor head injury Qualifiers: Encounter type: initial encounter Qualified Code: S09.90XA - Unspecified injury of head, initial encounter Referrals: Ricki Stewart MD (PCP/Family) Additional Instructions: Follow-up with the primary care physician in the next 5-7 days, call to make an appointment. Return for worsening symptoms, headaches, vomiting, confusion or concerns. Take [id number] Tylenol as directed for any aches or pains. Departure Forms: Customer Survey General Discharge Information (Akilah Phan) PA/RN DELIVERY Co-Sign Statement Statement: ED Attending supervision documentation- [X] I saw and evaluated the patient. I have also reviewed all the pertinent lab results and diagnostic results. I agree with the findings and the plan of care as documented in the PA's/RN DELIVERY's documentation. Patient presents for evaluation of injury sustained status post striking the head against a door frame. The family was concerned because the patient is on anticoagulation. Physical examination reveals an old left cheek ecchymoses but otherwise a nonfocal neurologic examination. Patient denies headache. [] I have reviewed the ED Record and agree with the PA's/RN DELIVERY's documentation. [] Additions or exceptions (if any) to the PAs/RN DELIVERY's note and plan are summarized below: [] (Alysa BYRD,Yonny Perry)
--- NOTE | 2017-12-25 13:02 | CT SCAN REPORT ---
EXAMINATION: CT HEAD WITHOUT CONTRAST CT CERVICAL SPINE WITHOUT CONTRAST CLINICAL INFORMATION: Fall, head trauma COMPARISON: 11/02/2017 CT scan TECHNIQUE: Contiguous axial imaging was performed from the skull base to vertex without intravenous administration of contrast. Contiguous axial imaging was performed from the cervical spine and source images were reviewed along with axial reconstructions and sagittal and coronal images. DLP: 898.60 mGy-cm FINDINGS: HEAD: There is no evidence of acute intracranial hemorrhage or territorial infarction. No abnormal mass effect or midline shift is seen. Giraldo to white matter differentiation is well preserved. No extra-axial fluid collections are identified. The ventricles are normal in size. There is a 0.8 cm soft tissue density in the medial left orbit, between the medial and inferior rectus muscles, similar to the 11/02/2017 CT scan. No acute skull fracture. The mastoid air cells and visualized portions of the paranasal sinuses are well aerated. CERVICAL SPINE: The vertebral body height and alignment of cervical spine are within normal limits. There is mild narrowing of intervertebral disc spaces at multiple mid to lower cervical spine. Facet arthropathy at C3-C4, C4-C5 also noted. The posterior elements are intact. There is no acute fracture or dislocation of cervical spine. The paraspinal soft tissues are unremarkable. The visualized lung apices are clear. A small right-sided pleural effusion is partially visualized. IMPRESSION: No acute intracranial pathology. No acute cervical spine fracture or dislocation. Cervical spondylosis. Partial visualization of a small right-sided pleural effusion.
== END 2017-12-25 13:33 ==
LOC: ERH 11:21
DX: S09.90XA Unspecified injury of head, initial encounter (principal); W22.8XXA Striking against or struck by other objects, initial encounter; Y92.9 Unspecified place or not applicable; Y93.9 Activity, unspecified

== ENCOUNTER 2018-01-20 05:43 | Emergency (ER) | payer OTHER ==
[~2018-01-20] VITALS: Ht 167.6 cm; Wt 68.0 kg
--- NOTE | 2018-01-20 05:52 | ED MVC/FALL/TRAUMA COMPLAINT ---
History of Present Illness General Chief Complaint: Fall Stated Complaint: FALL Source: patient Exam Limitations: no limitations Vital Signs & Intake/Output Vital Signs & Intake/Output Vital Signs Date Time Temp Pulse Resp B/P B/P Pulse O2 O2 Flow FiO2 Mean Ox Delivery Rate 01/20 1132 96.2 90 18 156/88 94 Room Air 01/20 0914 134/84 05 0913 96.2 100 18 94 Room Air 01/20 0846 Room Air 01/20 0839 97.0 90 20 148/81 96 Room Air 01/20 0656 98 94 Room Air 01/20 0545 96.2 116 18 129/79 94 Room Air Allergies Coded Allergies: NO KNOWN ALLERGIES (NONE 12/22/17) Triage Note: PT BIBA FROM HOME C/O FALL FROM A 3 FOOT COUCH ABOUT 20 MINS PRIOR TO ARRIVAL. PTS DAUGHTER STATES THE FALL WAS UNWITNESSED BUT PT LANDED ON RIGHT SIDE OF BODY. PTS DAUGHTER WAS SLEEPING ON OPPOSITE COUCH IN THE SAME ROOM AND WOKE UP WHEN PT FELL. UNKNOWN HEADSTRIKE OR LOC. PT HAS BASELINE DEMENTIA. PTS VSS ON ARRIVAL. PT A&0X1. PT CHANGED AND PLACED ON MONITOR. DR GALLO AT BEDSIDE FOR EVAL Triage Nurses Notes Reviewed? yes Onset: Abrupt Duration: hour(s): Timing: no prior history Severity: moderate Method of Injury: fall Loss of Consciousness: no loss of consciousness Modifying Factors: Improves With: rest. Associated Symptoms: "I'm too weak to walk." HPI: 87 yo woman presnets after a fall. Per her daugher, she has dementia, and is on eliquis for paroxysmal afib. She present this morning after a fall. Her daughter shares, "She has been sleeping on a sofa because she is a afraid of her bed... it's too high." "She rolled off the sofa and landed on her right shoulder." Per her daughter, she is confused at baseline. She did not hit her head or lose consciousness. The patient states, "I had a little chest pain when I woke up this morning. She notes only right shoulder pain. Her daughter is sonweing if he (Adrian BYRD,Dion Xavier) Reconcile Medications Apixaban (Eliquis) 2.5 MG TABLET 1 TAB PO BID A FIB (Reported) Atorvastatin Calcium 20 MG TABLET 1 TAB PO QPM CHOLESTEROL (Reported) Bumetanide 1 MG TABLET 1 TAB PO BID Heart failure . Calcium Carbonate/Vitamin D3 (Caltrate 600 + D Tablet) 600 MG-800 TABLET 1 TAB PO BID SUPPLEMENT (Reported) Diltiazem HCl (Diltiazem 24HR ER) 120 MG CAP.ER.24H 1 CAP PO DAILY Atrial fibrillation . Escitalopram Oxalate 10 MG TABLET 1 TAB PO 1800 MENTAL HEALTH (Reported) Metoprolol Tartrate 50 MG TABLET 1 TAB PO BID HIGH BLOOD PRESSURE (Reported) Quetiapine Fumarate 25 MG TABLET 1 TAB PO 1800 MENTAL HEALTH (Reported) Quetiapine Fumarate 25 MG TABLET 0.5 TAB PO 1800 MENTAL HEALTH (Reported) Vitamin B Complex (B Complex) 1 EACH TABLET 1 TAB PO D SUPPLEMENT (Reported) (Alysa BYRD,Yonny Perry) Past History Travel History Traveled to [place] past 21 day No Medical History Any Pertinent Medical History? see below for history Neurological: dementia EENT: NONE Cardiovascular: hyperlipidemia, HTN. AFIB,CHF Respiratory: NONE Gastrointestinal: NONE Hepatic: NONE Renal: NONE Musculoskeletal: osteoarthritis Psychiatric: NONE Endocrine: NONE Blood Disorders: NONE Cancer(s): NONE FURNITURE REMOVALIST/Reproductive: NONE History of MRSA: No History of VRE: No History of CDIFF: No Influenza Vaccine: 07/20/17 Surgical History Surgical History: non-contributory Psychosocial History Who do you live with Other (see notes) Services at Home None, her daughter is 24 hour "live in" What is your primary language Kyrgyz Tobacco Use: Never used Illicit Drug Use: denies illicit drug use Family History Family History, If Any: MOTHER Relation not specified for: FHx: stomach cancer Hx Contributory? No (Adrian BYRD,Dion Xavier) Review of Systems Review of Systems Constitutional: Reports: no symptoms. Eyes: Reports: no symptoms. Ears, Nose, Throat, Mouth: Reports: no symptoms. Respiratory: Reports: no symptoms. Cardiovascular: Reports: no symptoms. Gastrointestinal/Abdominal: Reports: no symptoms. Genitourinary: Reports: no symptoms. Musculoskeletal: Reports: no symptoms. Skin: Reports: no symptoms. Neurological/Psychological: Reports: no symptoms. All Other Systems: Reviewed and Negative (Adrian BYRD,Dion Xavier) Physical Exam Physical Exam General Appearance: well developed/nourished, mild distress Head: atraumatic, normal appearance Eyes: Bilateral: normal appearance, PERRL, EOMI. Ears, Nose, Throat, Mouth: hearing grossly normal, moist mucous membrane, Tympanic normal Neck: normal inspection, supple, full range of motion Respiratory: normal breath sounds, chest non-tender, no respiratory distress Cardiovascular: irregularly irregular Gastrointestinal: normal bowel sounds, soft, non-tender Back: normal inspection, normal range of motion Extremities: evidence of injury, pelvis stable, bony-point tenderness, mild diffuse tenderness around right should girdle musculature. Neurologic/Psych: no motor/sensory deficits, awake, alert, oriented x 3 Skin: intact, normal color Core Measures ACS in differential dx? No CVA/TIA Diagnosis No Sepsis Present: No Sepsis Focused Exam Completed? No (Adrian BYRD,Dion Xavier) Progress Differential Diagnosis: C/T/L spine injury, ext injury, ICH Plan of Care: Orders Procedure Date/time Status Heart Healthy Diet 01/20 D Active TROPONIN LEVEL 01/20 0900 Complete EKG 01/20 0900 Active PT Evaluate & Treat 01/20 07 Active CASE MANAGEMENT CONSULT 01/21 728 Active TROPONIN LEVEL 01/20 0557 Complete LIPASE 01/20 0557 Complete HEPATIC FUNCTION PANEL 01/20 05 Complete CBC WITHOUT DIFFERENTIAL 01/20 05 Complete BASIC METABOLIC PANEL 01/20 05 Complete AMYLASE 01/20 0557 Complete EKG 01/20 0557 Active Current Medications Sig/Darek Start time Last Medication Dose Stop Time Status Admin Acetaminophen 650 MG Q4P PRN 01/20 0745 AC 01/20 (Tylenol) 0752 Laboratory Tests 01/20/18 0903: Troponin I < 0.01 01/20/18 0600: Anion Gap 9, Estimated GFR 47 L, BUN/Creatinine Ratio 23.6, Glucose 99, Calcium 8.9, Total Bilirubin 1.0, Direct Bilirubin 0.4, AST 34, ALT 35, Alkaline Phosphatase 50, Troponin I 0.01, Total Protein 5.9 L, Albumin 3.7, Amylase 43, Lipase 72, CBC w Diff NO MAN DIFF REQ, RBC 3.86 L, MCV 90.7, MCH 29.6, MCHC 32.7 L, RDW 19.9 H, MPV 9.2, Gran % 53.7, Lymphocytes % 31.6, Monocytes % 12.0 H, Eosinophils % 2.0, Basophils % 0.7, Absolute Granulocytes 2.1, Absolute Lymphocytes 1.2, Absolute Monocytes 0.5, Absolute Eosinophils 0.1, Absolute Basophils 0 Diagnostic Imaging: Viewed by Me: CT Scan. Discussed w/RAD: CT Scan. Radiology Impression: PATIENT: ARMIDA VILA PRESENT AGE: 87 PATIENT ACCOUNT NO: [id number] : [birth year] LOCATION: [facility] ORDERING PHYSICIAN: Dion Gallo MD SERVICE DATE: 01/20/18 EXAM TYPE: CAT - CT ABD & PELVIS W/O IV CONTRAS; CT CHEST WO IV CONTRAST EXAM: NONCONTRAST CT OF THE CHEST; NONCONTRAST CT OF THE ABDOMEN AND PELVIS INDICATION : Trauma COMPARISON: Chest CT 11/30/2017 TECHNIQUE: No IV contrast was utilized. Multidetector helical imaging was performed through the chest, abdomen, and pelvis. Coronal and sagittal reformatted images were created at the technologist workstation. DLP: 513.41 mGy-cm FINDINGS: Chest: There is a moderate-sized right pleural effusion with adjacent atelectasis. Some fluid is seen tracking along the fissures of the right lung. A small left pleural effusion is present. Scattered calcified granulomas are present bilaterally. Additional curvilinear regions of atelectasis are present bilaterally. No pneumothorax. The thyroid gland is grossly unremarkable. No mediastinal lymphadenopathy is seen, though assessment is suboptimal in the absence of intravenous contrast. There is cardiomegaly without significant pericardial effusion. Coronary artery calcifications are present. There is atherosclerotic calcification along the aorta. No axillary lymphadenopathy is present. There is a nondisplaced fracture in the distal right clavicle. There are a few subacute to chronic appearing left rib fractures. Abdomen/Pelvis: The liver is homogeneous in attenuation without intrahepatic biliary ductal dilatation. There are several scattered hypoattenuating lesions in the liver measuring up to approximately 1.9 cm, favoring cysts. The gallbladder is unremarkable. The unenhanced spleen, pancreas , and adrenal glands are unremarkable. The unenhanced kidneys are unremarkable without hydronephrosis. No renal or ureteral calculi are present. The urinary bladder is unremarkable. The uterus and adnexa are unremarkable. A small volume of pelvic free fluid is suspected. There is extensive colonic diverticulosis. No evidence of bowel obstruction. There is nonspecific mesenteric stranding within the abdomen. No free air is identified. There is atherosclerotic calcification along the aorta. No lymphadenopathy is seen, though assessment is limited in the absence of intravenous contrast. There is a healing fracture of the left iliac bone. Multilevel degenerative changes are present throughout the thoracolumbar spine. There is partial compression deformity of L3 which is age-indeterminate though favored to be chronic. There is joint space narrowing in the bilateral hips. There is moderately extensive subcutaneous edema throughout the chest/ abdomen/pelvis. IMPRESSION: 1. Nondisplaced fracture of the distal right clavicle. 2. Moderate-sized right pleural effusion. Small left pleural effusion. 3. Cardiomegaly. 4. Small volume of pelvic free fluid. 5. Colonic diverticulosis. DICTATED BY: Lenny Cerda MD DATE/TIME DICTATED:01/20/18712 FILM VAULT SUPERVISOR:FLOR DATE/TIME TRANSCRIBED:01/20/18712 CONFIDENTIAL, DO NOT COPY WITHOUT APPROPRIATE AUTHORIZATION. <Electronically signed in Other Vendor System> SIGNED BY: Lenny Cerda MD 01/20/18 0726, PATIENT: ARMIDA VILA PRESENT AGE: 87 PATIENT ACCOUNT NO: [id number] : [birth year] LOCATION: [facility] ORDERING PHYSICIAN: Dion Gallo MD SERVICE DATE: 01/20/18 EXAM TYPE: CAT - CT ABD & PELVIS W/ O IV CONTRAS; CT CHEST WO IV CONTRAST EXAM: NONCONTRAST CT OF THE CHEST; NONCONTRAST CT OF THE ABDOMEN AND PELVIS INDICATION: Trauma COMPARISON: Chest CT 11/30/2017 TECHNIQUE: No IV contrast was utilized. Multidetector helical imaging was performed through the chest, abdomen, and pelvis. Coronal and sagittal reformatted images were created at the technologist workstation. DLP: 513.41 mGy -cm FINDINGS: Chest: There is a moderate-sized right pleural effusion with adjacent atelectasis. Some fluid is seen tracking along the fissures of the right lung. A small left pleural effusion is present. Scattered calcified granulomas are present bilaterally. Additional curvilinear regions of atelectasis are present bilaterally. No pneumothorax. The thyroid gland is grossly unremarkable. No mediastinal lymphadenopathy is seen, though assessment is suboptimal in the absence of intravenous contrast. There is cardiomegaly without significant pericardial effusion. Coronary artery calcifications are present. There is atherosclerotic calcification along the aorta. No axillary lymphadenopathy is present. There is a nondisplaced fracture in the distal right clavicle. There are a few subacute to chronic appearing left rib fractures. Abdomen/Pelvis: The liver is homogeneous in attenuation without intrahepatic biliary ductal dilatation. There are several scattered hypoattenuating lesions in the liver measuring up to approximately 1.9 cm, favoring cysts. The gallbladder is unremarkable. The unenhanced spleen, pancreas, and adrenal glands are unremarkable. The unenhanced kidneys are unremarkable without hydronephrosis. No renal or ureteral calculi are present. The urinary bladder is unremarkable. The uterus and adnexa are unremarkable. A small volume of pelvic free fluid is suspected. There is extensive colonic diverticulosis. No evidence of bowel obstruction. There is nonspecific mesenteric stranding within the abdomen. No free air is identified. There is atherosclerotic calcification along the aorta. No lymphadenopathy is seen, though assessment is limited in the absence of intravenous contrast. There is a healing fracture of the left iliac bone. Multilevel degenerative changes are present throughout the thoracolumbar spine. There is partial compression deformity of L3 which is age-indeterminate though favored to be chronic. There is joint space narrowing in the bilateral hips. There is moderately extensive subcutaneous edema throughout the chest/ abdomen/pelvis. IMPRESSION: 1. Nondisplaced fracture of the distal right clavicle. 2. Moderate-sized right pleural effusion. Small left pleural effusion. 3. Cardiomegaly. 4. Small volume of pelvic free fluid. 5. Colonic diverticulosis. DICTATED BY: Lenny Cerda MD DATE/TIME DICTATED:01/20/18712 FILM VAULT SUPERVISOR:FLOR DATE/TIME TRANSCRIBED:01/20/18712 CONFIDENTIAL, DO NOT COPY WITHOUT APPROPRIATE AUTHORIZATION. <Electronically signed in Other Vendor System> SIGNED BY: Lenny Cerda MD 01/20/18725 Initial ED EKG: AFIB, no acute change from prior. Hand-Off Endorsed To: Yonny Watt MD Endorsed Time: 699 Pending: consult, EKG, labs (Adrian BYRD,Dion Xavier) Radiology Impression: PATIENT: ARMIDA VILA PRESENT AGE: 87 PATIENT ACCOUNT NO: [id number] : [birth year] LOCATION: ER ORDERING PHYSICIAN: Dion Gallo MD SERVICE DATE: 01/20/18 EXAM TYPE: CAT - CT ABD & PELVIS W/O IV CONTRAS; CT CHEST WO IV CONTRAST EXAM: NONCONTRAST CT OF THE CHEST; NONCONTRAST CT OF THE ABDOMEN AND PELVIS INDICATION : Trauma COMPARISON: Chest CT 11/30/2017 TECHNIQUE: No IV contrast was utilized. Multidetector helical imaging was performed through the chest, abdomen, and pelvis. Coronal and sagittal reformatted images were created at the technologist workstation. DLP: 513.41 mGy-cm FINDINGS: Chest: There is a moderate-sized right pleural effusion with adjacent atelectasis. Some fluid is seen tracking along the fissures of the right lung. A small left pleural effusion is present. Scattered calcified granulomas are present bilaterally. Additional curvilinear regions of atelectasis are present bilaterally. No pneumothorax. The thyroid gland is grossly unremarkable. No mediastinal lymphadenopathy is seen, though assessment is suboptimal in the absence of intravenous contrast. There is cardiomegaly without significant pericardial effusion. Coronary artery calcifications are present. There is atherosclerotic calcification along the aorta. No axillary lymphadenopathy is present. There is a nondisplaced fracture in the distal right clavicle. There are a few subacute to chronic appearing left rib fractures. Abdomen/Pelvis: The liver is homogeneous in attenuation without intrahepatic biliary ductal dilatation. There are several scattered hypoattenuating lesions in the liver measuring up to approximately 1.9 cm, favoring cysts. The gallbladder is unremarkable. The unenhanced spleen, pancreas , and adrenal glands are unremarkable. The unenhanced kidneys are unremarkable without hydronephrosis. No renal or ureteral calculi are present. The urinary bladder is unremarkable. The uterus and adnexa are unremarkable. A small volume of pelvic free fluid is suspected. There is extensive colonic diverticulosis. No evidence of bowel obstruction. There is nonspecific mesenteric stranding within the abdomen. No free air is identified. There is atherosclerotic calcification along the aorta. No lymphadenopathy is seen, though assessment is limited in the absence of intravenous contrast. There is a healing fracture of the left iliac bone. Multilevel degenerative changes are present throughout the thoracolumbar spine. There is partial compression deformity of L3 which is age-indeterminate though favored to be chronic. There is joint space narrowing in the bilateral hips. There is moderately extensive subcutaneous edema throughout the chest/ abdomen/pelvis. IMPRESSION: 1. Nondisplaced fracture of the distal right clavicle. 2. Moderate-sized right pleural effusion. Small left pleural effusion. 3. Cardiomegaly. 4. Small volume of pelvic free fluid. 5. Colonic diverticulosis. DICTATED BY: Lenny Cerda MD DATE/TIME DICTATED:01/20/18712 FILM VAULT SUPERVISOR:FLOR DATE/TIME TRANSCRIBED:01/20/18712 CONFIDENTIAL, DO NOT COPY WITHOUT APPROPRIATE AUTHORIZATION. <Electronically signed in Other Vendor System> SIGNED BY: Lenny Cerda MD 01/20/18 0726, PATIENT: ARMIDA VILA PRESENT AGE: 87 PATIENT ACCOUNT NO: [id number] : [birth year] LOCATION: [facility] ORDERING PHYSICIAN: Dion Gallo MD SERVICE DATE: 01/20/18 EXAM TYPE: CAT - CT ABD & PELVIS W/ O IV CONTRAS; CT CHEST WO IV CONTRAST EXAM: NONCONTRAST CT OF THE CHEST; NONCONTRAST CT OF THE ABDOMEN AND PELVIS INDICATION: Trauma COMPARISON: Chest CT 11/30/2017 TECHNIQUE: No IV contrast was utilized. Multidetector helical imaging was performed through the chest, abdomen, and pelvis. Coronal and sagittal reformatted images were created at the technologist workstation. DLP: 513.41 mGy -cm FINDINGS: Chest: There is a moderate-sized right pleural effusion with adjacent atelectasis. Some fluid is seen tracking along the fissures of the right lung. A small left pleural effusion is present. Scattered calcified granulomas are present bilaterally. Additional curvilinear regions of atelectasis are present bilaterally. No pneumothorax. The thyroid gland is grossly unremarkable. No mediastinal lymphadenopathy is seen, though assessment is suboptimal in the absence of intravenous contrast. There is cardiomegaly without significant pericardial effusion. Coronary artery calcifications are present. There is atherosclerotic calcification along the aorta. No axillary lymphadenopathy is present. There is a nondisplaced fracture in the distal right clavicle. There are a few subacute to chronic appearing left rib fractures. Abdomen/Pelvis: The liver is homogeneous in attenuation without intrahepatic biliary ductal dilatation. There are several scattered hypoattenuating lesions in the liver measuring up to approximately 1.9 cm, favoring cysts. The gallbladder is unremarkable. The unenhanced spleen, pancreas, and adrenal glands are unremarkable. The unenhanced kidneys are unremarkable without hydronephrosis. No renal or ureteral calculi are present. The urinary bladder is unremarkable. The uterus and adnexa are unremarkable. A small volume of pelvic free fluid is suspected. There is extensive colonic diverticulosis. No evidence of bowel obstruction. There is nonspecific mesenteric stranding within the abdomen. No free air is identified. There is atherosclerotic calcification along the aorta. No lymphadenopathy is seen, though assessment is limited in the absence of intravenous contrast. There is a healing fracture of the left iliac bone. Multilevel degenerative changes are present throughout the thoracolumbar spine. There is partial compression deformity of L3 which is age-indeterminate though favored to be chronic. There is joint space narrowing in the bilateral hips. There is moderately extensive subcutaneous edema throughout the chest/ abdomen/pelvis. IMPRESSION: 1. Nondisplaced fracture of the distal right clavicle. 2. Moderate-sized right pleural effusion. Small left pleural effusion. 3. Cardiomegaly. 4. Small volume of pelvic free fluid. 5. Colonic diverticulosis. DICTATED BY: Lenny Cerda MD DATE/TIME DICTATED:01/20/18712 FILM VAULT SUPERVISOR:FLOR DATE/TIME TRANSCRIBED:01/20/18712 CONFIDENTIAL, DO NOT COPY WITHOUT APPROPRIATE AUTHORIZATION. <Electronically signed in Other Vendor System> SIGNED BY: Lenny Cerda MD 01/20/18725, PATIENT: ARMIDA VILA PRESENT AGE: 87 PATIENT ACCOUNT NO: [id number] : [birth year] LOCATION: [facility] ORDERING PHYSICIAN: Dion Gallo MD SERVICE DATE: 01/20/18 EXAM TYPE: CAT - CT ABD & PELVIS W/ O IV CONTRAS; CT CHEST WO IV CONTRAST EXAM: NONCONTRAST CT OF THE CHEST; NONCONTRAST CT OF THE ABDOMEN AND PELVIS INDICATION: Trauma COMPARISON: Chest CT 11/30/2017 TECHNIQUE: No IV contrast was utilized. Multidetector helical imaging was performed through the chest, abdomen, and pelvis. Coronal and sagittal reformatted images were created at the technologist workstation. DLP: 513.41 mGy -cm FINDINGS: Chest: There is a moderate-sized right pleural effusion with adjacent atelectasis. Some fluid is seen tracking along the fissures of the right lung. A small left pleural effusion is present. Scattered calcified granulomas are present bilaterally. Additional curvilinear regions of atelectasis are present bilaterally. No pneumothorax. The thyroid gland is grossly unremarkable. No mediastinal lymphadenopathy is seen, though assessment is suboptimal in the absence of intravenous contrast. There is cardiomegaly without significant pericardial effusion. Coronary artery calcifications are present. There is atherosclerotic calcification along the aorta. No axillary lymphadenopathy is present. There is a nondisplaced fracture in the distal right clavicle. There are a few subacute to chronic appearing left rib fractures. Abdomen/Pelvis: The liver is homogeneous in attenuation without intrahepatic biliary ductal dilatation. There are several scattered hypoattenuating lesions in the liver measuring up to approximately 1.9 cm, favoring cysts. The gallbladder is unremarkable. The unenhanced spleen, pancreas, and adrenal glands are unremarkable. The unenhanced kidneys are unremarkable without hydronephrosis. No renal or ureteral calculi are present. The urinary bladder is unremarkable. The uterus and adnexa are unremarkable. A small volume of pelvic free fluid is suspected. There is extensive colonic diverticulosis. No evidence of bowel obstruction. There is nonspecific mesenteric stranding within the abdomen. No free air is identified. There is atherosclerotic calcification along the aorta. No lymphadenopathy is seen, though assessment is limited in the absence of intravenous contrast. There is a healing fracture of the left iliac bone. Multilevel degenerative changes are present throughout the thoracolumbar spine. There is partial compression deformity of L3 which is age-indeterminate though favored to be chronic. There is joint space narrowing in the bilateral hips. There is moderately extensive subcutaneous edema throughout the chest/ abdomen/pelvis. IMPRESSION: 1. Nondisplaced fracture of the distal right clavicle. 2. Moderate-sized right pleural effusion. Small left pleural effusion. 3. Cardiomegaly. 4. Small volume of pelvic free fluid. 5. Colonic diverticulosis. DICTATED BY: Lenny Cerda MD DATE/TIME DICTATED:01/20/18712 FILM VAULT SUPERVISOR:FLOR DATE/TIME TRANSCRIBED:01/20/18712 CONFIDENTIAL, DO NOT COPY WITHOUT APPROPRIATE AUTHORIZATION. <Electronically signed in Other Vendor System> SIGNED BY: Lenny Cerda MD 01/20/18 0726 Comments: 01/20/18 8:10am pt signed out to me by dr gallo. 01/20/2018 12:52:06 PM Armida has been accepted to [facility]. (Alysa BYRD,Yonny Perry) Departure Departure Condition: Stable Referrals: Ricki Stewart MD (PCP/Family) Departure Forms: Customer Survey General Discharge Information Comments 01/20/18, 7:54am.... discussed with family... her daughter (JACKELIN) is considering dementia care unit as pt is fall risk and a danger to herself. Dr. Watt to follow up with trop/ekg#2, case management and PT recommendations. (Adrian BYRD,Dion Xavier) Departure Disposition: ACUTE REHAB FACILITY Clinical Impression Primary Impression: Fall Qualifiers: Encounter type: initial encounter Qualified Code: W19.XXXA - Unspecified fall, initial encounter Secondary Impressions: Anemia Qualifiers: Anemia type: unspecified type Qualified Code: D64.9 - Anemia, unspecified Closed fracture of distal clavicle Qualifiers: Encounter type: initial encounter Fracture alignment: displaced Laterality: right Qualified Code: S42.031A - Displaced fracture of lateral end of right clavicle, initial encounter for closed fracture Renal insufficiency Weakness (lAysa BYRD,Yonny Perry)
[2018-01-20 06:22] LABS: ABSOLUTE BASOPHIL COUNT 0 /CUMM (0.0-0.2); ABSOLUTE EOSINOPHIL COUNT 0.1 /CUMM (0.0-0.7); ABSOLUTE GRANULOCYTE CT 2.1 /CUMM (1.4-6.5); ABSOLUTE LYMPH COUNT 1.2 /CUMM (1.2-3.4); ABSOLUTE MONOCYTE COUNT 0.5 /CUMM (0.10-0.60); BASOPHIL % 0.7 % (0.0-2.0); GRANULOCYTE % 53.7 % (42.2-75.2); MEAN CORPUSCULAR HGB 29.6 PG (27.0-31.0); MEAN CORPUSCULAR HGB CONC 32.7 G/DL (33.0-37.0); MEAN CORPUSCULAR VOLUME 90.7 FL (81.0-99.0); MEAN PLATELET VOLUME 9.2 FL (7.4-10.4); PLATELET COUNT 120 /CUMM (130-400); RBC DISTRIBUTION WIDTH 19.9 % (11.5-14.5); RED BLOOD CELL CT 3.86 /CUMM (4.20-5.40); WHITE BLOOD CELL COUNT 3.8 /CUMM (4.8-10.8)
--- NOTE | 2018-01-20 07:12 | CT SCAN REPORT ---
EXAMINATION: NONCONTRAST HEAD CT NONCONTRAST CERVICAL SPINE CT INDICATION INFORMATION: Trauma COMPARISON: 12/25/2017 TECHNIQUE: Separate noncontrast CT examinations of the head and cervical spine were performed. Coronal head CT images and coronal and sagittal cervical spine images were created at the technologist workstation. DLP: 972.62 mGy-cm FINDINGS: Head: There is no evidence of acute intracranial hemorrhage or territorial infarction. No abnormal mass-effect or midline shift is seen. Giraldo to white matter differentiation is well preserved. No extra-axial fluid collections are identified. The ventricles are normal in size. There is mild periventricular white matter hypoattenuation consistent with chronic small vessel ischemic disease. Mild volume loss is noted. The osseous structures and soft tissues are normal. The mastoid air cells and visualized portions of the paranasal sinuses are well-aerated. Cervical spine: There is anatomic alignment of the vertebral bodies and posterior elements. There is degenerative change at the atlantodens articulation. Vertebral body heights and intervertebral disc spaces are maintained. There is diffuse facet arthropathy, left-sided greater than right. No evidence of acute fracture. No prevertebral soft tissue swelling. Visualized portions of the lung apices show partial visualization of a right pleural effusion. The thyroid gland is unremarkable. IMPRESSION: 1. Head: No acute intracranial findings. Chronic small vessel ischemic disease and volume loss. 2. Cervical spine: No acute findings identified. Multilevel degenerative changes.
--- NOTE | 2018-01-20 07:15 | RADIOLOGY REPORT ---
EXAMINATION: XR SHOULDER, RIGHT CLINICAL INFORMATION: Pain after fall COMPARISON: None TECHNIQUE: Three views of the right shoulder. FINDINGS: There is a nondisplaced fracture of the distal right clavicle. Glenohumeral alignment is anatomic. No acute fracture is seen. The acromioclavicular joint is intact. Right pleural effusion is partially visualized. IMPRESSION: Nondisplaced fracture of the distal right clavicle.
--- NOTE | 2018-01-20 07:26 | CT SCAN REPORT ---
EXAM: NONCONTRAST CT OF THE CHEST; NONCONTRAST CT OF THE ABDOMEN AND PELVIS INDICATION: Trauma COMPARISON: Chest CT 11/30/2017 TECHNIQUE: No IV contrast was utilized. Multidetector helical imaging was performed through the chest, abdomen, and pelvis. Coronal and sagittal reformatted images were created at the technologist workstation. DLP: 513.41 mGy-cm FINDINGS: Chest: There is a moderate-sized right pleural effusion with adjacent atelectasis. Some fluid is seen tracking along the fissures of the right lung. A small left pleural effusion is present. Scattered calcified granulomas are present bilaterally. Additional curvilinear regions of atelectasis are present bilaterally. No pneumothorax. The thyroid gland is grossly unremarkable. No mediastinal lymphadenopathy is seen, though assessment is suboptimal in the absence of intravenous contrast. There is cardiomegaly without significant pericardial effusion. Coronary artery calcifications are present. There is atherosclerotic calcification along the aorta. No axillary lymphadenopathy is present. There is a nondisplaced fracture in the distal right clavicle. There are a few subacute to chronic appearing left rib fractures. Abdomen/Pelvis: The liver is homogeneous in attenuation without intrahepatic biliary ductal dilatation. There are several scattered hypoattenuating lesions in the liver measuring up to approximately 1.9 cm, favoring cysts. The gallbladder is unremarkable. The unenhanced spleen, pancreas, and adrenal glands are unremarkable. The unenhanced kidneys are unremarkable without hydronephrosis. No renal or ureteral calculi are present. The urinary bladder is unremarkable. The uterus and adnexa are unremarkable. A small volume of pelvic free fluid is suspected. There is extensive colonic diverticulosis. No evidence of bowel obstruction. There is nonspecific mesenteric stranding within the abdomen. No free air is identified. There is atherosclerotic calcification along the aorta. No lymphadenopathy is seen, though assessment is limited in the absence of intravenous contrast. There is a healing fracture of the left iliac bone. Multilevel degenerative changes are present throughout the thoracolumbar spine. There is partial compression deformity of L3 which is age-indeterminate though favored to be chronic. There is joint space narrowing in the bilateral hips. There is moderately extensive subcutaneous edema throughout the chest/abdomen/pelvis. IMPRESSION: 1. Nondisplaced fracture of the distal right clavicle. 2. Moderate-sized right pleural effusion. Small left pleural effusion. 3. Cardiomegaly. 4. Small volume of pelvic free fluid. 5. Colonic diverticulosis.
[2018-01-20] MEDS ORDERED: ATORVASTATIN CA20 M1 PO (08:21)
[2018-01-20 13:10] VITALS: BP 125/63
== END 2018-01-20 14:20 ==
LOC: ERH 05:43
PROVIDERS: Pediatrics
DX: S42.001A Fracture of unspecified part of right clavicle, initial encounter for closed fracture (principal); D64.9 Anemia, unspecified; N28.9 Disorder of kidney and ureter, unspecified; W19.XXXA Unspecified fall, initial encounter; Y92.9 Unspecified place or not applicable; Y93.9 Activity, unspecified
CPT/HCPCS: 73030-RT; 74176; 93005; 93010; 97112-GP; 97116-GP; 97161-GP; G8978-GP; G8979-GP

== ENCOUNTER 2018-01-24 21:03 | Inpatient (IN) | payer OTHER ==
[~2018-01-24] VITALS: Ht 157.5 cm; Wt 70.4 kg
[~2018-01-24 21:03] MED LIST changes: +ATORVASTATIN CA20 M1 PO
--- NOTE | 2018-01-24 21:11 | ED CARDIAC/CP/PALPITATIONS ---
History of Present Illness General Chief Complaint: Palpitations Stated Complaint: IRREGULAR HEARTBEAT Source: patient, family, old records, EMS Exam Limitations: confusion Vital Signs & Intake/Output Vital Signs & Intake/Output Vital Signs Date Time Temp Pulse Resp B/P B/P Pulse O2 O2 Flow FiO2 Mean Ox Delivery Rate 01/24 2258 87 18 115/56 96 Nasal 4.0L Cannula 01/24 2234 94 20 109/66 01/24 2205 136 18 124/82 01/24 2152 126 20 123/68 96 Nasal 2.0L Cannula 01/24 2110 98.5 135 20 113/80 90 Room Air Allergies Coded Allergies: NO KNOWN ALLERGIES (NONE 12/22/17) Reconcile Medications Apixaban (Eliquis) 2.5 MG TABLET 1 TAB PO BID A FIB (Reported) Atorvastatin Calcium 20 MG TABLET 1 TAB PO QPM CHOLESTEROL (Reported) Bumetanide 1 MG TABLET 1 TAB PO BID Heart failure . Calcium Carbonate/Vitamin D3 (Caltrate 600 + D Tablet) 600 MG-800 TABLET 1 TAB PO BID SUPPLEMENT (Reported) Diltiazem HCl (Diltiazem 24HR ER) 120 MG CAP.ER.24H 1 CAP PO DAILY Atrial fibrillation . Escitalopram Oxalate 10 MG TABLET 1 TAB PO 1800 MENTAL HEALTH (Reported) Metoprolol Tartrate 50 MG TABLET 1 TAB PO BID HIGH BLOOD PRESSURE (Reported) Quetiapine Fumarate 25 MG TABLET 1 TAB PO 1800 MENTAL HEALTH (Reported) Quetiapine Fumarate 25 MG TABLET 0.5 TAB PO 1800 MENTAL HEALTH (Reported) Vitamin B Complex (B Complex) 1 EACH TABLET 1 TAB PO D SUPPLEMENT (Reported) Triage Nurses Notes Reviewed? yes Onset: Gradual Duration: day(s): Timing: recent history Quality/Severity: moderate Location: DYSPNEA Radiation: no radiation Activities at Onset: none Associated Symptoms: DYSPNEA, PALPITATIONS HPI: 87 YO WOMAN h/o chf, afib, recently placed in [facility] for collar bone fracture, presents with dyspnea x 3 days which worsened tonight. Per her daughter, she has gained 4 pounds, has increased swelling in her lower extremities with weeping on right, and was wheezing during the day. Today, her symptoms worsened. The highway painter evaluated her. 02 sat 88% on room air. 911 called. For the medics, 02 sat 88%. Pt felt better with albuterol neb. No fever, chills, phlegm, cough, chest pain. Past History Travel History Traveled to [place] past 21 day No Medical History Any Pertinent Medical History? see below for history Neurological: dementia EENT: NONE Cardiovascular: hyperlipidemia, HTN. AFIB,CHF Respiratory: NONE Gastrointestinal: NONE Hepatic: NONE Renal: NONE Musculoskeletal: osteoarthritis Psychiatric: NONE Endocrine: NONE Blood Disorders: NONE Cancer(s): NONE PUBLIC HEALTH DENTIST/Reproductive: NONE History of MRSA: No History of VRE: No History of CDIFF: No Surgical History Surgical History: non-contributory Psychosocial History Who do you live with Other (see notes) Services at Home None, her daughter is 24 hour "live in" What is your primary language P[place]in[place] Family History Family History, If Any: MOTHER Relation not specified for: FHx: stomach cancer Hx Contributory? No Review of Systems Review of Systems Constitutional: Reports: no symptoms. EENTM: Reports: no symptoms. Respiratory: Reports: no symptoms. Cardiovascular: Reports: no symptoms. GI: Reports: no symptoms. Genitourinary: Reports: no symptoms. Musculoskeletal: Reports: no symptoms. Skin: Reports: no symptoms. Neurological/Psychological: Reports: no symptoms. Hematologic/Endocrine: Reports: no symptoms. Immunologic/Allergic: Reports: no symptoms. All Other Systems: Reviewed and Negative Physical Exam Physical Exam General Appearance: well developed/nourished, mild distress Head: atraumatic, normal appearance Eyes: Bilateral: normal appearance. Ears, Nose, Throat: normal pharynx, normal ENT inspection Neck: normal inspection, supple, full range of motion Respiratory: mild rales at bases Cardiovascular: irregularly irregular, tachycardic Gastrointestinal: normal bowel sounds, soft, non-tender, no organomegaly Back: normal inspection, normal range of motion Extremities: normal inspection, normal capillary refill, normal range of motion, no edema Neurologic/Psych: no motor/sensory deficits, awake, alert, oriented x 3 Skin: intact, normal color, warm/dry Core Measures ACS in differential dx? No CVA/TIA Diagnosis No Sepsis Present: No Sepsis Focused Exam Completed? No Progress Differential Diagnosis: chf, pneumonia vs other. Plan of Care: Orders Procedure Date/time Status Nothing by Mouth 01/25 B Active Patient Data 01/24 2330 Active Saline Lock 01/24 2321 Active Misc Message 01/24 2321 Active ED Holding Orders 05/06 2321 Active Admit to inpatient 01/24 2321 Active Vital Signs 01/24 2321 Active Code Status 01/24 2321 Active Intake & Output 01/24 2235 Active EKG 01/24 2209 Active TROPONIN LEVEL 01/25 2112 Complete PARTIAL THROMBOPLASTIN TIME 01/25 2112 Complete PROTHROMBIN TIME 01/25 2112 Complete COMPREHENSIVE METABOLIC PANEL 01/25 2112 Complete CBC WITHOUT DIFFERENTIAL 01/25 2112 Complete B-TYPE NATRIURETIC PEP (BNP) 01/25 2112 Complete EKG 01/25 2112 Active Current Medications Sig/Darek Start time Last Medication Dose Stop Time Status Admin Verapamil HCl 50 MG CONTINOUS INFUSION 01/24 2230 AC (Calan 5MG/2ML Inj) Sodium Chloride 80 ML (Normal Saline 0.9%) Verapamil HCl 5 MG ONCE PRN 01/24 2200 AC (Calan 5MG/2ML Inj) 01/24 2359 Diltiazem HCl 125 MG Q12H 01/24 2130 CAN (Cardizem DRIP) Sodium Chloride 100 ML (Normal Saline 0.9%) Non-Formulary 0 SEE ADMIN CRITERIA 01/24 2130 CAN Medication (NON FORMULARY) Laboratory Tests 01/24/182128: Anion Gap 11, Estimated GFR 59 L, BUN/Creatinine Ratio 30.0 H, Glucose 119 H, Calcium 8.8, Total Bilirubin 1.3, AST 40 H, ALT 31, Alkaline Phosphatase 47, Troponin I < 0.01, Mal-J-Cvmleblbncy Pept 08503 H, Total Protein 6.2 L, Albumin 3.8, Globulin 2.4, Albumin/Globulin Ratio 1.6, PT 20.9 H, INR 1.90 H, APTT 34, CBC w Diff MAN DIFF ORDERED, RBC 3.82 L, MCV 91.7, MCH 29.7, MCHC 32.3 L, RDW 19.9 H, MPV 9.8, Gran % 87.9 H, Lymphocytes % 3.9 L, Monocytes % 8.0, Eosinophils % 0.1, Basophils % 0.1, Absolute Granulocytes 7.4 H, Segmented Neutrophils 75, Band Neutrophils 5, Absolute Lymphocytes 0.3 L, Lymphocytes 8 L, Monocytes 12 H, Absolute Monocytes 0.7 H, Absolute Eosinophils 0, Absolute Basophils 0, Platelet Estimate DECREASED, Hypochromic-Microcytic 1+, Poikilocytosis 1+, Basophilic Stippling 1+, Anisocytosis 1+ Diagnostic Imaging: Viewed by Me: Radiology Read. Discussed w/RAD: Radiology Read. CXR Impression: PATIENT: KARLA LANDRY PRESENT AGE: 55 PATIENT ACCOUNT NO: [id number] : [birth year] LOCATION: [facility] ORDERING PHYSICIAN: Dion Campbell MD SERVICE DATE: 01/24/18 EXAM TYPE: CAT - CT CERV SPINE WO IV CONTRAST; CT HEAD WO IV CONTRAST EXAMINATION: CT HEAD WITHOUT CONTRAST CT CERVICAL SPINE WITHOUT CONTRAST CLINICAL INFORMATION: Trauma , fell off horse. COMPARISON: None TECHNIQUE: Axial images of the head and cervical spine were obtained without contrast. Reformatted images were reviewed. DLP: 1018 mGy-cm FINDINGS: HEAD CT: No acute intracranial hemorrhage or territorial infarction. No extra-axial fluid collection. No mass effect or midline shift. No abnormal attenuation within the brain parenchyma. No subgaleal hematoma. No calvarial fracture. Mastoid air cells are aerated. Mild mucosal thickening within ethmoid air cells. CERVICAL SPINE CT: No acute fracture or dislocation. There is straightening and slight reversal of normal cervical lordosis, which is a nonspecific finding. No prevertebral soft tissue swelling. No evidence of traumatic spondylolisthesis. No widening of the atlantoaxial interval. Multilevel degenerative endplate changes. Multilevel facet arthropathy. Changes of emphysema at the bilateral upper lungs. IMPRESSION: 1. No acute intracranial pathology. 2. No acute cervical spine pathology. 3. Mild- to-moderate degenerative changes of the cervical spine. DICTATED BY: Adrian Bergeron MD DATE/TIME DICTATED:01/24/182136 REWEAVER:FLOR DATE/TIME TRANSCRIBED:01/24/182136 CONFIDENTIAL, DO NOT COPY WITHOUT APPROPRIATE AUTHORIZATION. <Electronically signed in Other Vendor System> SIGNED BY: Adrian Bergeron MD 01/24/182158 Initial ED EKG: afib w/ rvr Repeat EKG: changed (afib, rate 90's) Departure Departure Disposition: STILL A PATIENT Condition: Stable Clinical Impression Primary Impression: CHF (congestive heart failure) Secondary Impressions: Atrial fibrillation with RVR Referrals: Ricki Stewart MD (PCP/Family) Departure Forms: Customer Survey General Discharge Information Comments 01/24/18, 23:14... discussed with dr. macdonald (cards).... pt with afib with rvr, also with chf... merits admission for iv lasix, rate controlling medications, 02 support, consider drainage of pleural effusion. Admission Note Spoke With: Rogers Greenfield MD Documentation of Exam: Documentation of any treatments & extenuating circumstances including Concerns Regarding Discharge (functional status, medication knowledge or non-compliance, living conditions, etc.) that warrant an admission rather than observation: pt with afib with rvr, also with chf... merits admission for iv lasix, rate controlling medications, 02 support, consider drainage of pleural effusion. Critical Care Note Critical Care Note Critical Care Time: 30-74 min
[2018-01-24 21:43] LABS: ABSOLUTE BASOPHIL COUNT 0 /CUMM (0.0-0.2); ABSOLUTE EOSINOPHIL COUNT 0 /CUMM (0.0-0.7); ABSOLUTE GRANULOCYTE CT 7.4 /CUMM (1.4-6.5); ABSOLUTE LYMPH COUNT 0.3 /CUMM (1.2-3.4); ABSOLUTE MONOCYTE COUNT 0.7 /CUMM (0.10-0.60); BASOPHIL % 0.1 % (0.0-2.0); EOSINOPHIL % 0.1 % (0-5); MEAN CORPUSCULAR HGB 29.7 PG (27.0-31.0); MEAN CORPUSCULAR HGB CONC 32.3 G/DL (33.0-37.0); MEAN CORPUSCULAR VOLUME 91.7 FL (81.0-99.0); MEAN PLATELET VOLUME 9.8 FL (7.4-10.4); PLATELET COUNT 137 /CUMM (130-400); RBC DISTRIBUTION WIDTH 19.9 % (11.5-14.5); RED BLOOD CELL CT 3.82 /CUMM (4.20-5.40)
[2018-01-24 21:46] LABS: GRANULOCYTE % 87.9 % (42.2-75.2)
[2018-01-24 21:53] LABS: PT 20.9 SEC (9.4-12.5); PTT 34 SEC (25-37)
[2018-01-24 21:54] LABS: WHITE BLOOD CELL COUNT 8.4 /CUMM (4.8-10.8)
--- NOTE | 2018-01-24 21:56 | RADIOLOGY REPORT ---
EXAMINATION: XR PORTABLE CHEST CLINICAL INFORMATION: Dyspnea, hypoxia. COMPARISON: Chest CT 01/20/2018. TECHNIQUE: Portable frontal view of the chest was obtained. FINDINGS: Moderate right and small left pleural effusions. Adjacent basilar opacification. Mild central vasculature prominence without convincing overt pulmonary edema. No pneumothorax. The mediastinal contours have not significantly changed, with borderline prominence of the cardiac contour. No acute osseous abnormalities. IMPRESSION: Right greater than left pleural effusions with adjacent basilar predominant atelectasis/consolidation redemonstrated. The right pleural effusion is stable to mildly enlarged when adjusting for differences in technique.
[2018-01-25 01:06] VITALS: BP 130/70
--- NOTE | 2018-01-25 01:58 | History & Physical ---
Jorge Turk MD 01/25/18 0158: General Information and HPI MD Statement: I have seen and personally examined AKBAR VILA and documented this H&P. The patient is a 87 year old F who presented with a patient stated chief complaint of [shortness of breath]. Source of Information: patient, family, old records, [facility] Exam Limitations: confusion, dementia History of Present Illness: Patient is 87-year-old female with past medical history of dementia, atrial fibrillation on Eliquis, congestive heart failure, hypertension, hyperlipidemia, osteoarthritis, last admission in October 2017 for acute on chronic heart failure and fall, most recently seen in the ED for fracture and was sent to patient [facility], presenting this admission with chief complaint of shortness of breath. Patient has dementia and was confused and A&O 1 on examination. Information was obtained from patient's daughter and [facility]. Patient's daughter states that the patient has had wheezing and shortness of breath over the past 2 days. States that she was contacted by the rehab facility due to concern of increased fluid, lower extremity edema and wheezing. Patient's daughter states that the patient was scheduled for an appointment at [facility] for IV Lasix on January 26. Reports that patient has had increased weight gain of approximately 4 pounds since she went to the rehab facility on January 23. Reports patient has had bright weeping wounds requiring tried dressings and maxipads. Reports patient throughout the day was clutching her chest and complained of left breast discomfort. States that patient has become dyspneic on exertion and is unable to walk as far without getting short of breath. Reports she has been preferring to sleep in her recliner as opposed to lying flat in bed. The nursing facility was contacted and reported that patient desatted to approximately 88% on room air The manager application development doctor was contacted and patient was monitored throughout the day. Patient became noticeably worse in the evening and continue to have O2 sat of high 80s to low 90s. There was reported increase in Rales on auscultation and patient was noted to have heart rate in the 130s- 140s at which point patient was transferred to [facility]. Per daughter patient sees Dr. Gay (visual lead) last seen on January 12. Reports that patient in September was taken off lisinopril and started on carvedilol, Eliquis, increased dose of metoprolol from 25 to 50. After patient' s admission in November at which point she was on Lasix 40 mg twice daily she was switched to Bumex as her symptoms did not improve on Lasix. Patient's daughter states that in addition to the Bumex she has been going to the CHF clinic which is helped control her edema. Allergies/Medications Allergies: Coded Allergies: NO KNOWN ALLERGIES (NONE 12/22/17) Home Med list Apixaban (Eliquis) 2.5 MG TABLET 1 TAB PO BID A FIB (Reported) Atorvastatin Calcium 20 MG TABLET 1 TAB PO QPM CHOLESTEROL (Reported) Bumetanide 1 MG TABLET 1 TAB PO BID Heart failure . Calcium Carbonate/Vitamin D3 (Caltrate 600 + D Tablet) 600 MG-800 TABLET 1 TAB PO BID SUPPLEMENT (Reported) Diltiazem HCl (Diltiazem 24HR ER) 120 MG CAP.ER.24H 1 CAP PO DAILY Atrial fibrillation . Escitalopram Oxalate 10 MG TABLET 1 TAB PO 1800 MENTAL HEALTH (Reported) Metoprolol Tartrate 50 MG TABLET 1 TAB PO BID HIGH BLOOD PRESSURE (Reported) Quetiapine Fumarate 25 MG TABLET 1 TAB PO 1800 MENTAL HEALTH (Reported) Quetiapine Fumarate 25 MG TABLET 0.5 TAB PO 1800 MENTAL HEALTH (Reported) Vitamin B Complex (B Complex) 1 EACH TABLET 1 TAB PO D SUPPLEMENT (Reported) Past History Travel History Traveled to [place] past 21 day No Medical History Blood Transfusion Hx: No Neurological: dementia EENT: NONE Cardiovascular: hyperlipidemia, HTN. 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 Extended Care Facility Who Do You Live With? self Primary Language: American Smoking Status: Never Smoked ETOH Use: denies use Illicit Drug Use: denies illicit drug use Functional Ability ADLs Independent: dressing, eating, toileting, bathing. Ambulation: cane IADLs Independent: shopping, housework, finances, food prep, telephone, transportation , medication admin. Review of Systems Review of Systems Constitutional: Reports: see HPI. Exam & Diagnostic Data Last 24 Hrs of Vital Signs/I&O Vital Signs Date Time Temp Pulse Resp B/P B/P Pulse O2 O2 Flow FiO2 Mean Ox Delivery Rate 01/25 0132 97 Nasal 2.0L Cannula 01/25 0116 97 Nasal 2.0L Cannula 01/25 0106 98.2 90 24 130/70 98 Nasal 2.0L Cannula 01/25 0032 97.0 82 28 125/72 91 Room Air 01/24 2258 87 18 115/56 96 Nasal 4.0L Cannula 01/24 2234 94 20 109/66 01/24 2205 136 18 124/82 01/24 2152 126 20 123/68 96 Nasal 2.0L Cannula 01/24 2110 98.5 135 20 113/80 90 Room Air Intake & Output 01/25 0800 01/25 0000 01/24 1600 Intake Total 100 Output Total Balance 100 Intake, Oral 100 Patient 158 lb Weight Weight Bed scale Measurement Method Physical Exam General Appearance Alert, Cooperative, No Acute Distress, confused Skin Temp/Moisture Exam: Warm/Dry Sepsis Skin Exam (color): Normal for Ethnicity HEENT Atraumatic, PERRLA, EOMI, Mucous Membr. moist/pink Neck elevated jvd Cardiovascular Normal S1, Normal S2, irregular Lungs bilateral wheezing and decreased breath sounds at bases Abdomen Normal Bowel Sounds, Soft, No Tenderness Neurological Normal Speech, Strength at 5/5 X4 Ext, Normal Tone, Sensation Intact, Cranial Nerves 3-12 NL Extremities bilateral lower extremity 2+ pitting edema to knees Vascular Normal Pulses, Pulses Symmetrical Last 24 Hrs of Labs/Young: Laboratory Tests 01/24/182128: Anion Gap 11, Estimated GFR 59 L, BUN/Creatinine Ratio 30.0 H, Glucose 119 H, Calcium 8.8, Total Bilirubin 1.3, AST 40 H, ALT 31, Alkaline Phosphatase 47, Troponin I < 0.01, Emx-I-[id number] Pept 84619 H, Total Protein 6.2 L, Albumin 3.8, Globulin 2.4, Albumin/Globulin Ratio 1.6, PT 20.9 H, INR 1.90 H, APTT 34, CBC w Diff MAN DIFF ORDERED, RBC 3.82 L, MCV 91.7, MCH 29.7, MCHC 32.3 L, RDW 19.9 H, MPV 9.8, Gran % 87.9 H, Lymphocytes % 3.9 L, Monocytes % 8.0, Eosinophils % 0.1, Basophils % 0.1, Absolute Granulocytes 7.4 H, Segmented Neutrophils 75, Band Neutrophils 5, Absolute Lymphocytes 0.3 L, Lymphocytes 8 L, Monocytes 12 H, Absolute Monocytes 0.7 H, Absolute Eosinophils 0, Absolute Basophils 0, Platelet Estimate DECREASED, Hypochromic-Microcytic 1+, Poikilocytosis 1+, Basophilic Stippling 1+, Anisocytosis 1+ Assessment/Plan Assessment: Patient is 87-year-old female with past medical history of dementia, atrial fibrillation on Eliquis, congestive heart failure, hypertension, hyperlipidemia, osteoarthritis, last admission in October 2017 for acute on chronic heart failure and fall, most recently seen in the ED for fracture and was sent to patient [facility], presenting this admission with chief complaint of shortness of breath. Patient is presenting with dyspnea on exertion, orthopnea, bilateral lower extremity edema, hypoxic on room air with physical exam showing elevated JVD, bilateral lower extremity edema, and wheezing on auscultation. Chest x-ray shows bilateral pleural effusions with right greater than left. ProBNP was elevated to 11,900. Patient's heart rate on admission was in the 130s. Patient was saturating at 90% on 2 L. In the ED patient's oxygen supplementation was increased to 4 L with improvement in her O2 sat. Patient was given IV Lasix 1, verapamil 5 mg IV 1, diltiazem 30 mg p.o. patient's findings are consistent with acute decompensated congestive heart failure and atrial fibrillation with rapid ventricular rate. Patient will be admitted to telemetry for management of the followin. Acute decompensated congestive heart failure 2. Atrial fibrillation with RVR 3. Fractured nondisplaced right clavicle 4. Chronic conditions: Hypertension, hyperlipidemia, atrial fibrillation on anticoagulation, dementia, osteoarthritis Plan: Admit to telemetry with continuous telemetry monitoring Diuresis with IV Lasix 40 mg twice daily Monitor strict ins and outs and daily weights TRC and DuoNeb Oxygen supplementation as needed Cardiology consult in a.m. Serial EKG and troponins Continue home medications including Eliquis 2.5 mg twice daily, metoprolol, Lipitor, Seroquel, citalopram change Diltiazem 120 mg ER to 30 mg every 6 hours PT/OT DVT prophylaxis: On Eliquis, Alps Diet: Heart healthy diet Code: DNR/DNI As Ranked By This Provider Problem List: 1. Atrial fibrillation with RVR 2. Acute CHF (congestive heart failure) Core Measures/Misc (06/07) Acute Coronary Syndrome ACS Diagnosis: No Congestive Heart Failure Congestive Heart Failure Diagnosis No Cerebrovascular Accident CVA/TIA Diagnosis: No VTE (View Protocol) VTE Risk Factors Age>40 No Mechanical VTE Prophylaxis d/t N/A MechProphylax Ordered No VTE Pharm Prophylaxis d/t NA PharmProphylax ordered Sepsis (View protocol) Sepsis Present: No Prince Mason 01/25/18 0225: Resident Review Statement Resident Statement: examined this patient, discussed with consultant intern, agreed with consultant intern, discussed with family, reviewed EMR data (avail), discussed with nursing , discussed with case mgmt, reviewed images, amended to note Other Findings: This is 87-year-old female with medical history of Alzheimer's dementia, atrial fibrillation on Eliquis, HFrEF, hypertension, hyperlipidemia, osteoarthritis, osteoporosis. She presented from short-term rehabilitation patient with a chief complain of heart tracing and a heart rate more than 130. Per her daughter, she has gained 4 pounds, has increased swelling in her lower extremities and Today, her symptoms worsened. This morning nursing staff noticed that her oxygenation was 88-90% on room air and her heart rate increased up to 130s to 140s, so the p.t was transfer via EMS to the hospital for further evaluation and assessment. According to daughter she may have complained chest tightness but given her dementia it is unclear. She was recently in [facility] this year in Oct and November that was due to decompensated congestive heart failure and her medications changes. Chest x-ray showed bilateral pleural effusion right greater than left. Patient has elevated proBNP. Patient received 30 mg of IV Cardizem push, 5 mg of IV verapamil and her RVR after that breakdown. Physical examination, lab and imaging as above. Problem list: -Decompensated heart failure with mildly decreased EF. -Acute Hypoxemic respiratory failure -A.fib with RVR Plan: -Admit patient to telemetry floor -Vitals every shift, daily weights -Give 20 mg IV Lasix once -Start 40 mg IV Lasix twice a day -Serial troponin and EKG -TR nebs as needed -Cardiology consultation in a.m. -Cardizem 30 mg every 6hr -IV metoprolol as needed -Continue home medication -Heart healthy diet -Pain pathway -DVT prophylaxis on a Eliquis -DNI DNR Rogers Greenfield 01/25/18 0319: Attending Review Statement Attending Statement Attending MD Statement: examined this patient, discuss w/resident/PA/MILL WORKER, agreed w/resident/PA/MILL WORKER, reviewed EMR data (avail), reviewed images, amended to note Attending Assessment/Plan: CC: Elevated heart rate PMH: Afebrile, LBBB, HFpEF , HTN, HLD, dementia, osteoporosis. History is obtained from charts and daughter and care home. Patient has significant dementia and does not provide any detail. Patient was seen in ER on 4 fall. The fall appeared mechanical, she was found to have nondisplaced right clavicle fracture, her right arm was placed in sling and patient was discharged to [facility] [place]. At the facility according to daughter patient was getting progressively short of breath, dyspnea on exertion, apparent wheezing and increased leg swelling since last 2 days. They also noted 4 lb weight gain during her stay there. Patient usually follows up outpatient heart failure clinic and she was expected to follow up date to receive IV Lasix as suggested by daughter. This morning nursing staff noticed that her oxygenation was 88-90% on room air and chest auscultation was abnormal. On-call doctor was informed who suggested to monitor. Later in the evening patient appeared more short of breath. At that time vitals were checked and her oxygen was still low 88-90% and her heart rate increased up to 130s to 140s so she was transferred to ER. According to daughter she may have complained chest tightness but given her dementia it is unclear. Patient was admitted in October for heart failure Lasix 20 mg twice a day. She had repeat admission in the month of November when her dose of Lasix was increased to 40 twice a day, even that was not improving her symptoms so it was changed to bumetanide and regular follow-up with the heart failure clinic and she was symptomatically better until her stay in the care home. Vitals: Temperature 98.5, pulse 135 on arrival improved to 94 after treatment, RR 20, blood pressure 113/80, saturating 90% on 2 L nasal cannula On exam: A not oriented, patient blockers incoherently, follows instructions cooperative, moderate respiratory distress, accessory muscles in use, neck supple, JVD elevated, no lymphadenopathy, mucosa moist, no focal neurological deficit, significant lower extremity edema, no obvious skin rashes or inflammation CVS: S1-S2, RRR. RS: Decreased air entry bilat bases and wheezing in mid and upper zone. Abdomen: Soft, NT, ND, bowel sounds present. CXR: Right greater than left pleural effusions with adjacent basilar predominant atelectasis/consolidation redemonstrated. The right pleural effusion is stable to mildly enlarged when adjusting for differences in technique. Assessment and plan 82-year-old female with extensive past medical history as mentioned above was transferred from care home for increased shortness of breath, low oxygen saturation and tachycardia. Patient was admitted there for recent fall with right fractured clavicle. She appears to have acute on chronic heart failure with preserved ejection fraction, volume overload evidenced by elevated JVD and I think patient is having cardiac wheezing on auscultation. She has significant pedal edema. She was tachycardic in A. fib with RVR, received 5 mg and verapamil IV followed by 30 mg diltiazem by mouth. Her heart rate stabilized 80s to 90s. She also received 40 mg IV Lasix in ER. We'll give additional 20 mg IV Lasix now and continue 40 mg IV twice a day. + Acute on chronic heart failure with preserved ejection fraction + Hypoxemic respiratory failure + A. fib with RVR + History of Afebrile, LBBB, HFpEF , HTN, HLD, dementia, osteoporosis - Admit to telemetry - Continuous telemetry monitoring -Continue O2 by nasal cannula - IV Lasix 40 mg twice a day - Strict I's and O's - Daily weights - Serial troponin and EKGs - Cardiology consult in a.m. - DVT prophylaxis - Continue by mouth diltiazem 30 mg every 6 hours, can increase the dose incrementally if heart rate is not controlled for the next doses - metoprolol or verapamil IV for persistent tachycardia if required - Continue other home medications - Patient is DNR/DNI
--- NOTE | 2018-01-25 03:19 | Admission Certification ---
Admission Certification Certification Statement - As attending physician, I certify that at the time of - admission, based on clinical presentation, severity of - symptoms, need for further diagnostic testing and - therapeutic interventions, and risk of adverse outcomes - without in-hospital treatment, in my clinical assessment, - this patient requires an acute hospital stay for a minimum - of two nights or longer. I have also considered psychsocial - factors such as support system, advanced age, financial - issues, cognitive issues, and failed out-patient treatments, - past re-admission history, safety of patient, and lack of - compliance as applicable. Specific rationale supporting this admission is: Acute and chronic heart failure with preserved ejection fraction, A. fib with RVR, signs of volume overload
[2018-01-25 04:15] LABS: ABSOLUTE BASOPHIL COUNT 0 /CUMM (0.0-0.2); ABSOLUTE EOSINOPHIL COUNT 0 /CUMM (0.0-0.7); ABSOLUTE GRANULOCYTE CT 6.3 /CUMM (1.4-6.5); ABSOLUTE LYMPH COUNT 0.4 /CUMM (1.2-3.4); ABSOLUTE MONOCYTE COUNT 0.9 /CUMM (0.10-0.60); BASOPHIL % 0.1 % (0.0-2.0); EOSINOPHIL % 0 % (0-5); GRANULOCYTE % 82.6 % (42.2-75.2); HEMATOCRIT 34.2 % (37-47); MEAN CORPUSCULAR HGB 29.5 PG (27.0-31.0); MEAN CORPUSCULAR HGB CONC 32.2 G/DL (33.0-37.0); MEAN CORPUSCULAR VOLUME 91.7 FL (81.0-99.0); PLATELET COUNT 121 /CUMM (130-400); RBC DISTRIBUTION WIDTH 19.6 % (11.5-14.5); RED BLOOD CELL CT 3.72 /CUMM (4.20-5.40); WHITE BLOOD CELL COUNT 7.6 /CUMM (4.8-10.8)
[2018-01-25 06:50] VITALS: BP 126/70
--- NOTE | 2018-01-25 10:11 | PN- Housestaff ---
Subjective Follow-up For: Shortness of breath Tele-Events Since Last Visit: Atrial fibrillation Rate 97-120; up to 140s while ambulating Subjective: Saw pt at bedside. She has baseline dementia. She had no complaints and no overnight events. Review of Systems Constitutional: Denies: chills, weakness. Cardiovascular: Denies: chest pain, palpitations. Respiratory: Denies: cough, short of breath. Objective Last 24 Hrs of Vital Signs/I&O Vital Signs Date Time Temp Pulse Resp B/P B/P Pulse O2 O2 Flow FiO2 Mean Ox Delivery Rate 01/25 914 Nasal 2.0L Cannula 01/25 0913 94 Nasal 2.0L Cannula 01/25 0803 111 118/72 01/25 0800 93 Nasal 2.0L Cannula 01/25 0650 98.8 110 24 126/70 97 Nasal 2.0L Cannula 01/25 0636 117 126/70 01/25 0132 97 Nasal 2.0L Cannula 01/25 0116 97 Nasal 2.0L Cannula 01/25 0106 98.2 90 24 130/70 98 Nasal 2.0L Cannula 01/25 0032 97.0 82 28 125/72 91 Room Air / 2258 87 18 115/56 96 Nasal 4.0L Cannula 01/24 2234 94 20 109/66 05/06 2205 136 18 124/82 05/06 2152 126 20 123/68 96 Nasal 2.0L Cannula 01/24 2110 98.5 135 20 113/80 90 Room Air Intake & Output 01/25 1600 01/25 0800 05/ 0000 Intake Total 100 Output Total Balance 100 Intake, Oral 100 Patient 71.724 kg Weight Weight Bed scale Measurement Method Physical Exam General Appearance: ao x1, only to self HEENT: Atraumatic, PERRLA Cardiovascular: No Murmurs, irregular irregualr Lungs: Normal Air Movement, crackles at lung bases. Abdomen: Soft, No Tenderness Extremities: 2+ edema Current Medications: Current Medications Sig/Darek Start time Last Medication Dose Route Stop Time Status Admin Acetaminophen 650 MG Q6P PRN 01/25 0145 AC PO Acetaminophen 1,000 MG Q6P PRN 01/25 0145 AC IV Albuterol Sulfate 3 ML BID 01/25 900 AC 01/25 INH 0910 Apixaban 2.5 MG BID 01/25 900 AC 01/25 PO 0801 Atorvastatin Calcium 20 MG QPM 01/25 2100 AC PO Diltiazem HCl 30 MG Q6 01/25 06 AC 01/25 PO 0636 Diltiazem HCl 30 MG STAT STA 01/24 2211 DC 01/24 PO 01/24 2212 2234 Diltiazem HCl 125 MG Q12H 01/24 2130 CAN Sodium Chloride 100 ML IV Escitalopram Oxalate 10 MG 1800 01/25 1800 AC PO Furosemide 40 MG 7:30 AM, & 4:30 PM 01/25 730 AC 01/25 IV 0803 Furosemide 20 MG ONCE ONE 01/25 0145 DC 01/25 IV 01/25 0146 0208 Furosemide 0 .STK-MED ONE 01/244 DC IV Furosemide 40 MG ONCE ONE 01/24 2130 DC 01/24 IV 01/24 213 2234 Metoprolol Tartrate 50 MG BID 01/25 900 AC 01/25 PO 0803 Non-Formulary 0 SEE ADMIN CRITERIA 01/24 2130 CAN Medication ANY Quetiapine Fumarate 25 MG 1800 01/25 1800 AC PO Quetiapine Fumarate 12.5 MG 1800 01/25 1800 AC PO Verapamil HCl 50 MG CONTINOUS INFUSION 01/24 2230 DC Sodium Chloride 80 ML IV Verapamil HCl 5 MG ONCE PRN 01/24 220 DC IV 01/24 2359 Verapamil HCl 5 MG BOLUS ONE 01/24 2145 DC 01/24 IV 01/24 214 220 Last 24 Hrs of Lab/Young Results Last 24 Hrs of Labs/Mics: Laboratory Tests 01/25/18 0925: Troponin I 0.02 01/25/18 0345: Troponin I 0.02 01/25/18 0345: Anion Gap 10, Estimated GFR 59 L, BUN/Creatinine Ratio 28.9 H, CBC w Diff NO MAN DIFF REQ, RBC 3.72 L, MCV 91.7, MCH 29.5, MCHC 32.2 L, RDW 19.6 H, MPV 10.0, Gran % 82.6 H, Lymphocytes % 5.3 L, Monocytes % 12.0 H, Eosinophils % 0 , Basophils % 0.1, Absolute Granulocytes 6.3, Absolute Lymphocytes 0.4 L, Absolute Monocytes 0.9 H, Absolute Eosinophils 0, Absolute Basophils 0 01/24/182128: Anion Gap 11, Estimated GFR 59 L, BUN/Creatinine Ratio 30.0 H, Glucose 119 H, Calcium 8.8, Total Bilirubin 1.3, AST 40 H, ALT 31, Alkaline Phosphatase 47, Troponin I < 0.01, Pdj-L-Uqqgsiiqzce Pept 77562 H, Total Protein 6.2 L, Albumin 3.8, Globulin 2.4, Albumin/Globulin Ratio 1.6, PT 20.9 H, INR 1.90 H, APTT 34, CBC w Diff MAN DIFF ORDERED, RBC 3.82 L, MCV 91.7, MCH 29.7, MCHC 32.3 L, RDW 19.9 H, MPV 9.8, Gran % 87.9 H, Lymphocytes % 3.9 L, Monocytes % 8.0, Eosinophils % 0.1, Basophils % 0.1, Absolute Granulocytes 7.4 H, Segmented Neutrophils 75, Band Neutrophils 5, Absolute Lymphocytes 0.3 L, Lymphocytes 8 L, Monocytes 12 H, Absolute Monocytes 0.7 H, Absolute Eosinophils 0, Absolute Basophils 0, Platelet Estimate DECREASED, Hypochromic-Microcytic 1+, Poikilocytosis 1+, Basophilic Stippling 1+, Anisocytosis 1+ Assessment/Plan Assessment: ASSESSMENT: Patient is 87-year-old female w/ PMH dementia, atrial fibrillation on Eliquis, CHF, hypertension, hyperlipidemia, osteoarthritis, recent fall w/ r. clavicular fracture with CC shortness of breath. Given SANTIZO, orthopnea, bilat LE edema, JVD and cxr with pleural eff we are treating for decompensated heart failure with a.fib w/ RVR. This AM, she is largely rate controlled other than at ambulation but is requiring 2 L O2, otherwise is 88% on RA. PLAN: 1. Acute decompensated congestive heart failure: BNP 40511. CXR with evidence of edema. * Monitor on tele * IV lasix 40mg BID * I/O * O2 PRN * Cardio consult with Dr. Gay * EKG/Trop 2. Afib w/ RVR * Eliquis 2.5mg BID--> Spoke with daughter today regarding the risk VS benefit of continuing AC on this demented pt with increasingly frequent falls. Decision was to obtain cardiology input and revisit issue tomorrow. * Metoprolol/Lopressor * Switched from long acting Cardizem to 30mg Q6 * Monitor on tele 3. HLD: * Con't Statin 4. Depression and Mood: * Con't SSRI * Con't Seroquel DNR/DNI Problem List: 1. Atrial fibrillation with RVR Pain Ratin Pain Location: none Pain Goal: Remain pain free Pain Plan: current reg Tomorrow's Labs & Rationales: cbc bep
--- NOTE | 2018-01-25 10:12 | PN- Att Addend ---
Attending Addendum Attending Brief Note Pt seen and examined with corporate development intern, resident and nurse during rounds. This is an 87-year-old female with a past medical history of dementia, chronic diastolic heart failure and right heart failure and atrial fibrillation on Eliquis. She is here, sent in from the assisted for shortness of breath, weight gain and was noted to be in rapid A. fib in the emergency room. She slowed down with IV and by mouth medications and right now we have her on Cardizem 30 every 6 which is not different from her usual 120 mg a day dose that she takes at home. We switched her Bumex 1 mg twice a day to Lasix 40 mg IV twice a day and will need to clarify with cardiology whether that's an adequate dose for her. I am worried given her recent fall on January 20 and her clavicular fracture requiring a sling that she is a high risk for falls however her chads score is also high and she remains on Eliquis for her A. fib. I called Dr. Óscar Travis a minibus driver to see her and will follow-up closely.
[2018-01-25 15:02] VITALS: BP 120/80
--- NOTE | 2018-01-25 18:19 | Cons- Cardiology ---
General Information and HPI Consulting Request Date of Consult: 01/25/18 Requested By: Chaka Gracia MD Reason for Consult: Recurrent congestive heart failure and rapid atrial fibrillation. Source of Information: patient, family Exam Limitations: no limitations, dementia History of Present Illness: Alee Vila is an 87-year-old female who originally presented in 2008 with an episode of paroxysmal atrial fibrillation which spontaneously converted to sinus rhythm. She also has known left bundle branch block. Her echocardiogram at that time did not show any major abnormalities, and she was subsequently just followed along. At the time of her visit on 09/17/17, Alee was complaining of shortness of breath and edema. I found her to be in atrial fibrillation with a slightly increased rate, which I thought accounted for her shortness of breath and increased edema. At that time, I changed her Dyazide to Lasix 20 mg daily and increased her metoprolol from 25 mg to 50 mg daily, and put her on Eliquis 2.5 mg twice a day for stroke prevention. Alee developed more shortness of breath and edema and was hospitalized from 11/02/2017 to 11/06/2017. She came in with increasing shortness of breath and edema, was found to be in mostly right sided congestive heart failure. She was diuresed and her medications were adjusted for additional heart rate control. Her echo showed EF 45-50% and PAP was elevated to 45-50 mmHg. She was discharged on metoprolol 50 mg twice a day, Eliquis 2.5 mg twice a day, lisinopril 40 mg daily, diltiazem 120 mg daily and Lasix 20 mg twice daily. She then did well for a while, but was readmitted on 12/01/2017 again with increasing shortness of breath and edema. Her BNP at that time was 6750. She was treated with IV Lasix and discharged a few days later. We changed the diuretic to Bumex 1 mg twice daily because reported doses of Lasix were not effective any longer. Subsequently, according to her daughter, she did lose a few pounds, They did call me shortly after discharge to say that her blood pressure was low by the visiting nurse and she was lethargic and sleepy, so we discontinued her lisinopril and she has remained off it. Subsequently Alee was doing better. I saw her in the office just 2 weeks ago and she was doing pretty well. Her medicines at that time included atorvastatin 20 mg daily, Bumex 1 mg twice daily, Cartia 120 mg daily, Eliquis 2.5 mg twice daily, potassium 20 mg once daily, metoprolol 50 mg daily, and she is tolerating these well. Her blood pressure has been normal in the clinic. I did not change anything at that time. Just last week Alee had a fall and fractured her right clavicle. Subsequently the family took her to short-term rehab where she has been. In rehab yesterday they noted that she was wheezing and had increasing ankle edema and brought her to the emergency department where she was admitted. She was satting about 88% on room air and her heart rate was increased in atrial fibrillation to the 130s. She was given IV verapamil and oral Cardizem and her heart rate improved. She was also started on IV Lasix. Currently she is back on her usual dose of Cardizem which is 120 mg daily, currently being given in divided doses. Today the patient seems more comfortable. The daughter was present and states she definitely is improved over yesterday. She is not complaining of chest pain or shortness of breath at this time. Allergies/Medications Allergies: Coded Allergies: NO KNOWN ALLERGIES (NONE 12/22/17) Home Med List: Apixaban (Eliquis) 2.5 MG TABLET 1 TAB PO BID A FIB (Reported) Atorvastatin Calcium 20 MG TABLET 1 TAB PO QPM CHOLESTEROL (Reported) Bumetanide 1 MG TABLET 1 TAB PO BID Heart failure . Calcium Carbonate/Vitamin D3 (Caltrate 600 + D Tablet) 600 MG-800 TABLET 1 TAB PO BID SUPPLEMENT (Reported) Diltiazem HCl (Diltiazem 24HR ER) 120 MG CAP.ER.24H 1 CAP PO DAILY Atrial fibrillation . Escitalopram Oxalate 10 MG TABLET 1 TAB PO 1800 MENTAL HEALTH (Reported) Metoprolol Tartrate 50 MG TABLET 1 TAB PO BID HIGH BLOOD PRESSURE (Reported) Quetiapine Fumarate 25 MG TABLET 1 TAB PO 1800 MENTAL HEALTH (Reported) Quetiapine Fumarate 25 MG TABLET 0.5 TAB PO 1800 MENTAL HEALTH (Reported) Vitamin B Complex (B Complex) 1 EACH TABLET 1 TAB PO D SUPPLEMENT (Reported) Current Medications: Current Medications Sig/Darek Start time Last Medication Dose Route Stop Time Status Admin Acetaminophen 650 MG Q6P PRN 01/25 0145 AC PO Acetaminophen 1,000 MG Q6P PRN 01/25 0145 AC IV Albuterol Sulfate 3 ML BID 01/25 900 AC 01/25 INH 1632 Apixaban 2.5 MG BID 01/25 0900 AC 01/25 PO 0801 Atorvastatin Calcium 20 MG QPM 01/25 2100 AC PO Diltiazem HCl 5 MG ONCE ONE 01/25 1800 UNVr IV PUSH 01/25 1801 Diltiazem HCl 30 MG Q6 01/25 0600 AC 01/25 PO 1644 Diltiazem HCl 30 MG STAT STA 01/24 2211 DC 01/24 PO 01/24 2212 2234 Diltiazem HCl 125 MG Q12H 01/24 2130 CAN Sodium Chloride 100 ML IV Escitalopram Oxalate 10 MG 1800 01/25 1800 AC 01/25 PO 1644 Furosemide 40 MG 7:30 AM, & 4:30 PM 01/25 0730 AC 01/25 IV 1644 Furosemide 20 MG ONCE ONE 01/25 0145 DC 01/25 IV 01/25 0146 0208 Furosemide 0 .STK-MED ONE 01/24 2224 DC IV Furosemide 40 MG ONCE ONE 01/24 2130 DC 01/24 IV 01/24 2131 2234 Metoprolol Tartrate 25 MG ONCE ONE 01/25 1800 DC PO 01/25 1801 Metoprolol Tartrate 50 MG BID 01/25 900 AC 01/25 PO 0803 Non-Formulary 0 SEE ADMIN CRITERIA 01/24 2130 CAN Medication ANY Quetiapine Fumarate 25 MG 1800 01/25 1800 AC 01/25 PO 1644 Quetiapine Fumarate 12.5 MG 1800 01/25 1800 AC 01/25 PO 1644 Verapamil HCl 50 MG CONTINOUS INFUSION 01/24 223 DC Sodium Chloride 80 ML IV Verapamil HCl 5 MG ONCE PRN 01/24 2200 DC IV 01/24 2359 Verapamil HCl 5 MG BOLUS ONE 01/24 2145 DC 01/24 IV 01/24 214 2205 Review of Systems Review of Systems: The patient has no other complaints at this time. Past History Travel History Traveled to [place] past 21 day No Medical History Blood Transfusion Hx: No Neurological: dementia EENT: NONE Cardiovascular: hyperlipidemia, HTN. 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 Extended Care Facility Who Do You Live With? self Primary Language: Kinyarwanda Smoking Status: Never Smoked ETOH Use: denies use Illicit Drug Use: denies illicit drug use Functional Ability ADLs Independent: dressing, eating, toileting, bathing. Ambulation: cane IADLs Independent: shopping, housework, finances, food prep, telephone, transportation , medication admin. Exam & Diagnostic Data Vital Signs and I&O Vital Signs Date Time Temp Pulse Resp B/P B/P Pulse O2 O2 Flow FiO2 Mean Ox Delivery Rate 01/25 1644 133 120/80 01/25 1642 92 Nasal 2.0L Cannula 01/25 1502 98.8 133 24 120/80 89 Nasal 2.0L Cannula 01/25 1244 Nasal 2.0L Cannula 01/25 1242 Nasal 2.0L Cannula 01/25 1221 Nasal 2.0L Cannula 01/25 1130 96 118/84 01/25 0914 Nasal 2.0L Cannula 01/25 0913 94 Nasal 2.0L Cannula 01/25 0803 111 118/72 01/25 0800 93 Nasal 2.0L Cannula 01/25 0650 98.8 110 24 126/70 97 Nasal 2.0L Cannula 01/25 0636 117 126/70 01/25 0132 97 Nasal 2.0L Cannula 01/25 0116 97 Nasal 2.0L Cannula 01/25 0106 98.2 90 24 130/70 98 Nasal 2.0L Cannula 01/25 0032 97.0 82 28 125/72 91 Room Air 01/24 2258 87 18 115/56 96 Nasal 4.0L Cannula 01/24 2234 94 20 109/66 05/06 2205 136 18 124/82 / 2152 126 20 123/68 96 Nasal 2.0L Cannula 01/24 2110 98.5 135 20 113/80 90 Room Air Intake & Output 01/25 1600 05/07 0800 05/07 0000 05/06 1600 / 0800 05/ 0000 Intake Total 400 100 Output Total 300 Balance 100 100 Intake, Oral 400 100 Number 1 Bowel Movements Output, Urine 300 Patient 158 lb Weight Weight Bed scale Measurement Method Physical Exam: Elderly female in no acute distress HEENT exam normal Chest clear Heart irregular rhythm, soft heart sounds, no murmurs Abdomen benign Extremities 1+ edema Labs/Young Results: Laboratory Tests 01/25 01/25 01/25 0925 0345 0345 Chemistry Sodium (137 - 145 mmol/L) 140 Potassium (3.5 - 5.1 mmol/L) 3.7 Chloride (98 - 107 mmol/L) 93 L Carbon Dioxide (22 - 30 mmol/L) 36 H Anion Gap (5 - 16) 10 BUN (7 - 17 mg/dL) 26 H Creatinine (0.5 - 1.0 mg/dL) 0.9 Estimated GFR (>60 ml/min) 59 L BUN/Creatinine Ratio (7 - 25 %) 28.9 H Troponin I (< 0.11 ng/ml) 0.02 0.02 Hematology CBC w Diff NO MAN DIFF REQ WBC (4.8 - 10.8 /CUMM) 7.6 RBC (4.20 - 5.40 /CUMM) 3.72 L Hgb (12.0 - 16.0 G/DL) 11.0 L Hct (37 - 47 %) 34.2 L MCV (81.0 - 99.0 FL) 91.7 MCH (27.0 - 31.0 PG) 29.5 MCHC (33.0 - 37.0 G/DL) 32.2 L RDW (11.5 - 14.5 %) 19.6 H Plt Count (130 - 400 /CUMM) 121 L MPV (7.4 - 10.4 FL) 10.0 Gran % (42.2 - 75.2 %) 82.6 H Lymphocytes % (20.5 - 51.1 %) 5.3 L Monocytes % (1.7 - 9.3 %) 12.0 H Eosinophils % (0 - 5 %) 0 Basophils % (0.0 - 2.0 %) 0.1 Absolute Granulocytes (1.4 - 6.5 /CUMM) 6.3 Absolute Lymphocytes (1.2 - 3.4 /CUMM) 0.4 L Absolute Monocytes (0.10 - 0.60 /CUMM) 0.9 H Absolute Eosinophils (0.0 - 0.7 /CUMM) 0 Absolute Basophils (0.0 - 0.2 /CUMM) 0 01/24 2129 Chemistry Sodium (137 - 145 mmol/L) 138 Potassium (3.5 - 5.1 mmol/L) 3.9 Chloride (98 - 107 mmol/L) 94 L Carbon Dioxide (22 - 30 mmol/L) 33 H Anion Gap (5 - 16) 11 BUN (7 - 17 mg/dL) 27 H Creatinine (0.5 - 1.0 mg/dL) 0.9 Estimated GFR (>60 ml/min) 59 L BUN/Creatinine Ratio (7 - 25 %) 30.0 H Glucose (65 - 99 mg/dL) 119 H Calcium (8.4 - 10.2 mg/dL) 8.8 Total Bilirubin (0.2 - 1.3 mg/dL) 1.3 AST (14 - 36 U/L) 40 H ALT (9 - 52 U/L) 31 Alkaline Phosphatase (<127 U/L) 47 Troponin I (< 0.11 ng/ml) < 0.01 [id number] Pept (<125 pg/mL) 80993 H Total Protein (6.3 - 8.2 g/dL) 6.2 L Albumin (3.5 - 5.0 g/dL) 3.8 Globulin (1.9 - 4.2 gm/dL) 2.4 Albumin/Globulin Ratio (1.1 - 2.2 %) 1.6 Coagulation PT (9.4 - 12.5 SEC) 20.9 H INR (0.90 - 1.19) 1.90 H APTT (25 - 37 SEC) 34 Hematology CBC w Diff MAN DIFF ORDERED WBC (4.8 - 10.8 /CUMM) 8.4 RBC (4.20 - 5.40 /CUMM) 3.82 L Hgb (12.0 - 16.0 G/DL) 11.3 L Hct (37 - 47 %) 35.0 L MCV (81.0 - 99.0 FL) 91.7 MCH (27.0 - 31.0 PG) 29.7 MCHC (33.0 - 37.0 G/DL) 32.3 L RDW (11.5 - 14.5 %) 19.9 H Plt Count (130 - 400 /CUMM) 137 MPV (7.4 - 10.4 FL) 9.8 Gran % (42.2 - 75.2 %) 87.9 H Lymphocytes % (20.5 - 51.1 %) 3.9 L Monocytes % (1.7 - 9.3 %) 8.0 Eosinophils % (0 - 5 %) 0.1 Basophils % (0.0 - 2.0 %) 0.1 Absolute Granulocytes (1.4 - 6.5 /CUMM) 7.4 H Segmented Neutrophils (42.2 - 75.2 %) 75 Band Neutrophils (0.0 - 5.0 %) 5 Absolute Lymphocytes (1.2 - 3.4 /CUMM) 0.3 L Lymphocytes (20.5 - 51.1 %) 8 L Monocytes (1.7 - 9.3 %) 12 H Absolute Monocytes (0.10 - 0.60 /CUMM) 0.7 H Absolute Eosinophils (0.0 - 0.7 /CUMM) 0 Absolute Basophils (0.0 - 0.2 /CUMM) 0 Platelet Estimate (ADEQUATE) DECREASED Hypochromic-Microcytic 1+ Poikilocytosis 1+ Basophilic Stippling 1+ Anisocytosis 1+ Diagnostic Data EKG Results EKG on presentation shows atrial fibrillation rate of 150 with nonspecific interventricular conduction delay. Several repeat EKGs show the same pattern but slower rate in the 80s and 90s. CXR Results PATIENT: ALEE VILA PRESENT AGE: 87 PATIENT ACCOUNT NO: [id number] : [birth year] LOCATION: [facility] ORDERING PHYSICIAN: Dion Campbell MD SERVICE DATE: 01/24/18 EXAM TYPE: RAD - XRY-PORTABLE CHEST XRAY EXAMINATION: XR PORTABLE CHEST CLINICAL INFORMATION: Dyspnea, hypoxia. COMPARISON: Chest CT 01/20/2018. TECHNIQUE: Portable frontal view of the chest was obtained. FINDINGS: Moderate right and small left pleural effusions. Adjacent basilar opacification. Mild central vasculature prominence without convincing overt pulmonary edema. No pneumothorax. The mediastinal contours have not significantly changed, with borderline prominence of the cardiac contour. No acute osseous abnormalities. IMPRESSION: Right greater than left pleural effusions with adjacent basilar predominant atelectasis/consolidation redemonstrated. The right pleural effusion is stable to mildly enlarged when adjusting for differences in technique. DICTATED BY: Adrian Bergeron MD DATE/TIME DICTATED:01/24/182149 PACKING ROOM SUPERVISOR:FLOR DATE/TIME TRANSCRIBED:01/24/182149 CONFIDENTIAL, DO NOT COPY WITHOUT APPROPRIATE AUTHORIZATION. <Electronically signed in Other Vendor System> SIGNED BY: Adrian Bergeron MD 01/24/18 4489 Assessment/Plan Assessment/Plan Alee Vila is an 87-year-old female with recurrent congestive heart failure. She has mildly decreased ejection fraction on last echo of 45-50% and also atrial fibrillation which has become persistent. Her atrial fibrillation was a little rapid when she first presented but is now back to normal rate. I would continue her on IV Lasix today and then if she looks good tomorrow switch back to oral diuretics. I would continue her on oral Cardizem at the current doses for now. We could always increase this if her heart rate trends upwards. I would obtain another echocardiogram to compare to the one done 3 months ago because of the decreased ejection fraction on that study. The patient seems to be tolerating her Eliquis at 2.5 mg twice daily well. There is no evidence of any bleeding etc. I did discuss with the daughter the risk and benefits of anticoagulation in this elderly patient with falling. For now I recommend continuing the Eliquis. Consult Acknowledgment - Thank you for your consult request.
[2018-01-25 23:06] VITALS: BP 134/92
[2018-01-26 07:00] VITALS: BP 116/70
[2018-01-26 07:49] LABS: ABSOLUTE BASOPHIL COUNT 0 /CUMM (0.0-0.2); ABSOLUTE EOSINOPHIL COUNT 0 /CUMM (0.0-0.7); ABSOLUTE GRANULOCYTE CT 5.5 /CUMM (1.4-6.5); ABSOLUTE LYMPH COUNT 0.7 /CUMM (1.2-3.4); ABSOLUTE MONOCYTE COUNT 0.9 /CUMM (0.10-0.60); BASOPHIL % 0.1 % (0.0-2.0); EOSINOPHIL % 0 % (0-5); GRANULOCYTE % 77.5 % (42.2-75.2); HEMATOCRIT 35.2 % (37-47); MEAN CORPUSCULAR HGB 29.6 PG (27.0-31.0); MEAN CORPUSCULAR HGB CONC 32.6 G/DL (33.0-37.0); MEAN CORPUSCULAR VOLUME 90.8 FL (81.0-99.0); MEAN PLATELET VOLUME 9.6 FL (7.4-10.4); PLATELET COUNT 125 /CUMM (130-400); RBC DISTRIBUTION WIDTH 18.7 % (11.5-14.5); RED BLOOD CELL CT 3.87 /CUMM (4.20-5.40); WHITE BLOOD CELL COUNT 7.1 /CUMM (4.8-10.8)
--- NOTE | 2018-01-26 09:58 | PN- Housestaff ---
[facility] 01[facility] 0958: Subjective Follow-up For: sob Tele-Events Since Last Visit: She was in a.fib with max HR up to 120. Subjective: saw pt at bedside this AM. She was sitting at bedside with daughter beside her. She denies any cp, or palpitations. She is on 2 L 02 and difficult to wean. No acute overnight events. Review of Systems Constitutional: Denies: chills, fever, weakness. EENTM: Reports: no symptoms. Cardiovascular: Denies: palpitations. Respiratory: Denies: short of breath. Gastrointestinal: Reports: no symptoms. Genitourinary: Reports: no symptoms. Musculoskeletal: Reports: no symptoms. Objective Last 24 Hrs of Vital Signs/I&O Vital Signs Date Time Temp Pulse Resp B/P B/P Pulse O2 O2 Flow FiO2 Mean Ox Delivery Rate 01/26 1324 104 116/54 01/26 0841 92 Nasal 2.0L Cannula 01/26 0820 120 122/64 01/26 0800 Nasal 2.0L Cannula 01/26 07 97.5 88 20 116/70 96 Nasal 2.0L Cannula 01/26 0644 88 116/70 01/25 2321 116 134/92 / 2311 99.9 / 2306 99.9 108 18 134/92 96 01/25 2105 Nasal 2.0L Cannula 01/25 1803 127 108/52 05/07 1802 127 108/52 / 1802 127 108/52 /07 1644 133 120/80 / 1642 92 Nasal 2.0L Cannula 01/25 1600 92 Nasal 2.0L Cannula 01/25 1502 98.8 133 24 120/80 89 Nasal 2.0L Cannula Intake & Output 01/26 1600 /08 0800 05/08 0000 Intake Total 200 200 Output Total 375 Balance 200 -175 Intake, Oral 200 200 Output, Urine 375 Patient 70.959 kg Weight Physical Exam General Appearance: No Acute Distress Skin: No Significant Lesion HEENT: Atraumatic, PERRLA, EOMI Neck: Supple Cardiovascular: irreg irreg Lungs: Normal Air Movement, slight crackles at base Abdomen: Soft, No Tenderness Current Medications: Current Medications Sig/Darek Start time Last Medication Dose Route Stop Time Status Admin Acetaminophen 650 MG Q6P PRN 01/25 0145 AC PO Acetaminophen 1,000 MG Q6P PRN 01/25 0145 AC 01/25 IV 2311 Albuterol Sulfate 3 ML BID 01/25 900 AC 01/26 INH 0838 Apixaban 2.5 MG BID 01/25 0900 AC 01/26 PO 0818 Atorvastatin Calcium 20 MG QPM 01/25 2100 AC 01/25 PO 2050 Diltiazem HCl 60 MG Q8 01/26 1400 AC 01/26 PO 1324 Diltiazem HCl 5 MG ONCE ONE 01/25 1800 DC IV PUSH 01/25 1801 Diltiazem HCl 30 MG Q6 01/25 0600 DC 01/26 PO 0644 Escitalopram Oxalate 10 MG 1800 01/25 1800 AC 01/25 PO 1644 Furosemide 40 MG 7:30 AM, & 4:30 PM 01/26 1630 AC IV Furosemide 40 MG BID 01/26 900 DC PO Furosemide 40 MG 7:30 AM, & 4:30 PM 01/25 0730 DC 01/26 IV 0818 Metoprolol Tartrate 25 MG ONCE ONE 01/25 1800 DC 01/25 PO 01/25 1801 1802 Metoprolol Tartrate 50 MG BID 01/25 900 AC 01/26 PO 0820 Quetiapine Fumarate 25 MG 1800 01/25 1800 AC 01/25 PO 1644 Quetiapine Fumarate 12.5 MG 1800 01/25 1800 AC 01/25 PO 1644 Last 24 Hrs of Lab/Young Results Last 24 Hrs of Labs/Mics: Laboratory Tests 01/26/18 0700: Anion Gap 11, Estimated GFR > 60, BUN/Creatinine Ratio 37.5 H, CBC w Diff NO MAN DIFF REQ, RBC 3.87 L, MCV 90.8, MCH 29.6, MCHC 32.6 L, RDW 18.7 H, MPV 9.6, Gran % 77.5 H, Lymphocytes % 9.8 L, Monocytes % 12.6 H, Eosinophils % 0, Basophils % 0.1, Absolute Granulocytes 5.5, Absolute Lymphocytes 0.7 L, Absolute Monocytes 0.9 H, Absolute Eosinophils 0, Absolute Basophils 0 Assessment/Plan Assessment: ASSESSMENT: Patient is 87-year-old female w/ PMH dementia, atrial fibrillation on Eliquis, CHF, hypertension, hyperlipidemia, osteoarthritis, recent fall w/ r. clavicular fracture with CC shortness of breath. Given SANTIZO, orthopnea, bilat LE edema, JVD and cxr with pleural eff we are treating for decompensated heart failure with felicitydanitza w/ RVR. This AM, she is largely rate controlled other than at ambulation but is requiring 2 L O2, otherwise is 88% on RA. PLAN: 1. Acute decompensated congestive heart failure: BNP 37095. CXR with evidence of edema. Echo came back today and shows new abnormalities and EF 30-35% which is new for her. This would explain worsening systolic HF symptoms. * Monitor on tele * IV lasix 40mg BID--> we continued today on IV lasix. Pls re-eval tomorrow to see if she can be switched to PO regimen * I/O--> Pt is largely incontinent so I/O are hard to assess * O2 PRN * Cardio consult with Dr. Gay * EKG/Trop x3 neg 2. Afib w/ RVR * Eliquis 2.5mg BID--> Spoke with family and cardiology regarding risk vs benefit in this elderly demented pt with increasingly frequent falls. At this time will con't w/ AC. But if she has further falls will come back to reassess * Metoprolol/Lopressor * Switched from long acting Cardizem to 30mg Q6 yesterday to 60mg q8 today * Monitor on tele 3. HLD: * Con't Statin 4. Depression and Mood: * Con't SSRI * Con't Seroquel DNR/DNI Problem List: 1. Atrial fibrillation with RVR 2. Renal insufficiency Pain Ratin Pain Location: none Pain Goal: Remain pain free Pain Plan: none Tomorrow's Labs & Rationales: cbc Chaka Carlson 01/26/18 1125: Attending MD Review Statement Attending Statement Attending MD Statement: examined this patient, discuss w/resident/PA/POWERHOUSE HELPER, agreed w/resident/PA/POWERHOUSE HELPER, discussed with family, reviewed EMR data (avail), discussed with nursing, discussed with case mgmt, reviewed images, amended to note Attending Assessment/Plan: Patient admitted here with acute on chronic CHF with new worsening of her sytolic fucntion EF 35% as compared to previous echo. Her cardiac enzymes are negative so far. Patient is in afib intermittently rate controlled. Cardiology consulted and recommend to continue iv lasix and titrate PO cardizem if bp allows. Continue with metoprolol. Obtain repeat chest xray and monitor i/o, daily weights. Patient sitting comfortably in her chair and receiving oxygen supplementation. gi/dvt prophylaxis DNR/DNI.
--- NOTE | 2018-01-26 10:02 | ECHOCARDIOGRAM REPORT ---
AKBAR VILA Age: 87 : 1930 Gender: F Exam Date: 01/25/2018 19:23 Exam Location: [address] Ht (in): 62 Wt (lb): 158 BSA: 1.79 BP: 108 / 52 Ordering Physician: Primo Gay MD Referring Physician: Technologist: Suzanne Cerrato RDCS Room Number: 180-01 Indications: HEART FAILURE Rhythm: Sinus Technical Quality: Good FINDINGS Left Ventricle Normal left ventricular size and wall thickness. Left ventricular contractility is uncoordinated with markedly abnormal septal motion. Estimated ejection fraction is 35-40% Right Ventricle Mild right ventricular dilatation. Right Atrium Mild right atrial dilatation. Left Atrium Mild to moderate left atrial dilatation. Mitral Valve Mild thickening/calcification of the mitral valve leaflets. Moderate mitral annular calcification. Mild to moderate `mitral regurgitation. Aortic Valve Focal thickening of the aortic valve cusps. No aortic stenosis. No aortic regurgitation. Tricuspid Valve Tricuspid valve is normal in structure and function. Moderate to severe tricuspid regurgitation. Right ventricular systolic pressure estimated to be elevated at 50-55 mmHg. Moderate pulmonary hypertension. Pulmonic Valve Pulmonic valve not well visualized, grossly normal. Mild pulmonic regurgitation. Pericardium No pericardial effusion. Left pleural effusion. Great Vessels Aortic arch and great vessels are well seen and are normal. Normal size aortic root and proximal ascending aorta. CONCLUSIONS Normal left ventricular size and wall thickness. Left ventricular contractility is uncoordinated with markedly abnormal septal motion. Estimated ejection fraction is 35-40%. Mild right atrial dilatation. Mild right ventricular dilatation. Mild to moderate left atrial dilatation. Mild thickening/calcification of the mitral valve leaflets. Moderate mitral annular calcification. Mild to moderate `mitral regurgitation. Focal thickening of the aortic valve cusps. No aortic stenosis. Moderate to severe tricuspid regurgitation. Right ventricular systolic pressure estimated to be elevated at 50- 55 mmHg. Moderate pulmonary hypertension. Left pleural effusion. Primo Gay M.D. (Electronically Signed) Final Date: 26 Jan 2018 10:01 MEASUREMENTS (Male / Female) Normal Values 2D ECHO LV Diastolic Diameter PLAX 3.7 cm 4.2 - 5.9 / 3.9 - 5.3 cm LV Systolic Diameter PLAX 3.0 cm 2.1 - 4.0 cm LV Fractional Shortening PLAX 18.9 % 25 - 46 % LV Ejection Fraction 2D Teich 39.8 % IVS Diastolic Thickness 1.0 cm LVPW Diastolic Thickness 1.0 cm LV Relative Wall Thickness 0.5 RV Internal Dim ED PLAX 3.7 cm 1.9 - 3.8 cm LVOT Diameter 1.8 cm Aortic Root Diameter 3.1 cm LA Systolic Diameter LX 4.4 cm 3.0 - 4.0 / 2.7 - 3.8 cm LA Volume 64.0 cm 18 - 58 / 22 - 52 cm Ascending Aorta Diameter 3.3 cm DOPPLER AV Peak Velocity 83.5 cm/s AV Peak Gradient 2.8 mmHg AV Mean Velocity 60.9 cm/s AV Mean Gradient 2.0 mmHg AV Velocity Time Integral 15.5 cm LVOT Peak Velocity 59.4 cm/s LVOT Peak Gradient 1.4 mmHg LVOT Mean Velocity 41.6 cm/s LVOT Mean Gradient 1.0 mmHg LVOT Velocity Time Integral 9.9 cm LVOT Stroke Volume 25.1 cm AV Area Cont Eq vti 1.6 cm AV Area Cont Eq pk 1.8 cm MV Peak Velocity 110.0 cm/s MV Peak Gradient 4.8 mmHg MV Mean Velocity 51.1 cm/s MV Mean Gradient 1.0 mmHg Mitral E Point Velocity 84.4 cm/s MV PHT Velocity 114.0 cm/s MV Deceleration Bureau 344.0 cm/s MV Pressure Half Time 99.4 ms MV Area PHT 2.2 cm MV Deceleration Time 239.0 ms TR Peak Velocity 320.0 cm/s TR Peak Gradient 41.0 mmHg Right Atrial Pressure 10.0 mmHg Pulmonary Artery Systolic Pressu 51.0 mmHg Right Ventricular Systolic Press 51.0 mmHg PV Peak Velocity 69.2 cm/s PV Peak Gradient 1.9 mmHg PV Mean Velocity 46.7 cm/s PV Mean Gradient 1.0 mmHg PV Velocity Time Integral 13.7 cm LV E' Lateral Velocity 10.5 cm/s Mitral E to LV E' Lateral Ratio 8.0 LV E' Septal Velocity 6.8 cm/s Mitral E to LV E' Septal Ratio 12.4
--- NOTE | 2018-01-26 10:25 | PN- Cardiology ---
Subjective Subjective: The patient has no specific complaints. She looks comfortable sitting in a chair. Her vital signs are normal. She is satting 92% on 2 L. Her heart rate is in the 80s at this time. Her echocardiogram showed decreased LV function and more uncoordinated ventricular contractility than the previous one. I noted there is also a change in her electrocardiogram. Previously she had a classic left bundle branch block pattern and now she has a nonspecific interventricular conduction delay with a different axis. Objective Vital Signs and I&Os Vital Signs Date Time Temp Pulse Resp B/P B/P Pulse O2 O2 Flow FiO2 Mean Ox Delivery Rate 01/27 0841 92 Nasal 2.0L Cannula 01/26 0820 120 122/64 01/26 0800 Nasal 2.0L Cannula 01/26 07 97.5 88 20 116/70 96 Nasal 2.0L Cannula 01/26 0644 88 116/70 01/25 2321 116 134/92 01/25 2311 99.9 01/25 2306 99.9 108 18 134/92 96 01/25 2105 Nasal 2.0L Cannula 01/25 1803 127 108/52 01/25 1802 127 108/52 / 1802 127 108/52 /07 1644 133 120/80 / 1642 92 Nasal 2.0L Cannula 01/25 1600 92 Nasal 2.0L Cannula 01/25 1502 98.8 133 24 120/80 89 Nasal 2.0L Cannula 01/25 1244 Nasal 2.0L Cannula 01/25 1242 Nasal 2.0L Cannula 01/25 1221 Nasal 2.0L Cannula 01/25 1130 96 118/84 Intake & Output 01/26 0000 01/25 1600 01/25 0801/25 0000 Intake Total 200 200 400 100 Output Total 375 300 Balance 200 -175 100 100 Intake, Oral 200 200 400 100 Number 1 Bowel Movements Output, Urine 375 300 Patient 156 lb 158 lb Weight Weight Bed scale Measurement Method Physical Exam: Chest reveals a few rales and some mild expiratory wheezing Heart irregular rhythm, no murmurs Extremities still some edema present Current Medications: Current Medications Sig/Darek Start time Last Medication Dose Route Stop Time Status Admin Acetaminophen 650 MG Q6P PRN 01/25 0145 AC PO Acetaminophen 1,000 MG Q6P PRN 01/25 0145 AC 01/25 IV 2311 Albuterol Sulfate 3 ML BID 01/25 900 AC 01/26 INH 0838 Apixaban 2.5 MG BID 01/25 900 AC 01/26 PO 0818 Atorvastatin Calcium 20 MG QPM 01/25 2100 AC 01/25 PO 2050 Diltiazem HCl 60 MG Q8 01/26 1400 AC PO Diltiazem HCl 5 MG ONCE ONE 01/25 1800 DC IV PUSH 01/25 1801 Diltiazem HCl 30 MG Q6 01/25 0600 DC 01/26 PO 0644 Escitalopram Oxalate 10 MG 1800 01/25 1800 AC 01/25 PO 1644 Furosemide 40 MG 7:30 AM, & 4:30 PM 01/26 1630 AC IV Furosemide 40 MG BID 01/26 900 DC PO Furosemide 40 MG 7:30 AM, & 4:30 PM 01/25 0730 DC 01/26 IV 0818 Metoprolol Tartrate 25 MG ONCE ONE 01/25 1800 DC 01/25 PO 01/25 1801 1802 Metoprolol Tartrate 50 MG BID 01/25 900 AC 01/26 PO 0820 Quetiapine Fumarate 25 MG 1800 01/25 1800 AC 01/25 PO 1644 Quetiapine Fumarate 12.5 MG 1800 01/25 1800 AC 01/25 PO 1644 Results Last 48 Hrs of Labs/Mics: Laboratory Tests 01/26/18 0700: Anion Gap 11, Estimated GFR > 60, BUN/Creatinine Ratio 37.5 H, CBC w Diff NO MAN DIFF REQ, RBC 3.87 L, MCV 90.8, MCH 29.6, MCHC 32.6 L, RDW 18.7 H, MPV 9.6, Gran % 77.5 H, Lymphocytes % 9.8 L, Monocytes % 12.6 H, Eosinophils % 0, Basophils % 0.1, Absolute Granulocytes 5.5, Absolute Lymphocytes 0.7 L, Absolute Monocytes 0.9 H, Absolute Eosinophils 0, Absolute Basophils 0 01/25/18 0925: Troponin I 0.02 01/25/18 0345: Troponin I 0.02 01/25/18 034: Anion Gap 10, Estimated GFR 59 L, BUN/Creatinine Ratio 28.9 H, CBC w Diff NO MAN DIFF REQ, RBC 3.72 L, MCV 91.7, MCH 29.5, MCHC 32.2 L, RDW 19.6 H, MPV 10.0, Gran % 82.6 H, Lymphocytes % 5.3 L, Monocytes % 12.0 H, Eosinophils % 0 , Basophils % 0.1, Absolute Granulocytes 6.3, Absolute Lymphocytes 0.4 L, Absolute Monocytes 0.9 H, Absolute Eosinophils 0, Absolute Basophils 0 01/24/182128: Anion Gap 11, Estimated GFR 59 L, BUN/Creatinine Ratio 30.0 H, Glucose 119 H, Calcium 8.8, Total Bilirubin 1.3, AST 40 H, ALT 31, Alkaline Phosphatase 47, Troponin I < 0.01, Ztl-P-Femxbiyctio Pept 33723 H, Total Protein 6.2 L, Albumin 3.8, Globulin 2.4, Albumin/Globulin Ratio 1.6, PT 20.9 H, INR 1.90 H, APTT 34, CBC w Diff MAN DIFF ORDERED, RBC 3.82 L, MCV 91.7, MCH 29.7, MCHC 32.3 L, RDW 19.9 H, MPV 9.8, Gran % 87.9 H, Lymphocytes % 3.9 L, Monocytes % 8.0, Eosinophils % 0.1, Basophils % 0.1, Absolute Granulocytes 7.4 H, Segmented Neutrophils 75, Band Neutrophils 5, Absolute Lymphocytes 0.3 L, Lymphocytes 8 L, Monocytes 12 H, Absolute Monocytes 0.7 H, Absolute Eosinophils 0, Absolute Basophils 0, Platelet Estimate DECREASED, Hypochromic-Microcytic 1+, Poikilocytosis 1+, Basophilic Stippling 1+, Anisocytosis 1+ Recent Imaging Studies: CONCLUSIONS Normal left ventricular size and wall thickness. Left ventricular contractility is uncoordinated with markedly abnormal septal motion. Estimated ejection fraction is 35-40%. Mild right atrial dilatation. Mild right ventricular dilatation. Mild to moderate left atrial dilatation. Mild thickening/calcification of the mitral valve leaflets. Moderate mitral annular calcification. Mild to moderate `mitral regurgitation. Focal thickening of the aortic valve cusps. No aortic stenosis. Moderate to severe tricuspid regurgitation. Right ventricular systolic pressure estimated to be elevated at 50- 55 mmHg. Moderate pulmonary hypertension. Left pleural effusion. Primo Gay M.D. (Electronically Signed) Final Date: 26 Jan 2018 10:01 Assessment/Plan Assessment/Plan Mrs. Das is slightly better. She still has some edema. She still has some abnormal lung sounds. Her echocardiogram results were disturbing in that her LV function is worse and she has a different pattern on her EKG than previous. It is possible she suffered some myocardial damage in the recent past and that explains her deterioration. Her troponins are currently negative. I recommend continuing her on IV Lasix for now. I would obtain another chest x- ray perhaps tomorrow to see if her pleural effusions have improved. At that point we might be able to switch her to oral Lasix, perhaps 40 mg twice daily. Continue telemetry? Yes
--- NOTE | 2018-01-26 12:28 | RADIOLOGY REPORT ---
EXAMINATION: XR PORTABLE CHEST CLINICAL INFORMATION: Rule out pneumonia versus edema. COMPARISON: Several prior chest x-rays, most recent of which is dated 01/24/2018. CT scan of the chest dated 01/20/2018. TECHNIQUE: Portable AP semierect view of the chest was obtained. FINDINGS: EKG leads overlie the chest. The cardiomediastinal silhouette is enlarged. Calcification of the aortic arch is seen. Again noted is right basilar opacity due to a small right-sided pleural effusion and associated right basilar consolidation or atelectasis, unchanged compared to prior exam. Trace left-sided pleural effusion and left mid and lower lung parenchymal opacities are also noted, unchanged. No pneumothorax is seen. No pulmonary edema is noted. Bony structures are unremarkable. IMPRESSION: 1. Cardiomegaly, unchanged. 2. Bilateral pleural effusions and mid and lower lung parenchymal opacities (atelectasis versus pneumonia), more prominent on the right side than the left, but overall unchanged compared to prior exam.
[2018-01-26 14:35] VITALS: BP 108/70
--- NOTE | 2018-01-26 17:18 | Discharge Summary ---
Visit Information Visit Dates Admission Date: 01/24/18 Hospital Course Course Attending Physician: Chaka Gracia MD Primary Care Physician: Ricki Stewart MD Consulting Request: Consulting Specialty: Cardiology Hospital Course: This is a 87-year-old female w/ PMH dementia, atrial fibrillation on Eliquis, CHF, hypertension, hyperlipidemia, osteoarthritis, recent fall w/ r. clavicular fracture with CC shortness of breath. Given SANTIZO, orthopnea, bilat LE edema, JVD and cxr with pleural eff we are treating for decompensated heart failure with a.fib w/ RVR. PLAN: 1. Acute decompensated congestive heart failure: BNP 21825. CXR with evidence of edema. Echo shows new abnormalities and EF 30-35% which is new for her. This would explain worsening systolic HF symptoms. * Lasix * Cardio consult with Dr. Gay, please follow up outpt * EKG/Trop x3 neg * Echo considerably abnml. see below 2. Afib w/ RVR * Eliquis 2.5mg BID--> Spoke with family and cardiology regarding risk vs benefit in this elderly demented pt with increasingly frequent falls. At this time will con't w/ AC. But if she has further falls will come back to reassess * Metoprolol/Lopressor Con't home regimen * Con't Cardizem dose?? 3. HLD: * Con't Statin 4. Depression and Mood: * Con't SSRI * Con't Seroquel DNR/DNI Allergies: Coded Allergies: NO KNOWN ALLERGIES (NONE 12/22/17) Disposition Summary Disposition Principal Diagnosis: chf Additional Diagnosis: afib rvr Discharge Disposition: SNF Discharge Instructions General Discharge Information Code Status: Do Not Resucitate/Intubat Patient's Diet: low salt heart healthy Patient's Activity: as tolerated Follow-Up Instructions/Appts: see above Medications at Discharge Discharge Medications: Continue taking these medications: Metoprolol Tartrate (Metoprolol Tartrate) 50 MG TABLET 1 Tablet ORAL TWICE DAILY Comments: Last Taken:12/03/17 Time: 1000 AM Apixaban (Eliquis) 2.5 MG TABLET 1 Tablet ORAL TWICE DAILY Comments: Last Taken:12/03/17 Time: 1000 Quetiapine Fumarate (Quetiapine Fumarate) 25 MG TABLET 1 Tablet ORAL 1800 Comments: Last Taken: 11/05/17 Time: 5:45 PM Quetiapine Fumarate (Quetiapine Fumarate) 25 MG TABLET 0.5 Tablet ORAL 1800 Comments: Last Taken: 12/02/17 Time;1700 Calcium Carbonate/Vitamin D3 (Caltrate 600 + D Tablet) 600 MG-800 TABLET 1 Tablet ORAL TWICE DAILY Comments: NOT GIVEN IN HOSPITAL Escitalopram Oxalate (Escitalopram Oxalate) 10 MG TABLET 1 Tablet ORAL 1800 Comments: Last Taken: 12/02/17 Time: 5 PM Vitamin B Complex (B Complex) 1 EACH TABLET 1 Tablet ORAL Every Day Diltiazem HCl (Diltiazem 24HR ER) 120 MG CAP.ER.24H 1 Capsule ORAL DAILY Qty = 30 Instructions: . Comments: Last Taken: 11/06/17 Time: 8:30 AM Atorvastatin Calcium (Atorvastatin Calcium) 20 MG TABLET 1 Tablet ORAL Every night Copies To: Terry BYRD,Ricki
--- NOTE | 2018-01-26 17:21 | Patient Discharge Instructions ---
Discharge Instructions General Discharge Information You were seen/treated for: CHF Watch for these problems: 1. SOB 2. CP 3. Worsening edema or rapid gain of water weight Special Instructions: 1. please take your medications as prescribed 2. please follow up with you acoustic engineer in one week 3. please follow up with your PCP in one week Diet Continue normal diet: No Recommended Diet: low salt heart healthy Activity Activity Self Limited: Yes Acute Coronary Syndrome Inclusion Criteria At DC or during hospital stay patient has or had the following: ACS DIAGNOSIS No Discharge Core Measures Meds if any: Prescribed or Continued at Discharge Meds if any: NOT Prescribed or Continued at Discharge Congestive Heart Failure Inclusion Criteria At DC or during hospital stay patient has or had the following: CHF DIAGNOSIS Yes Discharge Core Measures Meds if any: Prescribed or Continued at Discharge Meds if any: NOT Prescribed or Continued at Discharge Cerebrovascular accident Inclusion Criteria At DC or during hospital stay patient has or had the following: CVA/TIA Diagnosis No Discharge Core Measures Meds if any: Prescribed or Continued at Discharge Meds if any: NOT Prescribed or Continued at Discharge Venous thromboembolism Inclusion Criteria VTE Diagnosis No VTE Type NONE VTE Confirmed by (Test) NONE Discharge Core Measures - Per Current guidelines, there needs to be overlap - treatment for the first 5 days of Warfarin therapy. - If discharged on Warfarin prior to 5 days of - overlap therapy, the patient will need to be - assessed for post discharge needs including - *Post discharge parental anticoagulation - *Warfarin and/or parental anticoagulation education - *Follow up date to check INR post discharge At least 5 days overlap therapy as Inpatient No Meds if any: Prescribed or Continued at Discharge Note: Overlap Therapy is Warfarin and Anticoagulant Meds if any: NOT Prescribed or Continued at Discharge
[2018-01-26 17:42] VITALS: BP 126/76
[2018-01-26 22:06] VITALS: BP 114/76
[2018-01-27 07:03] VITALS: BP 112/62
--- NOTE | 2018-01-27 07:58 | PN- Housestaff ---
See Addendum Subjective Follow-up For: SOB Tele-Events Since Last Visit: Atrial fibrillation, left bundle branch block, heart rate was 150-160 yesterday around 1900 and has been 80s to 100 since then. PVCs. Subjective: Continue to be afebrile, stable blood pressure more toward lower normal, mildly tachycardic, and saturating lower 90s on 2 L of oxygen. The patient is laying in bed looks relaxed and comfortable and denies any current active complaints. Review of Systems Constitutional: Reports: no symptoms, see HPI. Objective Last 24 Hrs of Vital Signs/I&O Vital Signs Date Time Temp Pulse Resp B/P B/P Pulse O2 O2 Flow FiO2 Mean Ox Delivery Rate 01/27 703 98.7 104 22 112/62 91 Nasal Cannula 01/27 0545 100 112/78 01/27 0000 Nasal 2.0L Cannula 01/26 2210 120 114/76 01/26 2209 120 114/76 01/26 2206 98.0 130 20 114/76 91 01/26 2056 93 Nasal 2.0L Cannula 01/26 1742 126/76 01/26 1435 98.2 84 24 108/70 92 Nasal 2.0L Cannula 01/26 1324 104 116/54 01/26 0841 92 Nasal 2.0L Cannula Intake & Output 01/27 1600 01/27 0800 01/27 0000 Intake Total 120 120 Output Total 500 Balance 120 -380 Intake, Oral 120 120 Number 1 Bowel Movements Output, Urine 500 Patient 71.356 kg Weight Physical Exam General Appearance: Alert, Cooperative, No Acute Distress Skin: No Rashes HEENT: Atraumatic, PERRLA, EOMI, Mucous Membr. moist/pink Neck: No JVD Cardiovascular: irregular-mild tachy, Nl S1/S2 without significant murmurs Lungs: decrease air-entry over lung base bilaterally. mild bilateral crackles Abdomen: Soft, No Tenderness Extremities: No Clubbing, No Cyanosis, bilateral +1 lower extremity edema up to the knees, right upper extremity is in sling for clavicular fracture Current Medications: Current Medications Sig/Darek Start time Last Medication Dose Route Stop Time Status Admin Acetaminophen 650 MG .STK-MED ONE 01/26 2334 DC PO 01/26 2335 Acetaminophen 650 MG Q6P PRN 01/25 145 AC PO Acetaminophen 1,000 MG Q6P PRN 01/25 0145 AC 01/25 IV 2311 Albuterol Sulfate 3 ML BID 01/25 900 AC 01/26 INH 2054 Apixaban 2.5 MG BID 01/25 900 AC 01/27 PO 0806 Atorvastatin Calcium 20 MG QPM 01/25 2100 AC 01/26 PO 2209 Diltiazem HCl 60 MG Q8 01/26 1400 AC 01/27 PO 0545 Diltiazem HCl 30 MG Q6 01/25 0600 DC 01/26 PO 0644 Escitalopram Oxalate 10 MG 1800 01/25 1800 AC 01/26 PO 1739 Furosemide 40 MG 7:30 AM, & 4:30 PM 01/26 1630 AC 01/27 IV 0725 Furosemide 40 MG BID 01/26 900 DC PO Furosemide 40 MG 7:30 AM, & 4:30 PM 01/25 0730 DC 01/26 IV 0818 Metoprolol Tartrate 50 MG BID 01/25 900 AC 01/27 PO 0806 Potassium Chloride 40 MEQ ONCE ONE 01/28 800 DC 01/27 PO 01/27 0801 0812 Quetiapine Fumarate 25 MG 1800 01/25 1800 AC 01/26 PO 1739 Quetiapine Fumarate 12.5 MG 1800 01/25 1800 AC 01/26 PO 1739 Assessment/Plan Assessment: 87-year-old female with PMHx of dementia, A.fib on Eliquis, CHF, HTN, HDL, osteoarthritis, recent fall complicated by right clavicular fracture, presented with CC shortness of breath. SOB was associated with, orthopnea, bilat LE edema , JVD and cxr with pleural effusion for which she was started on IV Lasix as a treatment for decompensated heart failure with a.fib w/ RVR. This morning she is mildly tachycardic with a stable blood pressure. She continued to require 2 L of oxygen with oxygen saturation being in the lower 90s. Echocardiogram during this admission showed EF 30-35% compared to EF 45-50% around 3 months ago. This possible due to myocardial damage of unclear reason, ACS was ruled out with serial EKG and troponin PLAN: #Acute decompensated congestive heart failure: We'll * Monitor on tele * Repeat CXR to follow pulm effusion * IV lasix 40mg BID, to be switched to PO, if agree by cardiology. * I/O * O2 PRN * Possible discharge to [facility] #Afib w/ RVR, We'll * Continue Eliquis 2.5mg BID, family understand risk vs benefit in this elderly demented pt with increasingly frequent falls. * Continue Metoprolol/Lopressor * Continue 60mg q8 * Monitor on tele #HLD: * Continue Statin #Depression and Mood: * Continue SSRI and Seroquel #Right clavicular fracture after fall: * Patient is able to use the arm and denies active pain * She will have physical therapy at the short-term rehabilitation * No intervention currently needed #Poor oral intake * Patient is barely eating 10% of her meals * We will ask for nutrition consult * We will start ensure -Heart healthy diet -DVT prophylaxis: On Eliquis -DNR/I Problem List: 1. Atrial fibrillation with RVR Pain Ratin Pain Location: na Pain Goal: Remain pain free Pain Plan: See A&P Tomorrow's Labs & Rationales: BEP to follow potassium while on Lasix Consulting Request: Consulting Specialty: Cardiology
--- NOTE | 2018-01-27 13:45 | PN- Cardiology ---
Subjective Subjective: The patient looks a little better today. She is ambulatory with physical therapy. Her I's and O's are inaccurate. Her chest x-ray today still shows right pleural effusion. She is still on IV Lasix. Objective Vital Signs and I&Os Vital Signs Date Time Temp Pulse Resp B/P B/P Pulse O2 O2 Flow FiO2 Mean Ox Delivery Rate 01/27 917 92 Nasal 2.0L Cannula 01/27 806 134/62 01/27 0703 98.7 104 22 112/62 91 Nasal Cannula 01/27 0545 100 112/78 01/27 0000 Nasal 2.0L Cannula 01/26 2210 120 114/76 01/26 2209 120 114/76 01/26 2206 98.0 130 20 114/76 91 01/26 2056 93 Nasal 2.0L Cannula 01/26 1742 126/76 01/26 1435 98.2 84 24 108/70 92 Nasal 2.0L Cannula Intake & Output 01/27 1600 01/27 0800 01/27 0000 01/26 1600 01/26 0000 Intake Total 120 120 650 200 200 Output Total 500 300 375 Balance 120 -380 350 200 -175 Intake, Oral 120 120 650 200 200 Number 1 1 Bowel Movements Output, Urine 500 300 375 Patient 157 lb 156 lb Weight Physical Exam: No distress HEENT exam normal Chest few rhonchi and coarse rales especially on the right Heart irregular, rate in the 90s, no murmurs 1+ leg edema Current Medications: Current Medications Sig/Darek Start time Last Medication Dose Route Stop Time Status Admin Acetaminophen 650 MG .STK-MED ONE 01/26 2334 DC PO 01/26 2335 Acetaminophen 650 MG Q6P PRN 01/25 0145 AC 01/27 PO 1114 Acetaminophen 1,000 MG Q6P PRN 01/25 0145 AC 01/25 IV 2311 Albuterol Sulfate 3 ML BID 01/25 900 AC 01/27 INH 0916 Apixaban 2.5 MG BID 01/25 900 AC 01/27 PO 0806 Atorvastatin Calcium 20 MG QPM 01/25 2100 AC 01/26 PO 2209 Diltiazem HCl 60 MG Q8 01/26 1400 AC 01/27 PO 0545 Escitalopram Oxalate 10 MG 1800 01/25 1800 AC 01/26 PO 1739 Furosemide 40 MG 7:30 AM, & 4:30 PM 01/26 1630 AC 01/27 IV 0725 Metoprolol Tartrate 50 MG BID 01/25 900 AC 01/27 PO 0806 Potassium Chloride 40 MEQ ONCE ONE 01/28 800 DC 01/27 PO 01/27 0801 0812 Quetiapine Fumarate 25 MG 1800 01/25 1800 AC 01/26 PO 1739 Quetiapine Fumarate 12.5 MG 1800 01/25 1800 AC 01/26 PO 1739 Results Last 48 Hrs of Labs/Mics: Laboratory Tests 01/26/18 0700: Anion Gap 11, Estimated GFR > 60, BUN/Creatinine Ratio 37.5 H, CBC w Diff NO MAN DIFF REQ, RBC 3.87 L, MCV 90.8, MCH 29.6, MCHC 32.6 L, RDW 18.7 H, MPV 9.6, Gran % 77.5 H, Lymphocytes % 9.8 L, Monocytes % 12.6 H, Eosinophils % 0, Basophils % 0.1, Absolute Granulocytes 5.5, Absolute Lymphocytes 0.7 L, Absolute Monocytes 0.9 H, Absolute Eosinophils 0, Absolute Basophils 0 Recent Imaging Studies: PATIENT: AKBAR VILA PRESENT AGE: 87 PATIENT ACCOUNT NO: [id number] : [birth year] LOCATION: O ORDERING PHYSICIAN: Tomasa Germain MD SERVICE DATE: 01/27/18 EXAM TYPE: RAD - XRY-PORTABLE CHEST XRAY EXAMINATION: XR PORTABLE CHEST CLINICAL INFORMATION: Shortness of breath low oxygen saturation COMPARISON: Prior chest 01/27/2018 TECHNIQUE: Portable frontal view of the chest was obtained. FINDINGS: There is a moderate left pleural effusion. Small right pleural effusion. There is patchy opacity in the mid and upper lung greater on the left than right new and/or increased compared to prior. There is some persistent linear opacities compatible with in the mid to lower lung zones. This is likely unchanged. Cardiac silhouette is partially obscured by the left effusion. The pulmonary vasculature is unremarkable. Bone and soft tissues unremarkable. IMPRESSION: Moderate left pleural effusion which has increased compared to x-ray performed earlier same day Bilateral linear opacities compatible with persistent discoid atelectasis and/or scarring unchanged. Patchy opacities in both lungs of uncertain etiology and significance. This could reflect inflammatory infectious etiologies versus atypical pulmonary edema DICTATED BY: Valentino Barraza MD DATE/TIME DICTATED:01/27/182226 VIDEO EDITING INTERN:FLOR DATE/TIME TRANSCRIBED:01/27/182226 CONFIDENTIAL, DO NOT COPY WITHOUT APPROPRIATE AUTHORIZATION. <Electronically signed in Other Vendor System> Assessment/Plan Assessment/Plan The patient appears to be improving albeit very slowly. I think she is still requiring IV Lasix in that she still has significant pleural effusion and is requiring oxygen. We will consider treatment for the next few days. I did discuss with the daughter future plans most likely to include rehab and possible long-term care. I also told her about the deterioration in her LV function on echocardiogram and overall poor prognosis. Continue telemetry? Yes
--- NOTE | 2018-01-27 14:07 | RADIOLOGY REPORT ---
EXAMINATION: XR PORTABLE CHEST CLINICAL INFORMATION: Shortness of breath. Monitor pulmonary edema. COMPARISON: Chest x-ray dated 01/26/2018. TECHNIQUE: Portable AP semierect view of the chest was obtained. FINDINGS: EKG leads are seen overlying the chest. The cardiac mediastinal silhouette is enlarged, unchanged. Calcification and ectasia of the aorta is also seen. The lungs bilaterally demonstrate vascular congestion. There is asymmetric elevation of the right hemidiaphragm with increased density in the right lung base, likely due to a combination of effusion and consolidation. There is some linear atelectatic change in the left lung base as well. Bony structures are grossly unremarkable. IMPRESSION: Findings are consistent with bilateral lower lung consolidation and volume loss and effusions. Compared to the prior study, findings in the right lung base may have progressed slightly. There is now also central vascular congestion seen. Close follow-up will be needed to include developing pulmonary edema.
[2018-01-27 14:28] VITALS: BP 118/70
--- NOTE | 2018-01-27 22:35 | RADIOLOGY REPORT ---
EXAMINATION: XR PORTABLE CHEST CLINICAL INFORMATION: Shortness of breath low oxygen saturation COMPARISON: Prior chest 01/27/2018 TECHNIQUE: Portable frontal view of the chest was obtained. FINDINGS: There is a moderate left pleural effusion. Small right pleural effusion. There is patchy opacity in the mid and upper lung greater on the left than right new and/or increased compared to prior. There is some persistent linear opacities compatible with in the mid to lower lung zones. This is likely unchanged. Cardiac silhouette is partially obscured by the left effusion. The pulmonary vasculature is unremarkable. Bone and soft tissues unremarkable. IMPRESSION: Moderate left pleural effusion which has increased compared to x-ray performed earlier same day Bilateral linear opacities compatible with persistent discoid atelectasis and/or scarring unchanged. Patchy opacities in both lungs of uncertain etiology and significance. This could reflect inflammatory infectious etiologies versus atypical pulmonary edema
[2018-01-27 22:42] VITALS: BP 134/62
[2018-01-28 05:01] LABS: ABSOLUTE BASOPHIL COUNT 0 /CUMM (0.0-0.2); ABSOLUTE EOSINOPHIL COUNT 0 /CUMM (0.0-0.7); ABSOLUTE GRANULOCYTE CT 4.2 /CUMM (1.4-6.5); ABSOLUTE LYMPH COUNT 0.2 /CUMM (1.2-3.4); ABSOLUTE MONOCYTE COUNT 0.9 /CUMM (0.10-0.60); BASOPHIL % 0 % (0.0-2.0); EOSINOPHIL % 0 % (0-5); GRANULOCYTE % 79.3 % (42.2-75.2); HEMATOCRIT 31.7 % (37-47); MEAN CORPUSCULAR HGB 29.5 PG (27.0-31.0); MEAN CORPUSCULAR HGB CONC 32.6 G/DL (33.0-37.0); MEAN CORPUSCULAR VOLUME 90.5 FL (81.0-99.0); MEAN PLATELET VOLUME 9.3 FL (7.4-10.4); PLATELET COUNT 133 /CUMM (130-400); RBC DISTRIBUTION WIDTH 19.6 % (11.5-14.5); WHITE BLOOD CELL COUNT 5.3 /CUMM (4.8-10.8)
[2018-01-28 06:47] VITALS: BP 130/70
--- NOTE | 2018-01-28 08:32 | PN- Housestaff ---
Gloria BYRD,Isidil 01/28/18 0832: Subjective Follow-up For: SOB 2/2 CHF exacerbation Subjective: Afebrile, stable blood pressure around 130/70, mildly tachycardic, and saturating lower 90s on 2 L of oxygen. The patient take her oxygen off yesterday after which she desaturated down to 70%. Currently she saturating lower 90s on 4 L of oxygen. The patient is laying in bed looks relaxed and comfortable and denies any current active complaints. Review of Systems Constitutional: Reports: no symptoms, see HPI. Objective Last 24 Hrs of Vital Signs/I&O Vital Signs Date Time Temp Pulse Resp B/P B/P Pulse O2 O2 Flow FiO2 Mean Ox Delivery Rate 01/28 0823 99.2 108 40 130/70 01/28 0647 99.2 108 40 130/70 92 Nasal 4.0L Cannula 01/28 0618 100 130/70 01/28 0000 93 Nasal 4.0L Cannula 01/27 2242 98.7 79 26 134/62 93 Nasal Cannula 01/27 212 136 134/62 01/27 2123 136 134/62 01/27 1933 95 Nasal 3.0L Cannula 01/27 1452 86 118/70 01/27 1428 97.7 86 20 118/70 93 Nasal 3.0L Cannula Intake & Output 01/28 1600 01/28 0800 01/28 0000 Intake Total 120 120 Output Total 800 Balance -680 120 Intake, IV 20 Intake, Oral 100 120 Number 1 1 Bowel Movements Output, Urine 800 Patient 71.469 kg Weight Physical Exam General Appearance: Alert, Cooperative, No Acute Distress Skin: No Rashes HEENT: Atraumatic, PERRLA, EOMI, Mucous Membr. moist/pink Cardiovascular: Regular Rate, Normal S1, Normal S2, systolic murmur Lungs: decrease air-entry with crackles ocwer the LL bilaterally Abdomen: Soft, No Tenderness Neurological: Normal Speech Extremities: No Clubbing, No Cyanosis, +2 bilaterall LE edema up to knees Current Medications: Current Medications Sig/Darek Start time Last Medication Dose Route Stop Time Status Admin Acetaminophen 650 MG .STK-MED ONE 01/27 1112 DC PO 01/27 111 Acetaminophen 650 MG Q6P PRN 01/25 0145 AC 01/27 PO 111 Acetaminophen 1,000 MG Q6P PRN 01/25 0145 AC 01/25 IV 2311 Albuterol Sulfate 3 ML BID 01/25 900 AC 01/27 INH 1928 Apixaban 2.5 MG BID 01/25 900 AC 01/28 PO 0823 Atorvastatin Calcium 20 MG QPM 01/25 2100 AC 01/27 PO 2123 Diltiazem HCl 60 MG Q8 01/26 1400 AC 01/28 PO 0618 Escitalopram Oxalate 10 MG 1800 01/25 1800 AC 01/27 PO 1719 Furosemide 40 MG 7:30 AM, & 4:30 PM 01/28 1630 AC IV Furosemide 40 MG ONCE ONE 01/28 900 DC 01/28 IV 01/28 0901 0941 Furosemide 40 MG 7:30 AM, & 4:30 PM 01/26 1630 DC 01/28 IV 0618 Metoprolol Tartrate 50 MG BID 01/25 900 AC 01/28 PO 0823 Quetiapine Fumarate 25 MG 1800 01/25 1800 AC 01/27 PO 1720 Quetiapine Fumarate 12.5 MG 1800 01/25 1800 AC 01/27 PO 1720 Last 24 Hrs of Lab/Young Results Last 24 Hrs of Labs/Mics: Laboratory Tests 01/28/18 0410: Anion Gap 11, Estimated GFR > 60, BUN/Creatinine Ratio 36.3 H, CBC w Diff NO MAN DIFF REQ, RBC 3.50 L, MCV 90.5, MCH 29.5, MCHC 32.6 L, RDW 19.6 H, MPV 9.3, Gran % 79.3 H, Lymphocytes % 4.4 L, Monocytes % 16.3 H, Eosinophils % 0, Basophils % 0, Absolute Granulocytes 4.2, Absolute Lymphocytes 0.2 L, Absolute Monocytes 0.9 H, Absolute Eosinophils 0, Absolute Basophils 0 01/27/182207: Troponin I 0.02 Assessment/Plan Assessment: 87-year-old female with PMHx of dementia, A.fib on Eliquis, CHF, HTN, HDL, osteoarthritis, recent fall complicated by right clavicular fracture, presented with CC shortness of breath. SOB was associated with, orthopnea, bilat LE edema , JVD and cxr with pleural effusion for which she was started on IV Lasix as a treatment for decompensated heart failure with a.fib w/ RVR. This morning she is mildly tachycardic with a stable blood pressure around 130/70. Overnight she desaturates down 70 on room air, she is currently on 4 L of oxygen saturating in the lower 90s. Echocardiogram during this admission showed EF 30-35% compared to EF 45-50% around 3 months ago. This possible due to myocardial damage of unclear reason, ACS was ruled out with serial EKG and troponin PLAN: #Acute hypoxic respiratory failure secondary to CHF with preserved EF : We'll * Monitor on tele * Continue IV lasix 40mg BID, we will add extra 40 mg once to the morning dose * I/O * O2 PRN * Possible discharge to [facility] when improved and cleared by cardiology #Afib w/ RVR, We'll * Continue Eliquis 2.5mg BID, family understand risk vs benefit in this elderly demented pt with increasingly frequent falls. * Continue Metoprolol/Lopressor * Continue 60mg q8, we may increase to 60mg Q6 after discussing with cardiology * Monitor on tele #HLD: * Continue Statin #Depression and Mood: * Continue SSRI and Seroquel #Right clavicular fracture after fall: * Patient is able to use the arm and denies active pain * She will have physical therapy at the short-term rehabilitation * No intervention currently needed #Poor oral intake * Patient is barely eating 10% of her meals * We will ask for nutrition consult * We will start ensure -Heart healthy diet -DVT prophylaxis: On Eliquis -DNR/I Problem List: 1. CHF (congestive heart failure) Pain Ratin Pain Location: na Pain Goal: Remain pain free Pain Plan: See A&P Tomorrow's Labs & Rationales: BEP Consulting Request: Consulting Specialty: Cardiology Chaka Gracia 01/29/18 1106: Attending MD Review Statement Attending Statement Attending MD Statement: examined this patient, discuss w/resident/PA/HADOOP ARCHITECT, agreed w/resident/PA/HADOOP ARCHITECT, discussed with family, reviewed EMR data (avail), discussed with nursing, discussed with case mgmt, reviewed images, amended to note
--- NOTE | 2018-01-28 12:48 | PN- Cardiology ---
Subjective Subjective: The patient is sitting in a chair eating lunch. She has no specific complaints. She is on oxygen 4 L now. Her chest x-ray last night looked a little improved to me. She is now on diltiazem 60 mg 3 times a day. Her heart rate is in the 90s and low 100s. Objective Vital Signs and I&Os Vital Signs Date Time Temp Pulse Resp B/P B/P Pulse O2 O2 Flow FiO2 Mean Ox Delivery Rate 01/28 1145 91 Nasal 4.0L Cannula 01/28 0823 99.2 108 40 130/70 01/28 0647 99.2 108 40 130/70 92 Nasal 4.0L Cannula 01/28 0618 100 130/70 01/28 0000 93 Nasal 4.0L Cannula 01/27 2242 98.7 79 26 134/62 93 Nasal Cannula 01/27 2123 136 134/62 01/27 2123 136 134/62 01/27 1933 95 Nasal 3.0L Cannula 01/27 1452 86 118/70 01/27 1428 97.7 86 20 118/70 93 Nasal 3.0L Cannula Intake & Output 01/28 1600 01/28 0800 01/28 0000 01/27 1600 01/27 0800 01/27 0000 Intake Total 120 120 480 120 120 Output Total 800 600 500 Balance -680 120 -120 120 -380 Intake, IV 20 Intake, Oral 100 120 480 120 120 Number 1 1 1 Bowel Movements Output, Urine 800 600 500 Patient 158 lb 157 lb Weight Physical Exam: No distress Chest a few rhonchi, no wheezes Heart irregular rhythm, no murmurs Extremities 1+ edema Assessment/Plan Assessment/Plan The patient seems slightly improved however her oxygen requirements are a little higher. Her heart rate is borderline. She is still diuresing. Chemistries are stable. I recommend continuing the same treatment. Perhaps tomorrow we can switch her to oral Lasix and make discharge plans. If her heart rate is consistently above 100 then we can increase the Cardizem to every 6 hours. Continue telemetry? Yes
[2018-01-28 14:22] VITALS: BP 110/60
--- NOTE | 2018-01-28 18:19 | Event Note ---
Event Note Event Note: I received a call from nursing as the patient appears to be in more respiratory distress. In addition she has not responded to her previous dose of 40 mg at 1630 hrs. She also notes as to evidence of secretions which the patient is not able to clear. Heart rate is stable but O2 saturation levels are noted low to mid 90s. Pulmonary exam reveals mildly increased expiratory phase and soft wheezes. We'll repeat her last nebulizer treatment and reassess. As she has not responded to her earlier furosemide dose with will do a bladder scan to assess if she is retaining. We will start guaifenesin.
--- NOTE | 2018-01-28 21:02 | Event Note ---
Event Note Event Note: Called again to evaluate this patient. She continues to exhibit increased work in breathing. She was noted to improve briefly following expectoration of sputum after the most recent treatment. He has finally responded to intravenous diuresis with output at this time. Chest exam continues to show decreased breath sounds with scattered wheezes and prolongation of the expiratory phase. I will add Solu-Medrol 80 mg IV 1 to regimen and we will repeat a nebulizer treatment.
[2018-01-28 22:28] VITALS: BP 112/66
--- NOTE | 2018-01-29 03:37 | RADIOLOGY REPORT ---
EXAMINATION: XR PORTABLE CHEST CLINICAL INFORMATION: Increased shortness of breath COMPARISON: 01/27/2018 TECHNIQUE: Portable frontal view of the chest was obtained. FINDINGS: There is no significant change in small right pleural effusion with associated airspace opacity. Streaky left basilar atelectasis. Additional patchy opacities at the left midlung and right apex, similar to prior. No pneumothorax. The cardiomediastinal silhouette is unchanged, with a calcified aorta. IMPRESSION: Similar appearance to prior. Small right pleural effusion with associated atelectasis/pneumonia. Linear left basilar atelectasis. Additional patchy opacities at the left mid and right upper lungs.
[2018-01-29 06:55] VITALS: BP 126/64
[2018-01-29 08:17] VITALS: BP 108/58
--- NOTE | 2018-01-29 10:35 | PN- Housestaff ---
Gloria BYRD,[facility] 01/29/18 1034: Subjective Follow-up For: SOB 2/2 CHF exacerbation Subjective: Afebrile, blood pressure is in the lower border of normal, heartrate and 90s, and saturating upper 90s on 6 L of oxygen. The patient was anxious overnight and complaining of shortness breath and mild chest pain.x-ray was repeated and revealed no significant findings , oxygen was increased to 6 L. This morning she is laying in bed looks relaxed and comfortable and denies any current active complaints. Review of Systems Constitutional: Reports: no symptoms, see HPI. Objective Last 24 Hrs of Vital Signs/I&O Vital Signs Date Time Temp Pulse Resp B/P B/P Pulse O2 O2 Flow FiO2 Mean Ox Delivery Rate 01/29 0905 99 Nasal 6.0L Cannula 01/29 0818 90 108/58 01/29 0817 90 108/58 01/29 0800 95 Nasal 6.0L Cannula 01/29 0655 98.4 121 26 126/64 92 Nasal Cannula 01/29 0557 109 126/62 01/29 0312 93 Nasal 6.0L Cannula 01/29 0000 Nasal 4.0L Cannula 01/28 2228 98.7 84 20 112/66 94 Nasal 4.0L Cannula 01/28 2015 107 110/60 01/28 2014 100 110/60 01/28 1620 93 Nasal 4.0L Cannula 01/28 1600 91 Nasal 4.0L Cannula 01/28 1422 98.5 88 26 110/60 95 Nasal 4.0L Cannula 01/28 1333 99.2 108 40 130/70 Intake & Output 01/29 1600 01/29 0800 01/29 0000 Intake Total 250 Output Total 250 Balance 0 Intake, Oral 250 Number 1 Bowel Movements Output, Urine 250 Patient 72.15 kg Weight Weight Bed scale Measurement Method Physical Exam General Appearance: Alert, Cooperative, No Acute Distress HEENT: Atraumatic, PERRLA, EOMI, Mucous Membr. moist/pink Neck: No JVD Cardiovascular: Regular Rate, Normal S1, Normal S2, No Murmurs Lungs: base bronchi bilaterally without wheezing Abdomen: Normal Bowel Sounds, Soft, No Tenderness Neurological: Normal Speech Extremities: +2 bilateral lower extremity edema to below knees, improved compared to yesterday Current Medications: Current Medications Sig/Darek Start time Last Medication Dose Route Stop Time Status Admin Acetaminophen 650 MG Q6P PRN 01/25 0145 AC 01/28 PO 1123 Acetaminophen 1,000 MG Q6P PRN 01/25 0145 AC 01/25 IV 2311 Albuterol Sulfate 3 ML BID 01/25 09 AC 01/29 INH 0904 Apixaban 2.5 MG BID 01/25 0900 AC 01/29 PO 0818 Atorvastatin Calcium 20 MG QPM 01/25 2100 AC 01/28 PO 2012 Diltiazem HCl 60 MG Q8 01/26 1400 AC 01/29 PO 0557 Escitalopram Oxalate 10 MG 1800 01/25 1800 AC 01/28 PO 1753 Furosemide 20 MG ONCE ONE 01/28 1915 DC 01/28 IV PUSH 01/28 191 1920 Furosemide 40 MG 7:30 AM, & 4:30 PM 01/28 1630 AC 01/29 IV 0818 Guaifenesin 10 ML .STK-MED ONE 01/29 0308 DC PO 01/29 0309 Guaifenesin 10 ML Q4P PRN 01/28 1845 AC 01/29 PO 01/30 1800 0310 Methylprednisolone 80 MG ONCE ONE 01/28 2100 DC 01/28 IV 01/28 2101 2129 Metoprolol Tartrate 50 MG BID 01/25 0900 AC 01/29 PO 0818 Quetiapine Fumarate 25 MG 1800 01/25 1800 AC 01/28 PO 1753 Quetiapine Fumarate 12.5 MG 1800 01/25 1800 AC 01/28 PO 1753 Last 24 Hrs of Lab/Young Results Last 24 Hrs of Labs/Mics: Laboratory Tests 01/29/18 0830: Troponin I 0.02 Assessment/Plan Assessment: 87-year-old female with extensive past medical history including CHF presented with SOB, associated with, orthopnea, bilat LE edema, JVD and cxr with pleural effusion for which she was diagnosed with acute hypoxic respiratory failure started on oxygen and medicated with IV Lasix as before a.fib w/ RVR her Cardizem po was continued. Echocardiogram during this admission showed EF 30-35% compared to EF 45-50% around 3 months ago. This possible due to myocardial damage of unclear reason, ACS was ruled out with serial EKG and troponin PLAN: #AHRF 2/2 Acute decompensated CHF: We'll * Monitor on tele * Continue IV lasix 40mg BID * I/O * O2 PRN * Poor prognosis #Afib w/ RVR, We'll * Continue Eliquis 2.5mg BID, family understand risk vs benefit in this elderly demented pt with increasingly frequent falls. * Continue Metoprolol/Lopressor * Continue 60mg q8, we may increase to 60mg Q6 if HR >110 * Monitor on tele #HLD: * Continue Statin #Depression and Mood: * Continue SSRI and Seroquel #Right clavicular fracture after fall: * Patient is able to use the arm and denies active pain * She will have physical therapy at the short-term rehabilitation * No intervention currently needed #Poor oral intake and possible swallowing abnormal * Patient is barely eating 10% of her meals * We will ask for nutrition consult * We will start ensure * We will order swallowing evaluation -Heart healthy diet -DVT prophylaxis: On Eliquis -DNR/I Problem List: 1. CHF (congestive heart failure) Pain Ratin Pain Location: chest Pain Goal: Remain pain free Pain Plan: See A&P Tomorrow's Labs & Rationales: BEP to follow Cr while on hgih dose lasix Consulting Request: Consulting Specialty: Cardiology Chaka Gracia 01/29/18 1106: Attending MD Review Statement Attending Statement Attending MD Statement: examined this patient, discuss w/resident/PA/CARPET TILE LAYER, agreed w/resident/PA/CARPET TILE LAYER, discussed with family, reviewed EMR data (avail), discussed with nursing, discussed with case mgmt, reviewed images, amended to note Attending Assessment/Plan: Patient with mild improvement. Follow up with cardiology if lasix needs to be iv or can be safely switched to PO. Her HR remains borderline. If continues to remain elevated would increase cardizem 60 q 6. ECHO with worsening of heart function this admission. Anticipate dc planning to STR when [facility] for cardiology perspective.
[2018-01-29 13:11] VITALS: BP 122/68
[2018-01-29 14:08] VITALS: BP 122/68
--- NOTE | 2018-01-29 15:36 | PN- Cardiology ---
Subjective Subjective: Clinically stable, no specific complaints. Urine output is difficult to assess due to incontinence, but edema is very slowly decreasing. Objective Vital Signs and I&Os Vital Signs Date Time Temp Pulse Resp B/P B/P Pulse O2 O2 Flow FiO2 Mean Ox Delivery Rate 01/29 1408 97.7 106 20 122/68 100 Nasal Cannula 01/29 1313 101 122/68 01/29 1311 101 122/68 01/29 0905 99 Nasal 6.0L Cannula 01/29 0818 90 108/58 01/29 0817 90 108/58 01/29 0800 95 Nasal 6.0L Cannula 01/29 0655 98.4 121 26 126/64 92 Nasal Cannula 01/29 0557 109 126/62 01/29 0312 93 Nasal 6.0L Cannula 01/29 0000 Nasal 4.0L Cannula 01/28 2228 98.7 84 20 112/66 94 Nasal 4.0L Cannula 01/28 2015 107 110/60 01/28 2014 100 110/60 01/28 1620 93 Nasal 4.0L Cannula 01/28 1600 91 Nasal 4.0L Cannula Intake & Output 01/29 1600 01/29 0800 01/29 0000 01/28 1600 01/28 0800 01/28 0000 Intake Total 416 250 240 120 120 Output Total 350 250 800 Balance 66 0 240 -680 120 Intake, IV 14 20 Intake, Oral 402 250 240 100 120 Number 1 1 1 Bowel Movements Output, Urine 350 250 800 Patient 159 lb 158 lb Weight Weight Bed scale Measurement Method Current Medications: Current Medications Sig/Darek Start time Last Medication Dose Route Stop Time Status Admin Acetaminophen 650 MG Q6P PRN 01/25 0145 AC 01/28 PO 1123 Acetaminophen 1,000 MG Q6P PRN 01/25 0145 AC 01/25 IV 2311 Albuterol Sulfate 3 ML BID 01/25 900 AC 01/29 INH 0904 Apixaban 2.5 MG BID 01/25 900 AC 01/29 PO 0818 Atorvastatin Calcium 20 MG QPM 01/25 2100 AC 01/28 PO 2012 Diltiazem HCl 60 MG Q8 01/26 1400 AC 01/29 PO 1313 Escitalopram Oxalate 10 MG 1800 01/25 1800 AC 01/28 PO 1753 Furosemide 20 MG ONCE ONE 01/28 1915 DC 01/28 IV PUSH 01/28 Furosemide 40 MG 7:30 AM, & 4:30 PM 01/28 1630 AC 01/29 IV 0818 Guaifenesin 10 ML .STK-MED ONE 01/29 0308 DC PO 01/29 0309 Guaifenesin 10 ML Q4P PRN 01/28 1845 AC 01/29 PO 01/30 1800 0310 Methylprednisolone 80 MG ONCE ONE 01/28 2100 DC 01/28 IV 01/28 2101 2129 Metoprolol Tartrate 50 MG BID 01/25 0900 AC 01/29 PO 0818 Quetiapine Fumarate 25 MG 1800 01/25 1800 AC 01/28 PO 175 Quetiapine Fumarate 12.5 MG 1800 01/25 1800 AC 01/28 PO 175 Results Last 48 Hrs of Labs/Mics: Laboratory Tests 01/29/18 0830: Troponin I 0.02 01/28/18 0410: Anion Gap 11, Estimated GFR > 60, BUN/Creatinine Ratio 36.3 H, CBC w Diff NO MAN DIFF REQ, RBC 3.50 L, MCV 90.5, MCH 29.5, MCHC 32.6 L, RDW 19.6 H, MPV 9.3, Gran % 79.3 H, Lymphocytes % 4.4 L, Monocytes % 16.3 H, Eosinophils % 0, Basophils % 0, Absolute Granulocytes 4.2, Absolute Lymphocytes 0.2 L, Absolute Monocytes 0.9 H, Absolute Eosinophils 0, Absolute Basophils 0 01/27/182207: Troponin I 0.02 Assessment/Plan Assessment/Plan The patient presented with acute on chronic congestive heart failure with reduced LV systolic function (LVEF 30-35%), as well as atrial fibrillation with rapid ventricular response. Atrial fibrillation: We will continue to increase her beta-margaux regimen for added rate control as well as full anticoagulation. Given her concurrent congestive heart failure, a beta-margaux such as metoprolol succinate would be preferred. Acute on chronic congestive heart failure secondary to systolic dysfunction: Her regimen of furosemide should be increased to 80 mg IV twice daily, with the consideration of adding metolazone if diuresis is not satisfactory with furosemide alone. Continue telemetry? Yes
[2018-01-29 16:49] VITALS: BP 112/60
[2018-01-29 22:00] VITALS: BP 114/64
[2018-01-30 07:00] VITALS: BP 124/68
--- NOTE | 2018-01-30 09:00 | PN- Housestaff ---
Gloria BYRD,[facility] 01/30/18 0900: Subjective Follow-up For: SOB 2/2 CHF exacerbation Subjective: This morning the patient is complaining of shortness breath and looks anxious. She is tachycardic up to 130s and desaturated down to 70s. She was started on high flow oxygen after which her saturation became lower 90s. She denies any chest pain, palpitation, or chest discomfort. The patient is incontinent and hard to assess urine output. No EKG changes and negative troponin Review of Systems Constitutional: Reports: see HPI. Objective Last 24 Hrs of Vital Signs/I&O Vital Signs Date Time Temp Pulse Resp B/P B/P Pulse O2 O2 Flow FiO2 Mean Ox Delivery Rate 01/30 1637 132 160/80 01/30 1350 97.8 112 24 110/60 93 Nasal Cannula 01/30 1235 86 Nasal 3.0L Cannula 01/30 1107 83 110/54 01/30 0820 93 Nasal 3.0L Cannula 01/30 0809 106 132/60 01/30 0800 93 Nasal 2.0L Cannula 01/30 0737 113 124/70 01/30 0700 96.6 110 22 124/68 93 05 0000 92 Nasal 3.0L Cannula 01/29 2227 102 114/58 01/29 2226 102 114/58 01/29 2200 98.3 104 20 114/64 92 Nasal 3.0L Cannula 01/29 1922 94 Nasal 3.0L Cannula Intake & Output 01/30 1600 01/30 0800 01/30 0000 Intake Total 580 200 508 Output Total 450 375 500 Balance 130 -175 8 Intake, IV 100 28 Intake, Oral 480 200 480 Output, Urine 450 375 500 Patient 73.255 kg Weight Physical Exam General Appearance: Alert, Cooperative, Mild Distress Skin: No Rashes HEENT: Atraumatic, PERRLA, EOMI, Mucous Membr. moist/pink Neck: No JVD Cardiovascular: Regular Rate, Normal S1, Normal S2, No Murmurs Lungs: crackles high over lung bilaterally Abdomen: Normal Bowel Sounds, Soft, No Tenderness Neurological: Normal Speech Extremities: No Clubbing, No Cyanosis, +2 b/l LE edema Current Medications: Current Medications Sig/Darek Start time Last Medication Dose Route Stop Time Status Admin Acetaminophen 650 MG Q6P PRN 01/25 0145 AC 01/30 PO 1652 Acetaminophen 1,000 MG Q6P PRN 01/25 0145 AC 01/25 IV 2311 Albuterol Sulfate 3 ML BID 01/25 0900 AC 01/30 INH 1240 Alprazolam 0.25 MG ONCE ONE 01/30 1230 DC PO 01/30 1231 Apixaban 2.5 MG BID 01/25 0900 AC 01/30 PO 0809 Atorvastatin Calcium 20 MG QPM 01/25 2100 AC 01/29 PO 2226 Diltiazem HCl 60 MG Q6 01/30 0600 AC 01/30 PO 1637 Diltiazem HCl 60 MG Q8 01/26 1400 DC 01/29 PO 2226 Escitalopram Oxalate 10 MG 1800 01/25 1800 AC 01/30 PO 1638 Furosemide 80 MG 7:30 AM, & 4:30 PM 01/31 0730 AC IV Furosemide 80 MG ONCE ONE 01/30 1800 UNVr 01/30 IV 01/30 1801 1756 Furosemide 40 MG ONCE ONE 01/30 1100 DC 01/30 IV 01/30 1101 1103 Furosemide 40 MG 7:30 AM, & 4:30 PM 01/28 1630 DC 05 IV 0808 Guaifenesin 10 ML Q4P PRN 01/28 1845 DC 01/29 PO 01/30 1800 0310 Lorazepam 0.5 MG Q6 01/30 1800 AC 01/30 IV 1757 Lorazepam 0.5 MG Q4P PRN 01/30 1700 DC IV Lorazepam 0.5 MG ONCE ONE 01/30 1330 DC 01/30 IV 01/30 1331 1338 Metolazone 2.5 MG 0700 01/31 0700 AC PO Metolazone 2.5 MG ONCE 01/30 1645 DC 01/30 PO 01/30 1800 1651 Metoprolol Tartrate 50 MG BID 01/25 0900 AC 01/30 PO 0809 Nitroglycerin 0.4 MG ONCE ONE 01/30 1245 DC 01/30 SL 01/30 1246 1241 Potassium Chloride 10 MEQ ONCE ONE 01/30 1345 DC 01/30 IV 01/30 1346 1407 Potassium Chloride 40 MEQ ONCE ONE 01/30 1300 CAN PO 01/30 1301 Quetiapine Fumarate 25 MG 1800 01/25 1800 AC 01/30 PO 1637 Quetiapine Fumarate 12.5 MG 1800 01/25 1800 AC 01/30 PO 1637 Last 24 Hrs of Lab/Young Results Last 24 Hrs of Labs/Mics: Laboratory Tests 01/30/18 1300: pH 7.43, pCO2 48 H, pO2 163 H, HCO3 31 H, ABG O2 Sat (Measured) 98.0, P-50 ( Temp Corrected) N, Carboxyhemoglobin 0.6 L, O2 Concentration % 100%, O2 Delivery Method NRB, Phlebotomy Draw Site RIGHT RADIAL 01/30/18 1140: Anion Gap 13, Estimated GFR > 60, BUN/Creatinine Ratio 51.4 H, Phosphorus 2.4 L, Magnesium 2.3, Troponin I 0.02, CBC w Diff MAN DIFF ORDERED, RBC 3.66 L, MCV 90.6, MCH 29.4, MCHC 32.4 L, RDW 19.3 H, MPV 8.9, Gran % 86.1 H, Lymphocytes % 2.8 L, Monocytes % 11.1 H, Eosinophils % 0, Basophils % 0, Absolute Granulocytes 6.9 H, Segmented Neutrophils 72, Band Neutrophils 15 H, Absolute Lymphocytes 0.2 L, Lymphocytes 2 L, Monocytes 11 H, Absolute Monocytes 0.9 H , Absolute Eosinophils 0, Absolute Basophils 0, Platelet Estimate VERIFIED BY SMEAR, Poikilocytosis 2+, Anisocytosis 1+, Ovalocytes 1+, [place] Cells 1+, Schistocytes Microbiology 01/30 1454 BLOOD: Blood Culture - RECD 01/30 1427 BLOOD: Blood Culture - COLB 01/30 1420 URINE ROUT: Urine Culture - RECD 01/30 1417 BLOOD: Blood Culture - CAN Cancelled: Quantity not sufficient for Aerobic blood culture bottle. 01/30 1400 BLOOD: Blood Culture - CAN Cancelled: Quantity not sufficient for Aerobic blood culture bottle. 01/30 1334 LOWER RESP: Respiratory Culture - COLB 01/30 1334 LOWER RESP: Gram Stain - COLB Assessment/Plan Assessment: 87-year-old female with extensive past medical history including CHF presented with SOB, associated with, orthopnea, bilat LE edema, JVD and cxr with pleural effusion for which she was diagnosed with acute hypoxic respiratory failure started on oxygen and medicated with IV Lasix as before a.fib w/ RVR her Cardizem po was continued. Echocardiogram during this admission showed EF 30-35% compared to EF 45-50% around 3 months ago. This possible due to myocardial damage of unclear reason, ACS was ruled out with serial EKG and troponin. This morning the patient was desaturating down to 70s for which she was started on high flow oxygen after which her saturation improved to lower 90s. The patient is not diuresing enough however given her urine incontinence it's hard to accurately assess. The patient looks anxious when her family leaves, we will need to add very low-dose of Ativan when necessary. PLAN: #AHRF 2/2 Acute decompensated CHF: We'll * Monitor on tele * Continue IV lasix 80mg BID * 1 dose of metolazone prior to the second Lasix dose * I/O * Continue high flow oxygen and taper as possible * If did not improve in the morning we will ask for pulmonology consult * Poor prognosis #Afib w/ RVR, We'll * Continue Eliquis 2.5mg BID, family understand risk vs benefit in this elderly demented pt with increasingly frequent falls. * Continue Metoprolol/Lopressor * Continue 60mg Q6 * Monitor on tele #HLD: * Continue Statin #Depression and Mood: * Continue SSRI and Seroquel #Right clavicular fracture after fall: * Patient is able to use the arm and denies active pain * She will have physical therapy at the short-term rehabilitation * No intervention currently needed #Poor oral intake and possible swallowing abnormal * Patient is barely eating 10% of her meals * We'll follow nutrition consult * Continue start ensure * Passed swallowing evaluation -Heart healthy diet -DVT prophylaxis: On Eliquis -DNR/I Problem List: 1. Atrial fibrillation with RVR 2. Hypoxia Pain Ratin Pain Location: chest Pain Goal: Remain pain free Pain Plan: See A&P Tomorrow's Labs & Rationales: cbc and bep Consulting Request: Consulting Specialty: Cardiology Xiang Pollock MD 01/30/18 1554: Attending MD Review Statement Attending Statement Attending MD Statement: examined this patient, discuss w/resident/PA/MEDICARE INTERVIEWER, agreed w/resident/PA/MEDICARE INTERVIEWER, discussed with nursing Attending Assessment/Plan: No acute events overnight. On examination this a.m, patient was minimally confused, however responding appropriately to questions. And has a history of acute on chronic and is to follow-up failure with reduced ejection fraction EF of about 30-35% also has atrial fibrillation with rapid ventricular response. Appreciate cardiology recommendations. We'll continue with diltiazem 60 mg every 6 hours. However on discharge will in effect from one of the long-acting beta blockers or carvedilol or bisoprolol. The plan is to increase diuresis, pending blood pressure, be tolerated. Cardiology recommend adding metolazone to IV furosemide 80 mg twice a day. Patient suddenly had an episode of flash pulmonary edema when she had to be put back on 100% FiO2. An arterial blood gas was obtained that was noncontributory. Chest x-ray showed bilateral increasing evidence of infiltrates. Underlying infection cannot be ruled out. Cultures will be obtained. However patient does not have any signs and symptoms of infection currently. Continue to diurese aggressively. Consider pulmonology consult in the morning if patient's symptoms do not improve. Patient is a DNR/DNI
[2018-01-30 12:10] LABS: ABSOLUTE BASOPHIL COUNT 0 /CUMM (0.0-0.2); ABSOLUTE EOSINOPHIL COUNT 0 /CUMM (0.0-0.7); ABSOLUTE GRANULOCYTE CT 6.9 /CUMM (1.4-6.5); ABSOLUTE LYMPH COUNT 0.2 /CUMM (1.2-3.4); ABSOLUTE MONOCYTE COUNT 0.9 /CUMM (0.10-0.60); BASOPHIL % 0 % (0.0-2.0); EOSINOPHIL % 0 % (0-5); GRANULOCYTE % 86.1 % (42.2-75.2); HEMATOCRIT 33.1 % (37-47); MEAN CORPUSCULAR HGB 29.4 PG (27.0-31.0); MEAN CORPUSCULAR HGB CONC 32.4 G/DL (33.0-37.0); MEAN CORPUSCULAR VOLUME 90.6 FL (81.0-99.0); MEAN PLATELET VOLUME 8.9 FL (7.4-10.4); PLATELET COUNT 181 /CUMM (130-400); RBC DISTRIBUTION WIDTH 19.3 % (11.5-14.5); RED BLOOD CELL CT 3.66 /CUMM (4.20-5.40)
--- NOTE | 2018-01-30 13:16 | RADIOLOGY REPORT ---
EXAMINATION: XR PORTABLE CHEST CLINICAL INFORMATION: Shortness of breath. Desaturation. COMPARISON: Recent priors. TECHNIQUE: Portable frontal view of the chest was obtained. FINDINGS: There is extensive bilateral perihilar patchy airspace opacity slightly increased from priors. There is a persistent small right pleural effusion. Heart size is mildly enlarged but unchanged. Mildly displaced fracture the distal right clavicle is again demonstrated. IMPRESSION: Extensive patchy bilateral perihilar opacity increased from previous. Considerations include multifocal pneumonia and aspiration. Persistent small right pleural effusion.
--- NOTE | 2018-01-30 13:48 | PN- Cardiology ---
Subjective Subjective: The patient is awake, alert, states feeling increased dyspnea, confused ( baseline) The events of the last 24 hours as well as telemetry were reviewed. Review of Systems: The review of systems is negative for chest pains, palpitations nor lightheadedness. The remainder of the 14 point review of systems is noncontributory with the exception of above. Objective Vital Signs and I&Os Vital Signs Date Time Temp Pulse Resp B/P B/P Pulse O2 O2 Flow FiO2 Mean Ox Delivery Rate 01/30 1107 83 110/54 01/30 0820 93 Nasal 3.0L Cannula 01/30 0809 106 132/60 01/30 0800 93 Nasal 2.0L Cannula 01/30 0737 113 124/70 01/30 0700 96.6 110 22 124/68 93 01/30 0000 92 Nasal 3.0L Cannula 01/29 2227 102 114/58 01/29 2226 102 114/58 01/29 2200 98.3 104 20 114/64 92 Nasal 3.0L Cannula 01/29 1922 94 Nasal 3.0L Cannula 01/29 1649 82 112/60 01/29 1408 97.7 106 20 122/68 100 Nasal Cannula Intake & Output 01/30 1600 01/30 0800 / 0000 01/29 1600 01/29 0800 01/29 0000 Intake Total 200 508 416 250 Output Total 375 500 350 250 Balance -175 8 66 0 Intake, IV 28 14 Intake, Oral 200 480 402 250 Number 1 Bowel Movements Output, Urine 375 500 350 250 Patient 162 lb 159 lb Weight Weight Bed scale Measurement Method Physical Exam: General: Nontoxic, no apparent distress. HEENT: Sclera and conjunctiva within normal limits, without xanthelasmas. Neck: Carotids 2+ without bruits. Respiratory: Scattered rhonchi and rales, air movement is decreased at bases, without accessory respiratory muscle use. Heart: Regular rate and rhythm, without murmurs, without JVD. Abdomen: Soft, nontender, no masses, normoactive bowel sounds. Extremities: Without clubbing, cyanosis, 2 mm pitting edema in both lower extremities to knees. Neuro: Nonfocal exam, strength, 5 out of 5 Skin: Within normal limits without lesions. Psych: Mood and affect: Normal Current Medications: Current Medications Sig/Darek Start time Last Medication Dose Route Stop Time Status Admin Acetaminophen 650 MG Q6P PRN 01/25 0145 AC 01/28 PO 1123 Acetaminophen 1,000 MG Q6P PRN 01/25 0145 AC 01/25 IV 2311 Albuterol Sulfate 3 ML BID 01/25 0900 AC 01/30 INH 1240 Alprazolam 0.25 MG ONCE ONE 01/30 1230 DC PO 01/30 1231 Apixaban 2.5 MG BID 01/25 0900 AC 01/30 PO 0809 Atorvastatin Calcium 20 MG QPM 01/25 2100 AC 01/29 PO 2226 Diltiazem HCl 60 MG Q6 01/30 0600 AC 01/30 PO 1107 Diltiazem HCl 60 MG Q8 01/26 1400 DC 01/29 PO 2226 Escitalopram Oxalate 10 MG 1800 01/25 1800 AC 01/29 PO 1754 Furosemide 40 MG ONCE ONE 01/30 1100 DC 01/30 IV 01/30 1101 1103 Furosemide 40 MG ONCE ONE 01/29 1700 DC 01/29 IV 01/29 1701 1649 Furosemide 40 MG 7:30 AM, & 4:30 PM 01/28 1630 AC 01/30 IV 0808 Guaifenesin 10 ML Q4P PRN 01/28 1845 AC 01/29 PO 01/30 1800 0310 Lorazepam 0.5 MG ONCE ONE 01/30 1330 DC 01/30 IV 01/30 1331 1338 Metoprolol Tartrate 50 MG BID 01/25 0900 AC 01/30 PO 0809 Nitroglycerin 0.4 MG ONCE ONE 01/30 1245 DC 01/30 SL 01/30 1246 1241 Potassium Chloride 10 MEQ ONCE ONE 01/30 1345 AC IV 01/30 1346 Potassium Chloride 40 MEQ ONCE ONE 01/30 1300 CAN PO 01/30 1301 Quetiapine Fumarate 25 MG 1800 01/25 1800 AC 01/29 PO 1754 Quetiapine Fumarate 12.5 MG 1800 01/25 1800 AC 01/29 PO 1754 Results Last 48 Hrs of Labs/Mics: Laboratory Tests 01/30/18 1300: pH 7.43, pCO2 48 H, pO2 163 H, HCO3 31 H, ABG O2 Sat (Measured) 98.0, P-50 ( Temp Corrected) N, Carboxyhemoglobin 0.6 L, O2 Concentration % 100%, O2 Delivery Method NRB, Phlebotomy Draw Site RIGHT RADIAL 01/30/18 1140: Anion Gap 13, Estimated GFR > 60, BUN/Creatinine Ratio 51.4 H, Phosphorus 2.4 L, Magnesium 2.3, Troponin I 0.02, CBC w Diff MAN DIFF ORDERED, RBC 3.66 L, MCV 90.6, MCH 29.4, MCHC 32.4 L, RDW 19.3 H, MPV 8.9, Gran % 86.1 H, Lymphocytes % 2.8 L, Monocytes % 11.1 H, Eosinophils % 0, Basophils % 0, Absolute Granulocytes 6.9 H, Segmented Neutrophils 72, Band Neutrophils 15 H, Absolute Lymphocytes 0.2 L, Lymphocytes 2 L, Monocytes 11 H, Absolute Monocytes 0.9 H , Absolute Eosinophils 0, Absolute Basophils 0, Platelet Estimate VERIFIED BY SMEAR, Poikilocytosis 2+, Anisocytosis 1+, Ovalocytes 1+, [place] Cells 1+, Schistocytes 01/29/18 0830: Troponin I 0.02 Assessment/Plan Assessment/Plan The patient presented with acute on chronic congestive heart failure with reduced LV systolic function (LVEF 30-35%), as well as atrial fibrillation with rapid ventricular response. Atrial fibrillation: We will continue to increase her beta-margaux regimen for added rate control as well as full anticoagulation. Given her concurrent congestive heart failure, a beta-margaux such as metoprolol succinate would be preferred. Acute on chronic congestive heart failure secondary to systolic dysfunction: The patient's current weight is 162 (156 on January 25). At this time, we will attempt to increase her diuretic regimen targeting a net output of approximately 1 L per day if tolerated for blood pressure standpoint. Her regimen of furosemide should be increased to 80 mg IV twice daily, with the consideration of adding metolazone. Continue telemetry? Yes
[2018-01-30 13:50] VITALS: BP 110/60
--- NOTE | 2018-01-30 15:56 | Event Note ---
Event Note Event Note: Patient was found to be short of breath this morning, respiratory therapy was called and patient was suctioned however she required increasing amounts of O2 secondary to desaturation. She was placed on high flow O2 nasal cannula but continued to complain of shortness of breath and mild chest discomfort. Chest x-ray showed worsening opacities which have been noted on prior x-rays ABG was unremarkable. Troponin was negative Patient was given intravenous potassium secondary to mild hypokalemia Patient was given increased dose of Lasix and subsequently doing a repeat episode she was started on metolazone and Lasix was increased to 80 mg IV twice daily Patient eventually began saturating well, she was given Ativan 0.5 mg IV due to anxiety over sensation of shortness of breath despite normal O2 saturation
[2018-01-30 22:54] VITALS: BP 100/70
[2018-01-31 01:19] VITALS: BP 102/56
[2018-01-31 07:33] VITALS: BP 112/52
--- NOTE | 2018-01-31 08:20 | PN- Housestaff ---
Assessment/Plan Consulting Request: Consulting Specialty: Cardiology
[2018-01-31 08:48] LABS: ABSOLUTE BASOPHIL COUNT 0 /CUMM (0.0-0.2); ABSOLUTE EOSINOPHIL COUNT 0 /CUMM (0.0-0.7); ABSOLUTE LYMPH COUNT 0.3 /CUMM (1.2-3.4); ABSOLUTE MONOCYTE COUNT 0.3 /CUMM (0.10-0.60); BASOPHIL % 0.2 % (0.0-2.0); EOSINOPHIL % 0.1 % (0-5); HEMATOCRIT 30.2 % (37-47); MEAN CORPUSCULAR HGB 29.8 PG (27.0-31.0); MEAN CORPUSCULAR HGB CONC 32.9 G/DL (33.0-37.0); MEAN CORPUSCULAR VOLUME 90.6 FL (81.0-99.0); PLATELET COUNT 154 /CUMM (130-400); RBC DISTRIBUTION WIDTH 19.5 % (11.5-14.5); RED BLOOD CELL CT 3.33 /CUMM (4.20-5.40); WHITE BLOOD CELL COUNT 7.6 /CUMM (4.8-10.8)
--- NOTE | 2018-01-31 09:04 | PN- Housestaff ---
See Addendum Subjective Follow-up For: SOB 2/2 CHF exacerbation Subjective: This morning the patient looks lethargic but responsive to verbal stimuli. She is currently saturating lower 90s on 60% high flow oxygen. There is a worsening of mentation and cognitive function compared to yesterday. She received Ativan about 6 AM this morning for an anxiety. The patient had only 800 mL urine output after metolazone 2.5 mg followed by 80 mg IV Lasix last night. [place] urine was noticed most likely secondary to hematuria. She is reporting mild epigastric abdominal pain that's new. Review of Systems Constitutional: Reports: see HPI. Objective Last 24 Hrs of Vital Signs/I&O Vital Signs Date Time Temp Pulse Resp B/P B/P Pulse O2 O2 Flow FiO2 Mean Ox Delivery Rate 01/31 0928 94 Nasal 70% Cannula 01/31 0733 98.0 65 28 112/52 95 01/31 0716 96 112/52 01/31 0402 91 Nasal 75% Cannula 01/31 0127 97 102/56 01/31 0119 102/56 01/31 0036 92 Nasal 75% Cannula 01/31 0000 92 Nasal 75% Cannula 01/30 2254 98.2 103 28 100/70 95 01/30 2232 88 100/70 01/30 2218 Nasal 65% Cannula 01/30 2200 92 Nasal 65% Cannula 01/30 1836 93 Nasal 65% Cannula 01/30 1637 132 160/80 01/30 1605 93 Nasal 65% Cannula 01/30 1600 93 Nasal 65% Cannula 01/30 1350 97.8 112 24 110/60 93 Nasal Cannula Intake & Output 01/31 1600 01/31 0800 01/31 0000 Intake Total 30 120 Output Total 575 300 Balance -545 -180 Intake, Oral 30 120 Output, Urine 575 300 Patient 71.299 kg Weight Physical Exam General Appearance: Alert, Cooperative, No Acute Distress Skin: No Rashes HEENT: Atraumatic Neck: JVD Cardiovascular: distant heart sounds, it's hard to comment on heart sounds Lungs: decreased air-entry all over lung bilaterally. crackles up to mid back bilaterally. She is using neck muscle for beathing. She is mildly tachypneic. Abdomen: Soft, No Tenderness Extremities: +2 bl LE edema Current Medications: Current Medications Sig/Darek Start time Last Medication Dose Route Stop Time Status Admin Acetaminophen 650 MG Q6P PRN 01/25 0145 AC 01/30 PO 1652 Acetaminophen 1,000 MG Q6P PRN 01/25 0145 AC 01/25 IV 2311 Albuterol Sulfate 3 ML BID 01/25 0900 AC 01/31 INH 0824 Apixaban 2.5 MG BID 01/25 0900 AC 01/30 PO 2226 Atorvastatin Calcium 20 MG QPM / 2100 AC 01/30 PO 2226 Diltiazem HCl 60 MG Q6 01/30 0600 DC 01/31 PO 0716 Escitalopram Oxalate 10 MG 1800 01/25 1800 AC 01/30 PO 1638 Furosemide 80 MG 7:30 AM, & 4:30 PM 01/31 0730 AC 01/31 IV 1219 Furosemide 80 MG ONCE ONE 01/30 1800 DC 01/30 IV 01/30 1801 1756 Furosemide 40 MG 7:30 AM, & 4:30 PM 01/28 1630 DC 01/30 IV 0808 Guaifenesin 10 ML Q4P PRN 01/28 1845 DC 01/29 PO 01/30 1800 0310 Lorazepam 0.5 MG Q6 01/30 1800 DC 01/31 IV 0715 Lorazepam 0.5 MG Q4P PRN 01/30 1700 DC IV Lorazepam 0.5 MG ONCE ONE 01/30 1330 DC 05 IV 01/30 1331 1338 Metoclopramide HCl 10 MG Q6 01/31 1308 AC IV Metolazone 2.5 MG 0700 01/31 0700 DC 01/31 PO 0717 Metolazone 2.5 MG ONCE 01/30 1645 DC 01/30 PO 01/30 1800 1651 Metoprolol Tartrate 50 MG BID 01/25 0900 DC 01/30 PO 0809 Potassium Chloride 40 MEQ ONCE ONE 01/31 1100 DC PO 01/31 1101 Potassium Chloride 10 MEQ ONCE ONE 01/30 1345 DC 01/30 IV 01/30 1346 1407 Potassium Chloride 40 MEQ ONCE ONE 01/30 1300 CAN PO 01/30 1301 Quetiapine Fumarate 25 MG 1800 / 1800 AC 01/30 PO 1637 Quetiapine Fumarate 12.5 MG 1800 / 1800 AC 01/30 PO 1637 Last 24 Hrs of Lab/Young Results Last 24 Hrs of Labs/Mics: Laboratory Tests 01/31/18 1240: Urine Color Pending, Urine Clarity Pending, Urine pH Pending, Ur Specific [place] Pending, Urine Protein Pending, Urine Ketones Pending, Urine Nitrite Pending, Urine Bilirubin Pending, Urine Urobilinogen Pending, Ur Leukocyte Esterase Pending, Ur Microscopic Pending, Urine Hemoglobin Pending, Urine Glucose Pending 01/31/18 0635: Anion Gap 10, Estimated GFR > 60, BUN/Creatinine Ratio 50.0 H, Phosphorus 2.8, Magnesium 2.3, Total Bilirubin Pending, Direct Bilirubin Pending, AST Pending, ALT Pending, Alkaline Phosphatase Pending, Creatine Kinase 53, Total Protein Pending, Albumin Pending, CBC w Diff MAN DIFF ORDERED, RBC 3.33 L, MCV 90.6, MCH 29.8, MCHC 32.9 L, RDW 19.5 H, MPV 9.0, Gran % 92.0 H, Lymphocytes % 3.8 L, Monocytes % 3.9, Eosinophils % 0.1, Basophils % 0.2, Absolute Granulocytes 7.0 H, Segmented Neutrophils 70, Band Neutrophils 18 H, Absolute Lymphocytes 0.3 L, Lymphocytes 5 L, Monocytes 7, Absolute Monocytes 0.3, Absolute Eosinophils 0, Absolute Basophils 0, Platelet Estimate VERIFIED BY SMEAR, Poikilocytosis 2+, Anisocytosis 1+, Ovalocytes 1+, Omari Cells 2+, Elliptocytes 1 +, Schistocytes Microbiology 01/30 2320 URINE ROUT: Urine Culture - RECD 01/30 1454 BLOOD: Blood Culture - RES 01/30 1427 BLOOD: Blood Culture - CAN Cancelled: SPECIMEN NOT RECEIVED IN LABORATORY 01/30 1420 URINE ROUT: Urine Culture - RES 01/30 1417 BLOOD: Blood Culture - CAN Cancelled: Quantity not sufficient for Aerobic blood culture bottle. 01/30 1400 BLOOD: Blood Culture - CAN Cancelled: Quantity not sufficient for Aerobic blood culture bottle. 01/30 1334 LOWER RESP: Respiratory Culture - COLB 01/30 1334 LOWER RESP: Gram Stain - COLB Assessment/Plan Assessment: 87-year-old female with extensive past medical history including CHF presented with SOB, associated with, orthopnea, bilat LE edema, JVD and cxr with pleural effusion for which she was diagnosed with acute hypoxic respiratory failure. She was saturating well on 3 L oxygen nasal cannula, yesterday overnight she desaturated and required high flow oxygen. Currently she is on high flow oxygen 60%. Echocardiogram during this admission showed EF 30-35% compared to EF 45-50% around 3 months ago. This possible due to myocardial damage of unclear reason, ACS was ruled out with serial EKG and troponin. There is a possibility of obstructive sleep apnea as the patient has a loud snoring and had a multiple desaturation during the night. She currently unable to take oral medication which possibly secondary Ativan that she received earlier today or possibly secondary to CO2 retention PLAN: #AHRF 2/2 Acute decompensated CHF: We'll * Monitor on tele * Continue IV lasix 80mg BID * I/O currently has a Hillman in * Continue high flow oxygen and taper as possible * We will order ABG to look for worsening CO2 retention, family agreed with using BiPAP if needed. * Poor prognosis #Afib w/ RVR, We'll * We will hold liquids 2.5 mg twice a day given hematuria. We will restart tonight if hematuria resolved and the patient is able to tolerate oral medications. * Hold oral Metoprolol and Cardizem until she tolerates oral medications. For now we will medicate with IV 10 mg Lopressor every 6 hours. * Monitor on tele #Mild Hematuria * Patient is on Eliquis 2.5 mg bid, we will hold the morning dose and follow. * Possibly secondary to trauma while placing Hillman. * We will send for UA to confirm hematuria and look for dysmorphic RBCs if any. * Based on UA results we may order renal ultrasound #HLD: * Continue Statin #Depression and Mood: * Continue SSRI and Seroquel * Avoid any sedating medications #Right clavicular fracture after fall: * Patient is able to use the arm and denies active pain * She will have physical therapy at the short-term rehabilitation * No intervention currently needed #Poor oral intake and possible swallowing abnormal * Patient is barely eating 10% of her meals * We'll follow nutrition consult * Passed swallowing evaluation -Heart healthy diet -DVT prophylaxis: On Eliquis -DNR/I Problem List: 1. Atrial fibrillation with RVR Pain Ratin Pain Location: epigastric Pain Goal: Remain pain free Pain Plan: See A&P Tomorrow's Labs & Rationales: BEP and CBC to follow K, Cr, and signs of infection given possible aspiration Consulting Request: Consulting Specialty: Cardiology
--- NOTE | 2018-01-31 12:18 | Cons- Pulmonary ---
General Information and HPI Consulting Request Date of Consult: 01/31/18 Requested By: med team History of Present Illness: Patient is 87-year-old female with past medical history of dementia, atrial fibrillation on Eliquis, congestive heart failure, hypertension, hyperlipidemia, osteoarthritis, last admission in October 2017 for acute on chronic heart failure and fall, most recently seen in the ED for fracture and was sent to patient [facility], presenting this admission with chief complaint of shortness of breath. Patient has dementia and was confused and A&O 1 on examination. Since she came in she has had progressive resp failure with hypoxia and hence this consult Pt cannot provide any history Allergies/Medications Allergies: Coded Allergies: NO KNOWN ALLERGIES (NONE 12/22/17) Home Med List: Apixaban (Eliquis) 2.5 MG TABLET 1 TAB PO BID A FIB (Reported) Atorvastatin Calcium 20 MG TABLET 1 TAB PO QPM CHOLESTEROL (Reported) Bumetanide 1 MG TABLET 1 TAB PO BID Heart failure . Calcium Carbonate/Vitamin D3 (Caltrate 600 + D Tablet) 600 MG-800 TABLET 1 TAB PO BID SUPPLEMENT (Reported) Diltiazem HCl (Diltiazem 24HR ER) 120 MG CAP.ER.24H 1 CAP PO DAILY Atrial fibrillation . Escitalopram Oxalate 10 MG TABLET 1 TAB PO 1800 MENTAL HEALTH (Reported) Metoprolol Tartrate 50 MG TABLET 1 TAB PO BID HIGH BLOOD PRESSURE (Reported) Quetiapine Fumarate 25 MG TABLET 1 TAB PO 1800 MENTAL HEALTH (Reported) Quetiapine Fumarate 25 MG TABLET 0.5 TAB PO 1800 MENTAL HEALTH (Reported) Vitamin B Complex (B Complex) 1 EACH TABLET 1 TAB PO D SUPPLEMENT (Reported) Review of Systems Review of Systems Constitutional: Reports: see HPI. Past History Travel History Traveled to [place] past 21 day No Medical History Blood Transfusion Hx: No Neurological: dementia EENT: NONE Cardiovascular: hyperlipidemia, HTN. AFIB,CHF Respiratory: NONE Gastrointestinal: NONE Hepatic: NONE Renal: NONE Musculoskeletal: osteoarthritis Psychiatric: NONE Endocrine: NONE Blood Disorders: NONE Cancer(s): NONE HEARING THERAPY DIRECTOR/Reproductive: NONE Surgical History Surgical History: non-contributory Family History Relations & Conditions If Any: MOTHER Relation not specified for: FHx: stomach cancer Psychosocial History Where Do You Live? Extended Care Facility Who Do You Live With? self Primary Language: Icelandic Smoking Status: Never Smoked ETOH Use: denies use Illicit Drug Use: denies illicit drug use Functional Ability ADLs Independent: dressing, eating, toileting, bathing. Ambulation: cane IADLs Independent: shopping, housework, finances, food prep, telephone, transportation , medication admin. Exam & Diagnostic Data Last 24 Hrs of Vital Signs/I&O Vital Signs Date Time Temp Pulse Resp B/P B/P Pulse O2 O2 Flow FiO2 Mean Ox Delivery Rate 01/31 0928 94 Nasal 70% Cannula 01/31 0733 98.0 65 28 112/52 95 01/31 0716 96 112/52 01/31 0402 91 Nasal 75% Cannula 01/31 0127 97 102/56 01/31 0119 102/56 01/31 0036 92 Nasal 75% Cannula 01/31 0000 92 Nasal 75% Cannula 01/30 2254 98.2 103 28 100/70 95 01/30 2232 88 100/70 01/30 2218 Nasal 65% Cannula 01/30 2200 92 Nasal 65% Cannula 01/30 1836 93 Nasal 65% Cannula 01/30 1637 132 160/80 01/30 1605 93 Nasal 65% Cannula 01/30 1600 93 Nasal 65% Cannula 01/30 1350 97.8 112 24 110/60 93 Nasal Cannula 01/30 1235 86 Nasal 3.0L Cannula Intake & Output 01/31 1600 01/31 0800 01/31 0000 Intake Total 30 120 Output Total 575 300 Balance -545 -180 Intake, Oral 30 120 Output, Urine 575 300 Patient 157 lb Weight Last 48 Hrs of Labs/Young: Laboratory Tests 01/31/18 0635: Anion Gap 10, Estimated GFR > 60, BUN/Creatinine Ratio 50.0 H, Phosphorus 2.8, Magnesium 2.3, Creatine Kinase 53, CBC w Diff MAN DIFF ORDERED, RBC 3.33 L, MCV 90.6, MCH 29.8, MCHC 32.9 L, RDW 19.5 H, MPV 9.0, Gran % 92.0 H, Lymphocytes % 3.8 L, Monocytes % 3.9, Eosinophils % 0.1, Basophils % 0.2, Absolute Granulocytes 7.0 H, Segmented Neutrophils 70, Band Neutrophils 18 H, Absolute Lymphocytes 0.3 L, Lymphocytes 5 L, Monocytes 7, Absolute Monocytes 0.3, Absolute Eosinophils 0, Absolute Basophils 0, Platelet Estimate VERIFIED BY SMEAR, Poikilocytosis 2+, Anisocytosis 1+, Ovalocytes 1+, Oxford Cells 2+, Elliptocytes 1+, Schistocytes 01/30/18 1300: pH 7.43, pCO2 48 H, pO2 163 H, HCO3 31 H, ABG O2 Sat (Measured) 98.0, P-50 ( Temp Corrected) N, Carboxyhemoglobin 0.6 L, O2 Concentration % 100%, O2 Delivery Method NRB, Phlebotomy Draw Site RIGHT RADIAL 01/30/18 1140: Anion Gap 13, Estimated GFR > 60, BUN/Creatinine Ratio 51.4 H, Phosphorus 2.4 L, Magnesium 2.3, Troponin I 0.02, CBC w Diff MAN DIFF ORDERED, RBC 3.66 L, MCV 90.6, MCH 29.4, MCHC 32.4 L, RDW 19.3 H, MPV 8.9, Gran % 86.1 H, Lymphocytes % 2.8 L, Monocytes % 11.1 H, Eosinophils % 0, Basophils % 0, Absolute Granulocytes 6.9 H, Segmented Neutrophils 72, Band Neutrophils 15 H, Absolute Lymphocytes 0.2 L, Lymphocytes 2 L, Monocytes 11 H, Absolute Monocytes 0.9 H , Absolute Eosinophils 0, Absolute Basophils 0, Platelet Estimate VERIFIED BY SMEAR, Poikilocytosis 2+, Anisocytosis 1+, Ovalocytes 1+, Oxford Cells 1+, Schistocytes Assessment/Plan Impression/Plan: General: Nontoxic, no apparent distress. HEENT: Sclera and conjunctiva within normal limits, without xanthelasmas. Neck: Carotids 2+ without bruits. Respiratory: Scattered rhonchi and rales, air movement is decreased at bases, without accessory respiratory muscle use. Heart: Regular rate and rhythm, without murmurs, without JVD. Abdomen: Soft, nontender, no masses, normoactive bowel sounds. Extremities: Without clubbing, cyanosis, 2 mm pitting edema in both lower extremities to knees. Neuro: Nonfocal exam, strength, 5 out of 5 Skin: Within normal limits without lesions. Psych: Mood and affect: Normal CXR IMPRESSION: Extensive patchy bilateral perihilar opacity increased from previous. Considerations include multifocal pneumonia and aspiration. Persistent small right pleural effusion. 01/30 IMPRESSION Acute hypoxic resp failure due to with acute on chronic congestive heart failure with reduced LV systolic function (LVEF 30-35%), as well as atrial fibrillation with rapid ventricular response. 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
--- NOTE | 2018-01-31 12:40 | PN- Cardiology ---
Subjective Subjective: The patient is awake, alert, feels mildly improved Noted 5 pound weight loss overnight; however, only approximately 800 cc total over the past 24 hours output documented The events of the last 24 hours as well as telemetry were reviewed. Review of Systems: The review of systems is negative for chest pains, palpitations nor lightheadedness. The remainder of the 14 point review of systems is noncontributory with the exception of above. Objective Vital Signs and I&Os Vital Signs Date Time Temp Pulse Resp B/P B/P Pulse O2 O2 Flow FiO2 Mean Ox Delivery Rate 01/31 0928 94 Nasal 70% Cannula 01/31 0733 98.0 65 28 112/52 95 01/31 0716 96 112/52 01/31 0402 91 Nasal 75% Cannula 01/31 0127 97 102/56 01/31 0119 102/56 01/31 0036 92 Nasal 75% Cannula 01/31 0000 92 Nasal 75% Cannula 01/30 2254 98.2 103 28 100/70 95 01/30 2232 88 100/70 01/30 2218 Nasal 65% Cannula 01/30 2200 92 Nasal 65% Cannula 01/30 1836 93 Nasal 65% Cannula 01/30 1637 132 160/80 05/ 1605 93 Nasal 65% Cannula 01/30 1600 93 Nasal 65% Cannula 01/30 1350 97.8 112 24 110/60 93 Nasal Cannula Intake & Output 01/31 1600 01/31 0800 / 0000 / 1600 01/30 0800 05 0000 Intake Total 30 120 580 200 508 Output Total 575 300 450 375 500 Balance -545 -180 130 -175 8 Intake, IV 100 28 Intake, Oral 30 120 480 200 480 Output, Urine 575 300 450 375 500 Patient 157 lb 162 lb Weight Physical Exam: General: Nontoxic, no apparent distress. HEENT: Sclera and conjunctiva within normal limits, without xanthelasmas. Neck: Carotids 2+ without bruits. Respiratory: Scattered rhonchi and rales, air movement is decreased at the bases , without accessory respiratory muscle use. Heart: Regular rate and rhythm, without murmurs, without JVD. Abdomen: Soft, nontender, no masses, normoactive bowel sounds. Extremities: Without clubbing, cyanosis, Neuro: Nonfocal exam, strength, 5 out of 5 Skin: Within normal limits without lesions. Psych: Mood and affect: Normal Current Medications: Current Medications Sig/Darek Start time Last Medication Dose Route Stop Time Status Admin Acetaminophen 650 MG Q6P PRN 01/25 0145 AC 01/30 PO 1652 Acetaminophen 1,000 MG Q6P PRN 01/25 0145 AC 01/25 IV 2311 Albuterol Sulfate 3 ML BID 01/25 0900 AC 01/31 INH 0824 Apixaban 2.5 MG BID 01/25 0900 AC 01/30 PO 2226 Atorvastatin Calcium 20 MG QPM 01/25 2100 AC 01/30 PO 2226 Diltiazem HCl 60 MG Q6 01/30 0600 AC 01/31 PO 0716 Escitalopram Oxalate 10 MG 1800 01/25 1800 AC 01/30 PO 1638 Furosemide 80 MG 7:30 AM, & 4:30 PM 01/31 0730 AC 01/31 IV 1219 Furosemide 80 MG ONCE ONE 01/30 1800 DC 01/30 IV 01/30 1801 1756 Furosemide 40 MG 7:30 AM, & 4:30 PM 01/28 1630 DC 01/30 IV 0808 Guaifenesin 10 ML Q4P PRN 01/28 1845 DC 01/29 PO 01/30 1800 0310 Lorazepam 0.5 MG Q6 01/30 1800 AC 01/31 IV 0715 Lorazepam 0.5 MG Q4P PRN 01/30 1700 DC IV Lorazepam 0.5 MG ONCE ONE 01/30 1330 DC 01/30 IV 01/30 1331 1338 Metolazone 2.5 MG 0700 01/31 0700 DC 01/31 PO 0717 Metolazone 2.5 MG ONCE 01/30 1645 DC 01/30 PO 01/30 1800 1651 Metoprolol Tartrate 50 MG BID 01/25 0900 AC 01/30 PO 0809 Nitroglycerin 0.4 MG ONCE ONE 01/30 1245 DC 01/30 SL 01/30 1246 1241 Potassium Chloride 40 MEQ ONCE ONE 01/31 1100 DC PO 01/31 1101 Potassium Chloride 10 MEQ ONCE ONE 01/30 1345 DC 01/30 IV 01/30 1346 1407 Potassium Chloride 40 MEQ ONCE ONE 01/30 1300 CAN PO 01/30 1301 Quetiapine Fumarate 25 MG 1800 01/25 1800 AC 01/30 PO 1637 Quetiapine Fumarate 12.5 MG 1800 01/25 1800 AC 01/30 PO 1637 Results Last 48 Hrs of Labs/Mics: Laboratory Tests 01/31/18 0635: Anion Gap 10, Estimated GFR > 60, BUN/Creatinine Ratio 50.0 H, Phosphorus 2.8, Magnesium 2.3, Creatine Kinase 53, CBC w Diff MAN DIFF ORDERED, RBC 3.33 L, MCV 90.6, MCH 29.8, MCHC 32.9 L, RDW 19.5 H, MPV 9.0, Gran % 92.0 H, Lymphocytes % 3.8 L, Monocytes % 3.9, Eosinophils % 0.1, Basophils % 0.2, Absolute Granulocytes 7.0 H, Segmented Neutrophils 70, Band Neutrophils 18 H, Absolute Lymphocytes 0.3 L, Lymphocytes 5 L, Monocytes 7, Absolute Monocytes 0.3, Absolute Eosinophils 0, Absolute Basophils 0, Platelet Estimate VERIFIED BY SMEAR, Poikilocytosis 2+, Anisocytosis 1+, Ovalocytes 1+, [place] Cells 2+, Elliptocytes 1+, Schistocytes 01/30/18 1300: pH 7.43, pCO2 48 H, pO2 163 H, HCO3 31 H, ABG O2 Sat (Measured) 98.0, P-50 ( Temp Corrected) N, Carboxyhemoglobin 0.6 L, O2 Concentration % 100%, O2 Delivery Method NRB, Phlebotomy Draw Site RIGHT RADIAL 01/30/18 1140: Anion Gap 13, Estimated GFR > 60, BUN/Creatinine Ratio 51.4 H, Phosphorus 2.4 L, Magnesium 2.3, Troponin I 0.02, CBC w Diff MAN DIFF ORDERED, RBC 3.66 L, MCV 90.6, MCH 29.4, MCHC 32.4 L, RDW 19.3 H, MPV 8.9, Gran % 86.1 H, Lymphocytes % 2.8 L, Monocytes % 11.1 H, Eosinophils % 0, Basophils % 0, Absolute Granulocytes 6.9 H, Segmented Neutrophils 72, Band Neutrophils 15 H, Absolute Lymphocytes 0.2 L, Lymphocytes 2 L, Monocytes 11 H, Absolute Monocytes 0.9 H , Absolute Eosinophils 0, Absolute Basophils 0, Platelet Estimate VERIFIED BY SMEAR, Poikilocytosis 2+, Anisocytosis 1+, Ovalocytes 1+, Omari Cells 1+, Schistocytes Assessment/Plan Assessment/Plan The patient presented with acute on chronic congestive heart failure with reduced LV systolic function (LVEF 30-35%), as well as atrial fibrillation with rapid ventricular response. Atrial fibrillation: We will continue to increase her beta-margaux regimen for added rate control as well as full anticoagulation. Given her concurrent congestive heart failure, a beta-margaux such as metoprolol succinate would be preferred. If she is unable to take this orally, we may substitute IV metoprolol at 10 mg IV every 6 hours.. Acute on chronic congestive heart failure secondary to systolic dysfunction: The patient's current weight is 162 (156 on January 25). At this time, we will attempt to increase her diuretic regimen targeting a net output of approximately 1 L per day if tolerated for blood pressure standpoint. Her regimen of furosemide has been increased to 80 mg IV twice daily, with the addition of metolazone. We will continue tracking her output and adjust accordingly Continue telemetry? Yes
[2018-01-31 14:00] VITALS: BP 122/60
[2018-01-31 20:09] VITALS: BP 124/86
[2018-01-31 22:19] VITALS: BP 130/80
--- NOTE | 2018-02-01 00:35 | Event Note ---
Event Note Event Note: Situation:Patient's potassium was found to be 2.9 (Mg was 2.3 at 0635 hrs), and initially was not taking anything by mouth. So the replacement was done by IV KCl 10 meq per bag x2, the first of which was just finished. Her HR was running in 110s-150s with stable BP. Her IV Lopressor 10 mg that was ordered for earlier this night had not been given. IV KCl was supplemented given her feeding issues. She tends to have fluid overload easily as her EF is 35-40% only along with her overall medical condition. Plan/action taken: * The first bag of 10 meq KCl was allowed to finish. * I ordered 40 meq of KCl in powder form mixed with apple sauce, and with nursing staff we were able to feed her the total amount. * I also pushed only half of IV Lopressor (i.e. only 5 mg) very slowly over 8 minutes. VSS. * We are repeating BEP and Mg at 2 am to see if potassium is repleted well or not. * I anticipate better heart rate control with repleted potassium level.
[2018-02-01 03:41] VITALS: BP 130/88
[2018-02-01 06:24] VITALS: BP 128/70
[2018-02-01 06:52] VITALS: BP 130/88
--- NOTE | 2018-02-01 08:07 | PN- Housestaff ---
Gloria BYRD,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 She is currently saturating lower 90s on 50% high flow oxygen. She is reporting mild epigastric abdominal pain and denies any other current complaints. Review of Systems Constitutional: Reports: no symptoms, see HPI. Objective Last 24 Hrs of Vital Signs/I&O Vital Signs Date Time Temp Pulse Resp B/P B/P Pulse O2 O2 Flow FiO2 Mean Ox Delivery Rate 02/01 1400 10 160/80 02/01 1313 94 Nasal 5.0L Cannula 02/01 0844 140 130/90 02/01 0844 140 130/90 02/01 0827 95 Nasal 55% Cannula 02/01 0800 95 Nasal 65% Cannula 02/01 0652 140 130/88 02/01 0624 98.2 137 29 128/70 97 02/01 0601 146 122/86 02/01 0553 91 Nasal 65% Cannula 02/01 0344 146 130/88 02/01 0341 130/88 02/01 0014 130 128/78 02/01 0000 95 Nasal 65% Cannula 01/31 2219 98.8 125 28 130/80 95 01/31 2009 118 124/86 01/31 1931 140 126/90 01/31 1915 98 Nasal 80% Cannula 01/31 1811 119 138/64 01/31 1455 141 134/68 01/31 1431 95 Nasal 70% Cannula Intake & Output 02/01 1600 02/01 0800 02/01 0000 Intake Total Output Total 700 1500 Balance -700 -1500 Output, Urine 700 1500 Patient 70.08 kg Weight Physical Exam General Appearance: Alert, Oriented X3, Cooperative, No Acute Distress Skin: No Rashes HEENT: Atraumatic, PERRLA, EOMI, Mucous Membr. moist/pink Neck: JVD Cardiovascular: irregular, nl s1/s2, tachy up to 140s Lungs: decreased air entry over lung bases bilaterally with diffuse crackles but significantly improved compared to yesterday. The patient is thin tachypnea and using neck and accessory muscle for breathing. Abdomen: mild epigastric pain Neurological: lethargic, alert and oriented X1 Extremities: trace lower extremity edema improved from +1 lower extremity edema yesterday Current Medications: Current Medications Sig/Darek Start time Last Medication Dose Route Stop Time Status Admin Acetaminophen 650 MG Q6P PRN 01/25 0145 AC 01/30 PO 1652 Acetaminophen 1,000 MG Q6P PRN 01/25 0145 AC 01/25 IV 2311 Albuterol Sulfate 3 ML BID 01/25 0900 AC 02/01 INH 0817 Apixaban 2.5 MG BID 01/25 0900 AC 02/01 PO 0844 Atorvastatin Calcium 20 MG QPM 01/25 2100 AC 01/30 PO 2226 Diltiazem HCl 60 MG Q8 02/01 1400 DC PO Diltiazem HCl 60 MG Q8 02/01 0830 AC 02/01 PO 1400 Escitalopram Oxalate 10 MG 1800 01/25 1800 AC 01/30 PO 1638 Furosemide 40 MG ONCE ONE 01/31 1900 DC 01/31 IV 01/31 1901 1839 Furosemide 80 MG 7:30 AM, & 4:30 PM 01/31 0730 DC 01/31 IV 1219 Metoclopramide HCl 10 MG Q6 01/31 1308 DC IV Metoprolol Tartrate 50 MG BID 02/01 0900 AC 02/01 PO 0844 Metoprolol Tartrate 5 MG ONCE ONE 02/01 0345 DC 02/01 IV 02/01 0346 0344 Metoprolol Tartrate 5 MG ONCE ONE 01/31 1915 DC 01/31 IV 01/31 1916 1931 Metoprolol Tartrate 5 MG ONCE ONE 01/31 1745 DC 01/31 IV 01/31 1746 1811 Metoprolol Tartrate 10 MG Q6 01/31 1428 DC 02/01 IV 0601 Pantoprazole Sodium 40 MG ONCE ONE 02/01 1315 DC 02/01 IV 02/01 1316 1400 Potassium Chloride 40 MEQ ONCE ONE 02/01 0015 DC 02/01 PO 02/01 0016 0018 Potassium Chloride 10 MEQ ONCE ONE 01/31 2230 DC IV 01/31 2231 Potassium Chloride 10 MEQ ONCE ONE 01/31 2230 DC 01/31 IV 01/31 2231 2234 Quetiapine Fumarate 25 MG 1800 / 1800 AC 01/30 PO 1637 Quetiapine Fumarate 12.5 MG 1800 01/25 1800 AC 01/30 PO 1637 Last 24 Hrs of Lab/Young Results Last 24 Hrs of Labs/Mics: Laboratory Tests 02/01/18 0640: Anion Gap 14, Estimated GFR > 60, BUN/Creatinine Ratio 46.3 H, Magnesium 2.2, CBC w Diff NO MAN DIFF REQ, RBC 3.87 L, MCV 90.7, MCH 29.5, MCHC 32.6 L, RDW 19.4 H, MPV 8.9, Gran % 89.4 H, Lymphocytes % 3.5 L, Monocytes % 7.1, Eosinophils % 0, Basophils % 0, Absolute Granulocytes 10.9 H, Absolute Lymphocytes 0.4 L, Absolute Monocytes 0.9 H, Absolute Eosinophils 0, Absolute Basophils 0 02/01/18 0157: Anion Gap 12, Estimated GFR > 60, BUN/Creatinine Ratio 46.3 H, Magnesium 2.2 02/01/18 0100: Magnesium Cancelled 02/01/18 0100: Sodium Cancelled, Potassium Cancelled, Chloride Cancelled, Carbon Dioxide Cancelled, Anion Gap Cancelled, BUN Cancelled, Creatinine Cancelled, BUN/ Creatinine Ratio Cancelled 01/31/18 2056: Anion Gap 12, Estimated GFR > 60, BUN/Creatinine Ratio 52.9 H Assessment/Plan Assessment: 87-year-old female with extensive past medical history including CHF presented with SOB, associated with, orthopnea, bilat LE edema, JVD and cxr with pleural effusion for which she was diagnosed with acute hypoxic respiratory failure. She was saturating well on 3 L oxygen nasal cannula, yesterday overnight she desaturated and required high flow oxygen. Currently she is on high flow oxygen 60%. Echocardiogram during this admission showed EF 30-35% compared to EF 45-50% around 3 months ago. This possible due to myocardial damage of unclear reason, ACS was ruled out with serial EKG and troponin. There is a possibility of obstructive sleep apnea as the patient has a loud snoring and had a multiple desaturation during the night. She is able to take oral medication and all oral medication was started again this morning. Given the continuous few months of worsening of the patient condition, I had a long discussion with the family about her CODE STATUS. The family agrees to change CODE STATUS from DNR/DNI to comfort. They would like to obtain a hospice evaluation and wish that she meet the requirements for inpatient hospice. PLAN: #AHRF 2/2 Acute decompensated CHF: We'll * CODE STATUS was switch comfort care and awaiting hospice evaluation. * DC tele and send to [facility] * DC lasix * continue [place] until evaluated by hospice * Continue nasal cannula oxygen as needed for her comfort #Afib w/ RVR, We'll * DC Eliquis * Continue metoprolol and Cardizem oral to relief palpitation and chest discomfort #HLD: * DC statin #Depression and Mood: * Continue SSRI and Seroquel * We'll use Ativan if needed for anxiety * We'll use haloperidol as needed for agitation #Right clavicular fracture after fall: * Patient is able to use the arm and denies active pain * May use morphine as needed for pain #Poor oral intake * Given the CODE STATUS was changed we pull her regular diet -Regular diet -Comfort waiting for hospice evaluation Problem List: 1. Atrial fibrillation with RVR 2. Hypoxia 3. CHF (congestive heart failure) Pain Ratin Pain Location: epigastric pain Pain Goal: Remain pain free Pain Plan: See A&P Tomorrow's Labs & Rationales: non as pt will be comfort Consulting Request: Consulting Specialty: Cardiology Chaka Gracia 02/01/18 1103: Attending MD Review Statement Attending Statement Attending MD Statement: examined this patient, discuss w/resident/PA/TANK OPERATOR, agreed w/resident/PA/TANK OPERATOR, discussed with family, reviewed EMR data (avail), discussed with nursing, discussed with case mgmt, reviewed images, amended to note Attending Assessment/Plan: Elderly female with h/o advacned dementia with repeated episodes of dyspnea with underlying congestive heart failure exacerbation and decrease in her systolic function as compared to her last ECHO. Patient also has underlying afib, rate uncontrolled intermiitently on cardizem with borderline bp. Patient remians on high flow oxygen requirements. Weekend events noted and family does not want ot pursue aggressive measures at her age. Consider palliative consult. Follow cardiology recommendations. Goals of care address. DNR/DNI.
[2018-02-01 08:38] LABS: ABSOLUTE BASOPHIL COUNT 0 /CUMM (0.0-0.2); ABSOLUTE EOSINOPHIL COUNT 0 /CUMM (0.0-0.7); ABSOLUTE GRANULOCYTE CT 10.9 /CUMM (1.4-6.5); ABSOLUTE LYMPH COUNT 0.4 /CUMM (1.2-3.4); ABSOLUTE MONOCYTE COUNT 0.9 /CUMM (0.10-0.60); BASOPHIL % 0 % (0.0-2.0); EOSINOPHIL % 0 % (0-5); MEAN PLATELET VOLUME 8.9 FL (7.4-10.4)
[2018-02-01 08:59] LABS: HEMATOCRIT 35.1 % (37-47); MEAN CORPUSCULAR HGB 29.5 PG (27.0-31.0); MEAN CORPUSCULAR HGB CONC 32.6 G/DL (33.0-37.0); MEAN CORPUSCULAR VOLUME 90.7 FL (81.0-99.0); PLATELET COUNT 208 /CUMM (130-400); RBC DISTRIBUTION WIDTH 19.4 % (11.5-14.5); RED BLOOD CELL CT 3.87 /CUMM (4.20-5.40)
[2018-02-01 09:05] LABS: WHITE BLOOD CELL COUNT 12.2 /CUMM (4.8-10.8)
[2018-02-01 09:47] LABS: GRANULOCYTE % 89.4 % (42.2-75.2)
--- NOTE | 2018-02-01 10:01 | PN- Cardiology ---
Subjective Subjective: The patient is now diuresing. She is however taking oral feedings poorly. Her heart rate remains in the 90s and low 100s. She is on both Cardizem and metoprolol. She is receiving IV Lasix plus metolazone as needed. Her edema seems to be decreasing. Objective Vital Signs and I&Os Vital Signs Date Time Temp Pulse Resp B/P B/P Pulse O2 O2 Flow FiO2 Mean Ox Delivery Rate 02/01 0844 140 130/90 02/01 0844 140 130/90 02/01 0827 95 Nasal 55% Cannula 02/01 0652 140 130/88 02/01 0624 98.2 137 29 128/70 97 02/01 0601 146 122/86 02/01 0553 91 Nasal 65% Cannula 02/01 0344 146 130/88 02/01 0341 130/88 02/01 0014 130 128/78 02/01 0000 95 Nasal 65% Cannula 01/31 2219 98.8 125 28 130/80 95 01/31 2009 118 124/86 01/31 1931 140 126/90 01/31 1915 98 Nasal 80% Cannula 01/31 1811 119 138/64 01/31 1455 141 134/68 01/31 1431 95 Nasal 70% Cannula 01/31 1400 98.1 90 20 122/60 91 Intake & Output 02/01 1600 02/01 0800 02/01 0000 01/31 1600 01/31 0800 01/31 0000 Intake Total 30 30 120 Output Total 700 1500 1000 575 300 Balance -700 -1500 -970 -545 -180 Intake, IV 20 Intake, Oral 10 30 120 Output, Urine 700 1500 1000 575 300 Patient 155 lb 157 lb Weight Physical Exam: She looks chronically ill. She is on high flow oxygen. She is slightly lethargic. HEENT exam normal Chest a few rhonchi Heart irregular rhythm, no murmurs Extremities trace to 1+ edema Current Medications: Current Medications Sig/Darek Start time Last Medication Dose Route Stop Time Status Admin Acetaminophen 650 MG Q6P PRN 01/25 0145 AC 01/30 PO 1652 Acetaminophen 1,000 MG Q6P PRN 01/25 0145 AC 01/25 IV 2311 Albuterol Sulfate 3 ML BID 01/25 900 AC 02/01 INH 0817 Apixaban 2.5 MG BID 01/25 900 AC 02/01 PO 0844 Atorvastatin Calcium 20 MG QPM 01/25 2100 AC 01/30 PO 2226 Diltiazem HCl 60 MG Q8 02/01 1400 DC PO Diltiazem HCl 60 MG Q8 02/01 0830 AC 02/01 PO 0844 Diltiazem HCl 60 MG Q6 01/30 0600 DC 01/31 PO 0716 Escitalopram Oxalate 10 MG 1800 01/25 1800 AC 01/30 PO 1638 Furosemide 40 MG ONCE ONE 01/31 1900 DC 01/31 IV 01/31 1901 1839 Furosemide 80 MG 7:30 AM, & 4:30 PM 01/31 0730 DC 01/31 IV 1219 Lorazepam 0.5 MG Q6 01/30 1800 DC 01/31 IV 0715 Metoclopramide HCl 10 MG Q6 01/31 1308 DC IV Metoprolol Tartrate 50 MG BID 02/01 0900 AC 02/01 PO 0844 Metoprolol Tartrate 5 MG ONCE ONE 02/01 0345 DC 02/01 IV 02/01 0346 0344 Metoprolol Tartrate 5 MG ONCE ONE 01/31 1915 DC 01/31 IV 01/31 1916 1931 Metoprolol Tartrate 5 MG ONCE ONE 01/31 1745 DC 01/31 IV 01/31 1746 1811 Metoprolol Tartrate 10 MG Q6 01/31 1428 DC 02/01 IV 0601 Metoprolol Tartrate 50 MG BID 01/25 0900 DC 01/30 PO 0809 Potassium Chloride 40 MEQ ONCE ONE 02/01 0015 DC 02/01 PO 02/01 0016 0018 Potassium Chloride 10 MEQ ONCE ONE 01/31 2230 DC IV 01/31 2231 Potassium Chloride 10 MEQ ONCE ONE 01/31 2230 DC 01/31 IV 01/31 2231 2234 Potassium Chloride 40 MEQ ONCE ONE 01/31 1100 DC PO 01/31 1101 Quetiapine Fumarate 25 MG 1800 01/25 1800 AC 01/30 PO 1637 Quetiapine Fumarate 12.5 MG 1800 01/25 1800 AC 01/30 PO 1637 Results Last 48 Hrs of Labs/Mics: Laboratory Tests 02/01/18 0640: Anion Gap 14, Estimated GFR > 60, BUN/Creatinine Ratio 46.3 H, Magnesium 2.2, CBC w Diff NO MAN DIFF REQ, RBC 3.87 L, MCV 90.7, MCH 29.5, MCHC 32.6 L, RDW 19.4 H, MPV 8.9, Gran % 89.4 H, Lymphocytes % 3.5 L, Monocytes % 7.1, Eosinophils % 0, Basophils % 0, Absolute Granulocytes 10.9 H, Absolute Lymphocytes 0.4 L, Absolute Monocytes 0.9 H, Absolute Eosinophils 0, Absolute Basophils 0 02/01/18 0157: Anion Gap 12, Estimated GFR > 60, BUN/Creatinine Ratio 46.3 H, Magnesium 2.2 02/01/18 0100: Magnesium Cancelled 02/01/18 010: Sodium Cancelled, Potassium Cancelled, Chloride Cancelled, Carbon Dioxide Cancelled, Anion Gap Cancelled, BUN Cancelled, Creatinine Cancelled, BUN/ Creatinine Ratio Cancelled 01/31/182055: Anion Gap 12, Estimated GFR > 60, BUN/Creatinine Ratio 52.9 H 01/31/18 1336: pH 7.51 H, pCO2 47 H, pO2 79 L, HCO3 36 H, ABG O2 Sat (Measured) 95.0 L, P- 50 (Temp Corrected) N, Carboxyhemoglobin 0.5 L, O2 Concentration % 70%, Temperature 98.0, O2 Delivery Method HFNC, Phlebotomy Draw Site LEFT RADIAL 01/31/18 1240: Urinalysis LIGHT H, Urine Color BLDY H, Urine Clarity HAZY H, Urine pH 6.0, Ur Specific [place] 1.010, Urine Protein 100 H, Urine Ketones NEG, Urine Nitrite NEG, Urine Bilirubin NEG, Urine Urobilinogen 0.2, Ur Leukocyte Esterase TRACE H, Ur Microscopic SEDIMENT EXAMINED, Urine RBC PACKD H, Urine WBC 3-5 H , Ur Epithelial Cells RARE, Urine Bacteria FEW H, Granular Casts RARE H, Urine Hemoglobin LARGE H, Urine Glucose NEG 01/31/18 0635: Anion Gap 10, Estimated GFR > 60, BUN/Creatinine Ratio 50.0 H, Phosphorus 2.8, Magnesium 2.3, Total Bilirubin 1.4 H, Direct Bilirubin 0.5 H, AST 49 H, ALT 57 H, Alkaline Phosphatase 75, Creatine Kinase 53, Total Protein 5.3 L, Albumin 2.9 L, CBC w Diff MAN DIFF ORDERED, RBC 3.33 L, MCV 90.6, MCH 29.8, MCHC 32.9 L, RDW 19.5 H, MPV 9.0, Gran % 92.0 H, Lymphocytes % 3.8 L, Monocytes % 3.9, Eosinophils % 0.1, Basophils % 0.2, Absolute Granulocytes 7.0 H, Segmented Neutrophils 70, Band Neutrophils 18 H, Absolute Lymphocytes 0.3 L , Lymphocytes 5 L, Monocytes 7, Absolute Monocytes 0.3, Absolute Eosinophils 0, Absolute Basophils 0, Platelet Estimate VERIFIED BY SMEAR, Poikilocytosis 2+, Anisocytosis 1+, Ovalocytes 1+, [place] Cells 2+, Elliptocytes 1+, Schistocytes 01/30/18 1300: pH 7.43, pCO2 48 H, pO2 163 H, HCO3 31 H, ABG O2 Sat (Measured) 98.0, P-50 ( Temp Corrected) N, Carboxyhemoglobin 0.6 L, O2 Concentration % 100%, O2 Delivery Method NRB, Phlebotomy Draw Site RIGHT RADIAL 01/30/18 1140: Anion Gap 13, Estimated GFR > 60, BUN/Creatinine Ratio 51.4 H, Phosphorus 2.4 L, Magnesium 2.3, Troponin I 0.02, CBC w Diff MAN DIFF ORDERED, RBC 3.66 L, MCV 90.6, MCH 29.4, MCHC 32.4 L, RDW 19.3 H, MPV 8.9, Gran % 86.1 H, Lymphocytes % 2.8 L, Monocytes % 11.1 H, Eosinophils % 0, Basophils % 0, Absolute Granulocytes 6.9 H, Segmented Neutrophils 72, Band Neutrophils 15 H, Absolute Lymphocytes 0.2 L, Lymphocytes 2 L, Monocytes 11 H, Absolute Monocytes 0.9 H , Absolute Eosinophils 0, Absolute Basophils 0, Platelet Estimate VERIFIED BY SMEAR, Poikilocytosis 2+, Anisocytosis 1+, Ovalocytes 1+, [place] Cells 1+, Schistocytes Microbiology 01/30 1420 URINE ROUT: Urine Culture - COMP Assessment/Plan Assessment/Plan The patient's edema is slowly improving. Her output is improving. She is unfortunately becoming weak and unable to eat well. I would continue the same treatment. I would consider a palliative care consult as she is not improving significantly. Goals of care should be addressed. Continue telemetry? Yes
--- NOTE | 2018-02-01 13:36 | Event Note ---
Event Note Event Note: I had a long detailed discussion with the family (daughter and son-in-law) about goal of care. After I answered all their questions and explained all the code status options, the family decided to switch her to comfort measurement, they are requesting inpatient hospice evaluation as well.
[2018-02-01 14:00] VITALS: BP 130/70
[2018-02-01 18:52] VITALS: BP 112/60
[2018-02-01 22:16] VITALS: BP 138/70
[2018-02-02 06:23] VITALS: BP 135/87
--- NOTE | 2018-02-02 07:25 | PN- Housestaff ---
Edd BYRD,[facility] 02/02/18 0725: Subjective Follow-up For: SOB 2/2 CHF exacerbation Advanced age Alzheimer disease Heart failure with reduced ejection fraction 35% Waiting for hospice evaluation Subjective: Ms Das was seen and examined this morning. She is resting comfortably in bed. No issues reported overnight. She is unable to respond to verbal commands. Evelin Torrez was at bedside. Currently awaiting hospice evaluation later today. Review of Systems Constitutional: Reports: see HPI. Objective Last 24 Hrs of Vital Signs/I&O Vital Signs Date Time Temp Pulse Resp B/P B/P Pulse O2 O2 Flow FiO2 Mean Ox Delivery Rate 02/02 0854 95 Nasal 90% Cannula 02/02 0800 95 30% 02/02 0623 99.5 112 22 135/87 98 02/02 0622 97 Nasal 90% Cannula 02/02 0559 112 22 135/86 02/02 0346 96 Nasal 90% Cannula 02/02 0027 95 Nasal 85% Cannula 02/02 0000 95 85% 02/01 2311 97 Nasal 90% Cannula 02/01 2216 98.1 101 19 138/70 96 Nasal Cannula 02/01 1928 93 Nasal 85% Cannula 02/01 1852 99.4 113 19 112/60 92 Nasal Cannula 02/01 1620 93 Nasal 85% Cannula 02/01 1606 32 77 Nasal 5.0L Cannula 02/01 1600 91 Nasal 5.0L Cannula 02/01 1400 10 160/80 02/01 1400 98.8 129 20 130/70 91 Nasal Cannula Intake & Output 02/02 1600 02/02 0800 02/02 0000 Intake Total 130 Output Total 350 250 Balance -220 -250 Intake, IV 50 Intake, Oral 80 Output, Urine 350 250 Patient 70.392 kg Weight Weight Bed scale Measurement Method Physical Exam General Appearance: Mild Distress, Lethargic Cardiovascular: Normal S1, Normal S2, Irregular Rate and Rhythm Lungs: Normal Air Movement, Epiratory rales noted. Abdomen: Normal Bowel Sounds, Soft, No Tenderness Extremities: No Edema Current Medications: Current Medications Sig/Darek Start time Last Medication Dose Route Stop Time Status Admin Acetaminophen 650 MG Q6P PRN 01/25 0145 DCD 05/12 PO 1652 Acetaminophen 1,000 MG Q6P PRN 01/25 0145 DCD 01/25 IV 2311 Albuterol Sulfate 3 ML BID 01/25 0900 DCD 02/02 INH 0852 Apixaban 2.5 MG BID 01/25 0900 DC 02/01 PO 0844 Atorvastatin Calcium 20 MG QPM 01/25 2100 DC 01/30 PO 2226 Diltiazem HCl 60 MG Q8 02/01 0830 DCD 02/02 PO 0559 Escitalopram Oxalate 10 MG 1800 / 1800 DCD 05 PO 1638 Glycopyrrolate 400 MCG Q4 02/02 1000 DCD 02/02 IV 0831 Lorazepam 0.5 MG Q6P PRN 02/02 0745 DCD 02/02 IV 0830 Metoprolol Tartrate 50 MG BID 02/01 0900 DCD 02/01 PO 0844 Morphine Sulfate 1 MG Q2P PRN 02/02 0830 DCD IV Morphine Sulfate 1 MG Q4P PRN 02/01 1815 DC 02/02 IV 0559 Morphine Sulfate 1 MG Q6 02/01 1800 DC IV Morphine Sulfate 1 MG ONCE ONE 02/01 1600 DC 02/01 IV 02/01 1601 1559 Patient Medication 1 ED ONE ONE 02/01 1515 DC Teaching ED 02/01 1516 Potassium Chloride 40 MEQ .STK-MED ONE 02/01 1718 DC PO 02/01 1719 Quetiapine Fumarate 25 MG 1800 / 1800 DCD 01/30 PO 1637 Quetiapine Fumarate 12.5 MG 1800 / 1800 DCD 01/30 PO 1637 Scopolamine HBr 1 PAT Q72H 02/02 1245 DCD TOP Assessment/Plan Assessment: 87-year-old female with extensive past medical history including CHF presented with SOB, associated with, orthopnea, bilat LE edema, JVD and cxr with pleural effusion for which she was diagnosed with acute hypoxic respiratory failure. She was saturating well on 3 L oxygen nasal cannula, yesterday overnight she desaturated and required high flow oxygen. Currently she is on high flow oxygen 60%. Echocardiogram during this admission showed EF 30-35% compared to EF 45-50% around 3 months ago. This possible due to myocardial damage of unclear reason, ACS was ruled out with serial EKG and troponin. Housestaff looking after the patient (Dr Castro) since 02/01/2018 had an extensive discussion with the family regarding goals of care. It appears that the patient would benefit from hospice evaluation later 02/02/2018. PLAN: #AHRF 2/2 Acute decompensated CHF: We'll * CODE STATUS was switch comfort care and awaiting hospice evaluation. * On [facility] * DC lasix * continue [place] until evaluated by hospice * Continue nasal cannula oxygen as needed for her comfort #Afib w/ RVR, We'll * DC Eliquis * Continue metoprolol and Cardizem oral to relief palpitation and chest discomfort #HLD: * DC statin #Depression and Mood: * Continue SSRI and Seroquel * We'll use Ativan if needed for anxiety * We'll use haloperidol as needed for agitation * Scopolamine patch and Robinul Added 02/02/2018 #Right clavicular fracture after fall: * Patient is able to use the arm and denies active pain * May use morphine as needed for pain -Regular diet -Comfort waiting for hospice evaluation Problem List: 1. Atrial fibrillation with RVR Pain Ratin Pain Location: No Pain Endorsed Pain Goal: Remain pain free Pain Plan: PRN Tomorrow's Labs & Rationales: NA Consulting Request: Consulting Specialty: Cardiology Rachel Spence 02/02/18 1030: Attending MD Review Statement Attending Statement Attending MD Statement: examined this patient, discuss w/resident/PA/ACADEMIC SERVICES COORDINATOR, agreed w/resident/PA/ACADEMIC SERVICES COORDINATOR, reviewed EMR data (avail), discussed with nursing, discussed with case mgmt Attending Assessment/Plan: pt on comfort measures and will be admitted to hospice soon after hospice disucssion with family today. Increased upper airway secretions. will add scopolamine patch on top of robinul. d/w pts nurse the care plan.
--- NOTE | 2018-02-02 14:16 | Discharge Summary ---
Visit Information Visit Dates Admission Date: 01/24/18 Discharge Date: 02/02/18 Hospital Course Course Attending Physician: Rachel Spence MD Primary Care Physician: Ricki Stewart MD Consulting Request: Consulting Specialty: Cardiology Hospital Course: 87-year-old female with extensive PMHx including CHF, who presented with SOB, associated with, orthopnea, bilat LE edema, JVD and cxr with pleural effusion, for which she was diagnosed with acute hypoxic respiratory failure 2/2 HFrEF exacerbatoin. The patient ejection fraction continue to deteriorate, EF was 40- 45% on November decrease to 30-35% during this admission. Echo also showd more uncoordinated ventricular contractility than the previous one. It was also noted that there is change in her electrocardiogram. Previously she had a classic left bundle branch block pattern and now she has a nonspecific interventricular conduction delay with a different axis. The reason behind this rapid progressive worsening is not fully clear, It is possible she suffered some myocardial damage post previous discharge and that explains her deterioration, especially that she has advanced dementia and may forget to report chest pain, it happened during this admission where the patient developed chest pain and totally forgot the episode within 30 minutes. Some underlying obstructive sleep apnea is also possible as the patient desaturating during sleep. Another possible contributory factor would be tachycardia as she was found to be in A. fib with RVR multiple times during this admission even while on rate control medication. We initially tried to diurese the patient with IV Lasix, we also added metolazone to augment the effect of diuresis. Even after symptom and signs of volume overload resolved the patient continued to have a shortness breath and required high flow oxygen. Given the rapid worsening, poor prognosis, and poor quality of life the family decided to avoid all aggressive measurement and switch the patient CODE STATUS to comfort measurement. The patient was then evaluated for hospice and she met the requirement for inpatient hospice. All unnecessary medication was DC'd, telemetry was DC'd, when necessary Ativan or morphine were started and the CODE STATUS was switch to comfort. Allergies: Coded Allergies: NO KNOWN ALLERGIES (NONE 12/22/17) Disposition Summary Disposition Principal Diagnosis: SOB 2/2 HFrEF exacerbation Additional Diagnosis: -A.fib -Advanced Alzheimer Discharge Disposition: hospice - medical facilit Discharge Instructions General Discharge Information Code Status: Comfort Care Only Patient's Diet: as tolerated Patient's Activity: as tolerated Follow-Up Instructions/Appts: no need for follow up given code status Medications at Discharge Discharge Medications: Continue taking these medications: Metoprolol Tartrate (Metoprolol Tartrate) 50 MG TABLET 1 Tablet ORAL TWICE DAILY Comments: Last Taken:12/03/17 Time: 1000 AM Apixaban (Eliquis) 2.5 MG TABLET 1 Tablet ORAL TWICE DAILY Comments: Last Taken:12/03/17 Time: 1000 Quetiapine Fumarate (Quetiapine Fumarate) 25 MG TABLET 1 Tablet ORAL 1800 Comments: Last Taken: 11/05/17 Time: 5:45 PM Quetiapine Fumarate (Quetiapine Fumarate) 25 MG TABLET 0.5 Tablet ORAL 1800 Comments: Last Taken: 12/02/17 Time;1700 Calcium Carbonate/Vitamin D3 (Caltrate 600 + D Tablet) 600 MG-800 TABLET 1 Tablet ORAL TWICE DAILY Comments: NOT GIVEN IN HOSPITAL Escitalopram Oxalate (Escitalopram Oxalate) 10 MG TABLET 1 Tablet ORAL 1800 Comments: Last Taken: 12/02/17 Time: 5 PM Vitamin B Complex (B Complex) 1 EACH TABLET 1 Tablet ORAL Every Day Diltiazem HCl (Diltiazem 24HR ER) 120 MG CAP.ER.24H 1 Capsule ORAL DAILY Qty = 30 Instructions: . Comments: Last Taken: 11/06/17 Time: 8:30 AM Atorvastatin Calcium (Atorvastatin Calcium) 20 MG TABLET 1 Tablet ORAL Every night Copies To: Ricki Stewart MD; Deidra BYRD,[facility]
== END 2018-02-02 13:03 | disposition hospice, home (50) | DRG 293 ==
LOC: ERH 21:03 → 1NO 23:21 → ERHI 23:21 → ENRESERV 23:53 → 1NO 01-25 00:45 → ENTRNSPT 02-01 18:00 → EDTRNSPTSTS 02-01 18:07 → EDTRNSPT 02-01 18:07 → 2NA 02-01 18:33 → CMPTRNSPT 02-01 18:51 → 2NA 02-02 08:48
PROVIDERS: Dermatology; Internal Medicine; Internal Medicine Hematology & Oncology; Pediatrics; Student in an Organized Health Care Education/Training Program
DX: I11.0 Hypertensive heart disease with heart failure (principal); I48.2 Chronic atrial fibrillation; G30.9 Alzheimer's disease, unspecified; F02.80 Dementia in other diseases classified elsewhere, unspecified severity, without behavioral disturbance, psychotic disturbance, mood disturbance, and anxiety; I48.91 Unspecified atrial fibrillation; I50.33 Acute on chronic diastolic (congestive) heart failure; I44.7 Left bundle-branch block, unspecified; Z79.01 Long term (current) use of anticoagulants; Z51.5 Encounter for palliative care; W18.30XA Fall on same level, unspecified, initial encounter; Y92.099 Unspecified place in other non-institutional residence as the place of occurrence of the external cause; E78.5 Hyperlipidemia, unspecified; M19.90 Unspecified osteoarthritis, unspecified site; Z66 Do not resuscitate; S42.001A Fracture of unspecified part of right clavicle, initial encounter for closed fracture; R00.0 Tachycardia, unspecified; F41.9 Anxiety disorder, unspecified
CPT/HCPCS: 1NSP; 2NAP; ERO; 36415; 36592; 71045; 81001; 82436; 87040; 87070; 87086; 93005; 93010; 93306; 96374; 96375; 97110-GO; 97112-GO; 97116-GO; 97161-GP; 97165-GO; 97530-GO; 99291; J1940; J2060; J2765; J2930; J3490

== ENCOUNTER 2018-02-02 13:05 | Inpatient (IN) | payer OTHER ==
--- NOTE | 2018-02-02 14:06 | History & Physical ---
General Information and HPI MD Statement: I have seen and personally examined AKBAR VILA and documented this H&P. The patient is a 87 year old F who presented with a patient stated chief complaint of [ hospice care for acute decompensated heart failure]. Source of Information: family, old records Exam Limitations: no limitations History of Present Illness: 87-year-old female with extensive past medical history including CHF presented with SOB, associated with, orthopnea, bilat LE edema, JVD and cxr with pleural effusion for which she was diagnosed with acute hypoxic respiratory failure. Echocardiogram during this admission showed EF 30-35% compared to EF 45-50% around 3 months ago. Acute Hypoxic Rresp Failure 2/2 Acute decompensated CHF: extensive discussion with family was conducted by primary medicine team while pt was on telemtry and pt was switched to comfort care and after evaluation by hospice was switched to hospice care. Ordered Morphine iv for pain Ordered ativan iv for anxiety / agitation and insomnia Ordered scopolamine patch for secretions ordered prn robinul for excessive secretions Ordered prn tylenol for fever and prn suppository for constipation and artificial tear drops Cont on oxygen for comfort. dw pts family at bedside the care plan. Allergies/Medications Allergies: Coded Allergies: NO KNOWN ALLERGIES (NONE 12/22/17) Home Med list Apixaban (Eliquis) 2.5 MG TABLET 1 TAB PO BID A FIB (Reported) Atorvastatin Calcium 20 MG TABLET 1 TAB PO QPM CHOLESTEROL (Reported) Bumetanide 1 MG TABLET 1 TAB PO BID Heart failure . Calcium Carbonate/Vitamin D3 (Caltrate 600 + D Tablet) 600 MG-800 TABLET 1 TAB PO BID SUPPLEMENT (Reported) Diltiazem HCl (Diltiazem 24HR ER) 120 MG CAP.ER.24H 1 CAP PO DAILY Atrial fibrillation . Escitalopram Oxalate 10 MG TABLET 1 TAB PO 1800 MENTAL HEALTH (Reported) Metoprolol Tartrate 50 MG TABLET 1 TAB PO BID HIGH BLOOD PRESSURE (Reported) Quetiapine Fumarate 25 MG TABLET 1 TAB PO 1800 MENTAL HEALTH (Reported) Quetiapine Fumarate 25 MG TABLET 0.5 TAB PO 1800 MENTAL HEALTH (Reported) Vitamin B Complex (B Complex) 1 EACH TABLET 1 TAB PO D SUPPLEMENT (Reported) Past History Medical History Neurological: dementia EENT: NONE Cardiovascular: hyperlipidemia, HTN. AFIB,CHF Respiratory: NONE Gastrointestinal: NONE Hepatic: NONE Renal: NONE Musculoskeletal: osteoarthritis Psychiatric: NONE Endocrine: NONE Blood Disorders: NONE Cancer(s): NONE GAS TECHNICIAN/Reproductive: NONE History of MRSA: No History of VRE: No History of CDIFF: No Surgical History Surgical History: non-contributory Past Family/Social History Family History Relations & Conditions if any MOTHER Relation not specified for: FHx: stomach cancer Psychosocial History Who Do You Live With? self Primary Language: [place] Functional Ability ADLs Independent: dressing, eating, toileting, bathing. Ambulation: cane IADLs Independent: shopping, housework, finances, food prep, telephone, transportation , medication admin. Review of Systems Review of Systems Constitutional: Reports: see HPI. Exam & Diagnostic Data Last 24 Hrs of Vital Signs/I&O pt on hospice care Physical Exam General Appearance No Acute Distress Cardiovascular irreg irreg Lungs Clear to Auscultation (crackles bases ) Assessment/Plan Assessment: Pt on hospice care and on prn morphine, ativan, robinul On scopolamine patch on prn tylenol and prn dulcolax suppository. As Ranked By This Provider Problem List: 1. Acute CHF (congestive heart failure) Core Measures/Misc (06/07) Acute Coronary Syndrome ACS Diagnosis: No Congestive Heart Failure Congestive Heart Failure Diagnosis Yes Cerebrovascular Accident CVA/TIA Diagnosis: No VTE (View Protocol) VTE Risk Factors Other (on hospice) No Mechanical VTE Prophylaxis d/t Other (on hospice) No VTE Pharm Prophylaxis d/t Other (on hospice) Sepsis (View protocol) Sepsis Present: No
[2018-02-02 14:40] VITALS: BP 130/82
--- NOTE | 2018-02-03 14:00 | Discharge Summary ---
Visit Information Visit Dates Admission Date: 02/02/18 Discharge Date: 02/02/18 Hospital Course Course Attending Physician: Rachel Spence MD Primary Care Physician: Ricki Stewart MD Hospital Course: 87-year-old female with extensive past medical history including CHF presented with SOB, associated with, orthopnea, bilat LE edema, JVD and cxr with pleural effusion for which she was diagnosed with acute hypoxic respiratory failure. Echocardiogram during this admission showed EF 30-35% compared to EF 45-50% around 3 months ago. Acute Hypoxic Resp Failure 2/2 Acute decompensated CHF: extensive discussion with family was conducted by primary medicine team while pt was on telemtry and pt was switched to comfort care and after evaluation by hospice was switched to hospice care. Pt. was kept comfortable with morphine for dyspnea and ativan for anxiety, scopolamine and Robinul for secretions, until she peacefully later the same evening with family at bedside. Allergies: Coded Allergies: NO KNOWN ALLERGIES (NONE 12/22/17) Disposition Summary Disposition Principal Diagnosis: Acute hypoxic respiratory failure Acute on chronic hearf failure with reduced ejection fraction Additional Diagnosis: Atrial fibrillation Alzheimer disease Discharge Disposition: Discharge Instructions General Discharge Information Code Status: Hospice Patient's Diet: N/A Patient's Activity: N/A Follow-Up Instructions/Appts: N/A Copies To: Ricki Stewart MD
== END 2018-02-02 23:45 | disposition expired | DRG 189 ==
LOC: 2NA 13:05
DX: J96.01 Acute respiratory failure with hypoxia (principal); I48.2 Chronic atrial fibrillation; I50.9 Heart failure, unspecified; I11.0 Hypertensive heart disease with heart failure; Z51.5 Encounter for palliative care; F03.90 Unspecified dementia, unspecified severity, without behavioral disturbance, psychotic disturbance, mood disturbance, and anxiety; E78.5 Hyperlipidemia, unspecified; F41.9 Anxiety disorder, unspecified; G47.00 Insomnia, unspecified; Z79.01 Long term (current) use of anticoagulants